=== PATIENT | female | born 1955 | race Caucasian/White ===

== ENCOUNTER → 2018-04-09 14:22 | Outpatient (CLI) | payer OTHER, SELFPAY ==
[2018-04-13 14:24] LABS: HPV Reflexed? NOT INDICATED
== END ==
PROVIDERS: Family Provider Preventive Medicine Occupational Medicine; PCP Preventive Medicine Occupational Medicine; Visit Provider Obstetrics & Gynecology
DX: Z12.4 Encounter for screening for malignant neoplasm of cervix (principal)
CPT/HCPCS: 88175; G0145

== ENCOUNTER → 2018-04-30 16:10 | Outpatient (CLI) | payer OTHER, SELFPAY ==
--- NOTE | 2018-04-30 16:15 | BI_ITS ---
MAMMOGRAPHY - BILATERAL SCREENING REASON FOR EXAM: Female, 62 years old. Routine annual screening examination. PERTINENT HISTORY: Non-contributory. TECHNIQUE: Digital bilateral breast lakshmi (3D mammographic acquisition) in the CC and MLO projections. 2-D mediolateral oblique (MLO) and craniocaudad (CC) views of both breasts were obtained. CAD: Full Field Digital Mammography with Computer Added Detection was performed. COMPARISON: Comparison is made with prior study dated March 20, 2017 and December 07, 2015. FINDINGS: Breast Composition: The breasts are extremely dense, which lowers the sensitivity of mammography. There are no dominant masses or suspicious calcifications. Stable scattered bilateral calcifications No other significant abnormalities are identified. There has been no significant change since the prior study. BI/SCREENING MAMM (CAD), BILAT IMPRESSION: Stable bilateral screening mammogram. Yearly follow-up mammogram recommended. (A) ASSESSMENT CATEGORY: BIRADS Category 2: Benign. A letter regarding these results will be sent to the patient by the facility within 30 days. Approximately 10% of breast cancers are not detected by mammography. A normal mammogram should not delay biopsy of a clinically suspicious abnormality. [id number] Electronically Signed: Perfecto Isbell MD at 11:21 EDT Tel [phone], Service support ,
== END ==
PROVIDERS: Family Provider Preventive Medicine Occupational Medicine; PCP Preventive Medicine Occupational Medicine; Visit Provider Obstetrics & Gynecology
DX: Z12.31 Encounter for screening mammogram for malignant neoplasm of breast (principal)
CPT/HCPCS: 77063; 77067

== ENCOUNTER 2018-07-03 12:16 | Emergency (ER) | payer OTHER, SELFPAY ==
[2018-07-03 12:19] VITALS: BP 149/100; PULSE 115; RESP 18; TEMP 37.3; O2SAT 99; BMI 18.9
--- NOTE | 2018-07-03 12:33 | CT_ITS ---
STUDY: CT ABDOMEN AND PELVIS WITHOUT CONTRAST REASON FOR EXAM: Female, 62 years old. Right flank and back pain RADIATION DOSAGE (If Supplied By Facility): CTDIvol = ( 4.74 ) mGy, DLP = ( 199.32 ) mGycm TECHNIQUE: Transaxial images were obtained from the dome of the diaphragm to the symphysis pubis without oral contrast, and without intravenous contrast. Sagittal and coronal images were reconstructed. Individualized dose optimization techniques were used for this CT. COMPARISON: None. FINDINGS: There are chronic interstitial fibrotic changes of the lung bases. The visualized portions of the heart are within normal limits. Normal liver. Normal gallbladder and extrahepatic biliary system. Normal spleen. Normal pancreas. Normal bilateral adrenal glands. Normal right kidney. Normal left kidney. Normal visualized stomach. Normal small intestine. Retained stool noted throughout the colon There is non-visualization of the appendix. Normal abdominal aorta. Normal inferior vena cava. Normal retroperitoneum. Normal urinary bladder. Uterus is still present, the endometrium cannot be accurately evaluated with CT. Normal abdominal wall. There are diffuse degenerative and postsurgical changes of the visualized lumbar spine. CT/Abdomen/Pelvis without Cont IMPRESSION: No suspicious solid organ abnormality, specifically, no obstructive uropathy. Retained stool noted throughout the colon Degenerative and postsurgical changes noted in the lumbar spine Electronically Signed: Travis Foster MD at 14:06 EST , Service support ,
[2018-07-03] MEDS: Morphine 4 MG/ML Syringe IV (13:25)
[2018-07-03] MEDS: Ondansetron 4 MG/2 ML Vial IV (13:25)
[2018-07-03] MEDS: 0.9% Normal Saline 1,000 ML 150 ML IV (13:25)
[2018-07-03 13:38] LABS: Absolute Lymphocyte Count 2.68 X10^3/ul (0.83-4.51); Absolute Neutrophil Count 4.6 X10^3/uL (2.0-7.7); Basophil# 0.04 X10^3/uL; Basophil% 0.5 % (0-1); Eosinophil# 0.19 X10^3/uL; Eosinophils% 2.3 % (0-5); Hematocrit 41.5 % (37-47); Hemoglobin 13.6 g/dl (12.0-15.0); Lymphocyte # 2.68 X10^3/ul (4.0); Lymphocyte % 31.8 % (19-41); Mean Corp Hgb Conc 32.8 g/gl (32-36); Mean Corpuscular Volume 97.6 fL (81-99); Mean Platelet Vol. 9.5 fl (6.2-12.0); Monocyte# 0.89 X10^3/uL; Monocyte% 10.5 % (0-10); Neutrophil # 4.63 X10^3/uL (2.7-7.7); Neutrophil % 54.8 % (47-70); Platelet Count 346 K/mm3 (150-450); RBC Distribution Width CV 12.9 % (11.6-14.6); RBC Distribution Width SD 45.8 fl (35.1-43.9); Red Blood Count 4.25 M/mm3 (4.2-5.4); White Blood Count 8.4 K/mm3 (4.4-11.0)
[2018-07-03 13:42] LABS: Anion Gap 7 (5-15); BUN 10 mg/dL (7-18); BUN/Creat Ratio 13.6 RATIO (10-20); Calcium,Total 9.1 mg/dL (8.5-10.1); Chloride 105 mmol/L (98-107); Creatinine, Serum 0.73 mg/dL (0.55-1.02); EST Glomerular Filtration Rate 85 mL/min (>60); Est Glom Filt Rate - Afr Amer 102 mL/min (>60); Estimated Creatinine Clearance 54.08 ml/min; Glucose 95 mg/dL (74-106); Potassium 3.4 mmol/L (3.5-5.1); Sodium Level 139 mmol/L (136-145)
[2018-07-03 13:43] LABS: POSITIVE COUNT NO; POSITIVE DIFFERENTIAL NO; POSITIVE MORPHOLOGY NO
[2018-07-03 14:23] LABS: Bacteria 0 SEEN /hpf (None Seen); Mucous, Urine 0 SEEN /hpf (<or=2+); White Blood Cells 0 SEEN /hpf (0-5)
[2018-07-03 14:34] LABS: Color, Urine Yellow (Yellow); Glucose, Dipstick Normal (Normal); Ketone-Dipstick 15 mg/dl (Negative); Leukocyte Esterase-Dipstick 25 /ul (Negative); Nitrite-Dipstick Negative (Negative); Occult Blood-Urine 50 /ul (Negative); Protein-Dipstick 30 mg/dl (Negative); Specific Gravity, Urine 1.015 (1.002-1.030); Urine Bilirubin Dipstick Negative (Negative); Urine Clarity Sl. Cloudy (Clear); Urine Urobilinogen 1 mg/dl (Normal)
[2018-07-03 14:49] LABS: Red Blood Cells-Urine 0-5 SEEN /hpf (0-5); Squamous Epithelial Cells - UA 0-5 SEEN /hpf (5-10)
--- NOTE | 2018-07-03 15:01 | ED.VISSUMM ---
- ER Visit Summary Date of Service: 07/03/18 Chief Complaint: Back pain [] History of Present Illness: The patient is a 62 F [presents to the emergency department complaint of back pain and started 5 days ago. Patient denies any trauma. Patient states that she has a history of chronic back pain issues and years ago had surgery on her low back to have a fusion 3 years ago. Patient denies any falls or trauma. She denies any urinary symptoms. She denies any fever. Patient denies weakness in the extremities. She denies any loss of bowel or bladder function. Patient's not had any nausea or vomiting. Patient rates the pain a 10 out of 10 currently. Physical Examination: [HEENT-PERRLA, EOMI. Cranial nerves II through XII grossly intact. TMs clear. Mucous membranes moist. No adenopathy. Cardiovascular-regular rate and rhythm without murmur or ectopy Lungs-clear to auscultation, chest wall stable without crepitus or subcu emphysema Abdomen-normoactive bowel sounds, soft, nontender, no rebound or rigidity, no peritoneal signs. Back exam-patient has no tenderness over the thoracic or lumbar spine. Patient does have some tenderness over the right lumbar paraspinal musculature into the right buttock that reproduces her pain. Patient has negative straight leg raises. Deep tendon reflexes are plus 2 out of 4 bilaterally at the patella and Achilles. Patient has normal L5 extension bilaterally. Extremities-intact ?4, normal range of motion, normal pulses, atraumatic] Test Results: [CBC with differential obtained was normal. Chemistries unremarkable. Urinalysis unremarkable. CT flank showed degenerative changes of the lumbar spine postsurgical changes otherwise nothing acute.] Emergency Department Course and Treatment: [Was medicated with Dilaudid and Zofran had good pain relief with that.] Treatment Plan: [She will be given a prescription for Flexeril and [place] and she is advised to follow-up with her orthopedic back specialist within next 3-5 days.] Disposition: [Discharged home in stable condition] Impression: [Back pain acute on chronic] This note was generated with [employer] dictation software. It may contain incorrect words, spelling, and punctuation that were not noted in review of the chart prior to signing ED Disposition - Plan for ED Patient: Chief Complaint: Back Referrals: Mac Trujillo DO [Primary Care Provider] -
[2018-07-03 15:04] VITALS: BP 121/75; PULSE 75; RESP 12; O2SAT 96
--- NOTE | 2018-07-03 15:04 | ED.DCSUM_ITS ---
- ER Visit Summary Date of Service: 07/03/18 Chief Complaint: Back pain [] History of Present Illness: The patient is a 62 F [presents to the emergency department complaint of back pain and started 5 days ago. Patient denies any trauma. Patient states that she has a history of chronic back pain issues and years ago had surgery on her low back to have a fusion 3 years ago. Patient denies any falls or trauma. She denies any urinary symptoms. She denies any fever. Patient denies weakness in the extremities. She denies any loss of bowel or bladder function. Patient's not had any nausea or vomiting. Patient rates the pain a 10 out of 10 currently. Physical Examination: [HEENT-PERRLA, EOMI. Cranial nerves II through XII grossly intact. TMs clear. Mucous membranes moist. No adenopathy. Cardiovascular-regular rate and rhythm without murmur or ectopy Lungs-clear to auscultation, chest wall stable without crepitus or subcu emphysema Abdomen-normoactive bowel sounds, soft, nontender, no rebound or rigidity, no peritoneal signs. Back exam-patient has no tenderness over the thoracic or lumbar spine. Patient does have some tenderness over the right lumbar paraspinal musculature into the right buttock that reproduces her pain. Patient has negative straight leg raises. Deep tendon reflexes are plus 2 out of 4 bilaterally at the patella and Achilles. Patient has normal L5 extension bilaterally. Extremities-intact ?4, normal range of motion, normal pulses, atraumatic] Test Results: [CBC with differential obtained was normal. Chemistries unremarkable. Urinalysis unremarkable. CT flank showed degenerative changes of the lumbar spine postsurgical changes otherwise nothing acute.] Emergency Department Course and Treatment: [Was medicated with Dilaudid and Zofran had good pain relief with that.] Treatment Plan: [She will be given a prescription for Flexeril and [place] and she is advised to follow-up with her orthopedic back specialist within next 3-5 days.] Disposition: [Discharged home in stable condition] Impression: [Back pain acute on chronic] This note was generated with [employer] dictation software. It may contain incorrect words, spelling, and punctuation that were not noted in review of the chart prior to signing ED Disposition - Plan for ED Patient: Chief Complaint: Back Referrals: Mac Trujillo DO [Primary Care Provider] -
--- NOTE | 2018-07-03 15:04 | ED.DEP ---
ED Disposition - Plan for ED Patient: Chief Complaint: Back Instructions: ED Neck Back Pain General, ED Spasm Back No Trauma Prescriptions: Hydrocodone Bitart/Apap 5-325 [[place] 5MG-325MG] 1 tab PO Q4H PRN PRN 2 Days #20 tab PRN Reason: Pain MethylPREDNISolone DosePak [Medrol DosePak] 4 mg PO UD #1 box Cyclobenzaprine [Flexeril] 10 mg PO TID PRN #20 tab PRN Reason: Muscle Spasm Referrals: Mac Trujillo DO [Primary Care Provider] - 3-5 Days Additional Instructions: See your back surgeon in 3-5 days
--- NOTE | 2018-07-03 15:07 | DCINST.ED_ITS ---
ED Disposition - Plan for ED Patient: Chief Complaint: Back Instructions: ED Neck Back Pain General, ED Spasm Back No Trauma Prescriptions: Hydrocodone Bitart/Apap 5-325 [[place] 5MG-325MG] 1 tab PO Q4H PRN PRN 2 Days #20 tab PRN Reason: Pain MethylPREDNISolone DosePak [Medrol DosePak] 4 mg PO UD #1 box Cyclobenzaprine [Flexeril] 10 mg PO TID PRN #20 tab PRN Reason: Muscle Spasm Referrals: Mac Trujillo DO [Primary Care Provider] - 3-5 Days Additional Instructions: See your back surgeon in 3-5 days
== END 2018-07-03 15:20 | disposition home or self-care (01) ==
PROVIDERS: Emergency Provider Emergency Medicine; Family Provider Preventive Medicine Occupational Medicine; PCP Preventive Medicine Occupational Medicine
DX: M54.9 Dorsalgia, unspecified (principal); G89.29 Other chronic pain; M51.36 Other intervertebral disc degeneration, lumbar region; Z72.0 Tobacco use
CPT/HCPCS: 74176; 80048; 81001; 85025; 96361; 96374; 96375; 99283; J7030; A4216; J2405

== ENCOUNTER → 2018-09-18 12:41 | Outpatient (CLI) | payer OTHER, SELFPAY ==
[2018-09-18 13:26] LABS: CREATININE FINGERSTICK 0.7 mg/dL (0.55-1.02); EGFR FINGERSTICK > 60.0000 mL/min (>60)
--- NOTE | 2018-09-18 13:45 | MRI_ITS ---
STUDY: MRI LUMBAR SPINE WITH AND WITHOUT CONTRAST REASON FOR EXAM: Female, 63 years old. Low back pain. Left leg numbness. TECHNIQUE: Standardized fat and water weighted pulse sequences were obtained in the sagittal and axial planes. 4 ml of Gadavist contrast material was administered for the contrast portion of the examination. COMPARISON: 04/29/2017. FINDINGS: T10-T11: (Sagittal only). Normal T10 inferior endplate. Slight anterior wedging of T11 superior endplates may be developmental or from remote injury. Pronounced disc space height narrowing. No ventral extradural defect. Normal central canal and bilateral intervertebral neural foramina. T11-T12: (Sagittal only). Normal T11 inferior endplate. Slight anterior wedging of T12 superior endplate may be developmental or from remote injury. Moderate disc space height narrowing. No ventral extradural defect. Normal central canal and bilateral intervertebral neural foramina. T12-L1: (Sagittal only). Normal T12 inferior endplate. Slight anterior wedging of L1 superior endplate with anterior marginal spur. Tiny posterior bulging disc. Normal central canal and bilateral intervertebral neural foramina. Normal lumbar lordosis. There is no substantial scoliosis. Normal conus medullaris that terminates at the T12-L1 disc level. L1-2: Normal T12 inferior endplate. Minimal anterior wedging of L2 superior endplate is presumably from remote injury. Moderate disc space height narrowing. Tiny posterior bulging disc. Normal central canal and bilateral lateral recesses. Normal facet joints. Normal bilateral intervertebral neural foramina. L2-3: Anterior wedging of the L2 inferior endplate is presumably from remote injury. Schmorl's node within the L3 superior endplate. Moderate disc space height narrowing. Pedicular screws and rods from previous posterior decompression fusion. Postsurgical absence of the spinous process and lamina. Normal central canal and bilateral lateral recesses. The facet joints are obscured by pedicular screws. Normal bilateral intervertebral neural foramina. L3-4: Normal endplates. Normal disc height and morphology. Mild central canal stenosis with an AP canal diameter to 11 mm. Normal bilateral lateral recesses. Mild asymmetric degenerative facet arthropathy. Normal bilateral intervertebral neural foramina. L4-5: Normal endplates. Normal disc height and morphology. Mild degenerative anterolisthesis of L4 on L5. Moderate central canal stenosis with an AP canal diameter is 7.4 mm. Normal bilateral lateral recesses. Left posterior ligamentum flavum hypertrophy. Mild asymmetric degenerative facet arthropathy. Normal bilateral intervertebral neural foramina. L5-S1: Normal endplates. Posterior disc space height narrowing. Left posterior paramedian disc protrusion. Normal central canal and bilateral lateral recesses. Mild asymmetric degenerative facet arthropathy. Moderate stenosis of the left intervertebral neural foramen. Normal right intervertebral neural foramen. Normal visualized sacral ala. Normal visualized paraspinous soft tissue structures. No abnormal enhancing lesions intradurally and extradurally. MRI/Spine Lumbar W/WO Contrast IMPRESSION: 1. Left L5-S1 posterior paramedian disc protrusion and moderate stenosis of the left intervertebral neural foramen. 2. Mild degenerative anterolisthesis of L4 on L5, moderate central canal stenosis and mild asymmetric L4-L5 degenerative facet arthropathy. 3. Mild central canal stenosis at L3-L4 disc level and mild asymmetric L3-L4 degenerative facet arthropathy. 4. Pedicular screws and rods at L2-L3 disc level from previous posterior decompression and fusion. 5. Minimal anterior wedging of the superior endplates of T11, T12, L1 and L2 vertebral bodies. They're presumably from remote injury. 6. No MRI evidence of lumbar extruded disc fragment. 7. No interval change when compared to 04/29/2017. Electronically Signed: Jesus Hilton MD at 10:48 EST , Service support ,
== END ==
PROVIDERS: Family Provider Preventive Medicine Occupational Medicine; PCP Preventive Medicine Occupational Medicine; Referring Provider Preventive Medicine Occupational Medicine; Visit Provider Preventive Medicine Occupational Medicine
DX: M54.16 Radiculopathy, lumbar region (principal); M51.36 Other intervertebral disc degeneration, lumbar region
CPT/HCPCS: 72158; A9585

== ENCOUNTER → 2019-09-02 07:28 | Outpatient (CLI) | payer OTHER, SELFPAY ==
[2019-09-02 08:25] LABS: Hematocrit 43.8 % (37-47); Hemoglobin 14.1 g/dL (12.0-15.0); Mean Corp Hgb Conc 32.2 g/dL (32-36); Mean Corpuscular Hgb 31.9 pg (27.0-32.0); Mean Corpuscular Volume 99.1 fL (81-99); Mean Platelet Vol. 9.4 fl (6.2-12.0); Platelet Count 338 K/mm3 (150-450); RBC Distribution Width CV 12.6 % (11.6-14.6); RBC Distribution Width SD 46.1 fl (35.1-43.9); Red Blood Count 4.42 M/mm3 (4.2-5.4); White Blood Count 6.7 K/mm3 (4.4-11.0)
[2019-09-02 08:45] LABS: ALB/GLOB Ratio 1.1 RATIO (0.9-2.4); AST(SGOT) 18 U/L (15-37); Alanine Aminotransfer ALT/SGPT 21 U/L (13-56); Albumin, Serum 3.9 g/dL (3.2-5.0); Alkaline Phosphatase 84 U/L (45-117); Anion Gap 4 (5-15); BUN 11 mg/dL (7-18); BUN/Creat Ratio 13.3 RATIO (10-20); Calcium,Total 9.4 mg/dL (8.5-10.1); Chloride 110 mmol/L (98-107); Cholesterol 207 mg/dL (200); Creatinine, Serum 0.83 mg/dL (0.55-1.02); EST Glomerular Filtration Rate 73 mL/min (>60); Est Glom Filt Rate - Afr Amer 89 mL/min (>60); Globulin 3.5 g/dL (2.2-4.2); Glucose 81 mg/dL (74-106); High Density Lipoprotein 61 mg/dL; Protein, Total 7.4 g/dL (6.4-8.2); Sodium Level 143 mmol/L (136-145); Thyroid Stim Hormone (TSH) 1.64 uIU/mL (0.358-3.74); Triglycerides 75 mg/dL; Very Low Density Lipoprotein 15 mg/dL (5-40)
== END ==
PROVIDERS: Family Provider Preventive Medicine Occupational Medicine; PCP Preventive Medicine Occupational Medicine; Referring Provider Preventive Medicine Occupational Medicine; Visit Provider Preventive Medicine Occupational Medicine
DX: R53.83 Other fatigue (principal); Z13.220 Encounter for screening for lipoid disorders
CPT/HCPCS: 36415; 80053; 80061; 84443; 85027

== ENCOUNTER → 2019-09-20 07:18 | Outpatient (CLI) | payer OTHER, SELFPAY ==
[2019-09-20 08:34] LABS: BUN 17 mg/dL (7-18); Creatinine, Serum 0.82 mg/dL (0.55-1.02); EST Glomerular Filtration Rate 74 mL/min (>60); Est Glom Filt Rate - Afr Amer 89 mL/min (>60)
== END ==
PROVIDERS: PCP Preventive Medicine Occupational Medicine; Referring Provider Orthopaedic Surgery Orthopaedic Surgery of the Spine; Visit Provider Orthopaedic Surgery Orthopaedic Surgery of the Spine
DX: M51.36 Other intervertebral disc degeneration, lumbar region (principal)
CPT/HCPCS: 36415; 82565; 84520

== ENCOUNTER → 2019-09-30 09:20 | Outpatient (CLI) | payer OTHER, SELFPAY ==
--- NOTE | 2019-09-30 09:27 | MRI_ITS ---
STUDY: MRI LUMBAR SPINE WITH AND WITHOUT CONTRAST REASON FOR EXAM: Female, 64 years old. back pain radiating into L leg x 1 year, h/o prior spinal fusion TECHNIQUE: Standardized fat and water weighted pulse sequences were obtained in the sagittal and axial planes. IV 9 cc Dotarem was administered for the contrast portion of the examination. COMPARISON: September 18, 2018 FINDINGS: T12-L1: Normal endplates. Narrowed disc height with desiccation of disc and minimal annular bulge.. Normal bilateral facet joints. Normal central canal and bilateral lateral recesses. Normal bilateral intervertebral neural foramina. Normal lumbar lordosis. There is moderate levo scoliosis. Normal conus medullaris that terminates at T12-L1 L1-2: Normal endplates. Narrowed disc height with desiccation of disc and minimal annular bulge with tiny right foraminal disc protrusion. Normal bilateral facet joints. Normal central canal and bilateral lateral recesses. Mild right neuroforaminal encroachment. L2-3: Mild endplate spurring.. Narrowed disc space with desiccation of the disc and minimal annular bulge.. Normal bilateral facet joints. Normal central canal and bilateral lateral recesses. Normal bilateral intervertebral neural foramina. L3-4: Normal endplates. Normal disc height, desiccation and small bilateral foraminal disc protrusions. Normal bilateral facet joints. Normal central canal and bilateral lateral recesses. Mild bilateral neural foraminal encroachment.. L4-5: Normal endplates. Normal disc height, hydration and mild annular bulge. Mild facet arthropathy and thickening of ligamenta flava. Normal central canal and bilateral lateral recesses. Moderate bilateral neuroforaminal stenosis L5-S1: Normal endplates. Normal disc height, desiccation and moderate annular bulge... Bilateral facet arthropathy and mild thickening of ligamenta flava.. Mild narrowing of the central canal and bilateral recesses. Moderate left neuroforaminal stenosis and mild encroachment on the right Normal visualized sacral ala. Normal visualized paraspinous soft tissue structures. No abnormal enhancement following contrast injections There is no significant interval change since previous study. MRI/Spine Lumbar W/WO Contrast IMPRESSION: No evidence for acute fracture or other significant bony pathology.. Scoliosis and degenerative changes. Postsurgical changes at L2-3. Mild multilevel spinal stenosis secondary to disc disease and bony hypertrophy most pronounced at L4-5 and L5-S1 greater on the left Electronically Signed: Keaton Carias MD at 19:11 EST , Service support ,
== END ==
PROVIDERS: PCP Preventive Medicine Occupational Medicine; Referring Provider Orthopaedic Surgery Orthopaedic Surgery of the Spine; Visit Provider Orthopaedic Surgery Orthopaedic Surgery of the Spine
DX: M51.26 Other intervertebral disc displacement, lumbar region (principal); M48.062 Spinal stenosis, lumbar region with neurogenic claudication; M51.36 Other intervertebral disc degeneration, lumbar region
CPT/HCPCS: 72158; A9575

== ENCOUNTER → 2020-06-03 10:32 | Outpatient (CLI) | payer MEDICARE, OTHER, SELFPAY ==
--- NOTE | 2020-06-03 10:30 | PET_ITS ---
EXAMINATION: FDG PET-CT INDICATIONS: A 64-year-old female with reported history of pulmonary nodularity. COMPARISON EXAMINATION: None available INDEX LESION SIZE SUV INTERPRETATION Right upper lung field-right upper lobe 12.4-mm (frame 179) 0.8 Quantitative criteria for viable neoplasm are not fulfilled, sequential radiologic investigation recommended TECHNIQUE: Following the intravenous administration of 12.4 mCi of F-18 deoxyglucose via the right forearm, multiplanar image acquisitions of the neck, chest, abdomen and pelvis to level of mid thigh, obtained at one hour post radiopharmaceutical administration contemporaneously interpreted with the current CT of the neck, chest, abdomen and pelvis, to level of mid thigh, dated 06/03/2020 via coregistration reveals: BLOOD GLUCOSE LEVEL:?? 97 mg/dl?HEIGHT:?61 inches?WEIGHT: 94 lbs. FINDINGS: 1. Subtle minimally increased FDG distribution is defined in the right upper medial lung-right upper lobe generating a calculated maximal standard uptake value of 0.8. The maximal axial diameter of the corresponding parenchymal density on review of CT of the chest dated 06/03/2020 is 12.4-mm. 2. Normal physiologic distribution of the radiopharmaceutical is apparent in the hepatic (2.1) and splenic parenchyma, both renal units, bladder and visualized intestinal tract. Diffuse radiopharmaceutical concentration is noted in all four quadrants of the abdomen and pelvis. Prominent radiopharmaceutical concentration is observed in the left ventricular myocardium commensurate with the [place]. The visualized portion of the cerebral cortex, as well as cerebellar hemispheres demonstrate symmetric and preserved glucose metabolism. Pertinent CT findings are as follows: CHEST: There is atherosclerotic calcification defined in the thoracic aorta without evidence of dilatation-aneurysm formation. Coronary arterial calcification is observed. Bilateral axillary soft tissue densities with fatty hilus are ametabolic. Scattered mediastinal soft tissue demonstrates no evidence of quantitatively significant increased FDG distribution. There are no additional parenchymal densities-nodules defined in the right and left hemithorax with discernible quantitatively significant increased FDG uptake. ABDOMEN AND PELVIS: There is atherosclerotic calcification defined in the abdominal aorta without evidence of dilatation-aneurysm formation. Pelvic arterial calcification is defined. Right and left inguinal soft tissue densities with fatty hilus are ametabolic. Postsurgical changes are manifest in the bilateral lower hemipelvis. SKELETAL: Degenerative changes are noted in the cervical, thoracic and lumbar spine. Orthopedic hardware placement consistent with spinal fusion operative intervention. Degenerative changes are noted in the cervical, thoracic and lumbar spine. PET/PET/CT Tumor Base -Thigh Init IMPRESSION: 1. NEGATIVE EXAMINATION. There is no definitive quantitative scintigraphic evidence of viable neoplasm. 2. Barely perceptible increased fluorine labeled glucose uptake visualized in the right upper lung-right upper lobe does not fulfill quantitative criteria for viable neoplasm. (Alvarez et al, Annals of Internal Medicine, 138:724, 2003). 3. Metabolic and/or anatomic stability may be ensured in the right upper lung abnormality with repeat FDG PET study and/or CT of the thorax in 3-6 months if clinically indicated. (Xiu, Journal of Nuclear Medicine 45:88, P2004 Valeri, Seminars in Thoracic and Cardiovascular Surgery 14:292, 2002). Electronic Signature Nader Ordaz D.O. Accurate Quantification of SUVs for this report are calculated using the exclusive [employer]. Electronically Signed: Nader Ordaz DO at 22:55 EDT Tel , Service support ,
== END ==
PROVIDERS: PCP Preventive Medicine Occupational Medicine; Referring Provider Student in an Organized Health Care Education/Training Program; Visit Provider Student in an Organized Health Care Education/Training Program
DX: R91.8 Other nonspecific abnormal finding of lung field (principal)
CPT/HCPCS: 78815; A9552

== ENCOUNTER → 2020-08-24 12:41 | Outpatient (CLI) | payer MEDICARE, OTHER, SELFPAY ==
--- NOTE | 2020-08-24 12:47 | BI_ITS ---
MAMMOGRAPHY - BILATERAL SCREENING REASON FOR EXAM: Female, 65 years old. Routine annual screening examination. PERTINENT HISTORY: Non-contributory. TECHNIQUE: Digital bilateral breast manisha (3D mammographic acquisition) in the CC and MLO projections. 2-D mediolateral oblique (MLO) and craniocaudad (CC) views of both breasts were obtained. CAD: Full Field Digital Mammography with Computer Added Detection was performed. COMPARISON: Comparison is made with prior examination is 04/30/2018 and 03/20/2017. FINDINGS: Breast Composition: The breasts are extremely dense, which lowers the sensitivity of mammography. There are no dominant masses or suspicious calcifications. Stable scattered bilateral calcifications. No other significant abnormalities are identified. There has been no significant change since the prior study. BI/SCREEN MAMM (CAD) W/MANISHA BILAT IMPRESSION: Stable bilateral screening mammogram. Yearly follow-up mammogram recommended. (A) ASSESSMENT CATEGORY: BIRADS Category 2: Benign. A letter regarding these results will be sent to the patient by the facility within 30 days. Approximately 10% of breast cancers are not detected by mammography. A normal mammogram should not delay biopsy of a clinically suspicious abnormality. [id number] Electronically Signed: Perfecto Isbell, at 13:51 EST , Service support ,
== END ==
PROVIDERS: PCP Preventive Medicine Occupational Medicine; Referring Provider Obstetrics & Gynecology; Visit Provider Obstetrics & Gynecology
DX: Z12.31 Encounter for screening mammogram for malignant neoplasm of breast (principal)
CPT/HCPCS: 77063; 77067

== ENCOUNTER → 2021-03-13 16:20 | Outpatient (CLI) | payer MEDICARE, OTHER, SELFPAY ==
--- NOTE | 2021-03-13 16:00 | PET_ITS ---
EXAMINATION: FDG PET-CT INDICATIONS: A 65-year-old female presenting for reevaluation of pulmonary nodularity. COMPARISON EXAMINATION: FDG PET-CT study dated 06/03/20, CT of the chest report dated 05/16/20 INDEX LESION SIZE SUV INTERPRETATION PERSISTENT: right upper lung-right upper lobe 17.8-mm (frame 170) comp. to 12.4-mm (06/03/20) 2.9 comp. to 0.8 (06/03/20) Fulfills quantitative criteria for viable neoplasm, histopathologic analysis recommended TECHNIQUE: Following the intravenous administration of 10.97 mCi of F-18 deoxyglucose via the left antecubital fossa, multiplanar image acquisitions of the neck, chest, abdomen and pelvis to level of mid thigh, obtained at one hour post radiopharmaceutical administration contemporaneously interpreted with the current CT of the neck, chest, abdomen and pelvis, to level of mid thigh, dated 03/13/21 via coregistration and FDG PET-CT study dated 06/03/[address] of the chest report dated 05/16/20 reveals: BLOOD GLUCOSE LEVEL:?? 95 mg/dl?HEIGHT:?60 inches?WEIGHT: 90 lbs. FINDINGS: 1. Redefined increased FDG concentration is observed in the right upper medial lung-right upper lobe generating a current calculated maximal standard uptake value of 2.9, compared to 0.8 defined on the examination dated 06/03/20. The maximal axial diameter of the persistently defined non-calcified density noted on CT of the chest dated 03/13/21 is 17.8-mm (transverse). 2. Normal physiologic distribution of the radiopharmaceutical is apparent in the hepatic (1.8/2.1) and splenic parenchyma, both renal units, bladder and visualized intestinal tract. The visualized portion of the cerebral cortical-subcortical structures demonstrate symmetric and preserved glucose metabolism. Diffuse radiopharmaceutical concentration is noted in all four quadrants of the abdomen and pelvis. Previously defined morphologic-anatomic changes noted on review of CT of the neck, chest, abdomen and pelvis on the FDG PET-CT report dated 06/03/20, are essentially unchanged on the current examination. PET/PET/CT Tumor Base -Thigh Init IMPRESSION: 1. The increase in FDG distribution redefined in the right upper medial lung-right upper lobe fulfills quantitative criteria for viable neoplasm on the current examination. Histopathologic analysis is recommended. (Alvarez et al, Annals of Internal Medicine, 138:724, 2003). 2. Overall, compared to the previous FDG PET-CT study dated 06/03/20, the persistently defined increase in FDG concentration observed in the right upper medial lung-right upper lobe fulfills quantitative criteria for viable neoplasm on the current examination. Accordingly, histologic investigation is recommended. (Antonio et al, Annals of Internal Medicine, 138:724, 2003). Electronic Signature Nader Ordaz D.O. Accurate Quantification of SUVs for this report are calculated using the exclusive [employer]. (U.S. Patent No. 10, [id number] 983). Standardization and correction of the FDG SUV metric via [employer] technology allow for vendor non-specific objective quantitative examination comparison and optimization of the sensitivity and specificity of the FDG PET-CT examination. Electronically Signed: Nader Ordaz DO at 22:01 EDT Tel , Service support ,
== END ==
PROVIDERS: PCP Preventive Medicine Occupational Medicine; Referring Provider Preventive Medicine Occupational Medicine; Visit Provider Preventive Medicine Occupational Medicine
DX: R91.8 Other nonspecific abnormal finding of lung field (principal)
CPT/HCPCS: 78815; A9552

== ENCOUNTER → 2022-01-16 | Outpatient (CLI) | payer MEDICARE, OTHER, SELFPAY ==
--- NOTE | 2022-01-16 07:45 | CT_ITS ---
STUDY: CT CHEST WITHOUT CONTRAST REASON FOR EXAM: Female, 66 years old. History of non-small cell lung cancer. Prior right upper lobe resection. RADIATION DOSAGE (If Supplied By Facility): CTDIvol = ( 6.04 ) mGy, DLP = ( 217.50 ) mGycm TECHNIQUE: Transaxial imaging was performed without the administration of intravenous contrast material. Multiplanar coronal and sagittal images were reformatted. Individualized dose optimization techniques were used for this CT. COMPARISON: No relevant priors. FINDINGS: CHEST The patient is status post resection of the right upper lobe. Linear postoperative scarring is seen along the anterior aspect of the right upper lobe. Emphysematous changes more prominent in the upper lobes. Mild linear scarring at the right lung base. Mild scarring and bronchiectasis along the medial aspect of the right middle lobe. There is no demonstrated pleural abnormality. There are calcifications of the coronary arteries. Normal mediastinum. Normal hilar regions. Normal unenhanced pulmonary arteries. Atherosclerotic plaque calcification of the aortic arch. There are multi-level degenerative changes of the thoracic spine. There is no demonstrated abnormality of the visualized upper abdomen. CT/Chest without Contrast IMPRESSION: Status post resection of the right upper lobe with postoperative scarring. No other abnormality is seen. Electronically Signed: Perfecto Isbell MD at 10:03 EDT ,
== END | disposition home or self-care (01) ==
LOC: CT 07:44
PROVIDERS: PCP Preventive Medicine Occupational Medicine; Visit Provider Internal Medicine Medical Oncology
DX: Z85.118 Personal history of other malignant neoplasm of bronchus and lung (principal); Z90.2 Acquired absence of lung [part of]
CPT/HCPCS: 71250

== ENCOUNTER → 2022-07-22 | Outpatient (CLI) | payer MEDICARE, OTHER, SELFPAY ==
--- NOTE | 2022-07-22 13:22 | CT_ITS ---
INDICATION: MONITOR LUNG CA History of non-small cell lung cancer. EXAMINATION: CT CHEST WITHOUT CONTRAST - CT Chest W/O Contrast Injection TECHNIQUE: Helically acquired images were obtained of the chest. A radiation dose optimization technique was used for this scan. IV Contrast dosage and agent: None. COMPARISON: January 16, 2022 CT scan chest,, PET scan June 03, 2020 FINDINGS: LUNGS, PLEURA AND LARGE AIRWAYS: There is minimal fibrotic change within the right upper lobe periphery. There is mild right lower lobe scarring with minimal thickening measuring up to 4 mm. This is stable since prior study January 16, 2022. There is a focal pleural-based density measuring 2.5 x 2.9 mm stable since prior study. The visualized emphysematous change in the lungs as described on prior study greater in the lung apices. There is a tiny nodular density within the super aspect of the right lower lobe that measures 2.6 mm. No pleural effusion or thickening. No pneumothorax. THYROID: No thyroid lesions. HEART AND PERICARDIUM: There is visualized fairly dense left anterior descending coronary artery calcification. No pericardial effusion. CORONARY ARTERIES: Coronary artery calcification is seen. VESSELS: Aorta is minimally calcified. The ascending thoracic aorta measures 3.4 x 3.3 cm. MEDIASTINUM AND SKIP there is postoperative change in the right side of the hilum anterior to the right side mainstem bronchus. No special mediastinal or hilar adenopathy. Esophagus is unremarkable. Minimal hiatal hernia. UPPER ABDOMEN: Limited visualization of the upper abdomen. There is a partially visualized thoracic spine fusion causing beam hardening artifact. Bones: There is degenerative change at the level of the L1-L2 level especially at the endplate. The bones are degenerative in mildly inhomogeneous. At the level of T4 there is an indeterminate focus of low attenuation measuring 9.3 mm. This is also seen on the prior study and also suggested on prior PET/CT June 03, 2020. CT/Chest without Contrast IMPRESSION: Stable chest. There is persistent scarring in the right lung base. There is a stable 2.6 mm right lower lobe nodule and a focus of pleural-based thickening. Continued follow-up is recommended in 6 months or as clinically appropriate. Status post right upper lobectomy. Coronary artery calcification with dense calcification of the left anterior descending coronary artery. Inhomogeneous appearance of the bony mineralization of the thoracic and lumbar spine. Stable 9.3 mm low attenuating lesion within the level of T4. This may represent a cyst or hemangioma. However given the patient''s clinical history recommend follow bone scan. There is a visualized degenerative appearance of the L1-L2 level above the lumbar spine fusion which is partially visualized on this study. Electronically Signed: Danielle Jean-Baptiste MD at 17:14 EST ,
== END | disposition home or self-care (01) ==
LOC: CT 13:20
PROVIDERS: PCP Preventive Medicine Occupational Medicine; Visit Provider Internal Medicine Medical Oncology
DX: C34.11 Malignant neoplasm of upper lobe, right bronchus or lung (principal)
CPT/HCPCS: 71250

== ENCOUNTER → 2022-08-02 | Outpatient (CLI) | payer MEDICARE, OTHER, SELFPAY | END | disposition home or self-care (01) | LOC: LABSPEC 09:50 | PROVIDERS: PCP Preventive Medicine Occupational Medicine; Visit Provider Obstetrics & Gynecology | DX: N39.0 Urinary tract infection, site not specified (principal) | CPT/HCPCS: 87086 ==

== ENCOUNTER → 2022-08-15 | Outpatient (CLI) | payer MEDICARE, OTHER, SELFPAY ==
--- NOTE | 2022-08-15 07:43 | BI_ITS ---
MAMMOGRAPHY - BILATERAL SCREENING REASON FOR EXAM: Female, 67 years old. Routine annual screening examination. PERTINENT HISTORY: Non-contributory. TECHNIQUE: Digital bilateral breast manisha (3D mammographic acquisition) in the CC and MLO projections. 2-D mediolateral oblique (MLO) and craniocaudad (CC) views of both breasts were obtained. CAD: Full Field Digital Mammography with Computer Added Detection was performed. COMPARISON: 08/24/2020, 04/30/2018. FINDINGS: Breast Composition: The breasts are extremely dense, which lowers the sensitivity of mammography. There are no dominant masses or suspicious calcifications. There are stable scattered benign-appearing bilateral breast calcifications. No other significant abnormalities are identified. There has been no significant change since the prior study. BI/SCRN MAMM (CAD)W/MANISHA BILAT IMPRESSION: Stable bilateral screening mammogram. Yearly follow-up mammogram recommended. (A) ASSESSMENT CATEGORY: BIRADS Category 2: Benign. A letter regarding these results will be sent to the patient by the facility within 30 days. Approximately 10% of breast cancers are not detected by mammography. A normal mammogram should not delay biopsy of a clinically suspicious abnormality. Electronically Signed: Carlton Schaeffer, at 15:58 EST ,
== END | disposition home or self-care (01) ==
LOC: OPBI 07:41
PROVIDERS: PCP Preventive Medicine Occupational Medicine; Visit Provider Obstetrics & Gynecology
DX: Z12.31 Encounter for screening mammogram for malignant neoplasm of breast (principal)
CPT/HCPCS: 77063; 77067

== ENCOUNTER → 2023-01-21 | Outpatient (CLI) | payer MEDICARE, OTHER, SELFPAY ==
--- NOTE | 2023-01-21 13:11 | CT_ITS ---
INDICATION: MONITOR LUNG CA/NODULE EXAMINATION: CT CHEST WITHOUT CONTRAST - CT Chest W/O Contrast Injection TECHNIQUE: Helically acquired images were obtained of the chest. A radiation dose optimization technique was used for this scan. IV Contrast dosage and agent: None. RADIATION DOSAGE (If Supplied By Facility): CTDIvol = ( 6.04 ) mGy, DLP = ( 197.86 ) mGycm COMPARISON: July 22, 2022 FINDINGS: LUNGS, PLEURA AND LARGE AIRWAYS: Hyperaeration of the lungs. Stable right lower lobe posterior pleural-based nodule, image 87 series 4. Stable scarring in the right base. Stable left upper lobe interstitial prominence. Stable 3 mm left lower lobe nodule, image 35 series 4. No pneumothorax. THYROID: No thyroid lesions. HEART AND PERICARDIUM: Heart size is normal. No pericardial effusion. CORONARY ARTERIES: Coronary artery calcification VESSELS: Thoracic aorta is not dilated. MEDIASTINUM AND SKIP: No mediastinal or hilar adenopathy. Esophagus is unremarkable. No hiatal hernia. UPPER ABDOMEN: No acute pathology. BONES: Lytic vertebral lesions similar to previous study. Degenerative vertebral changes. Compression with surgical fusion of the visualized upper lumbar segments. CT/Chest without Contrast IMPRESSION: Hyperaeration. Stable right pulmonary nodular densities and scarring is noted. Possible lytic vertebral lesions similar to the previous study. Electronically Signed: Ghulam Guillory DO at 21:42 EDT ,
== END | disposition home or self-care (01) ==
LOC: CT 13:07
PROVIDERS: PCP Preventive Medicine Occupational Medicine; Referring Provider Internal Medicine Medical Oncology; Visit Provider Internal Medicine Medical Oncology
DX: C34.90 Malignant neoplasm of unspecified part of unspecified bronchus or lung (principal)
CPT/HCPCS: 71250

== ENCOUNTER → 2023-08-19 | Outpatient (CLI) | payer MEDICARE, OTHER, SELFPAY ==
--- NOTE | 2023-08-19 14:34 | CT_ITS ---
EXAM: CT CHEST WITHOUT INTRAVENOUS CONTRAST CLINICAL INDICATION: MONITOR LUNG CA TECHNIQUE: Helically acquired images were obtained of the chest without intravenous contrast. This CT exam was performed using one or more of the following dose reduction techniques: automated exposure control, adjustment of the mA and/or kV according to patient size, and/or use of iterative reconstruction technique. RADIATION DOSE: CTDIvol = 6.04 mGy, DLP = 196.35 mGy-cm COMPARISON: CT chest with contrast 07/20/2023. FINDINGS: LUNGS AND PLEURAL SPACES: Minimal subsegmental atelectases in the right lung base. No suspicious pulmonary nodules. Pulmonary hyperinflation and flattening of the hemidiaphragms. No pleural effusion or thickening. No pneumothorax. HEART: Unremarkable. Heart size is normal. Normal cardiac size. Calcified plaques in the LAD branch. Normal pericardium. MEDIASTINUM: Unremarkable. No mediastinal or hilar adenopathy. Esophagus is unremarkable. No hiatal hernia. THYROID: Unremarkable. No thyroid lesions. BONES/JOINTS: Unremarkable. No suspicious lytic or blastic abnormality. VASCULATURE: Unremarkable. Thoracic aorta is non-dilated. CT/Chest without Contrast IMPRESSION: 1. No suspicious lung mass or residual lung mass. 2. Cystic emphysema predominant type of COPD. 3. Minimal subsegmental atelectasis right base is a new finding. Minimal subsegmental atelectasis left lung base is unchanged.. Electronically Signed: Jesus Hilton MD at 10:50 EST ,
--- OUTSIDE RECORDS SUMMARY | 2023-08-19 17:06 | XMS RPT_ITS | CCD ---
Author Name Unknown Address [address] [place] [address] Organization [facility] Care Team Providers Care Candy Cooker Helper Name Role Phone Keaton Chaney Referring Unavailable Jamey García Admitting Unavailable Jamey García Attending Unavailable Analy Infante MD Primary Care Unavailable Tanya Willard Admitting Unavailable Tanya Willard Attending Unavailable Analy Mondragon Primary Care Unavailable Jamey García Admitting Unavailable Jamey García Attending Unavailable Analy Mondragon Primary Care Unavailable Sudheer Tanya Admitting Unavailable Sudheer Tanya Attending Unavailable Analy Mondragon Primary Care Unavailable Jamey García Admitting Unavailable Jamey García Attending Unavailable Analy Mondragon Primary Care Unavailable ANALY MONDRAGON DO Primary Care Physician [phone] ANALY MONDRAGON DO Primary Care Physician [phone] Glendy ZULETA, Chana Neri Unavailable Unavailable Simon Torresing Nurse, Cody Unavailable ANALY Wynn MD Attending Unavailable ANALY MONDRAGON DO Primary Care Unavailable ANALY ANAYA MD Attending Unavailable ANALY MONDRAGON DO Primary Care Unavailable EZEKIEL BENITEZ MD Attending Unavailable ANALY MONDRAGON DO Primary Care Unavailable DR BROWN WETZEL MD Attending Unavailabl e ANALY MONDRAGON DO Primary Care Unavailable ANALY MONDRAGON DO Attending Unavailable ANALY MONDRAGON DO Primary Care Unavailable HELENA TEERSA MD Attending Unavailable HELENA TERESA MD Consulting Unavailable ANALY MONDRAGON DO Primary Care Unavailable ANALY MONDRAGON DO Primary Care Unavailable ANALY ANAYA MD Attending Unavailable EZEKIEL BENITEZ MD Admitting Unavailable EZEKIEL BENITEZ MD Attending Unavailable BELKIS FISHER MD, V Consulting Unavailable GIANCARLO DO, ANALY Primary Care Unavailable SARTHAK GONZÁLES, SIERRA Consulting Unavailable ELI GONZÁLES, EZEKIEL K Consulting Unavailable ELI GONZÁLES, EZEKIEL K Admitting Unavailable ELI GONZÁLES, EZEKIEL Fisher Attending Unavailable GIANCARLO DO, ANALY Consulting Unavailable GIANCARLO DO, ANALY Primary Care Unavailable ARTUR HERNANDEZ MD Consulting Unavailab Swapna GONZÁLES, EDWINA Consulting Unavailable GIANCARLO DO, ANALY Primary Care Unavailable GRANT CHATMAN, POPPY [place] Attending Dunia vailable ELI GONZÁLES, EZEKIEL Fisher Attending Unavailable GIANCARLO DO, ANALY Primary Care Unavailable GIANCARLO DO, ANALY Primary Care Unavailable ANALY ANAYA MD Attending Unavailable GIANCARLO DO, ANALY Primary Care Unavailable HÉCTOR GONZÁLES, ANALY Yusuf Attending Unavailable GIANCARLO DO, ANALY Primary Care Unavailable SARA MELISSA Attending Unavailable ELI GONZÁLES, EZEKIEL Fisher Attending Unavailable GIANCARLO DO, ANALY Primary Care Unavailable ELI GONZÁLES, EZEKIEL Fisher Attending Unavailable GIANCARLO DO, ANALY Primary Care Unavailable ELI GONZÁLES, EZEKIEL Fisher Attending Unavailable GIANCARLO DO, ANALY Primary Care Unavailable GIANCARLO DO, ANALY Primary Care Unavailable SARA MELISSA Attending Unavailable GIANCARLO DO, ANALY Attending Unavailable GIANCARLO DO, ANALY Primary Care Unavailable HÉCTOR GONZÁLES, ANALY Yusuf Attending Unavailable GIANCARLO DO, ANALY Primary Care Unavailable GIANCARLO DO, ANALY Primary Care Unavailable GRANT CHATMAN, POPPY De [place] Attending Dunia vailable GRANT AWAN-BOWLING BALL GRADER, POPPY De La [place] Attending Dunia vailable GIANCARLO DO, ANALY Primary Care Unavailable DONATO LOMAS MD Attending Unavailable GIANCARLO DO, ANALY Primary Care Unavailable HELENA TERESA MD Attending Unavailable GIANCARLO DO, ANALY Primary Care Unavailable BURNS DIRECTOR [employer]S-BOWLING BALL GRADER, POPPY De La [place] Attending Dunia vailable GIANCARLO DO, ANALY Primary Care Unavailable Allergies Allergy Classification Reported Allergen(s) Allergy Type Date of Onset Reaction(s) Facility (1 source) No Known Medication Allergies; Translations: [No Known Medication Allergies] Propensity to adverse reactions to drug (disorder) [facility] Repository (20 sources) Iodine; Translations: [iodine] Drug Allergy Rash [facility] Medications Current Medications Medication Drug Class(es) Dates Sig (Normalized) Sig (Original) acetaminophen 325 mg oral capsule (20 sources) Start: 07-21-2023 Tylenol 325 mg oral capsule Dose : 650 mg =, Oral, q4h, PRN Pain, scale 1-6, 0 Refill(s) Start Date: 07/21/23 Status: Ordered Completed/Discontinued Medications Medication Drug Class(es) Dates Sig (Normalized) Sig (Original) buprenorphine 0.15 mg buccal film (1 source) Partial Opioid Agonist Start: 01-15-2023 End: 02-14-2023 buprenorphine 150 mcg buccal film Dose : 150 mcg = 1 EA, Buccal, q12h, Patient not tolerating [place] and oxycodone, # 60 film, 0 Refill(s), Pharmacy: [id number], Lumbar postlaminectomy syndrome Lumbar radiculopathy, 152, cm, 01/15/23 9:17:00 EDT, Height, 39 Start Date: 01/15/23 Stop Date: 02/14/23 Status: Ordered 1 ml denosumab 60 mg/ml prefilled syringe (20 sources) RANK Ligand Inhibitor Start: 06-11-2023 Prolia 60 mg/mL subcutaneous solution Dose : 60 mg = 1 mL, Subcutaneous, q6mo, # 1 mL, 0 Refill(s), Osteoporosis Start Date: 06/11/23 Status: Ordered Problems Active Problems Problem Classification Problem Date Documented Date Episodic/Chronic Abdominal hernia (10 sources) Left inguinal hernia ; Translations: [Femoral hernia] Onset: 10-03-2022 08-29-2022 Episodic Acute cerebrovascular disease (2 sources) Cerebral hemorrhage; Translations: [Nontraumatic intracerebral hemorrhage, unspecified] Onset: 07-21-2023 Chronic Acute posthemorrhagic anemia (1 source) Acute posthemorrhagic anemia; Translations: [Acute posthemorrhagic anemia] Onset: 06-27-2021 Episodic Administrative/social admission (5 sources) Under care of statuary painter 05-27-2023 Episodic Allergic reactions (20 sources) 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 compound 05-12-2020 Episodic Anxiety disorders (5 sources) Panic attack 05-27-2023 Chronic Cancer of bronchus; lung (20 sources) Malignant neoplasm of lower respiratory tract; Translations: [Malignant neoplasm of unspecified part of unspecified bronchus or lung] Onset: 06-21-2021 Chronic Chronic obstructive pulmonary disease and bronchiectasis (5 sources) Chronic obstructive lung disease 05-27-2023 Chronic Headache; including migraine (1 source) Headache; Translations: [Headache, unspecified] Onset: 07-25-2023 Episodic Heart valve disorders (20 sources) Mitral valve prolapse 09-01-2019 Chronic Intracranial injury (2 sources) Intracranial hemorrhage following injury; Translations: [Traumatic hemorrhage of right cerebrum without loss of consciousness, initial encounter] Episodic Malaise and fatigue (20 sources) Fatigue 09-01-2019 Episodic Mood disorders (20 sources) Recurrent major depression; Translations: [Depressive disorder] Onset: 06-27-2021 01-17-2021 Chronic Nonspecific chest pain (20 sources) Chest pain; Translations: [Chest pain, unspecified] Onset: 07-21-2021 Episodic Past or Other Problems Problem Classification Problem Date Documented Da te Episodic/Chronic Unclassified (1 source) History of SARS-CoV-2; Translations: [Personal history of COVID-19] Onset: 06-27-2021 Results Test Name Value Interpretation Reference Range Facil ity Vital Signs Date Time Vital Sign Value Performing Clinician Faci lity 07-25-2023 23:31-0500 Diastolic Blood Pressure Non-Invasive 79 mm[Hg] DONATO LOMAS MD [facility] 07-25-2023 23:31-0500 Heart rate 64 /min DONATO LOMAS MD [facility] 07-25-2023 23:31-0500 Respiratory rate 16 /min DONATO LOMAS MD [facility] 07-25-2023 23:31-0500 Systolic Blood Pressure Non-Invasive 122 mm[Hg] DONATO LOMAS MD [facility] 07-25-2023 22:25-0500 Blood Pressure Cuff Size DONATO LOMAS MD [facility] 07-25-2023 22:25-0500 Blood Pressure Location DONATO LOMAS MD [facility] 07-25-2023 22:25-0500 Blood Pressure Method DONATO LOMAS MD [facility] 07-25-2023 22:25-0500 Body temperature 97.7 [degF] DONATO LOMAS MD [facility] 07-25-2023 22:25-0500 Diastolic Blood Pressure Non-Invasive 72 mm[Hg] DONATO LOMAS MD [facility] 07-25-2023 22:25-0500 Heart rate 88 /min DONATO LOMAS MD [facility] 07-25-2023 22:25-0500 Respiratory rate 18 /min DONATO LOMAS MD [facility] 07-25-2023 22:25-0500 Systolic Blood Pressure Non-Invasive 113 mm[Hg] DONATO LOMAS MD [facility] 07-21-2023 11:45-0500 Body temperature 97.88 [degF] EZEKIEL BNEITEZ MD [address] 07-21-2023 11:45-0500 Diastolic Blood Pressure Non-Invasive 64 mm[Hg] EZEKIEL BENITEZ MD [address] [place] [address] 07-21-2023 11:45-0500 Heart rate 83 /min EZEKIEL BENITEZ MD [address] [place] [address] 07-21-2023 11:45-0500 Mean blood pressure 80 mm[Hg] EZEKIEL BENITEZ MD [address] [place] [address] 07-21-2023 11:45-0500 Reason For Taking VItal Signs EZEKIEL BENITEZ MD [address] [place] [address] 07-21-2023 11:45-0500 Respiratory rate 14 /min EZEKIEL BENITEZ MD [address] [place] [address] 07-21-2023 11:45-0500 Systolic Blood Pressure Non-Invasive 117 mm[Hg] EZEKIEL BENITEZ MD [address] [place] [address] 07-21-2023 08:10-0500 Diastolic Blood Pressure Non-Invasive 73 mm[Hg] EZEKIEL BENITEZ MD [address] [place] [address] 07-21-2023 08:10-0500 Heart rate 70 /min EZEKIEL BENITEZ MD [address] [place] [address] 07-21-2023 08:10-0500 Mean blood pressure 85 mm[Hg] EZEKIEL BENITEZ MD [address] [place] [address] 07-21-2023 08:10-0500 Reason For Taking VItal Signs EZEKIEL BENITEZ MD [address] [place] [address] 07-21-2023 08:10-0500 Respiratory rate 15 /min EZEKIEL BENITEZ MD [address] [place] [address] 07-21-2023 08:10-0500 Systolic Blood Pressure Non-Invasive 122 mm[Hg] EZEKIEL BENITEZ MD [address] [place] [address] 07-21-2023 03:50-0500 Body temperature 97.88 [degF] EZEKIEL BENITEZ MD [address] [place] [address] 07-21-2023 03:50-0500 Diastolic Blood Pressure Non-Invasive 99 mm[Hg] EZEKIEL BENITEZ MD [address] [place] [address] 07-21-2023 03:50-0500 Heart rate 79 /min EZEKIEL BENITEZ MD [address] [place] [address] 07-21-2023 03:50-0500 Mean blood pressure 108 mm[Hg] EZEKIEL BENITEZ MD [address] [place] [address] 07-21-2023 03:50-0500 Reason For Taking VItal Signs EZEKIEL BENITEZ MD [address] [place] [address] 07-21-2023 03:50-0500 Respiratory rate 18 /min EZEKIEL BENITEZ MD [address] [place] [address] 07-21-2023 03:50-0500 Systolic Blood Pressure Non-Invasive 117 mm[Hg] EZEKIEL BENITEZ MD [address] [place] [address] 07-20-2023 20:27-0500 Body temperature 98.06 [degF] EZEKIEL BENITEZ MD [address] [place] [address] 07-19-2023 13:18-0500 Body height 152.4 cm EZEKIEL BENITEZ MD [address] [place] [address] 07-19-2023 13:18-0500 Body weight 40.3 kg EZEKIEL BENITEZ MD [address] [place] [address] 07-19-2023 13:18-0500 Body weight 17.35 kg/m2 EZEKIEL BENITEZ MD [address] [place] [address] 07-19-2023 13:15-0500 Heart rate 85 /min EZEKIEL BENITEZ MD [address] 07-19-2023 12:15-0500 Diastolic Blood Pressure Non-Invasive 84 mm[Hg] DR BROWN WETZEL MD [facility] 07-19-2023 12:15-0500 Heart rate 71 /min DR BROWN WETZEL MD [facility] 07-19-2023 12:15-0500 Respiratory rate 24 /min DR BROWN WETZEL MD [facility] 07-19-2023 12:15-0500 Systolic Blood Pressure Non-Invasive 144 mm[Hg] DR BROWN WETZEL MD [facility] 07-19-2023 09:55-0500 Diastolic Blood Pressure Non-Invasive 70 mm[Hg] DR BROWN WETZEL MD [facility] 07-19-2023 09:55-0500 Heart rate 88 /min DR BROWN WETZEL MD [facility] 07-19-2023 09:55-0500 Respiratory rate 22 /min DR BROWN WETZEL MD [facility] 07-19-2023 09:55-0500 Systolic Blood Pressure Non-Invasive 119 mm[Hg] DR BROWN WETZEL MD [facility] 07-01-2023 11:08-0500 Body temperature 96.8 [degF] ANALY MONDRAGON DO [facility] 07-01-2023 11:08-0500 Diastolic Blood Pressure Non-Invasive 79 mm[Hg] ANALY ABREUY [facility] 07-01-2023 11:08-0500 Heart rate 70 /min ANALY MONDRAGON DO [facility] 07-01-2023 11:08-0500 Respiratory rate 16 /min ANALY MONDRAGON DO [facility] 07-01-2023 11:08-0500 Systolic Blood Pressure Non-Invasive 124 mm[Hg] ANALY ABREUY [facility] 03-03-2023 09:47-0400 Diastolic Blood Pressure Non-Invasive 83 1 ANALY ANAYA MD [facility] 03-03-2023 09:47-0400 Heart rate 68 /min ANALY ANAYA MD [facility] 03-03-2023 09:47-0400 Respiratory rate 21 /min ANALY ANAYA MD [facility] 03-03-2023 09:47-0400 Systolic Blood Pressure Non-Invasive 145 1 ANALY ANAYA MD [facility] 03-03-2023 09:41-0400 Diastolic Blood Pressure Non-Invasive 80 1 ANALY ANAYA MD [facility] 03-03-2023 09:41-0400 Heart rate 67 /min ANALY ANAYA MD [facility] 03-03-2023 09:41-0400 Respiratory rate 15 /min ANALY ANAYA MD [facility] 03-03-2023 09:41-0400 Systolic Blood Pressure Non-Invasive 138 1 ANALY ANAYA MD [facility] 03-03-2023 09:33-0400 Diastolic Blood Pressure Non-Invasive 80 1 ANALY ANAYA MD [facility] 03-03-2023 09:33-0400 Heart rate 67 /min ANALY ANAYA MD [facility] 03-03-2023 09:33-0400 Respiratory rate 15 /min ANALY ANAYA MD [facility] 03-03-2023 09:33-0400 Systolic Blood Pressure Non-Invasive 159 1 ANALY ANAYA MD [facility] 03-03-2023 08:40-0400 Body temperature 96.8 [degF] ANALY ANAYA MD [facility] 03-03-2023 08:35-0400 Respiratory Rate - Anes 12 br/min ANALY ANAYA MD [facility] 03-03-2023 08:30-0400 Respiratory Rate - Anes 19 br/min ANALY ANAYA MD [facility] 03-03-2023 08:25-0400 Respiratory Rate - Anes 12 br/min ANALY ANAYA MD [facility] 03-03-2023 07:18-0400 Blood Pressure Cuff Size ANALY ANAYA MD [facility] 03-03-2023 07:18-0400 Blood Pressure Location ANALY ANAYA MD [facility] 03-03-2023 07:18-0400 Blood Pressure Method ANALY ANAYA MD [facility] 03-03-2023 07:18-0400 Body height 151 cm ANALY ANAYA MD [facility] 03-03-2023 07:18-0400 Body temperature 95.72 [degF] ANALY ANAYA MD [facility] 03-03-2023 07:18-0400 Body weight 37.2 kg ANALY ANAYA MD [facility] 03-03-2023 07:18-0400 Body weight 16.32 kg/m2 ANALY ANAYA MD [facility] 03-03-2023 07:18-0400 Heart rate 70 /min ANALY ANAYA MD [facility] 10-03-2022 13:00-0500 Diastolic Blood Pressure Non-Invasive 86 1 HELENA TERESA MD [facility] 10-03-2022 13:00-0500 Heart rate 71 /min HELENA TERESA MD [facility] 10-03-2022 13:00-0500 Respiratory rate 18 /min HELENA TERESA MD [facility] 10-03-2022 13:00-0500 Systolic Blood Pressure Non-Invasive 139 1 HELENA TERESA MD [facility] 10-03-2022 12:45-0500 Diastolic Blood Pressure Non-Invasive 82 1 HELENA TERESA MD [facility] 10-03-2022 12:45-0500 Heart rate 72 /min HELENA TERESA MD [facility] 10-03-2022 12:45-0500 Systolic Blood Pressure Non-Invasive 141 1 HELENA TERESA MD [facility] 10-03-2022 12:15-0500 Diastolic Blood Pressure Non-Invasive 71 1 HELENA TERESA MD [facility] 10-03-2022 12:15-0500 Heart rate 65 /min HELENA TERESA MD [facility] 10-03-2022 12:15-0500 Respiratory rate 20 /min HELENA TERESA MD [facility] 10-03-2022 12:15-0500 Systolic Blood Pressure Non-Invasive 125 1 HELENA TERESA MD [facility] 10-03-2022 11:15-0500 Body temperature 96.98 [degF] HELENA TERESA MD [facility] 10-03-2022 11:10-0500 Respiratory Rate - Anes 0 br/min HELENA TERESA MD [facility] 10-03-2022 11:05-0500 Respiratory Rate - Anes 13 br/min HELENA TERESA MD [facility] 10-03-2022 11:00-0500 Respiratory Rate - Anes 16 br/min HELENA TERESA MD [facility] 10-03-2022 09:09-0500 Body height 162.6 cm HELENA TERESA MD [facility] 10-03-2022 09:09-0500 Body weight 37.3 kg HELENA TERESA MD [facility] 10-03-2022 09:08-0500 Body height 162.6 cm HELENA TERESA MD [facility] 10-03-2022 09:08-0500 Body temperature 98.06 [degF] HELENA TERESA MD [facility] 10-03-2022 09:08-0500 Body weight 37.3 kg HELENA TERESA MD [facility] 10-03-2022 09:08-0500 Heart rate 75 /min HELENA TERESA MD [facility] 09-24-2022 09:19-0500 Blood Pressure Cuff Size HELENA TERESA MD [facility] 09-24-2022 09:19-0500 Blood Pressure Location HELENA TERESA MD [facility] 09-24-2022 09:19-0500 Blood Pressure Method HELENA TERESA MD [facility] 09-24-2022 09:19-0500 Body height 152.4 cm HELENA TERESA MD [facility] 09-24-2022 09:19-0500 Body weight 38.8 kg HELENA TERESA MD [facility] 09-24-2022 09:19-0500 Body weight 16.71 kg/m2 HELENA TERESA MD [facility] 09-24-2022 09:19-0500 Diastolic Blood Pressure Non-Invasive 70 1 HELENA TERESA MD [facility] 09-24-2022 09:19-0500 Heart rate 68 /min HELENA TERESA MD [facility] 09-24-2022 09:19-0500 Systolic Blood Pressure Non-Invasive 124 1 HELENA TERESA MD [facility] 04-13-2022 00:40-0400 Diastolic blood pressure 90 mm[Hg] ARTUR GARCIAS DO [facility] 04-13-2022 00:40-0400 Heart rate 76 /min ARTUR GARCIAS DO [facility] 04-13-2022 00:40-0400 Respiratory rate 16 /min ARTUR GARCIAS DO [facility] 04-13-2022 00:40-0400 Systolic blood pressure 138 mm[Hg] ARTUR GARCIAS DO [facility] 04-12-2022 22:00-0400 Diastolic blood pressure 74 mm[Hg] ARTUR GARCIAS DO [facility] 04-12-2022 22:00-0400 Heart rate 88 /min ARTUR GARCIAS DO [facility] 04-12-2022 22:00-0400 Systolic blood pressure 148 mm[Hg] ARTUR GARCIAS DO [facility] 04-12-2022 20:47-0400 Body temperature 97.88 [degF] ARTUR GARCIAS DO [facility] 04-12-2022 20:47-0400 Body weight 40 kg ARTUR GARCIAS DO [facility] 04-12-2022 20:47-0400 Diastolic blood pressure 91 mm[Hg] ARTUR GARCIAS DO [facility] 04-12-2022 20:47-0400 Heart rate 92 /min ARTUR GARCIAS DO [facility] 04-12-2022 20:47-0400 Respiratory rate 16 /min ARTUR GARCIAS DO [facility] 04-12-2022 20:47-0400 Systolic blood pressure 156 mm[Hg] ARTUR GARCIAS DO [facility] 04-08-2022 09:15-0400 Diastolic Blood Pressure NBP 84 1 TOM LANIER MD [facility] 04-08-2022 09:15-0400 Heart rate 68 /min TOM LANIER MD [facility] 04-08-2022 09:15-0400 Respiratory rate 17 /min TOM LANIER MD [facility] 04-08-2022 09:15-0400 Systolic Blood Pressure NBP 118 1 TOM LANIER MD [facility] 04-08-2022 08:53-0400 Diastolic Blood Pressure NBP 74 1 TOM LANIER MD [facility] 04-08-2022 08:53-0400 Heart rate 69 /min TOM LANIER MD [facility] 04-08-2022 08:53-0400 Respiratory rate 16 /min TOM LANIER MD [facility] 04-08-2022 08:53-0400 Systolic Blood Pressure NBP 107 1 TOM LANIER MD [facility] 04-08-2022 08:43-0400 Diastolic Blood Pressure NBP 64 1 TOM LANIER MD [facility] 04-08-2022 08:43-0400 Heart rate 96 /min TOM LANIER MD [facility] 04-08-2022 08:43-0400 Respiratory rate 17 /min TOM LANIER MD [facility] 04-08-2022 08:43-0400 Systolic Blood Pressure NBP 108 1 TOM LANIER MD [facility] 04-08-2022 08:15-0400 Body temperature 98.6 [degF] TOM LANIER MD [facility] 04-08-2022 07:19-0400 Body height 152 cm TOM LANIER MD [facility] 04-08-2022 07:19-0400 Body weight 41.5 kg TOM LANIER MD [facility] 04-08-2022 07:19-0400 Body weight 17.96 kg/m2 TOM LANIER MD [facility] 04-08-2022 06:52-0400 Body height 152 cm TOM LANIER MD [facility] 04-08-2022 06:52-0400 Body temperature 97.7 [degF] TOM LANIER MD [facility] 04-08-2022 06:52-0400 Body weight 41.5 kg TOM LANIER MD [facility] 01-01-2022 07:44-0400 diastolic 89 mm[Hg] TOM LANIER MD [facility] 01-01-2022 07:44-0400 Heart rate 76 /min TOM LANIER MD [facility] 01-01-2022 07:44-0400 Respiratory rate 16 /min TOM LANIER MD [facility] 01-01-2022 07:44-0400 systolic 143 mm[Hg] TOM LANIER MD [facility] 01-01-2022 07:30-0400 diastolic 100 mm[Hg] TOM LANIER MD [facility] 01-01-2022 07:30-0400 Heart rate 82 /min TOM LANIER MD [facility] 01-01-2022 07:30-0400 Respiratory rate 16 /min TOM LANIER MD [facility] 01-01-2022 07:30-0400 systolic 159 mm[Hg] TOM LANIER MD [facility] 01-01-2022 07:01-0400 Body height 152.4 cm TOM LANIER MD [facility] 01-01-2022 07:01-0400 Body temperature 96.98 [degF] TOM LANIER MD [facility] 01-01-2022 07:01-0400 Body weight 41.5 kg TOM LANIER MD [facility] 01-01-2022 07:01-0400 Body weight 17.87 kg/m2 TOM LANIER MD [facility] 01-01-2022 07:01-0400 diastolic 88 mm[Hg] TOM LANIER MD [facility] 01-01-2022 07:01-0400 Heart rate 70 /min TOM LANIER MD [facility] 01-01-2022 07:01-0400 Respiratory rate 16 /min TOM LANIER MD [facility] 01-01-2022 07:01-0400 systolic 161 mm[Hg] TOM LANIER MD [facility] 07-21-2021 21:07-0500 Diastolic blood pressure 75 mm[Hg] DR JOSSE HENDRICKS MD [facility] 07-21-2021 21:07-0500 Heart rate 85 /min DR JOSSE HENDRICKS MD [facility] 07-21-2021 21:07-0500 Respiratory rate 18 /min DR JOSSE HENDRICKS MD [facility] 07-21-2021 21:07-0500 Systolic blood pressure 145 mm[Hg] DR JOSSE HENDRICKS MD [facility] 07-21-2021 18:05-0500 Body temperature 98.24 [degF] DR JOSSE HENDRICKS MD [facility] 07-21-2021 18:05-0500 Body weight 40.[address] JOSSE HENDRICKS MD [facility] 07-21-2021 18:05-0500 Diastolic blood pressure 93 mm[Hg] DR JOSSE HENDRICKS MD [facility] 07-21-2021 18:05-0500 Heart rate 97 /min DR JOSSE HENDRICKS MD [facility] 07-21-2021 18:05-0500 Respiratory rate 16 /min DR JOSSE HENDRICKS MD [facility] 07-21-2021 18:05-0500 Systolic blood pressure 165 mm[Hg] DR JOSSE HENDRICKS MD [facility] 07-02-2021 09:31-0500 Heart rate 102 /min DR BHAKTI REYES MD [facility] 07-02-2021 08:13-0500 Heart rate 105 /min DR BHAKTI REYES MD [facility] 07-02-2021 08:13-0500 Reason For Taking VItal Signs DR BHAKTI REYES MD [facility] 07-02-2021 08:13-0500 Respiratory rate 20 /min DR BHAKTI REYES MD [facility] 07-02-2021 07:33-0500 Heart rate 95 /min DR BHAKTI REYES MD [facility] 07-02-2021 07:24-0500 Heart rate 92 /min DR BHAKTI REYES MD [facility] 07-02-2021 07:24-0500 Respiratory rate 16 /min DR BHAKTI REYES MD [facility] 07-02-2021 07:15-0500 Body temperature 98.42 [degF] DR BHAKTI REYES MD [facility] 07-02-2021 07:15-0500 Diastolic Blood Pressure NBP [address] BHAKTI REYES MD [facility] 07-02-2021 07:15-0500 Mean blood pressure 80 mm[Hg] DR BHAKTI REYES MD [facility] 07-02-2021 07:15-0500 Reason For Taking VItal Signs DR BHAKTI REYES MD [facility] 07-02-2021 07:15-0500 Respiratory rate 16 /min DR BHAKTI REYES MD [facility] 07-02-2021 07:15-0500 Systolic Blood Pressure NBP [address] BHAKTI REYES MD [facility] 07-02-2021 05:44-0500 Reason For Taking VItal Signs DR BHAKTI REYES MD [facility] 07-02-2021 03:43-0500 Body temperature 97.7 [degF] DR BHAKTI REYES MD [facility] 07-02-2021 03:43-0500 Diastolic Blood Pressure NBP [address] BHAKTI REYES MD [facility] 07-02-2021 03:43-0500 Mean blood pressure 91 mm[Hg] DR BHAKTI REYES MD [facility] 07-02-2021 03:43-0500 Systolic Blood Pressure NBP [address] BHAKTI REYES MD [facility] 07-01-2021 23:05-0500 Diastolic Blood Pressure NBP [address] BHAKTI REYES MD [facility] 07-01-2021 23:05-0500 Mean blood pressure 70 mm[Hg] DR BHAKTI REYES MD [facility] 07-01-2021 23:05-0500 Systolic Blood Pressure NBP [address] BHAKTI REYES MD [facility] 07-01-2021 23:00-0500 Body temperature 99.32 [degF] DR BHAKTI REYES MD [facility] 07-01-2021 20:13-0500 Heart rate 74 /min DR BHAKTI REYES MD [facility] 07-01-2021 06:56-0500 Heart rate 93 /min DR BHAKTI REYES MD [facility] 06-28-2021 05:00-0500 Diastolic blood pressure 53 mm[Hg] DR BHAKTI REYES MD [facility] 06-28-2021 05:00-0500 Mean blood pressure 66 mm[Hg] DR BHAKTI REYES MD [facility] 06-28-2021 05:00-0500 Systolic blood pressure 92 mm[Hg] DR BHAKTI REYES MD [facility] 06-28-2021 03:36-0500 Signs/Symptoms Transfusion Reaction DR BHAKTI REYES MD [facility] 06-28-2021 02:36-0500 Signs/Symptoms Transfusion Reaction No DR BHAKTI REYES MD [facility] 06-28-2021 02:36-0500 Diastolic blood pressure 62 mm[Hg] DR BHAKTI REYES MD [facility] 06-28-2021 02:36-0500 Systolic blood pressure 110 mm[Hg] DR BHAKTI REYES MD [facility] 06-28-2021 02:05-0500 Signs/Symptoms Transfusion Reaction DR BHAKTI REYES MD [facility] 06-27-2021 23:45-0500 Diastolic blood pressure 75 mm[Hg] DR BHAKTI REYES MD [facility] 06-27-2021 23:45-0500 Mean blood pressure 77 mm[Hg] DR BHAKTI REYES MD [facility] 06-27-2021 23:45-0500 Systolic blood pressure 78 mm[Hg] DR BHAKTI REYES MD [facility] 06-27-2021 23:30-0500 Diastolic blood pressure 83 mm[Hg] DR BHAKTI REYES MD [facility] 06-27-2021 23:30-0500 Mean blood pressure 84 mm[Hg] DR BHAKTI REYES MD [facility] 06-27-2021 23:30-0500 Systolic blood pressure 86 mm[Hg] DR BHAKTI REYES MD [facility] 06-27-2021 23:22-0500 Diastolic blood pressure 88 mm[Hg] DR BHAKTI REYES MD [facility] 06-27-2021 23:22-0500 Mean blood pressure 85 mm[Hg] DR BHAKTI REYES MD [facility] 06-27-2021 23:22-0500 Systolic blood pressure 93 mm[Hg] DR BHAKTI REYES MD [facility] 06-27-2021 22:40-0500 Diastolic blood pressure 57 mm[Hg] DR BHAKTI REYES MD [facility] 06-27-2021 22:40-0500 Systolic blood pressure 100 mm[Hg] DR BHAKTI REYES MD [facility] 06-27-2021 11:00-0500 Body temperature 96.1 [degF] DR BHAKTI REYES MD [facility] 06-27-2021 10:55-0500 Body temperature 95.95 [degF] DR BHAKTI REYES MD [facility] 06-27-2021 10:50-0500 Body temperature 95.86 [degF] DR BHAKTI REYES MD [facility] 06-27-2021 10:49-0500 SaO2% (BldA) [Mass fraction] 99.7 % DR BHAKTI REYES MD [facility] 06-27-2021 10:11-0500 SaO2% (BldA) [Mass fraction] 98.6 % DR BHAKTI REYES MD [facility] 06-27-2021 06:51-0500 SaO2% (BldA) [Mass fraction] 95.6 % DR BHAKTI REYES MD [facility] 06-27-2021 06:36-0500 Body height 152.[address] BHAKTI REYES MD [facility] 06-27-2021 06:36-0500 Body temperature 98.06 [degF] DR BHAKTI REYES MD [facility] 06-27-2021 06:36-0500 Body weight 42.[address] BHAKTI REYES MD [facility] 06-27-2021 06:36-0500 Body weight 18.17 kg/m2 DR BHAKTI REYES MD [facility] 06-27-2021 06:36-0500 diastolic 63 mm[Hg] DR BHAKTI REYES MD [facility] 06-27-2021 06:36-0500 systolic 117 mm[Hg] DR BHAKTI REYES MD [facility] 06-21-2021 10:25-0400 Body height [address] BHAKTI REYES MD [facility] 06-21-2021 10:25-0400 Body temperature 98.06 [degF] DR BHAKTI REYES MD [facility] 06-21-2021 10:25-0400 Body weight 42.[address] BHAKTI REYES MD [facility] 06-21-2021 10:25-0400 diastolic 77 mm[Hg] DR BHAKTI REYES MD [facility] 06-21-2021 10:25-0400 Heart rate 86 /min DR BHAKTI REYES MD [facility] 06-21-2021 10:25-0400 systolic 121 mm[Hg] DR BHAKTI REYES MD [facility] Encounters Encounter Date Encounter Type Care Provider Facility Start: 08-05-2023 End: 08-06-2023 ambulatory EZEKIEL BENITEZ MD Facility:A Start: 08-05-2023 End: 08-05-2023 Patient encounter procedure EZEKIEL BENITEZ MD [facility] Start: 07-26-2023 End: 07-26-2023 Emergency department patient visit DONATO LOMAS MD Facility:B Start: 07-25-2023 End: 07-25-2023 Emergency department patient visit DONATO LOMAS MD [facility] Start: 07-23-2023 ambulatory EZEKIEL BENITEZ MD Facilit y:A Start: 07-19-2023 End: 07-21-2023 Evaluation and management of inpatient EZEKIEL BENITEZ MD Facility:A Start: 07-19-2023 End: 07-21-2023 Evaluation and management of inpatient EZEKIEL BENITEZ MD [facility] Start: 07-19-2023 End: 07-19-2023 Emergency department patient visit DR BROWN WETZEL MD Facility:B Start: 07-19-2023 End: 07-19-2023 Emergency department patient visit DR BROWN WETZEL MD [facility] Start: 07-01-2023 End: 07-01-2023 ambulatory ANALY MONDRAGON DO Facility:B Start: 07-01-2023 End: 07-01-2023 SAME DAY STAY ANALY GIANCARLO DO [facility] Start: 06-19-2023 End: 06-20-2023 ambulatory ANALY MONDRAGON DO Facility:A Start: 06-05-2023 End: 06-06-2023 ambulatory EZEKIEL BENITEZ MD Facility:A Start: 05-27-2023 End: 05-28-2023 Encounter for other preprocedural examination SARA MELISSA Facility:A Start: 05-27-2023 End: 05-28-2023 ambulatory EZEKIEL BENITEZ MD Facility:A Start: 04-28-2023 End: 04-29-2023 ambulatory ANALY ANAYA MD Facility:B Start: 04-28-2023 End: 04-28-2023 Patient encounter procedure ANALY ANAYA MD [facility] Start: 04-23-2023 End: 04-24-2023 ambulatory EZEKIEL BENITEZ MD Facility:A Start: 04-23-2023 End: 04-23-2023 Patient encounter procedure EZEKIEL BENITEZ MD [facility] Start: 03-31-2023 End: 04-01-2023 ambulatory ANALY MONDRAGON DO Facility:B Start: 03-31-2023 End: 03-31-2023 Patient encounter procedure ANALY ANAYA MD [facility] Start: 03-10-2023 End: 03-11-2023 ambulatory ANALY MONDRAGON DO Facility:B Start: 03-03-2023 End: 03-03-2023 ambulatory ANALY MONDRAGON DO Facility:B Start: 03-03-2023 End: 03-03-2023 SAME DAY STAY ANALY ANAYA MD [facility] Start: 02-12-2023 End: 02-13-2023 ambulatory ANALY MONDRAGON DO Facility:B Start: 01-15-2023 End: 01-16-2023 ambulatory ANALY MONDRAGON DO Facility:B Start: 01-15-2023 End: 01-15-2023 Patient encounter procedure POPPY BURNS DIRECTOR [employer] [facility] Start: 12-16-2022 End: 12-17-2022 ambulatory ANALY ANAYA MD Facility:B Start: 12-16-2022 End: 12-16-2022 Patient encounter procedure ANALY ANAYA MD [facility] Start: 11-21-2022 ambulatory EZEKIEL BENITEZ MD Facilit y:A Start: 11-18-2022 End: 11-19-2022 ambulatory ANALY ANAYA MD Facility:B Start: 11-18-2022 End: 11-18-2022 Patient encounter procedure ANALY ANAYA MD [facility] Start: 10-16-2022 End: 10-17-2022 ambulatory POPPY BURNS DIRECTOR [employer] Facility:B Start: 10-03-2022 End: 10-03-2022 ambulatory HELENA TERESA MD Facility:B Start: 10-03-2022 End: 10-03-2022 SAME DAY STAY HELENA TERESA MD [facility] Start: 09-24-2022 End: 09-25-2022 ambulatory HELENA TERESA MD Facility:B Start: 09-24-2022 End: 09-24-2022 Admission to establishment HELENA TERESA MD [facility] Start: 08-28-2022 End: 08-29-2022 ambulatory POPPY BURNS DIRECTOR [employer] Facility:B Start: 08-27-2022 End: 08-28-2022 ambulatory ANALY MONDRAGON DO Facility:B Start: 08-27-2022 End: 08-27-2022 Patient encounter procedure ANALY MONDRAGON DO [facility] Start: 07-31-2022 End: 07-31-2022 Patient encounter procedure POPPY BURNS DIRECTOR [employer] [facility] Start: 05-21-2022 End: 05-21-[address] EZEKIEL BENITEZ MD [facility] Start: 05-07-2022 End: 05-07-2022 Patient encounter procedure TOM LANIER MD [facility] Start: 04-16-2022 End: 04-16-2022 Patient encounter procedure TOM LANIER MD [facility] Start: 04-12-2022 End: 04-13-2022 Emergency department patient visit ARTUR GARCIAS DO [facility] Start: 04-08-2022 End: 04-08-2022 SAME DAY STAY TOM LANIER MD [facility] Start: 03-19-2022 End: 03-19-2022 Patient encounter procedure TOM LANIER MD [facility] Start: 03-05-2022 End: 03-05-2022 Patient encounter procedure TOM LANIER MD [facility] Start: 01-29-2022 End: 01-29-2022 Patient encounter procedure TOM LANIER MD [facility] Start: 01-01-2022 End: 01-01-2022 Minor Procedure TOM LANIER MD [facility] Start: 12-25-2021 End: 12-25-2021 Patient encounter procedure TOM LANIER MD [facility] Start: 12-10-2021 End: 12-10-2021 Patient encounter procedure JOY ESTRADA DIRECTOR [employer] [facility] Start: 07-21-2021 End: 07-21-2021 Emergency department patient visit DR JOSSE HENDRICKS MD [facility] Start: 07-09-2021 End: 07-09-2021 Patient encounter procedure JOY ESTRADA DIRECTOR [employer] [facility] Start: 2021 End: 2021 Patient encounter procedure JOY ESTRADA DIRECTOR [employer] [facility] Start: 07-03-2021 End: 07-03-2021 Patient encounter procedure JOY ESTRADA DIRECTOR [employer] [facility] Start: 06-27-2021 End: 07-02-2021 Evaluation and management of inpatient DR BHAKTI REYES MD [facility] Start: 06-22-2021 End: 06-22-[address] BHAKTI REYES MD [facility] Start: 06-21-2021 End: 06-21-[address] BHAKTI REYES MD [facility] Start: 06-21-2021 End: 06-21-[address] BHAKTI REYES MD [facility] Start: 06-13-2021 End: 06-13-2021 Patient encounter procedure EVIN MURPHY MD [facility] Start: 11-30-2018 Patient encounter procedure Jamey García Facility:[facility] Start: 11-19-2018 End: 11-20-2018 Patient encounter procedure Tanya Willard Facility:[facility] Start: 10-30-2018 End: 10-30-2018 Patient encounter procedure Jamey García Facility:[facility] Start: 10-30-2018 Patient encounter procedure Facility:[id number] Start: 10-15-2018 End: 10-16-2018 Patient encounter procedure Keaton Chaney Facility:[facility] Procedures Date Procedure Procedure Detail Performing Clinician Start: 06-05-2023 Neurostimulator, dev ice (physical object) ANALY MONDRAGON DO Immunizations Immunization Date Immunization Notes Care Provider Arthur yuan 07-02-2021 influenza, injectabl e, quadrivalent, preservative free; Translations: [Fluarix PF Quadrivalent ] DR BHAKTI REYES MD [facility] 07-28-2017 tetanus toxoid, redu alyssa diphtheria toxoid, and acellular pertussis vaccine, adsorbed DR BHAKTI REYES MD [facility] Payers Date Payer Category Payer Medicare [id number] 2022 Unknown [id number] 2018 Private Health Insurance 1955 Unknown [id number] 2.16. [id number] 1953 Unknown [id number] 2.16.84 0.1.328632.3.579.2.71 1953 Unknown [id number] 2.16.84 0.1.865102.3.579.2.71 1953 Unknown [id number] 2.16.84 0.1.217496.3.579.2.71 1953 Unknown [id number] 2.16.84 0.1.130927.3.579.2. 1953 Unknown [id number] 2.16.84 0.1.735587.3.579.2.71 1953 Unknown [id number] 2.16.8 40.1.834967.3.579.2.62 1953 Unknown [id number] 2.16.8 40.1.717864.3.579.2. 1953 Unknown [id number] 2.16.8 40.1.491948.3.579.2.627 1953 Unknown [id number] 2.16.8 40.1.295636.3.579.2. 1953 Unknown [id number] 2.16.8 40.1.766354.3.579.2.627 1953 Unknown [id number] 2.16.8 40.1.560846.3.579.2.62 1953 Unknown [id number] 2.16.8 40.1.922980.3.579.2.62 1953 Unknown [id number] 2.16.8 40.1.556720.3.579.2.62 1953 Unknown [id number] 2.16.8 40.1.843970.3.579.2.62 1953 Unknown [id number] 2.16.8 40.1.883048.3.579.2.62 1953 Unknown [id number] 2.16.8 40.1.041540.3.579.2.627 1953 Unknown [id number] 2.16.8 40.1.916427.3.579.2.627 1953 Unknown [id number] 2.16.8 40.1.734835.3.579.2.627 1953 Unknown [id number] 2.16.8 40.1.760840.3.579.2.627 1953 Unknown [id number] 2.16.8 40.1.037850.3.579.2. 1953 Unknown [id number] 2.16.8 40.1.846748.3.579.2.627 1953 Unknown [id number] 2.16.8 40.1.340348.3.579.2. 1953 Unknown [id number] 2.16.8 40.1.570986.3.579.2. 1953 Unknown [id number] 2.16.8 40.1.451732.3.579.2.7 1953 Unknown [id number] 2.16.8 40.1.294265.3.579.2.627 1953 Unknown [id number] 2.16.8 40.1.905001.3.579.2.62 1953 Unknown [id number] 2.16.8 40.1.806611.3.579.2.62 1953 Unknown [id number] 2.16.8 40.1.655845.3.579.2. 1953 Unknown [id number] 2.16.8 40.1.272822.3.579.2.7 1953 Unknown [id number] 2.16.8 40.1.420668.3.579.2.627 Private Health Insurance [id number] Social History Date Type Detail Facility Start: 09-01-2019 Never smoked t obacco (finding) [facility] Sex Assigned At Female [facility] Start: 06-21-2021 End: 05-21-2022 Ex-smoker (finding) [facility] Medical Equipment Procedure Code Equipment Code Equipment Origin al Text Equipment Identifier Dates Spinal Cord Stim ulator Percutaneous Unknown 06/05/23 Unknown Unknown FDA Start: 06-05-2023 Spinal Cord Stim ulator Percutaneous Unknown 06/05/23 Unknown Unknown FDA Start: 06-05-2023 Spinal Cord Stim ulator Percutaneous Unknown 06/05/23 Unknown Unknown FDA Start: 06-05-2023 Spinal Cord Stim ulator Percutaneous Unknown 06/05/23 Unknown Unknown FDA Start: 06-05-2023 Spinal Cord Stim ulator Percutaneous Unknown 06/05/23 Unknown Unknown FDA Start: 06-05-2023 Spinal Cord Stim ulator Percutaneous Unknown 06/05/23 Unknown Unknown FDA Start: 06-05-2023 Spinal Cord Stim ulator Percutaneous Unknown 06/05/23 Unknown Unknown FDA Start: 06-05-2023 Spinal Cord Stim ulator Percutaneous Unknown 06/05/23 Unknown Unknown FDA Start: 06-05-2023 Spinal Cord Stim ulator Percutaneous Unknown 06/05/23 Unknown Unknown FDA Start: 06-05-2023 Spinal Cord Stim ulator Percutaneous Unknown 06/05/23 Unknown Unknown FDA Start: 06-05-2023 Spinal Cord Stim ulator Percutaneous Unknown 06/05/23 Unknown Unknown FDA Start: 06-05-2023 Spinal Cord Stim ulator Percutaneous Unknown 06/05/23 Unknown Unknown FDA Start: 06-05-2023 Spinal Cord Stim ulator Percutaneous Unknown 06/05/23 Unknown Unknown FDA Start: 06-05-2023 Spinal Cord Stim ulator Percutaneous Unknown 06/05/23 Unknown Unknown FDA Start: 06-05-2023 Spinal Cord Stim ulator Percutaneous Unknown 06/05/23 Unknown Unknown FDA Start: 06-05-2023 Spinal Cord Stim ulator Percutaneous Unknown 06/05/23 Unknown Unknown FDA Start: 06-05-2023 Spinal Cord Stim ulator Percutaneous Unknown 06/05/23 Unknown Unknown FDA Start: 06-05-2023 Spinal Cord Stim ulator Percutaneous Unknown 06/05/23 Unknown Unknown FDA Start: 06-05-2023 Spinal Cord Stim ulator Percutaneous Unknown 06/05/23 Unknown Unknown FDA Start: 06-05-2023 Spinal Cord Stim ulator Percutaneous Unknown 06/05/23 Unknown Unknown FDA Start: 06-05-2023 Functional Status Date Assessment Result Facility 07-25-2023 Functional Status Independent [place] 07-25-2023 Functional Status Standard Safet y ID band on, Allergy Band on, Call device within reach, Bed in low position, personal items within reach, Visitor at bedside, Safety level maintained [facility] 07-21-2023 Functional Status Room check performed [facility] 07-21-2023 Functional Status Pt. lives w/ s on who works days. Pt. reports that she has another son and many friends who can stay with her if needed upon discharge. [facility] 07-21-2023 Functional Status [facility] 07-21-2023 Functional Status [facility] 07-21-2023 Functional Status [facility] 07-20-2023 Functional Status [facility] 07-20-2023 Functional Status Lunch Percent 75 [facility] 07-20-2023 Functional Status Skin Care Prev entative Intervention(s) heel(s)s elevated, turn and position system [facility] 07-20-2023 Functional Status 7am-3pm [facility] 07-20-2023 Functional Status Transparent silicone dr mccloud [facility] 07-19-2023 Functional Status [facility] 07-19-2023 Functional Status [facility] 07-19-2023 Functional Status Repositions self [facility] 03-03-2023 Functional Status Awake [place] 03-03-2023 Functional Status ice on [place] 03-03-2023 Functional Status Maintained [place] 10-03-2022 Functional Status bilateral knee high [facility] 10-03-2022 Functional Status ice on [place] 10-03-2022 Functional Status Maintained Edna Ander [facility] 09-24-2022 Functional Status Sensory Deficits None A [facility] 04-13-2022 Functional Status Ambulating in clarke, Ambulating in room, Awake, Bathroom privileges [facility] 04-08-2022 Functional Status Ambulating in clarke, Ambulating in room, Awake [facility] 04-08-2022 Functional Status Steady without support [facility] 01-01-2022 Functional Status Edna Ander [facility] Mental Status Date Assessment Result Facility 07-25-2023 Mental Status Orientation Oriented x 4 [facility] 07-25-2023 Mental Status [facility] 07-21-2023 Mental Status Orientation Oriented x 4 [facility] 07-21-2023 Mental Status [facility] 07-21-2023 [facility] 07-20-2023 Mental Status [facility] 07-20-2023 Mental Status [facility] 07-19-2023 Mental Status Orientation Oriented x 4 [facility] 03-03-2023 Mental Status Oriented x 4 [facility] 03-03-2023 Mental Status [facility] 10-03-2022 Mental Status Oriented x 4 [facility] 10-03-2022 Mental Status [facility] 04-13-2022 Mental Status Orientation Oriented x 4 [facility] 04-08-2022 Mental Status Oriented x 4 [facility] 01-01-2022 Mental Status [facility] Clinical Notes 07-02-2021 to 08-05-2023 Note Date & Type Note Facility 08-05-2023 Note ORIGINAL HISTORY: Lung cancer, hemorrhage COMPARISON: 11 days previously TECHNIQUE: Routine non-contrast head CT with sagittal and coronal reconstructions This exam was performed according to our departmental dose optimization program, and includes the following measures where applicable: automated exposure control, adjustment of the mAs and/or kVp according to patient size and/or exam, and an iterative reconstruction algorithm. FINDINGS: There is a 2 cm peripheral area of mild hyperdensity in the anterior right frontal lobe. There is mild surrounding decreased attenuation. There is overlying subdural fluid, approximately 4 mm in thickness, minimally hyperdense to CSF. Mild mass effect, with slight midline shift at the level of the genu, about 6 mm. Horne-white matter differentiation outside the right frontal lobe is maintained. The calvaria and the bones of the base of the skull are intact. IMPRESSION: Interval evolution and decrease in right frontal hemorrhage. Interpreted by: Sid Soares MD Preliminary Report By: Sid Soares MD Electronically signed By Sid Soares MD Dictated Date: 08/05/2023 10:22:13 AM Prelim Date: 08/05/2023 10:24:45 AM Sign Date: 08/05/2023 10:24:45 AM Ordering Provider: [facility] 07-26-2023 Hospital Discharge instructions Patient Education 07/25/2023 23:16:10 Blurred Vision Blurred Vision Blurred vision is when your vision is no longer sharp and you can t see small details. Any changes in your vision, whether sudden or over time, should be checked out by an collection specialist. Vision changes can be caused by many things. These include eye diseases, side effects of some medicines, or a condition such as diabetes. Never ignore vision changes. People often think that vision changes occur because they need more powerful vision correction. Many people then delay seeing their healthcare provider about their vision changes. But it s risky to delay care. If left untreated, some eye problems can lead to lasting (permanent) vision loss that can t be corrected with glasses. This can significantly reduce quality of life. Home care Make changes in your home to reduce the risk of falling: Keep walkways clear of objects you may trip over. Use nonslip pads under rugs. Brighter lighting in your home may help you see better. Don t walk in poorly lit areas. Be careful when stepping up and down from curbs and walking on uneven sidewalks. Follow-up care Follow up with an collection specialist or as advised. There are two types of eye doctors you can consult: Health Advisor. This is a licensed doctor of optometry. Optometrists are not medical doctors. They specialize in eye exams and may diagnose some eye problems. They also prescribe glasses and contact lenses. Change Management Coordinator. This is a medical doctor who specializes in eye care. Ophthalmologists diagnose and treat all eye diseases, prescribe medicines, and perform eye surgery. They may also prescribe glasses and contact lenses. An computer project manager can provide a basic screening eye exam for much less cost than an clinical nurse specialist. The computer project manager can tell you if your condition needs the services of an clinical nurse specialist. When to seek medical advice Call your healthcare provider right away if any of these occur: Sudden change in your vision Eye pain, redness, or discharge from your eyelid Blurriness doesn t get better, or it gets worse Dark spots in your field of vision Halos around lights Dots or strings (called floaters) moving across your field of vision Sudden flash of light inside your eye Vision dims Part or full vision loss [id number] [employer]. [address] [place] [address]. All rights reserved. This information is not intended as a substitute for professional medical care. Always follow your healthcare professional's instructions. 07/25/2023 23:16:01 Headache, Unspecified Headache, Unspecified A number of things can cause headaches. The cause of your headache isn t clear. But it doesn t seem to be a sign of any serious illness. Headache affects almost everyone at some time. It is the most common reason people miss days from work or school. You could have a tension headache or a migraine headache. Stress can cause a tension headache. This can happen if you tense the muscles of your shoulders, neck, and scalp without knowing it. If this stress lasts long enough, you may develop a tension headache. It is not clear why migraines occur, but certain things called triggers can raise the risk of having a migraine attack. Migraine triggers may include emotional stress or depression, or by hormone changes during the menstrual cycle. Other triggers include control pills and other medicines, alcohol or caffeine, foods with tyramine (such as aged cheese, wine), eyestrain, weather changes, missed meals, and lack of sleep or oversleeping. Other causes of headache include: Viral illness with high fever Head injury with concussion Sinus, ear, or throat infection Dental pain and jaw joint (TMJ) pain More serious but less common causes of headache include stroke, brain hemorrhage, brain tumor, meningitis, and encephalitis. Home care Follow these tips when taking care of yourself at home: Don t drive yourself home if you were given pain medicine for your headache. Instead, have someone else drive you home. Try to sleep when you get home. You should feel much better when you wake up. Apply heat to the back of your neck to ease a neck muscle spasm. Take care of a migraine headache by putting an ice pack on your forehead or at the base of your skull. If you have nausea or vomiting, eat a light diet until your headache eases. If you have a migraine headache, use sunglasses when in the daylight or around bright indoor lighting until your symptoms get better. Bright glaring light can make this type of headache worse. Follow-up care Follow up with your healthcare provider, or as advised. Talk with your provider if you have frequent headaches. He or she can help figure out a treatment plan. By knowing the earliest signs of headache, and starting treatment right away, you may be able to stop the pain yourself. When to seek medical advice Call your healthcare provider right away if any of these occur: Your head pain suddenly gets worse after sexual intercourse or strenuous activity Your head pain doesn t get better within 24 hours You aren t able to keep liquids down (repeated vomiting) Fever of 100.4 F (38 C) or higher, or as directed by your healthcare provider Stiff neck Extreme drowsiness, confusion, or fainting Dizziness or dizziness with spinning sensation (vertigo) Weakness in an arm or leg or one side of your face You have trouble talking or seeing [id number] [employer]. [address] [place] [address]. All rights reserved. This information is not intended as a substitute for professional medical care. Always follow your healthcare professional's instructions. Follow Up Care 07/25/2023 22:17:40 With:Your eye doctor Address:Unknown When:3-5 days Comments:Schedule appointment for close follow-up if symptoms persist. With:EZEKIEL BENITEZ Address: [address] [place] [phone] Business (1) When:08/04/2023 Comments:Follow-up as scheduled.Use Tylenol for headache as needed.Use Percocet as prescribed for headaches unrelieved with Tylenol.Resume all other routine home medications.Return to the ED if symptoms worsen. [facility] Discharge Instructions Thank you for allowing [facility] to assist you with your healthcare needs. The following is important discharge information regarding your hospital visit. 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 Post Acute Orders No qualifying data available. You Need to Schedule the Following Appointments Follow Up with EZEKIEL BENITEZ When 08/04/2023 12:00 AM EST Why: Follow-up as scheduled. Use Tylenol for headache as needed. Use Percocet as prescribed for headaches unrelieved with Tylenol. Resume all other routine home medications. Return to the ED if symptoms worsen. Where: [address] [place] [address]- [phone] Business (1) Follow Up with Your eye doctor When Within 3-5 days Why: Schedule appointment for close follow-up if symptoms persist. Allergies iodine (Rash) Medications Please ask your primary doctor or pharmacist before taking any other medication not listed, including over the counter drugs, herbal medications, vitamins and or supplements as they may interact with your home medications. 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 Duration: 3 Days Printed Prescription Unchanged acetaminophen (Tylenol 325 mg oral capsule) 650 Milligram by mouth Every 4 hours as needed for Pain, scale 1-6 Unchanged albuterol (albuterol MDI (90 mcg/ inh) CFC free inhalation aerosol) 2 puff(s) by inhalation Every 6 hours as needed for as needed for wheezing Emphysema/COPD Unchanged calcium gluconate (calcium gluconate 500 mg oral tablet) 2 tab(s) by mouth Once a day (in the morning) Unchanged cyanocobalamin (Vitamin B12 50 mcg oral tablet) 1 tab(s) by mouth Two (2) times a day Unchanged denosumab (Prolia 60 mg/ mL subcutaneous solution) 1 Milliliter Subcutaneous Every 6 months Osteoporosis Unchanged dexAMETHasone (dexAMETHasone 2 mg oral tablet) See instructions Intraparenchymal hemorrhage of brain Take 2 tablets (4mg) QID x2 days, then take 2 tablets (4mg) TID x2 days, then take 1 tablet (2mg) TID x2 days, then take 1 tablet (2mg) BID x2 days, then take 0.5 tablet (1mg) BID x2 days, then take 0.5 tablet (1mg) qDay x2 days, then stop. Unchanged escitalopram (escitalopram 20 mg oral tablet) 1 tab(s) by mouth Once a day Unchanged gabapentin (gabapentin 600 mg oral tablet) 1 tab(s) by mouth Four (4) times a day Lumbar radiculopathy Duration: 30 Days Unchanged levETIRAcetam (Keppra 500 mg oral tablet) 1 tab(s) by mouth Two (2) times a day Unchanged pantoprazole (pantoprazole 40 mg oral enteric coated tablet) 1 tab(s) by mouth Once a day Unchanged polyethylene glycol 3350 (Miralax Powder Packet) 17 gram(s) by mouth Two (2) times a day as needed for Constipation Please take this list to your next doctor s visit. Bring all medications you take, including over the counter medications, herbals and other supplements with you to your doctor s visit. Patients and families are reminded to discard old lists and to update any records with all medication providers or retail pharmacies. Medication Leaflets acetaminophen and oxycodone (a SEET a MIN oh fen and OX i KOE done) Endocet 10/325, Endocet 2.5/325, Endocet 5/325, Endocet 7.5/325, Nalocet, Percocet, Prolate What is the most important information I should know about acetaminophen and oxycodone? MISUSE OF OPIOID MEDICINE CAN CAUSE ADDICTION, OVERDOSE, OR . Keep the medication in a place where others cannot get to it. Taking opioid medicine during may cause life-threatening withdrawal symptoms in the . Fatal side effects can occur if you use opioid medicine with alcohol, or with other drugs that cause drowsiness or slow your breathing. Stop taking this medicine and call your doctor right away if you have skin redness or a rash that spreads and causes blistering and peeling. What is acetaminophen and oxycodone? Acetaminophen and oxycodone is a combination medicine used to relieve moderate to severe pain. Acetaminophen and oxycodone contains an opioide medicine and may be habit-forming. Acetaminophen and oxycodone may also be used for purposes not listed in this medication guide. What should I discuss with my healthcare provider before taking acetaminophen and oxycodone? You should not use this medicine if you are allergic to acetaminophen or oxycodone, or if you have: severe asthma or breathing problems; or a blockage in your stomach or intestines. Tell your doctor if you have ever had: breathing problems, sleep apnea; liver disease; a drug or alcohol addiction; kidney disease; a head injury or seizures; urination problems; or problems with your thyroid, pancreas, or gallbladder. If you use opioid medicine while you are , your baby could become dependent on the drug. This can cause life-threatening withdrawal symptoms in the baby after it is born. Babies born dependent on opioids may need medical treatment for several weeks. Ask a doctor before using opioid medicine if you are . Tell your doctor if you notice severe drowsiness or slow breathing in the nursing baby. How should I take acetaminophen and oxycodone? Follow all directions on your prescription label. Never take this medicine in larger amounts, or for longer than prescribed. An overdose can damage your liver or cause . Tell your doctor if you feel an increased urge to use more of this medicine. Never share opioid medicine with another person, especially someone with a history of drug abuse or addiction. MISUSE CAN CAUSE ADDICTION, OVERDOSE, OR . Keep the medicine in a place where others cannot get to it. Selling or giving away opioid medicine is against the law. Measure liquid medicine carefully. Use the dosing syringe provided, or use a medicine dose-measuring device (not a kitchen spoon). If you need surgery or medical tests, tell the doctor ahead of time that you are using this medicine. You should not stop using this medicine suddenly. Follow your doctor's instructions about tapering your dose. Store at room temperature away from moisture and heat. Keep track of your medicine. You should be aware if anyone is using it improperly or without a prescription. Do not keep leftover opioid medication. Just one dose can cause in someone using this medicine accidentally or improperly. Ask your pharmacist where to locate a drug take-back disposal program. If there is no take-back program, flush the unused medicine down the toilet. What happens if I miss a dose? Since this medicine is used for pain, you are not likely to miss a dose. Skip any missed dose if it is almost time for your next dose. Do not use two doses at one time. What happens if I overdose? Seek emergency medical attention or call the Poison Help line at . An overdose of this medicine can be fatal, especially in a child or other person using the medicine without a prescription. Overdose symptoms may include nausea, vomiting, sweating, severe drowsiness, pinpoint pupils, slow breathing, or no breathing. Your doctor may recommend you get naloxone (a medicine to reverse an opioid overdose) and keep it with you at all times. A person caring for you can give the naloxone if you stop breathing or don't wake up. Your caregiver must still get emergency medical help and may need to perform CPR (cardiopulmonary resuscitation) on you while waiting for help to arrive. Anyone can buy naloxone from a pharmacy or local health department. Make sure any person caring for you knows where you keep naloxone and how to use it. What should I avoid while taking acetaminophen and oxycodone? Avoid driving or operating machinery until you know how this medicine will affect you. Dizziness or drowsiness can cause falls, accidents, or severe injuries. Do not drink alcohol. Dangerous side effects or could occur. Ask a doctor or pharmacist before using any other medicine that may contain acetaminophen (sometimes abbreviated as APAP). Taking certain medications together can lead to a fatal overdose. What are the possible side effects of acetaminophen and oxycodone? Get emergency medical help if you have signs of an allergic reaction: hives; difficulty breathing; swelling of your face, lips, tongue, or throat. Opioid medicine can slow or stop your breathing, and may occur. A person caring for you should give naloxone and/or seek emergency medical attention if you have slow breathing with long pauses, blue colored lips, or if you are hard to wake up. In rare cases, acetaminophen may cause a severe skin reaction that can be fatal. This could occur even if you have taken acetaminophen in the past and had no reaction. Stop taking this medicine and call your doctor right away if you have skin redness or a rash that spreads and causes blistering and peeling. Call your doctor at once if you have: noisy breathing, sighing, shallow breathing, breathing that stops; a light-headed feeling, like you might pass out; weakness, tiredness, fever, unusual bruising or bleeding; confusion, unusual thoughts or behavior; problems with urination; liver problems--nausea, upper stomach pain, tiredness, loss of appetite, dark urine, sue-colored stools, jaundice (yellowing of the skin or eyes); low cortisol levels-- nausea, vomiting, loss of appetite, dizziness, worsening tiredness or weakness; or high levels of serotonin in the body--agitation, hallucinations, fever, sweating, shivering, fast heart rate, muscle stiffness, twitching, loss of coordination, nausea, vomiting, diarrhea. Serious breathing problems may be more likely in older adults and in those who are debilitated or have wasting syndrome or chronic breathing disorders. Common side effects include: dizziness, drowsiness, feeling tired; feelings of extreme happiness or sadness; nausea, vomiting, stomach pain; constipation; or headache. This is not a complete list of side effects and others may occur. Call your doctor for medical advice about side effects. You may report side effects to FDA at 9-938-CDM-5915. What other drugs will affect acetaminophen and oxycodone? You may have breathing problems or withdrawal symptoms if you start or stop taking certain other medicines. Tell your doctor if you also use an antibiotic, antifungal medication, heart or blood pressure medication, seizure medication, or medicine to treat HIV or hepatitis C. Opioid medication can interact with many other drugs and cause dangerous side effects or . Be sure your doctor knows if you also use: cold or allergy medicines, bronchodilator asthma/COPD medication, or a diuretic ('water pill'); medicines for motion sickness, irritable bowel syndrome, or overactive bladder; other opioids--opioid pain medicine or prescription cough medicine; a sedative like Valium--diazepam, alprazolam, lorazepam, Xanax, Klonopin, Versed, and others; drugs that make you sleepy or slow your breathing--a sleeping pill, muscle relaxer, medicine to treat mood disorders or mental illness; drugs that affect serotonin levels in your body--a stimulant, or medicine for depression, Parkinson's disease, migraine headaches, serious infections, or nausea and vomiting. This list is not complete. Other drugs may affect acetaminophen and oxycodone, including prescription and [id number] medicines, vitamins, and herbal products. Not all possible interactions are listed here. Where can I get more information? Your doctor or pharmacist can provide more information about acetaminophen and oxycodone. Remember, keep this and all other medicines out of the reach of children, never share your medicines with others, and use this medication only for the indication prescribed. Every effort has been made to ensure that the information provided by [employer]. ('[employer]') is accurate, up-to-date, and complete, but no guarantee is made to that effect. Drug information contained herein may be time sensitive. [employer] information has been compiled for use by healthcare practitioners and consumers in the [place] and therefore [employer] does not warrant that uses outside of the [place] are appropriate, unless specifically indicated otherwise. [employer] drug information does not endorse drugs, diagnose patients or recommend therapy. [employer] drug information is an informational resource designed to assist licensed healthcare practitioners in caring for their patients and/or to serve consumers viewing this service as a supplement to, and not a substitute for, the expertise, skill, knowledge and judgment of healthcare practitioners. The absence of a warning for a given drug or drug combination in no way should be construed to indicate that the drug or drug combination is safe, effective or appropriate for any given patient. [employer] does not assume any responsibility for any aspect of healthcare administered with the aid of information [employer] provides. The information contained herein is not intended to cover all possible uses, directions, precautions, warnings, drug interactions, allergic reactions, or adverse effects. If you have questions about the drugs you are taking, check with your doctor, nurse or pharmacist. Copyright 2204-5106 [employer]. Version: 22.. Revision Date: 03/20/2023. Education Materials Blurred Vision Blurred vision is when your vision is no longer sharp and you can t see small details. Any changes in your vision, whether sudden or over time, should be checked out by an collection specialist. Vision changes can be caused by many things. These include eye diseases, side effects of some medicines, or a condition such as diabetes. Never ignore vision changes. People often think that vision changes occur because they need more powerful vision correction. Many people then delay seeing their healthcare provider about their vision changes. But it s risky to delay care. If left untreated, some eye problems can lead to lasting (permanent) vision loss that can t be corrected with glasses. This can significantly reduce quality of life. Home care Make changes in your home to reduce the risk of falling: Keep walkways clear of objects you may trip over. Use nonslip pads under rugs. Brighter lighting in your home may help you see better. Don t walk in poorly lit areas. Be careful when stepping up and down from curbs and walking on uneven sidewalks. Follow-up care Follow up with an collection specialist or as advised. There are two types of eye doctors you can consult: Health Advisor. This is a licensed doctor of optometry. Optometrists are not medical doctors. They specialize in eye exams and may diagnose some eye problems. They also prescribe glasses and contact lenses. Change Management Coordinator. This is a medical doctor who specializes in eye care. Ophthalmologists diagnose and treat all eye diseases, prescribe medicines, and perform eye surgery. They may also prescribe glasses and contact lenses. An computer project manager can provide a basic screening eye exam for much less cost than an clinical nurse specialist. The computer project manager can tell you if your condition needs the services of an clinical nurse specialist. When to seek medical advice Call your healthcare provider right away if any of these occur: Sudden change in your vision Eye pain, redness, or discharge from your eyelid Blurriness doesn t get better, or it gets worse Dark spots in your field of vision Halos around lights Dots or strings (called floaters) moving across your field of vision Sudden flash of light inside your eye Vision dims Part or full vision loss [id number] [employer]. [address] [place], [place] [id number]. All rights reserved. This information is not intended as a substitute for professional medical care. Always follow your healthcare professional's instructions. Headache, Unspecified A number of things can cause headaches. The cause of your headache isn t clear. But it doesn t seem to be a sign of any serious illness. Headache affects almost everyone at some time. It is the most common reason people miss days from work or school. You could have a tension headache or a migraine headache. Stress can cause a tension headache. This can happen if you tense the muscles of your shoulders, neck, and scalp without knowing it. If this stress lasts long enough, you may develop a tension headache. It is not clear why migraines occur, but certain things called triggers can raise the risk of having a migraine attack. Migraine triggers may include emotional stress or depression, or by hormone changes during the menstrual cycle. Other triggers include control pills and other medicines, alcohol or caffeine, foods with tyramine (such as aged cheese, wine), eyestrain, weather changes, missed meals, and lack of sleep or oversleeping. Other causes of headache include: Viral illness with high fever Head injury with concussion Sinus, ear, or throat infection Dental pain and jaw joint (TMJ) pain More serious but less common causes of headache include stroke, brain hemorrhage, brain tumor, meningitis, and encephalitis. Home care Follow these tips when taking care of yourself at home: Don t drive yourself home if you were given pain medicine for your headache. Instead, have someone else drive you home. Try to sleep when you get home. You should feel much better when you wake up. Apply heat to the back of your neck to ease a neck muscle spasm. Take care of a migraine headache by putting an ice pack on your forehead or at the base of your skull. If you have nausea or vomiting, eat a light diet until your headache eases. If you have a migraine headache, use sunglasses when in the daylight or around bright indoor lighting until your symptoms get better. Bright glaring light can make this type of headache worse. Follow-up care Follow up with your healthcare provider, or as advised. Talk with your provider if you have frequent headaches. He or she can help figure out a treatment plan. By knowing the earliest signs of headache, and starting treatment right away, you may be able to stop the pain yourself. When to seek medical advice Call your healthcare provider right away if any of these occur: Your head pain suddenly gets worse after sexual intercourse or strenuous activity Your head pain doesn t get better within 24 hours You aren t able to keep liquids down (repeated vomiting) Fever of 100.4 F (38 C) or higher, or as directed by your healthcare provider Stiff neck Extreme drowsiness, confusion, or fainting Dizziness or dizziness with spinning sensation (vertigo) Weakness in an arm or leg or one side of your face You have trouble talking or seeing [id number] [employer]. [address] [place] [address], [place] [address]. All rights reserved. This information is not intended as a substitute for professional medical care. Always follow your healthcare professional's instructions. Additional Information VACCINATE! IT SAVES LIVES! Members of the community who have not yet received the COVID-19 vaccine and would like to receive it can visit one of [facility] vaccine clinics. There are many vaccine clinic locations within the [facility]. For locations and available times, please visit [email or web address].[place].go [email or web address] It is important to note that some COVID mobile vaccine clinics are held outdoors and may be canceled in rainy or stormy conditions. To learn more about pediatric vaccinations (ages 5-11), we invite you to visit the [employer] webpage. https://[email or web address].org/pag [email or web address]-Qgqyd-Arkbqtkbikc-Frequent si-Bpuxl-Lajxlriqc.html To learn more about the COVID-19 vaccine, we invite you to visit the CDC website for a list of frequently asked questions. https://www.cdc.gov/coronavirus/20 19-ncov/vaccines/faq.html [facility] Patient Portal Access Instructions: Stay connected with your healthcare team and access your personal medical information anytime with the [facility] Patient Portal. If you would like a full copy of your medical records please contact the [facility] Medical Records Department Friday through Friday between 8a.m. and 4:30p.m. Please follow the directions below to access the portal: 1.Access the email account you provided upon registration to the [facility].2.Look for an invitation email from [facility].3.Open the email and access the invitation link: Accept Invitation to [facility]4.Fill in the required aldridge to create your account. Sign into [email or web address] with your username and password that you created in the above steps to stay up to date. You can then view a summary of results, a summary of your visits, and the ability to download your summaries to your computer or send the information securely to a physician. Remember that your healthcare information is confidential, so carefully consider who you will allow to register on the [facility] Patient Portal for access to your information. You can also access the [employer] Patient Portal on the [employer]. Simply click on Health Records under Health Data and then click on the [employer] logo. HOW TO SAFELY DISPOSE OF PRESCRIPTION MEDICATIONS Please use one of the following methods to safely dispose of your unused medications. 1.Use a drug disposal kit: the drug disposal pouch allows you to safely discard your old and unused drugs. Ask your nurse to give you one when you are discharged.2.Visit a local take-back location: Many local pharmacies and police departments have programs that collect old and unwanted prescription drugs. Call your local pharmacy or go to http://[email or web address].ncyclo/[email or web address] to find one close to you.3.Make use of household items: Use cat litter or old coffee grounds to dispose medications if other options are not available. Mix your drugs with these household products, seal them in an airtight container and throw it into the garbage. Call [facility]: [phone] to be sure your drugs can be disposed of in this way. Some medicines may require a different approach.4.Never flush your medications down the toilet. IF YOU HAVE BEEN PRESCRIBED AN OPIOIDS FOR PAIN If you have been prescribed an opioid (such as hydrocodone, oxycodone or morphine), it is critical to understand the possible side effects and risks of opioid pain medications. Even when taken as directed, opioids can have several side effects including: Tolerance, meaning you might need to take more of a medication for the same pain relief. Nausea, vomiting and/or constipation. Sleepiness, dizziness, dry mouth, confusion, depression or itching. Physical dependence, meaning you have withdrawal symptoms when a medication is stopped ? this can develop within a few days. KNOW YOUR RESPONSIBILITIES It is important to know exactly how much and how often to take the opioid pain medications you are prescribed. Never take opioids in higher amounts or more often than prescribed. Do not combine opioids with alcohol or other drugs that cause drowsiness, such as benzodiazepines, also known as benzos, including diazepam and alprazolam, muscle relaxants or sleep aids. Never sell or share prescription opioids. This is illegal. Store opioids in a secure place and out of reach of others (including children, family, friends and visitors). The last page(s) of this document has been signed and retained as a CHART COPY Signatures Patient Education Materials Blurred Vision Headache, Unspecified Medication Leaflets acetaminophen and oxycodone My discharge plan and instructions have been reviewed and explained to me and I,ROBEL DUMAS understand my current condition and have read and understand these discharge instructions. I have received a written copy of the plan/instructions. If I have questions, I am aware that I should contact my doctor. 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 Automated exposure control, iterative reconstruction, and/or weight based adjustment of the mA/kV was utilized to reduce the radiation dose to as low as reasonably achievable. COMPARISON: CT head July 19, 2023 HISTORY: ORDERING SYSTEM PROVIDED HISTORY: Reason for Exam: Hx of lung CA Continued headache, vision change left eye; h/o recent intracranial hemorrhage FINDINGS: BRAIN/VENTRICLES: Expected evolution to right frontal lobe centered intraparenchymal hematoma with surrounding vasogenic edema. Decreased conspicuity of right frontal and inter hemispheric extra-axial blood products and subarachnoid blood products. Decreased conspicuity to right sylvian fissure and convexity subarachnoid blood products. Similar appearing leftward midline shift. Similar appearing intracranial mass-effect, with partial effacement of the right lateral ventricle and regional sulcal effacement. Unchanged caliber to the left lateral ventricle. No new intracranial hemorrhage definitively identified. ORBITS: The visualized portion of the orbits demonstrate no acute abnormality. SINUSES: The visualized paranasal sinuses and mastoid air cells demonstrate no acute abnormality. SOFT TISSUES/SKULL: No acute abnormality of the visualized skull or soft tissues. IMPRESSION: Compared to July 19, 2023, expected evolution to right frontal lobe centered intraparenchymal hematoma with similar appearing intracranial mass-effect. Decreased conspicuity to extra-axial blood products. No new blood products definitively identified. Interpreted by: Se Enrique Preliminary Report By: Se Enrique Electronically signed By Se Enrique Dictated Date: 07/25/2023 11:05:15 PM Prelim Date: 07/25/2023 11:09:51 PM Sign Date: 07/25/2023 11:09:51 PM Ordering Provider: DONATO LOMAS [facility] 07-21-2023 Note Discharge Instructions Thank you for allowing [facility] to assist you with your healthcare needs. The following is important discharge information regarding your hospital visit. Your Care Team ANALY MONDRAGON DO Your Diagnosis Intraparenchymal hemorrhage of brain Lumbar radiculopathy What to do next Instructions From Your Doctor CT scan scheduled at [facility] on 08/05/2023 at 9:30AM (ground floor, radiology department). After your scan, you will go directly to the neurosurgery office for your follow-up visit and review of head imaging. If you have any questions or concerns prior to scheduled follow-up, please call [facility] office. In addition, you will need to have a repeat brain MRI in 4 weeks for reevaluation. This is to be scheduled at [facility], and they will reach out to you to schedule this test at some point over the next several days. Once your test is scheduled, please reach out to Dr. Benitez's office at [phone] to schedule your follow-up visit with Dr. Benitez. Please reach out to our office with any questions or concerns; or if you do not hear from [facility] scheduling. Scheduled Follow-Up Appointments Appointment Type When With Where Contact InformationCT Head or Brain w/o Contrast 08/05/2023 09:45 AM EST Radiology [phone] NS OV 08/05/2023 10:30 AM EST LORETO LUI MD Neurosurgery [address] [id number] PC OV 08/06/2023 10:30 AM EST ANALY MONDRAGON DO [facility] Follow Up Appointments Follow Up with LORETO LUI MD, Neurosurgery When 08/05/2023 10:30 AM EST Where: [address] [facility] [address] [facility] [place] [address]- [phone] The Following Activity and Diet Have Been Ordered for You No qualifying data available. No qualifying data available. The Following Equipment Has Been Ordered for You No qualifying data available. The Following Treatments Have Been Ordered for You Discharge Labs No qualifying data available. Discharge Radiology No qualifying data available. Other Therapies No qualifying data available. Post Acute Orders No qualifying data available. Someone Will Contact You Regarding These Home Health Referrals No home referrals have been ordered for you. No one will call you. Allergies iodine (Rash) Medications Please ask your primary doctor or pharmacist before taking any other medication not listed, including over the counter drugs, herbal medications, vitamins and or supplements as they may interact with your home medications. What How Much When Why Instructions Last Dose New acetaminophen-oxyCODONE (acetaminophen-oxyCODONE 325 mg-5 mg oral tablet) 1 tab(s) by mouth Every 6 hours as needed for Pain, scale 7-10 Intraparenchymal hemorrhage of brain Duration: 3 Days Pickup at [facility] New dexAMETHasone (dexAMETHasone 2 mg oral tablet) See instructions Intraparenchymal hemorrhage of brain Take 2 tablets (4mg) QID x2 days, then take 2 tablets (4mg) TID x2 days, then take 1 tablet (2mg) TID x2 days, then take 1 tablet (2mg) BID x2 days, then take 0.5 tablet (1mg) BID x2 days, then take 0.5 tablet (1mg) qDay x2 days, then stop. Pickup at [facility] New levETIRAcetam (Keppra 500 mg oral tablet) 1 tab(s) by mouth Two (2) times a day Pickup at [facility] New pantoprazole (pantoprazole 40 mg oral enteric coated tablet) 1 tab(s) by mouth Once a day Pickup at [facility] New polyethylene glycol 3350 (Miralax Powder Packet) 17 gram(s) by mouth Two (2) times a day as needed for Constipation Changed acetaminophen (Tylenol 325 mg oral capsule) 650 Milligram by mouth Every 4 hours as needed for Pain, scale 1-6 Unchanged albuterol (albuterol MDI (90 mcg/ inh) CFC free inhalation aerosol) 2 puff(s) by inhalation Every 6 hours as needed for as needed for wheezing Emphysema/COPD Unchanged calcium gluconate (calcium gluconate 500 mg oral tablet) 2 tab(s) by mouth Once a day (in the morning) Unchanged cyanocobalamin (Vitamin B12 50 mcg oral tablet) 1 tab(s) by mouth Two (2) times a day Unchanged denosumab (Prolia 60 mg/ mL subcutaneous solution) 1 Milliliter Subcutaneous Every 6 months Osteoporosis Unchanged escitalopram (escitalopram 20 mg oral tablet) 1 tab(s) by mouth Once a day Unchanged gabapentin (gabapentin 600 mg oral tablet) 1 tab(s) by mouth Four (4) times a day Lumbar radiculopathy Duration: 30 Days Pharmacy Information [facility]: [address] [place], [place] [phone] What How Much When Comments Stop Taking multivitamin (Multivitamin) 2 tab(s) by mouth Once a day (in the morning) Please take this list to your next doctor s visit. Bring all medications you take, including over the counter medications, herbals and other supplements with you to your doctor s visit. Patients and families are reminded to discard old lists and to update any records with all medication providers or retail pharmacies. Education Materials Intracerebral Hemorrhage An intracerebral hemorrhage occurs when a blood vessel in the brain leaks or bursts. As a result, that area of the brain becomes damaged from a lack of blood and oxygen and from a pooling of leaked blood that presses on brain tissue. This is also called a bleeding (hemorrhagic) stroke. A stroke is a medical emergency. It must be treated right away. Early and prompt treatment will increase the chances of better recovery. Delay may lead to permanent damage and loss of brain function. What are the causes? This condition is often caused by very high blood pressure. It may also be caused by: Head injury (trauma). A bulging of a weak section in a blood vessel (aneurysm). Thin and hardened blood vessels. This occurs when plaque builds on the dean of an artery. An abnormal formation of a blood vessel (arteriovenous malformation). This condition results in an abnormal tangle of thin-walled blood vessels. A tumor in the brain. Protein buildup on the artery dean of the brain (amyloid angiopathy). Sometimes the cause of this condition is not known. What increases the risk? You are more likely to develop this condition if: You have high blood pressure (hypertension). You are an older adult. You abuse alcohol or drugs. You take blood-thinning medicines (anticoagulants). What are the signs or symptoms? Symptoms of this condition include: Sudden onset of these problems: ? Weakness or numbness of the face, arm, or leg, especially on one side of the body. ? Nausea and vomiting. ? Trouble speaking (aphasia) or understanding speech. ? Trouble seeing in one or both eyes. ? Difficulty walking or difficulty moving arms or legs. ? Loss of balance or coordination. ? Confusion. ? Dizziness. Seizures. Hypertension. How is this diagnosed? This condition may be diagnosed based on your medical history and physical exam. You may also have other tests, including: CT scan or MRI to view the brain. Computed tomography angiography (CTA) or a magnetic resonance angiogram (MRA) to view vessels in the brain. How is this treated? The goals of treating this condition are to stop the bleeding, control pressure in the brain, and relieve symptoms. Treatment may include: Medicines to treat symptoms, such as hypertension, pain, and nausea and vomiting. Other medicines, blood products, or vitamin K to control the bleeding. A tube (shunt) in the brain to relieve pressure. Assisted breathing (ventilation). Surgery to stop bleeding, remove a blood clot or tumor, and reduce pressure. Surgeries may include: ? Craniotomy, to remove a part of the skull in order to reduce pressure in the brain. ? Stereotactic aspiration, to remove blood from the brain using a needle or syringe. Follow these instructions at home: Medicines Take rchu-qnw-gqgronc and prescription medicines only as told by your health care provider. Do not take medicines such as aspirin and ibuprofen unless your health care provider tells you to take them. These medicines can thin your blood and increase the risk of bleeding. Eating and drinking Eat healthy foods as directed by your health care provider. You may be asked to: ? Eat a diet that is low in salt (sodium), saturated fat, trans fat, and cholesterol to manage your blood pressure. Seek the help of specialists if your ability to swallow safely has been affected. A dietitian, speech and language specialists, and an occupational therapist can teach you how to get the nutrition you need. Limit alcohol intake to no more than 1 drink a day for non women and 2 drinks a day for men. One drink equals 12 oz of beer, 5 oz of wine, or 1 oz of hard liquor. Lifestyle Do not use any products that contain nicotine or tobacco, such as cigarettes and e-cigarettes. If you need help quitting, ask your health care provider. Follow your health care provider's instructions about preventing falls. Your health care provider may: ? Arrange for specialists to evaluate your home. ? Recommend that you install grab bars in the bedroom and bathroom. ? Arrange for special equipment to be used at home, such as a raised toilet and a seat for the shower. Use a walker or a cane at all times if directed by your health care provider. Do physical activities as told by your health care provider. Ask your health care provider what activities are safe for you. General instructions Manage any other health conditions you may have, including high blood pressure, diabetes, and excess body weight. Keep all follow-up visits as told by your health care provider. This is important. Visits include referrals for physical and occupational therapy, rehabilitation, and lab tests. Get help right away if: You have any symptoms of a stroke. BE FAST is an easy way to remember the main warning signs of a stroke: ? B - Balance. Signs are dizziness, sudden trouble walking, or loss of balance. ? E - Eyes. Signs are trouble seeing or a sudden change in vision. ? F - Face. Signs are sudden weakness or numbness of the face, or the face or eyelid drooping on one side. ? A - Arms. Signs are weakness or numbness in an arm. This happens suddenly and usually on one side of the body. ? S - Speech. Signs are sudden trouble speaking, slurred speech, or trouble understanding what people say. ? T - Time. Time to call emergency services. Write down what time symptoms started. You have other signs of a stroke, such as: ? A sudden, severe headache with no known cause. ? Nausea or vomiting. ? Seizure. ? You have a partial or total loss of consciousness. ? Confusion. These symptoms may represent a serious problem that is an emergency. Do not wait to see if the symptoms will go away. Get medical help right away. Call your local emergency services (911 in the [place] Do not drive yourself to the hospital. Summary An intracerebral hemorrhage occurs when a blood vessel in the brain leaks or bursts. This condition is often caused by very high blood pressure. Early and prompt treatment will increase the chances of better recovery. Delay may lead to permanent damage and loss of brain function. The goals of treatment are to stop the bleeding, control pressure in the brain, and relieve symptoms. This information is not intended to replace advice given to you by your health care provider. Make sure you discuss any questions you have with your health care provider. Document Released: 03/01/2015 Document Revised: 01/07/2020 Document Reviewed: 07/08/2018 [employer] Patient Education 2020 [employer] Additional Information VACCINATE! IT SAVES LIVES! Members of the community who have not yet received the COVID-19 vaccine and would like to receive it can visit one of [facility] vaccine clinics. There are many vaccine clinic locations within the [facility]. For locations and available times, please visit https://gettheshot.coronavirus.[place]i [place].gov/. It is important to note that some COVID mobile vaccine clinics are held outdoors and may be canceled in rainy or stormy conditions. To learn more about pediatric vaccinations (ages 5-11), we invite you to visit the [facility] webpage. https://www.[facility].org/pag es/0630-Kiicn-Fqirpifpjsh-Frequent bh-Ciicu-Lyshigxqx.html To learn more about the COVID-19 vaccine, we invite you to visit the CDC website for a list of frequently asked questions.https://www.cdc.gov/radha navirus/2019-ncov/vaccines/faq.htm rosalind [employer] Patient Portal Access Instructions: Stay connected with your healthcare team and access your personal medical information anytime with the [employer] Patient Portal. Please follow the directions below to create your [employer] account: 1.Access the email account you provided upon registration to the hospital/physician office.2.Look for an invitation email from [facility].3.Open the email and access the invitation link: Accept Invitation to [employer].4.Fill in the required aldridge to create your account. To access your account, visit [email or web address]. Click the blue button labeled Access Patient Portal and then log in with the username and password that you created in the steps above. You will be able to view your test results, lab results, a summary of your visits, upcoming appointments and more. There is also a convenient messaging option where you can send secure messages to your provider. In addition, you will have the ability to download any documents or summaries to your computer and/or send the information securely to a physician. Remember that your healthcare information is confidential, so carefully consider who you will allow to register on the [facility] [employer] Patient Portal for access to your information. You can also access the [facility] Patient Portal on the [facility]. Simply click on Patient Portal and then log into your account. If you would like to receive a full copy of your medical records, please contact the [facility] Medical Records Department by calling [phone], Friday through Friday between 8 a.m. and 4:30 p.m. HOW TO SAFELY DISPOSE OF PRESCRIPTION MEDICATIONS Please use one of the following methods to safely dispose of your unused medications. 1.Use a drug disposal kit: the drug disposal pouch allows you to safely discard your old and unused drugs. Ask your nurse to give you one when you are discharged.2.Visit a local take-back location: Many local pharmacies and police departments have programs that collect old and unwanted prescription drugs. Call your local pharmacy or go to http://iOnRoad.ncyclo/2M5Ff9g to find one close to you.3.Make use of household items: Use cat litter or old coffee grounds to dispose medications if other options are not available. Mix your drugs with these household products, seal them in an airtight container and throw it into the garbage. Call [facility]: [phone] to be sure your drugs can be disposed of in this way. Some medicines may require a different approach.4.Never flush your medications down the toilet. IF YOU HAVE BEEN PRESCRIBED AN OPIOID FOR PAIN If you have been prescribed an opioid (such as hydrocodone, oxycodone or morphine), it is critical to understand the possible side effects and risks of opioid pain medications. Even when taken as directed, opioids can have several side effects including: Tolerance, meaning you might need to take more of a medication for the same pain relief. Nausea, vomiting and/or constipation. Sleepiness, dizziness, dry mouth, confusion, depression or itching. Physical dependence, meaning you have withdrawal symptoms when a medication is stopped, can develop within a few days. KNOW YOUR RESPONSIBILITIES It is important to know exactly how much and how often to take the opioid pain medications you are prescribed. Never take opioids in higher amounts or more often than prescribed. Do not combine opioids with alcohol or other drugs that cause drowsiness, such as benzodiazepines, also known as benzos, including diazepam and alprazolam, muscle relaxants or sleep aids. Never sell or share prescription opioids. This is illegal. Store opioids in a secure place and out of reach of others (including children, family, friends and visitors). The last page of this document has been signed and retained as a CHART COPY. Signatures Patient Education Materials Intracerebral Hemorrhage Medication Leaflets My discharge plan and instructions have been reviewed and explained to me and IPITER VERNA D understand my current condition and have read and understand these discharge instructions. I have received a written copy of the plan/instructions. If I have questions, I am aware that I should contact my doctor. Patient/Training Analyst Signature: Date/Time: Relationship to Patient: ___ Witness Name/Signature: Date/Time: [facility] 07-21-2023 Hospital Discharge instructions Patient Education 07/21/2023 12:42:29 Intracerebral Hemorrhage Intracerebral Hemorrhage An intracerebral hemorrhage occurs when a blood vessel in the brain leaks or bursts. As a result, that area of the brain becomes damaged from a lack of blood and oxygen and from a pooling of leaked blood that presses on brain tissue. This is also called a bleeding (hemorrhagic) stroke. A stroke is a medical emergency. It must be treated right away. Early and prompt treatment will increase the chances of better recovery. Delay may lead to permanent damage and loss of brain function. What are the causes? This condition is often caused by very high blood pressure. It may also be caused by: Head injury (trauma). A bulging of a weak section in a blood vessel (aneurysm). Thin and hardened blood vessels. This occurs when plaque builds on the dean of an artery. An abnormal formation of a blood vessel (arteriovenous malformation). This condition results in an abnormal tangle of thin-walled blood vessels. A tumor in the brain. Protein buildup on the artery dean of the brain (amyloid angiopathy). Sometimes the cause of this condition is not known. What increases the risk? You are more likely to develop this condition if: You have high blood pressure (hypertension). You are an older adult. You abuse alcohol or drugs. You take blood-thinning medicines (anticoagulants). What are the signs or symptoms? Symptoms of this condition include: Sudden onset of these problems: ?Weakness or numbness of the face, arm, or leg, especially on one side of the body. ?Nausea and vomiting. ?Trouble speaking (aphasia) or understanding speech. ?Trouble seeing in one or both eyes. ?Difficulty walking or difficulty moving arms or legs. ?Loss of balance or coordination. ?Confusion. ?Dizziness. Seizures. Hypertension. How is this diagnosed? This condition may be diagnosed based on your medical history and physical exam. You may also have other tests, including: CT scan or MRI to view the brain. Computed tomography angiography (CTA) or a magnetic resonance angiogram (MRA) to view vessels in the brain. How is this treated? The goals of treating this condition are to stop the bleeding, control pressure in the brain, and relieve symptoms. Treatment may include: Medicines to treat symptoms, such as hypertension, pain, and nausea and vomiting. Other medicines, blood products, or vitamin K to control the bleeding. A tube (shunt) in the brain to relieve pressure. Assisted breathing (ventilation). Surgery to stop bleeding, remove a blood clot or tumor, and reduce pressure. Surgeries may include: ?Craniotomy, to remove a part of the skull in order to reduce pressure in the brain. ?Stereotactic aspiration, to remove blood from the brain using a needle or syringe. Follow these instructions at home: Medicines Take fcyj-wkc-nxktavi and prescription medicines only as told by your health care provider. Do not take medicines such as aspirin and ibuprofen unless your health care provider tells you to take them. These medicines can thin your blood and increase the risk of bleeding. Eating and drinking Eat healthy foods as directed by your health care provider. You may be asked to: ?Eat a diet that is low in salt (sodium), saturated fat, trans fat, and cholesterol to manage your blood pressure. Seek the help of specialists if your ability to swallow safely has been affected. A dietitian, speech and language specialists, and an occupational therapist can teach you how to get the nutrition you need. Limit alcohol intake to no more than 1 drink a day for non women and 2 drinks a day for men. One drink equals 12 oz of beer, 5 oz of wine, or 1 oz of hard liquor. Lifestyle Do not use any products that contain nicotine or tobacco, such as cigarettes and e-cigarettes. If you need help quitting, ask your health care provider. Follow your health care provider's instructions about preventing falls. Your health care provider may: ?Arrange for specialists to evaluate your home. ?Recommend that you install grab bars in the bedroom and bathroom. ?Arrange for special equipment to be used at home, such as a raised toilet and a seat for the shower. Use a walker or a cane at all times if directed by your health care provider. Do physical activities as told by your health care provider. Ask your health care provider what activities are safe for you. General instructions Manage any other health conditions you may have, including high blood pressure, diabetes, and excess body weight. Keep all follow-up visits as told by your health care provider. This is important. Visits include referrals for physical and occupational therapy, rehabilitation, and lab tests. Get help right away if: You have any symptoms of a stroke. BE FAST is an easy way to remember the main warning signs of a stroke: ?B - Balance. Signs are dizziness, sudden trouble walking, or loss of balance. ?E - Eyes. Signs are trouble seeing or a sudden change in vision. ?F - Face. Signs are sudden weakness or numbness of the face, or the face or eyelid drooping on one side. ?A - Arms. Signs are weakness or numbness in an arm. This happens suddenly and usually on one side of the body. ?S - Speech. Signs are sudden trouble speaking, slurred speech, or trouble understanding what people say. ?T - Time. Time to call emergency services. Write down what time symptoms started. You have other signs of a stroke, such as: ? A sudden, severe headache with no known cause. ? Nausea or vomiting. ? Seizure. ?You have a partial or total loss of consciousness. ?Confusion. These symptoms may represent a serious problem that is an emergency. Do not wait to see if the symptoms will go away. Get medical help right away. Call your local emergency services (911 in the [place] Do not drive yourself to the hospital. Summary An intracerebral hemorrhage occurs when a blood vessel in the brain leaks or bursts. This condition is often caused by very high blood pressure. Early and prompt treatment will increase the chances of better recovery. Delay may lead to permanent damage and loss of brain function. The goals of treatment are to stop the bleeding, control pressure in the brain, and relieve symptoms. This information is not intended to replace advice given to you by your health care provider. Make sure you discuss any questions you have with your health care provider. Document Released: 03/01/2015 Document Revised: 01/07/2020 Document Reviewed: 07/08/2018 [employer] Patient Education 2020 [employer]. Follow Up Care 07/19/2023 12:04:06 With:LORETO LUI MD, Neurosurgery Address: [address] [place] [address] [address] [facility] [place] [address]- [phone] When:08/05/2023 10:30:00 [facility] 07-21-2023 Note Discharge Instructions Thank you for allowing [facility] to assist you with your healthcare needs. The following is important discharge information regarding your hospital visit. Your Care Team ANALY MONDRAGON DO Your Diagnosis Intraparenchymal hemorrhage of brain Lumbar radiculopathy What to do next Instructions From Your Doctor CT scan scheduled at [facility] on 08/05/2023 at 9:30AM (ground floor, radiology department). After your scan, you will go directly to the neurosurgery office for your follow-up visit and review of head imaging. If you have any questions or concerns prior to scheduled follow-up, please call [facility] office. In addition, you will need to have a repeat brain MRI in 4 weeks for reevaluation. This is to be scheduled at [facility], and they will reach out to you to schedule this test at some point over the next several days. Once your test is scheduled, please reach out to Dr. Benitez's office at [phone] to schedule your follow-up visit with Dr. Benitez. Please reach out to our office with any questions or concerns; or if you do not hear from [facility] scheduling. Scheduled Follow-Up Appointments Appointment Type When With Where Contact InformationCT Head or Brain w/o Contrast 08/05/2023 09:45 AM EST Radiology [phone] NS OV 08/05/2023 10:30 AM EST LORETO LUI MD Neurosurgery [address] [phone] PC OV 08/06/2023 10:30 AM EST [facility] Follow Up with LORETO LUI MD, Neurosurgery When 08/05/2023 10:30 AM EST Where: [address] [facility] [address] [place] [place] [address]- [phone] The Following Activity and Diet Have Been Ordered for You No qualifying data available. No qualifying data available. The Following Equipment Has Been Ordered for You No qualifying data available. The Following Treatments Have Been Ordered for You Discharge Labs No qualifying data available. Discharge Radiology No qualifying data available. Other Therapies No qualifying data available. Post Acute Orders No qualifying data available. Someone Will Contact You Regarding These Home Health Referrals No home referrals have been ordered for you. No one will call you. Allergies iodine (Rash) Medications Please ask your primary doctor or pharmacist before taking any other medication not listed, including over the counter drugs, herbal medications, vitamins and or supplements as they may interact with your home medications. What How Much When Why Instructions Last Dose New acetaminophen-oxyCODONE (acetaminophen-oxyCODONE 325 mg-5 mg oral tablet) 1 tab(s) by mouth Every 6 hours as needed for Pain, scale 7-10 Intraparenchymal hemorrhage of brain Duration: 3 Days Pickup at [facility] New dexAMETHasone (dexAMETHasone 2 mg oral tablet) See instructions Intraparenchymal hemorrhage of brain Take 2 tablets (4mg) QID x2 days, then take 2 tablets (4mg) TID x2 days, then take 1 tablet (2mg) TID x2 days, then take 1 tablet (2mg) BID x2 days, then take 0.5 tablet (1mg) BID x2 days, then take 0.5 tablet (1mg) qDay x2 days, then stop. Pickup at [facility] [address] New levETIRAcetam (Keppra 500 mg oral tablet) 1 tab(s) by mouth Two (2) times a day Pickup at [facility] [address] New pantoprazole (pantoprazole 40 mg oral enteric coated tablet) 1 tab(s) by mouth Once a day Pickup at [facility] [address] New polyethylene glycol 3350 (Miralax Powder Packet) 17 gram(s) by mouth Two (2) times a day as needed for Constipation Changed acetaminophen (Tylenol 325 mg oral capsule) 650 Milligram by mouth Every 4 hours as needed for Pain, scale 1-6 Unchanged albuterol (albuterol MDI (90 mcg/ inh) CFC free inhalation aerosol) 2 puff(s) by inhalation Every 6 hours as needed for as needed for wheezing Emphysema/COPD Unchanged calcium gluconate (calcium gluconate 500 mg oral tablet) 2 tab(s) by mouth Once a day (in the morning) Unchanged cyanocobalamin (Vitamin B12 50 mcg oral tablet) 1 tab(s) by mouth Two (2) times a day Unchanged denosumab (Prolia 60 mg/ mL subcutaneous solution) 1 Milliliter Subcutaneous Every 6 months Osteoporosis Unchanged escitalopram (escitalopram 20 mg oral tablet) 1 tab(s) by mouth Once a day Unchanged gabapentin (gabapentin 600 mg oral tablet) 1 tab(s) by mouth Four (4) times a day Lumbar radiculopathy Duration: 30 Days Pharmacy Information [facility]: [address] [place], [place] [phone] What How Much When Comments Stop Taking multivitamin (Multivitamin) 2 tab(s) by mouth Once a day (in the morning) Please take this list to your next doctor s visit. Bring all medications you take, including over the counter medications, herbals and other supplements with you to your doctor s visit. Patients and families are reminded to discard old lists and to update any records with all medication providers or retail pharmacies. Education Materials Intracerebral Hemorrhage An intracerebral hemorrhage occurs when a blood vessel in the brain leaks or bursts. As a result, that area of the brain becomes damaged from a lack of blood and oxygen and from a pooling of leaked blood that presses on brain tissue. This is also called a bleeding (hemorrhagic) stroke. A stroke is a medical emergency. It must be treated right away. Early and prompt treatment will increase the chances of better recovery. Delay may lead to permanent damage and loss of brain function. What are the causes? This condition is often caused by very high blood pressure. It may also be caused by: Head injury (trauma). A bulging of a weak section in a blood vessel (aneurysm). Thin and hardened blood vessels. This occurs when plaque builds on the dean of an artery. An abnormal formation of a blood vessel (arteriovenous malformation). This condition results in an abnormal tangle of thin-walled blood vessels. A tumor in the brain. Protein buildup on the artery dean of the brain (amyloid angiopathy). Sometimes the cause of this condition is not known. What increases the risk? You are more likely to develop this condition if: You have high blood pressure (hypertension). You are an older adult. You abuse alcohol or drugs. You take blood-thinning medicines (anticoagulants). What are the signs or symptoms? Symptoms of this condition include: Sudden onset of these problems: ? Weakness or numbness of the face, arm, or leg, especially on one side of the body. ? Nausea and vomiting. ? Trouble speaking (aphasia) or understanding speech. ? Trouble seeing in one or both eyes. ? Difficulty walking or difficulty moving arms or legs. ? Loss of balance or coordination. ? Confusion. ? Dizziness. Seizures. Hypertension. How is this diagnosed? This condition may be diagnosed based on your medical history and physical exam. You may also have other tests, including: CT scan or MRI to view the brain. Computed tomography angiography (CTA) or a magnetic resonance angiogram (MRA) to view vessels in the brain. How is this treated? The goals of treating this condition are to stop the bleeding, control pressure in the brain, and relieve symptoms. Treatment may include: Medicines to treat symptoms, such as hypertension, pain, and nausea and vomiting. Other medicines, blood products, or vitamin K to control the bleeding. A tube (shunt) in the brain to relieve pressure. Assisted breathing (ventilation). Surgery to stop bleeding, remove a blood clot or tumor, and reduce pressure. Surgeries may include: ? Craniotomy, to remove a part of the skull in order to reduce pressure in the brain. ? Stereotactic aspiration, to remove blood from the brain using a needle or syringe. Follow these instructions at home: Medicines Take iplk-aef-krbhoux and prescription medicines only as told by your health care provider. Do not take medicines such as aspirin and ibuprofen unless your health care provider tells you to take them. These medicines can thin your blood and increase the risk of bleeding. Eating and drinking Eat healthy foods as directed by your health care provider. You may be asked to: ? Eat a diet that is low in salt (sodium), saturated fat, trans fat, and cholesterol to manage your blood pressure. Seek the help of specialists if your ability to swallow safely has been affected. A dietitian, speech and language specialists, and an occupational therapist can teach you how to get the nutrition you need. Limit alcohol intake to no more than 1 drink a day for non women and 2 drinks a day for men. One drink equals 12 oz of beer, 5 oz of wine, or 1 oz of hard liquor. Lifestyle Do not use any products that contain nicotine or tobacco, such as cigarettes and e-cigarettes. If you need help quitting, ask your health care provider. Follow your health care provider's instructions about preventing falls. Your health care provider may: ? Arrange for specialists to evaluate your home. ? Recommend that you install grab bars in the bedroom and bathroom. ? Arrange for special equipment to be used at home, such as a raised toilet and a seat for the shower. Use a walker or a cane at all times if directed by your health care provider. Do physical activities as told by your health care provider. Ask your health care provider what activities are safe for you. General instructions Manage any other health conditions you may have, including high blood pressure, diabetes, and excess body weight. Keep all follow-up visits as told by your health care provider. This is important. Visits include referrals for physical and occupational therapy, rehabilitation, and lab tests. Get help right away if: You have any symptoms of a stroke. BE FAST is an easy way to remember the main warning signs of a stroke: ? B - Balance. Signs are dizziness, sudden trouble walking, or loss of balance. ? E - Eyes. Signs are trouble seeing or a sudden change in vision. ? F - Face. Signs are sudden weakness or numbness of the face, or the face or eyelid drooping on one side. ? A - Arms. Signs are weakness or numbness in an arm. This happens suddenly and usually on one side of the body. ? S - Speech. Signs are sudden trouble speaking, slurred speech, or trouble understanding what people say. ? T - Time. Time to call emergency services. Write down what time symptoms started. You have other signs of a stroke, such as: ? A sudden, severe headache with no known cause. ? Nausea or vomiting. ? Seizure. ? You have a partial or total loss of consciousness. ? Confusion. These symptoms may represent a serious problem that is an emergency. Do not wait to see if the symptoms will go away. Get medical help right away. Call your local emergency services (911 in the [place] Do not drive yourself to the hospital. Summary An intracerebral hemorrhage occurs when a blood vessel in the brain leaks or bursts. This condition is often caused by very high blood pressure. Early and prompt treatment will increase the chances of better recovery. Delay may lead to permanent damage and loss of brain function. The goals of treatment are to stop the bleeding, control pressure in the brain, and relieve symptoms. This information is not intended to replace advice given to you by your health care provider. Make sure you discuss any questions you have with your health care provider. Document Released: 03/01/2015 Document Revised: 01/07/2020 Document Reviewed: 07/08/2018 [employer] Patient Education 2020 [employer] Additional Information VACCINATE! IT SAVES LIVES! Members of the community who have not yet received the COVID-19 vaccine and would like to receive it can visit one of [facility] vaccine clinics. There are many vaccine clinic locations within the [facility]. For locations and available times, please visit https://gettheshot.coronavirus.[place].gov/. It is important to note that some COVID mobile vaccine clinics are held outdoors and may be canceled in rainy or stormy conditions. To learn more about pediatric vaccinations (ages 5-11), we invite you to visit the [facility] webpage. https://www.akLinQpays.org/pag es/7983-Iizyh-Yiiwwrdduyl-Frequent yz-Oysqf-Kwnadcevq.html To learn more about the COVID-19 vaccine, we invite you to visit the CDC website for a list of frequently asked questions.https://www.cdc.gov/radha navirus/2019-ncov/vaccines/faq.htm l [employer] Patient Portal Access Instructions: Stay connected with your healthcare team and access your personal medical information anytime with the [facility] Patient Portal. Please follow the directions below to create your [facility] account: 1.Access the email account you provided upon registration to the hospital/physician office.2.Look for an invitation email from [facility].3.Open the email and access the invitation link: Accept Invitation to [facility].4.Fill in the required aldridge to create your account. To access your account, visit [email or web address]. Click the blue button labeled Access Patient Portal and then log in with the username and password that you created in the steps above. You will be able to view your test results, lab results, a summary of your visits, upcoming appointments and more. There is also a convenient messaging option where you can send secure messages to your provider. In addition, you will have the ability to download any documents or summaries to your computer and/or send the information securely to a physician. Remember that your healthcare information is confidential, so carefully consider who you will allow to register on the [facility] Patient Portal for access to your information. You can also access the [facility] Patient Portal on the [facility] jesus manuel. Simply click on Patient Portal and then log into your account. If you would like to receive a full copy of your medical records, please contact the [facility] Medical Records Department by calling [phone], Friday through Friday between 8 a.m. and 4:30 p.m. HOW TO SAFELY DISPOSE OF PRESCRIPTION MEDICATIONS Please use one of the following methods to safely dispose of your unused medications. 1.Use a drug disposal kit: the drug disposal pouch allows you to safely discard your old and unused drugs. Ask your nurse to give you one when you are discharged.2.Visit a local take-back location: Many local pharmacies and police departments have programs that collect old and unwanted prescription drugs. Call your local pharmacy or go to http://iOnRoad.ncyclo/8D2Vc0z to find one close to you.3.Make use of household items: Use cat litter or old coffee grounds to dispose medications if other options are not available. Mix your drugs with these household products, seal them in an airtight container and throw it into the garbage. Call [facility]: [phone] to be sure your drugs can be disposed of in this way. Some medicines may require a different approach.4.Never flush your medications down the toilet. IF YOU HAVE BEEN PRESCRIBED AN OPIOID FOR PAIN If you have been prescribed an opioid (such as hydrocodone, oxycodone or morphine), it is critical to understand the possible side effects and risks of opioid pain medications. Even when taken as directed, opioids can have several side effects including: Tolerance, meaning you might need to take more of a medication for the same pain relief. Nausea, vomiting and/or constipation. Sleepiness, dizziness, dry mouth, confusion, depression or itching. Physical dependence, meaning you have withdrawal symptoms when a medication is stopped, can develop within a few days. KNOW YOUR RESPONSIBILITIES It is important to know exactly how much and how often to take the opioid pain medications you are prescribed. Never take opioids in higher amounts or more often than prescribed. Do not combine opioids with alcohol or other drugs that cause drowsiness, such as benzodiazepines, also known as benzos, including diazepam and alprazolam, muscle relaxants or sleep aids. Never sell or share prescription opioids. This is illegal. Store opioids in a secure place and out of reach of others (including children, family, friends and visitors). The last page of this document has been signed and retained as a CHART COPY. Signatures Patient Education Materials Intracerebral Hemorrhage Medication Leaflets My discharge plan and instructions have been reviewed and explained to me and IPITER VERNA D understand my current condition and have read and understand these discharge instructions. I have received a written copy of the plan/instructions. If I have questions, I am aware that I should contact my doctor. 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 Benitez Neurosurgical CC: Acute right frontal IPH with surrounding vasogenic edema This is a 68-year-old female with a PMH significant for lung adenocarcinoma s/p RVAT, RUL lobectomy 06/2021, COPD, former tobacco abuse, and chronic pain who presented to [facility] ED on 07/19/2023 with complaints of headache and fatigue. Patient provides that initially, she did not feel well on Thanksgiving. She was fatigued, and had to lay down though at that time she did not complain of headaches, nausea or vomiting. Her headache started about 5 days prior to evaluation (07/14). Notes that she was nauseous and would vomit in the evenings. Denies any falls or head trauma. Denies any associated vision changes, weakness, dizziness/lightheadedness, acute paresthesias. Denies any loss of appetite or unintentional weight loss. While in [place] ED, a noncontrasted head CT was obtained which demonstrated a large right frontal intraparenchymal hemorrhage, 4.1 cm in size with adjacent associated vasogenic edema and mild local mass effect present. Additionally, right frontal and right parafalcine subdural hematoma. Small amount of adjacent subarachnoid hemorrhage as well. Due to above findings, patient was discussed with on-call neurosurgeon who recommended transfer/admission to [facility] SICU for further observation and management. Patient was started on dexamethasone, as well as Keppra for seizure prophylaxis. This morning, patient is seen resting in bed. Does note that her headache is worse today in comparison to yesterday. When asked if she has taken any pain medications for assistance with her headache, she states only what they have been giving me . She denies any associated nausea/vomiting, acute vision changes, acute paresthesias, weakness. Notes that she has been up and ambulating throughout the room and does feel steady on her feet. Denies any dizziness/lightheadedness when she is up. Notes that she has been eating well and voiding without difficulty. Objective Vitals and Measurements T: 36.6 C (Oral) TMIN: 36.4 C (Oral) TMAX: 36.7 C (Oral) HR: 70(Monitored) RR: 15 BP: 122/73 SpO2: 94% Intake and Output 7AM Yesterday to 7AM Today Intake and Output (Last 24 hours) Intake Oral Intake 240.00 Output Stool Count 0.00 Urine Count 2.00 Total Summary Total Intake 240.00 Total Output 0.00 Fluid Balance 240.00 Physical Exam General Appearance: 68-year-old female. Awake, alert. Resting in bed, appears comfortable and in no acute distress. Appears thin. Skin: Skin is pink, warm, and dry. No rashes or lesions. Neurological: Patient is awake, alert and oriented x4 appropriately. Her speech is clear and fluent; converses well. Facial features are symmetrical, tongue protrudes midline. Follows simple commands accurately and without delay. Strong motor strength throughout her upper and lower extremities. Does not appear to have any lateralizing deficits. No pronator drift. Finger-nose testing intact without dysmetria. Right/left discretion intact. Sensation is intact to light touch throughout her face, upper extremities, and lower extremities. HEENT: Head is normocephalic and atraumatic. PERRLA, EOMI. Cardiovascular: Regular heart rate and rhythm. S1, S2 present. NSR. No peripheral edema noted. Radial and pedal pulses are 2+ and symmetric bilaterally. Respiratory: Respirations even and unlabored. Lungs are clear throughout. No signs of respiratory distress. Currently on room air. Gastrointestinal: Abdomen is soft and symmetric. No abdominal tenderness or distention with palpation. Bowel sounds normoactive in all four quadrants. Genitourinary: Voiding without difficulty. Musculoskeletal: CASTELLANO spontaneously. No obvious joint edema or erythema noted. Weight Dosing Weight: 40.3 kg (07/19/23) Medications Medications (14) Active Scheduled: (4) dexamethasone 4 mg/1 mL solution 4 mg 1 mL, IV Push, q6hr levETIRAcetam 500 mg tablet 500 mg 1 tab(s), Oral, BID pantoprazole 40 mg VIAL 40 mg, IV Push, qDayAC polyethylene glycol 3350 - UD packet 17 gram(s) 15 mL, Oral, BID Continuous: (2) insulin regular 100 unit(s) + NS Premix Diluent 100 mL 100 mL, Intravenous nicardipine 25 mg [5 mg/hr] + Sodium Chloride 0.9% 240 mL 240 mL, Intravenous, 50 mL/hr PRN: (8) acetaminophen 325 mg Tablet 650 mg 2 tab(s), Oral, q4h acetaminophen-OXYcodone 325 mg-5 mg Tablet 1 tab(s), Oral, q4h albuterol 0.5% Megha UD (2.5 mg/0.5 mL) 2.5 mg 0.5 mL, Inhalation, q4hRT dextrose 50% Solution Disp syringe 50 mL 25 g 50 mL, IV Push, AsDirected dextrose 50% Solution Disp syringe 50 mL 12.5 gram(s) 25 mL, IV Push, AsDirected hydralazine 20 mg/mL (1mL) vial 10 mg 0.5 mL, IV Push, q2h insulin regular human recombinant 100 units/mL (3 mL) Soln sliding scale insulin, Subcutaneous, q4h ondansetron 2 mg/ 1 mL 2 mL INJ 4 mg 2 mL, IV Push, q4h Lab Results 07/21 02:15 WBC: 8.8 Hgb: 13.3 Hct: 38.6 Platelet: 398 Neutrophil %: 86.4 H Glucose Level: 147 H Sodium Level: 141 Potassium Level: 4.4 BUN: 14.0 Creatinine Lvl (s): 0.50 07/20 06:40 WBC: 6.5 Hgb: 13.9 Hct: 41.8 Platelet: 356 Neutrophil %: 79.4 H Glucose Level: 131 H Sodium Level: 139 Potassium Level: 5.2 H BUN: 17.0 Creatinine Lvl (s): 0.48 L Imaging Results and Diagnostics CT Thorax w/ Contrast Result Date: July 20, 2023 Verified By: KENDRA TRUJILLO MD CLINICAL STATEMENT: IMPRESSION: No definite evidence for metastatic disease on this exam. CT Abd/Pelvis w/ IV Contrast Only Result Date: July 20, 2023 Verified By: ARTUR GILLIS MD CLINICAL STATEMENT: IMPRESSION: There is no evidence of acute abnormality or change from 04/12/2022. MRI Brain w/ + w/o Contrast Result Date: July 20, 2023 Verified By: KENDRA TRUJILLO MD CLINICAL STATEMENT: IMPRESSION: Large intraparenchymal hemorrhage the right frontal lobe with associatedvasogenic edema and local mass effect. Approximately 0.9 cm of left to rightmidline shift. No significant lesional enhancement is identified to suggestthat this is a hemorrhagic mass. There are also no enhancing lesionselsewhere to suggest metastatic disease. Small subdural hematoma. Subarachnoid blood seen at the time of previous CTis still present but is more difficult to identify on this exam. I have personally reviewed the images of this examination and agree with theresident's finding and interpretation. Assessment/Plan Acute right frontal IPH with surrounding vasogenic edema This is a 68-year-old female with PMH significant for lung adenocarcinoma s/p RVAT, RUL lobectomy 06/2021 who presented to [place] ED with a 5-day history of constant, diffuse achy headache. Noncontrasted head CT was obtained which demonstrated a large right frontal intraparenchymal hemorrhage, 4.1 cm in size with adjacent associated vasogenic edema and mild local mass effect present. Additionally, right frontal and right parafalcine subdural hematoma. Small amount of adjacent subarachnoid hemorrhage as well. Patient transferred to [facility] SICU for further evaluation and management. Initial noncontrasted head CT 07/19 demonstrated a large right frontal intraparenchymal hemorrhage, 4.1 cm in size with adjacent associated vasogenic edema and mild local mass effect present. Additionally, right frontal and right parafalcine subdural hematoma. Small amount of adjacent subarachnoid hemorrhage as well. MRI brain with and without contrast completed 07/20 has been reviewed by Dr. Benitez. Contrasted brain MRI completed yesterday demonstrates large intraparenchymal hemorrhage in the right frontal lobe with associated vasogenic edema and local mass effect. Approximately 0.9 cm of rightward midline shift. No significant lesional enhancement; no enhancing lesions elsewhere to suggest metastatic disease. Small unchanged SDH, SAH. Did discuss with the patient that although the contrasted brain MRI did not show underlying lesion, this will need to be repeated in 4 weeks and reviewed once the hemorrhage has dissipated. Continue frequent neuro exams. Contact neurosurgery with any changes or patient concerns. Patient does provide that her headaches are worse today, however she has not taken any pain medications since yesterday morning. She denies any associated nausea/vomiting, acute vision changes. Continue dexamethasone for treatment of vasogenic edema. We will slowly wean dexamethasone over 2 weeks. GI prophylaxis while on steroids. Continue Keppra 500mg BID for seizure prophylaxis. No documented/witnessed seizure activity per bedside nurse. Maintain SBP less than 140 mmHg. Blood pressure has remained stable without any need for antihypertensives. PT/OT consultation, pending evaluation. Okay for transfer out of ICU. H/o lung adenocarcinoma s/p RVAT, RUL lobectomy 06/2021 Patient provides that she does follow with her oncologist at [facility] on an outpatient basis. Notes that she has surveillance CT scans of her thorax every [address] thorax demonstrates no definite evidence of metastatic disease. CT abdomen pelvis demonstrates no evidence of acute abnormality. Patient is requesting a copy of her imaging studies completed here [place] given that she would like her oncologist at [facility] to be able to review them as she does have an outpatient follow-up visit and with the next couple weeks. Please see Dr. Benitez's addendum for further details regarding neurosurgical assessment/plan of care. Digitally Signed by ARIELA GONZALEZ on 07/21/2023 09:18 AM [facility] 07-21-2023 Neurological surgery Progress note Date of Service 07/21/2023 This is a split/shared visit with Dr. Benitez Neurosurgical CC: Acute right frontal IPH with surrounding vasogenic edema This is a 68-year-old female with a PMH significant for lung adenocarcinoma s/p RVAT, RUL lobectomy 06/2021, COPD, former tobacco abuse, and chronic pain who presented to [facility] ED on 07/19/2023 with complaints of headache and fatigue. Patient provides that initially, she did not feel well on Thanksgiving. She was fatigued, and had to lay down though at that time she did not complain of headaches, nausea or vomiting. Her headache started about 5 days prior to evaluation (07/14). Notes that she was nauseous and would vomit in the evenings. Denies any falls or head trauma. Denies any associated vision changes, weakness, dizziness/lightheadedness, acute paresthesias. Denies any loss of appetite or unintentional weight loss. While in [place] ED, a noncontrasted head CT was obtained which demonstrated a large right frontal intraparenchymal hemorrhage, 4.1 cm in size with adjacent associated vasogenic edema and mild local mass effect present. Additionally, right frontal and right parafalcine subdural hematoma. Small amount of adjacent subarachnoid hemorrhage as well. Due to above findings, patient was discussed with on-call neurosurgeon who recommended transfer/admission to [facility] SICU for further observation and management. Patient was started on dexamethasone, as well as Keppra for seizure prophylaxis. This morning, patient is seen resting in bed. Does note that her headache is worse today in comparison to yesterday. When asked if she has taken any pain medications for assistance with her headache, she states only what they have been giving me . She denies any associated nausea/vomiting, acute vision changes, acute paresthesias, weakness. Notes that she has been up and ambulating throughout the room and does feel steady on her feet. Denies any dizziness/lightheadedness when she is up. Notes that she has been eating well and voiding without difficulty. Objective Vitals and Measurements T: 36.6 C (Oral) TMIN: 36.4 C (Oral) TMAX: 36.7 C (Oral) HR: 70(Monitored) RR: 15 BP: 122/73 SpO2: 94% Intake and Output 7AM Yesterday to 7AM Today Intake and Output (Last 24 hours) Intake Oral Intake 240.00 Output Stool Count 0.00 Urine Count 2.00 Total Summary Total Intake 240.00 Total Output 0.00 Fluid Balance 240.00 Physical Exam General Appearance: 68-year-old female. Awake, alert. Resting in bed, appears comfortable and in no acute distress. Appears thin. Skin: Skin is pink, warm, and dry. No rashes or lesions. Neurological: Patient is awake, alert and oriented x4 appropriately. Her speech is clear and fluent; converses well. Facial features are symmetrical, tongue protrudes midline. Follows simple commands accurately and without delay. Strong motor strength throughout her upper and lower extremities. Does not appear to have any lateralizing deficits. No pronator drift. Finger-nose testing intact without dysmetria. Right/left discretion intact. Sensation is intact to light touch throughout her face, upper extremities, and lower extremities. HEENT: Head is normocephalic and atraumatic. PERRLA, EOMI. Cardiovascular: Regular heart rate and rhythm. S1, S2 present. NSR. No peripheral edema noted. Radial and pedal pulses are 2+ and symmetric bilaterally. Respiratory: Respirations even and unlabored. Lungs are clear throughout. No signs of respiratory distress. Currently on room air. Gastrointestinal: Abdomen is soft and symmetric. No abdominal tenderness or distention with palpation. Bowel sounds normoactive in all four quadrants. Genitourinary: Voiding without difficulty. Musculoskeletal: CASTELLANO spontaneously. No obvious joint edema or erythema noted. Weight Dosing Weight: 40.3 kg (07/19/23) Medications Medications (14) Active Scheduled: (4) dexamethasone 4 mg/1 mL solution 4 mg 1 mL, IV Push, q6hr levETIRAcetam 500 mg tablet 500 mg 1 tab(s), Oral, BID pantoprazole 40 mg VIAL 40 mg, IV Push, qDayAC polyethylene glycol 3350 - UD packet 17 gram(s) 15 mL, Oral, BID Continuous: (2) insulin regular 100 unit(s) + NS Premix Diluent 100 mL 100 mL, Intravenous nicardipine 25 mg [5 mg/hr] + Sodium Chloride 0.9% 240 mL 240 mL, Intravenous, 50 mL/hr PRN: (8) acetaminophen 325 mg Tablet 650 mg 2 tab(s), Oral, q4h acetaminophen-OXYcodone 325 mg-5 mg Tablet 1 tab(s), Oral, q4h albuterol 0.5% Megha UD (2.5 mg/0.5 mL) 2.5 mg 0.5 mL, Inhalation, q4hRT dextrose 50% Solution Disp syringe 50 mL 25 g 50 mL, IV Push, AsDirected dextrose 50% Solution Disp syringe 50 mL 12.5 gram(s) 25 mL, IV Push, AsDirected hydralazine 20 mg/mL (1mL) vial 10 mg 0.5 mL, IV Push, q2h insulin regular human recombinant 100 units/mL (3 mL) Soln sliding scale insulin, Subcutaneous, q4h ondansetron 2 mg/ 1 mL 2 mL INJ 4 mg 2 mL, IV Push, q4h Lab Results 07/21 02:15 WBC: 8.8 Hgb: 13.3 Hct: 38.6 Platelet: 398 Neutrophil %: 86.4 H Glucose Level: 147 H Sodium Level: 141 Potassium Level: 4.4 BUN: 14.0 Creatinine Lvl (s): 0.50 07/20 06:40 WBC: 6.5 Hgb: 13.9 Hct: 41.8 Platelet: 356 Neutrophil %: 79.4 H Glucose Level: 131 H Sodium Level: 139 Potassium Level: 5.2 H BUN: 17.0 Creatinine Lvl (s): 0.48 L Imaging Results and Diagnostics CT Thorax w/ Contrast Result Date: July 20, 2023 Verified By: KENDRA TRUJILLO MD CLINICAL STATEMENT: IMPRESSION: No definite evidence for metastatic disease on this exam. CT Abd/Pelvis w/ IV Contrast Only Result Date: July 20, 2023 Verified By: ARTUR GILLIS MD CLINICAL STATEMENT: IMPRESSION: There is no evidence of acute abnormality or change from 04/12/2022. MRI Brain w/ + w/o Contrast Result Date: July 20, 2023 Verified By: KENDRA TRUJILLO MD CLINICAL STATEMENT: IMPRESSION: Large intraparenchymal hemorrhage the right frontal lobe with associatedvasogenic edema and local mass effect. Approximately 0.9 cm of left to rightmidline shift. No significant lesional enhancement is identified to suggestthat this is a hemorrhagic mass. There are also no enhancing lesionselsewhere to suggest metastatic disease. Small subdural hematoma. Subarachnoid blood seen at the time of previous CTis still present but is more difficult to identify on this exam. I have personally reviewed the images of this examination and agree with theresident's finding and interpretation. Assessment/Plan Acute right frontal IPH with surrounding vasogenic edema This is a 68-year-old female with PMH significant for lung adenocarcinoma s/p RVAT, RUL lobectomy 06/2021 who presented to [place] ED with a 5-day history of constant, diffuse achy headache. Noncontrasted head CT was obtained which demonstrated a large right frontal intraparenchymal hemorrhage, 4.1 cm in size with adjacent associated vasogenic edema and mild local mass effect present. Additionally, right frontal and right parafalcine subdural hematoma. Small amount of adjacent subarachnoid hemorrhage as well. Patient transferred to [facility] SICU for further evaluation and management. Initial noncontrasted head CT 07/19 demonstrated a large right frontal intraparenchymal hemorrhage, 4.1 cm in size with adjacent associated vasogenic edema and mild local mass effect present. Additionally, right frontal and right parafalcine subdural hematoma. Small amount of adjacent subarachnoid hemorrhage as well. MRI brain with and without contrast completed 07/20 has been reviewed by Dr. Benitez. Contrasted brain MRI completed yesterday demonstrates large intraparenchymal hemorrhage in the right frontal lobe with associated vasogenic edema and local mass effect. Approximately 0.9 cm of rightward midline shift. No significant lesional enhancement; no enhancing lesions elsewhere to suggest metastatic disease. Small unchanged SDH, SAH. Did discuss with the patient that although the contrasted brain MRI did not show underlying lesion, this will need to be repeated in 4 weeks and reviewed once the hemorrhage has dissipated. Continue frequent neuro exams. Contact neurosurgery with any changes or patient concerns. Patient does provide that her headaches are worse today, however she has not taken any pain medications since yesterday morning. She denies any associated nausea/vomiting, acute vision changes. Continue dexamethasone for treatment of vasogenic edema. We will slowly wean dexamethasone over 2 weeks. GI prophylaxis while on steroids. Continue Keppra 500mg BID for seizure prophylaxis. No documented/witnessed seizure activity per bedside nurse. Maintain SBP less than 140 mmHg. Blood pressure has remained stable without any need for antihypertensives. PT/OT consultation, pending evaluation. Okay for transfer out of ICU. H/o lung adenocarcinoma s/p RVAT, RUL lobectomy 06/2021 Patient provides that she does follow with her oncologist at [facility] on an outpatient basis. Notes that she has surveillance CT scans of her thorax every [address] thorax demonstrates no definite evidence of metastatic disease. CT abdomen pelvis demonstrates no evidence of acute abnormality. Patient is requesting a copy of her imaging studies completed here [place] given that she would like her oncologist at [facility] to be able to review them as she does have an outpatient follow-up visit and with the next couple weeks. Please see Dr. Benitez's addendum for further details regarding neurosurgical assessment/plan of care. Digitally Signed by ARIELA GONZALEZ on 07/21/2023 09:18 AM [facility] 07-21-2023 History and physical note Date of Service 07/20/2023 This is a split/shared history and physical with Dr. Benitez Chief Complaint Headaches, fatigue History of Present Illness This is a 68-year-old female with a PMH significant for lung adenocarcinoma s/p RVAT, RUL lobectomy 06/2021, COPD, former tobacco abuse, and chronic pain who presented to [facility] ED on 07/19/2023 with complaints of headache and fatigue. Patient provides that initially, she did not feel well on Thanksgiving. She was fatigued, and had to lay down though at that time she did not complain of headaches, nausea or vomiting. Her headache started about 5 days prior to evaluation (07/14). She does provide that this headache is constant in the frontal region bilaterally, but worse on the right. Denies any falls or head trauma. Since her headache started, in the evenings she feels very nauseous and vomits once and subsequently feels better. She notes that this is happened every evening since she began to have headaches. Denies any associated vision changes, weakness, dizziness/lightheadedness, acute paresthesias. Denies any loss of appetite or unintentional weight loss. While in [place] ED, a noncontrasted head CT was obtained which demonstrated a large right frontal intraparenchymal hemorrhage, 4.1 cm in size with adjacent associated vasogenic edema and mild local mass effect present. Additionally, right frontal and right parafalcine subdural hematoma. Small amount of adjacent subarachnoid hemorrhage as well. Due to above findings, patient was discussed with on-call neurosurgeon who recommended transfer/admission to [facility] SICU for further observation and management. Patient was started on dexamethasone, as well as Keppra for seizure prophylaxis. This morning, patient is seen resting in bed looking at her cell phone. Continues to complain of headache, however slightly improved since admission to SICU. Denies any current nausea/vomiting, acute vision changes, dizziness/lightheadedness, lateralizing weakness or acute paresthesias. She is alert and oriented x4 for me this morning. Moving all extremities spontaneously, does not appear to have any lateralizing deficits. Review of Systems Constitutional: +Fatigue. Denies weight loss, fever, chills, and night sweats. Skin: Denies lesions, rashes, and pruritus. Neurological: Denies paresthesias, weakness, and paralysis. HEENT: See HPI. Cardiovascular: Denies chest pain, pressure, and palpitations. Denies history of irregular heart rhythm. Respiratory: Denies shortness of breath, difficulty breathing, cough and hemoptysis. Gastrointestinal: See HPI. Genitourinary: Denies dysuria, incontinence, and hematuria. Musculoskeletal: +Chronic back pain s/p SCS placement. denies acute cervical, thoracic, or lumbar pain. Denies specific complaints of joint pain, erythema, and edema. Physical Exam Vitals and Measurements T: 36.5 C (Oral) TMIN: 36.4 C (Oral) TMAX: 36.7 C (Oral) HR: 67(Monitored) RR: 18 BP: 101/61 SpO2: 97% HT: 152.4 cm WT: 40.3 kg BMI: 17.35 Weight Dosing Weight: 40.3 kg (07/19/23) General Appearance: 68-year-old female. Awake, alert. Resting in bed, appears comfortable and in no acute distress. Appears thin. Skin: Skin is pink, warm, and dry. No rashes or lesions. Neurological: Patient is awake, alert and oriented x4 appropriately. She is a good historian regarding her history. Her speech is clear and fluent. She converses well. Facial features are symmetrical, tongue protrudes midline. Follows simple commands accurately and without delay. CASTELLANO spontaneously. She has strong motor strength throughout her biceps, triceps, deltoids, hand grasp bilaterally. No pronator drift. Finger-nose testing intact without dysmetria. Right/left discretion intact. She is able to lift BLE off of the bed at the hip and bend at the knee without difficulty. She has slightly weaker dorsiflexion in her left ankle, but provides that this is chronic from previous back surgeries. Sensation is intact to light touch throughout her face, upper extremities, and lower extremities. HEENT: Head is normocephalic and atraumatic. PERRLA, EOMI. Cardiovascular: Regular heart rate and rhythm. S1, S2 present. NSR. No peripheral edema noted. Radial and pedal pulses are 2+ and symmetric bilaterally. Respiratory: Respirations even and unlabored. Lungs are clear throughout. No signs of respiratory distress. Currently on room air. Gastrointestinal: Abdomen is soft and symmetric. No abdominal tenderness or distention with palpation. Bowel sounds normoactive in all four quadrants. Genitourinary: Voiding without difficulty. Musculoskeletal: CASTELLANO spontaneously. No obvious joint edema or erythema noted. Lab Results 07/20 06:40 WBC: 6.5 Hgb: 13.9 Hct: 41.8 Platelet: 356 Neutrophil %: 79.4 H Glucose Level: 131 H Sodium Level: 139 Potassium Level: 5.2 H BUN: 17.0 Creatinine Lvl (s): 0.48 L Imaging Results and Diagnostics (07/19/2023 11:[address] Head or Brain w/o Contrast) ORIGINAL EXAMINATION: CT OF THE HEAD WITHOUT CONTRAST 07/19/2023 11:06 am TECHNIQUE: CT of the head was performed without the administration of intravenous contrast. Automated exposure control, iterative reconstruction, and/or weight based adjustment of the mA/kV was utilized to reduce the radiation dose to as low as reasonably achievable. COMPARISON: None. HISTORY: ORDERING SYSTEM PROVIDED HISTORY: Reason for Exam: pain/headache FINDINGS: No calvarial abnormality is identified. There is a large right frontal parenchymal hematoma present. This is on the order of 4.1 cm in size. Adjacent low density is present compatible with vasogenic edema and there is local mass effect present. Additionally, there is some adjacent subdural blood, and at the right parafalcine area this measures up to 5 mm in thickness. At the frontal area this is perhaps 6-7 mm in thickness. A small amount of adjacent subarachnoid blood is also identified. There is mild adjacent sulcal effacement identified. Minimal effacement of the right frontal horn is visible. No additional contributory abnormality is evident. IMPRESSION: Prominent right frontal parenchymal hemorrhage with smaller associated subdural and subarachnoid hemorrhages as well. Mild local mass effect is evident as discussed above. The etiology of the hemorrhage is uncertain on the basis of this exam. Assessment/Plan Acute right frontal IPH with surrounding vasogenic edema This is a 68-year-old female with PMH significant for lung adenocarcinoma s/p RVAT, RUL lobectomy 06/2021 who presented to [place] ED with a 5-day history of constant, diffuse achy headache. Noncontrasted head CT was obtained which demonstrated a large right frontal intraparenchymal hemorrhage, 4.1 cm in size with adjacent associated vasogenic edema and mild local mass effect present. Additionally, right frontal and right parafalcine subdural hematoma. Small amount of adjacent subarachnoid hemorrhage as well. Patient transferred to [facility] SICU for further evaluation and management. Noncontrasted head CT 07/19 demonstrated a large right frontal intraparenchymal hemorrhage, 4.1 cm in size with adjacent associated vasogenic edema and mild local mass effect present. Additionally, right frontal and right parafalcine subdural hematoma. Small amount of adjacent subarachnoid hemorrhage as well. Above imaging reviewed by Dr. Benitez. CT scan findings raises concern for underlying lesion given history of lung adenocarcinoma. MRI brain with and without contrast ordered for further evaluation. Did speak with MRI department this morning. This is planned for 9 AM. Continue frequent neuro exams. Contact neurosurgery with any changes or patient concerns. Continue dexamethasone for treatment of vasogenic edema. Patient's headaches are slightly improving since initiation. GI prophylaxis while on steroids. Continue Keppra 500mg BID for seizure prophylaxis. No documented/witnessed seizure activity per bedside nurse. Maintain SBP less than 140 mmHg. BP has been stable so far since admission. PT/OT consultation, pending evaluation. H/o lung adenocarcinoma s/p RVAT, RUL lobectomy 06/2021 Patient provides that she does follow with her oncologist at [facility] on an outpatient basis. Notes that she has surveillance CT scans of her thorax every 6 months and that she has one scheduled within the next couple of days. Will order CT chest, abd/pelvis for further evaluation. Consultation to social worker delinquency prevention team for critical care management. Appreciate their help. Above plan has been reviewed with the patient at the bedside. All questions were answered. Please see Dr. Benitez's addendum for further details regarding neurosurgical assessment/plan of care. 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 Historical Adenocarcinoma of right lung S/P RVAT right upper lobectomy 06/27/2021 Left inguinal hernia Mass of subcutaneous tissue of back Sebaceous cyst Procedure/Surgical History Neurostimulator, device: 06/05/23 Hernia repair: 10/03/22 Lobectomy of upper lobe of right lun06/27/21 CT guided biopsy of right lun05/23/21 Nerve block with injection of lumbar spine using fluoroscopic guidance: 02/05/21 Fluoroscopy guided injection of bilateral facet joints of lumbar spine: 11/21/20 Epidural injection of lumbar spine using fluoroscopic guidance: 08/22/20 Lumbar epidural injection: 05/30/20 Spinal fusion: 2016 Colonoscopy: 2013 Extraction of wisdom tooth History of elbow surgery Medications Home Medications (8) Active albuterol MDI (90 mcg/inh) CFC free inhalation aerosol 2 puff(s), PRN, Inhalation, q6h calcium gluconate 500 mg oral tablet 1,000 mg = 2 tab(s), Oral, qAM escitalopram 20 mg oral tablet 20 mg = 1 tab(s), Oral, qDay gabapentin 600 mg oral tablet 600 mg = 1 tab(s), Oral, QID Multivitamin 2 tab(s), Oral, qAM Prolia 60 mg/mL subcutaneous solution 60 mg = 1 mL, Subcutaneous, q6mo Tylenol 325 mg oral capsule 650 mg, PRN, Oral, q4h Vitamin B12 50 mcg oral tablet 50 mcg = 1 tab(s), Oral, BID Allergies iodine (Rash) Social History Alcohol - No Risk, 05/27/2023 Use: Current. Type: Liquor. Frequency: 1-2 times per month., 06/21/2021 Employment/School Status: Retired., 09/01/2019 Exercise Days per week: 3-4 times/week., 09/01/2019 Home/Environment Domestic Concerns: None. Living situation: Home/Independent. Safe place to go: Yes. Lives In: Mobile home, 1st floor bedroom, 1st floor bathroom. Current Home Treatments None. Professional Skilled Services or Special Community Resources None. Financial concerns: No. Marital Status: Unmarried., 05/27/2023 Nutrition/Health Type of diet: Regular. Appetite Fair. Eating Difficulties None. Caffeine intake amount: coffee and tea (10 cups coffee and 3 cups tea) hermila., 10/03/2022 Sexual Self described orientation: Straight or heterosexual., 06/27/2021 Substance Abuse - Denies Substance Abuse, 05/27/2023 Use: Never., 09/01/2019 Tobacco - No Risk, 05/27/2023 Nicotine Use: Former smoker, quit more than 30 days ago. Type: Cigarettes. Started at age: 12 Years. Stopped at age: 55 Years., 06/21/2021 Family History Glaucoma: Mother. Hypertension: Mother. Leukemia: Sister. MRSA (Methicillin resistant Staphylococcus aureus) infection: Son. Malignant tumor of lung: Father. Brother: History is negative Son: History is negative Immunizations tetanus/diphth/pertuss (Tdap) adult/adol: 0.5 unknown unit (07/28/17) Code Status Code Status - Ordered -- 07/19/23 17:43:00 EST, Full Code, Patient, Constant Order Digitally Signed by CARLOS ARIELAANDREA CHATMAN on 07/20/2023 08:30 AM Digitally Signed by ARIELA GONZALEZ APRN-RENETTA on 07/20/2023 10:34 AM [facility] 07-20-2023 Note ORIGINAL EXAMINATION: CT OF THE ABDOMEN AND PELVIS WITH [id number]/3/2023 3:54 pm TECHNIQUE: CT of the abdomen and pelvis was performed with the administration of intravenous contrast. Multiplanar reformatted images are provided for review. Automated exposure control, iterative reconstruction, and/or weight based adjustment of the mA/kV was utilized to reduce the radiation dose to as low as reasonably achievable. COMPARISON: 04/12/2022. HISTORY: ORDERING SYSTEM PROVIDED HISTORY: Reason for Exam: concern for metastatic disease, h/o lung CA, surveillance, PT STATES NO CURRRENT COMPLAINTS concern for metastatic disease FINDINGS: There is no evidence of new pulmonary nodule or pleural effusion at the level of the lung bases. Band like and nodular scarring at the posterolateral right lung base on axial slices 2 and 3 is not significantly changed. Bandlike scarring in the anterior right middle lobe base is also stable. There is metallic streak artifact from the postsurgical changes in the L2 and L3 pedicle screw fixation and power pack in the left posterior subcutaneous fat which degrades imaging of the posterior abdomen. The liver, spleen, pancreas, gallbladder, adrenals, kidneys and abdominal aorta are are unchanged in appearance free urinary bladder is dilated. Uterus is grossly unremarkable. Surgical clips in the adnexa may represent sterilization procedure changes. No definite adnexal lesions are seen. Lack of oral contrast limits evaluation of the large and small bowel. Stomach is mildly distended. There is no gross evidence of large or small bowel obstruction. There is lack of intra-abdominal and intrapelvic fat but there is no gross evidence of new abdominal or pelvic lymph node enlargement. There is no evidence of anterior abdominal wall hernia. There is no evidence of free intraperitoneal fluid or air. Bone windows reveal a stable sclerotic focus in the medial left iliac wing. No new osteolytic or osteoblastic lesion is seen. There is no evidence of acute fracture. Levoconvex scoliosis of the lumbar spine is again identified with moderate degenerative change at L1-2 intervertebral disc space with vacuum disc phenomenon. Degenerative changes are also present at T12-L1 and L5-S1. IMPRESSION: There is no evidence of acute abnormality or change from 04/12/2022. Interpreted by: Artur Gillis Preliminary Report By: Artur Gillis Electronically signed By Artur Gillis Dictated Date: 07/21/2023 8:31:28 AM Prelim Date: 07/21/2023 8:38:37 AM Sign Date: 07/21/2023 8:38:37 AM Ordering Provider: [facility] 07-20-2023 Note ORIGINAL EXAMINATION: CT OF THE CHEST WITH CONTRAST 07/20/2023 3:48 pm TECHNIQUE: CT of the chest was performed with the administration of intravenous contrast. Multiplanar reformatted images are provided for review. Automated exposure control, iterative reconstruction, and/or weight based adjustment of the mA/kV was utilized to reduce the radiation dose to as low as reasonably achievable. COMPARISON: July 21, 2021, chest x-ray May 27, 2023 HISTORY: ORDERING SYSTEM PROVIDED HISTORY: Reason for Exam: h/o lung CA, surveillance, PT STATES NO CURRRENT COMPLAINTS h/o lung CA, surveillance FINDINGS: Recist 1.1: POTENTIAL TARGET TUMOR LESIONS (maximum 5 lesions, maximum 2 per organ, longest dimension in axial plane reported, >10 mm, reproducible lesions): None POTENTIAL TARGET LYMPH NODES (>15 mm short axis, maximum 2): None NONTARGET LESIONS (Definite tumor lesions, lymph nodes 10-14 mm short axis, immeasurable lesions such as lymphangitic involvement, ascites, pleural effusions, etc.): None Degenerative changes are noted in the spine. Spine stimulator noted. Postoperative changes are partially visible inferiorly with some metallic artifact from fixation hardware. Emphysema is present and there are scattered areas of pulmonary and pleural scarring noted. No focal infiltrates are visible and there is no pleural fluid seen. No mediastinal adenopathy is evident. No additional contributory abnormality seen. IMPRESSION: No definite evidence for metastatic disease on this exam. Interpreted by: Kendra Trujillo MD Preliminary Report By: Kendra Trujillo MD Electronically signed By Kendra Trujillo MD Dictated Date: 07/20/2023 3:49:55 PM Prelim Date: 07/20/2023 3:53:14 PM Sign Date: 07/20/2023 3:53:14 PM Ordering Provider: ARIELA CARLOS [facility] Acute right frontal IPH with surrounding vasogenic edema This is a 68-year-old female with PMH significant for lung adenocarcinoma s/p RVAT, RUL lobectomy 06/2021 who presented to [place] ED with a 5-day history of constant, diffuse achy headache. Noncontrasted head CT was obtained which demonstrated a large right frontal intraparenchymal hemorrhage, 4.1 cm in size with adjacent associated vasogenic edema and mild local mass effect present. Additionally, right frontal and right parafalcine subdural hematoma. Small amount of adjacent subarachnoid hemorrhage as well. Patient transferred to [facility] SICU for further evaluation and management. Noncontrasted head CT 07/19 demonstrated a large right frontal intraparenchymal hemorrhage, 4.1 cm in size with adjacent associated vasogenic edema and mild local mass effect present. Additionally, right frontal and right parafalcine subdural hematoma. Small amount of adjacent subarachnoid hemorrhage as well. Above imaging reviewed by Dr. Benitez. CT scan findings raises concern for underlying lesion given history of lung adenocarcinoma. MRI brain with and without contrast ordered for further evaluation. Did speak with MRI department this morning. This is planned for 9 AM. Continue frequent neuro exams. Contact neurosurgery with any changes or patient concerns. Continue dexamethasone for treatment of vasogenic edema. Patient's headaches are slightly improving since initiation. GI prophylaxis while on steroids. Continue Keppra 500mg BID for seizure prophylaxis. No documented/witnessed seizure activity per bedside nurse. Maintain SBP less than 140 mmHg. BP has been stable so far since admission. PT/OT consultation, pending evaluation. H/o lung adenocarcinoma s/p RVAT, RUL lobectomy 06/2021 Patient provides that she does follow with her oncologist at [facility] on an outpatient basis. Notes that she has surveillance CT scans of her thorax every 6 months and that she has one scheduled within the next couple of days. Will order CT chest, abd/pelvis for further evaluation. Consultation to social worker delinquency prevention team for critical care management. Appreciate their help. Above plan has been reviewed with the patient at the bedside. All questions were answered. Please see Dr. Benitez's addendum for further details regarding neurosurgical assessment/plan of care. Addendum by EZEKIEL BENITEZ MD on July 21, 2023 07:49:31 EST This is a split shared note between myself and the nurse practitioner. This is a late entry note, the patient was seen in July, this is a woman who presents with a headache that is persistent. CT scan shows the presence of right frontal hemorrhage with surrounding edema. On examination patient is awake she is alert she is oriented x3 she is moving all extremities well she has no sensory deficits. Not nausea or vomiting. Patient has had some weight loss, has a history of breast cancer. Plan at this point time is obtain an MRI of the brain with and without contrast, and obtain a body CT. If the MRI is negative, unable to detect any other underlying lesion, repeat MRI will be performed in 1 months time, as the hemorrhage could be masking an underlying lesion. Patient will be continued on steroids and Keppra. Future Appointments Appointment Date:08/05/2023 09:45:00 AM Scheduled Provider: Location:XRAY Appointment Type:CT Head or Brain w/o Contrast Appointment Date:08/05/2023 10:30:00 AM Scheduled Provider:LORETO LUI MD Location:NEUROS Appointment Type:NS OV Appointment Date:08/06/2023 10:30:00 AM Scheduled Provider:ANALY MONDRAGON DO Location:[facility] Appointment Type:PC OV Future Scheduled Tests Radiology* CT Head or Brain w/o Contrast 08/05/23 * MRI Brain w/ + w/o Contrast 07/21/23 [facility] 12-03-2023 Critical care medicine Consult note Date of Service 07/20/2023 Reason for Consultation Critical care management Referring Physician Dr. Benitez History of Present Illness 68-year-old female past medical history of COPD, sleep apnea, chronic back pain, recent neuromuscular stimulator implanted, lung adenocarcinoma status post R VATS and right upper lobectomy in 07/07/2021 with no evidence of recurrence on follow-up CT scans. Patient presented to ER complaint of headache found to have right frontal hemorrhage with small subdural hemorrhage and subarachnoid hemorrhage with mass effect. Currently lying in bed comfortably not in any respiratory distress. States headache has been stable. Denies any nausea, vomiting, blurry vision, chest pain, shortness of breath Review of Systems Negative except HPI Physical Exam Vitals and Measurements T: 36.5 C (Oral) TMIN: 36.4 C (Oral) TMAX: 36.7 C (Oral) HR: 66(Monitored) RR: 20 BP: 111/71 SpO2: 97% HT: 152.4 cm WT: 40.3 kg BMI: 17.35 Weight Dosing Weight: 40.3 kg (07/19/23) General: AAOx3, no distress Oral cavity: Moist Oral Mucosa Neck: No mass CVS: RRR, No murmur, Normal S1S2, no LL edema Respiratory: Equal bilateral breath sounds, no wheezing, no crackles, no accessory muscle use Abdomen: Non-tender, no guarding, no rigidity Ext: Warm to touch Neuro: No focal deficits Lab Results 07/20 06:40 WBC: 6.5 Hgb: 13.9 Hct: 41.8 Platelet: 356 Neutrophil %: 79.4 H Glucose Level: 131 H Sodium Level: 139 Potassium Level: 5.2 H BUN: 17.0 Creatinine Lvl (s): 0.48 L Assessment/Plan Assessment Acute right frontal intraparenchymal hemorrhage with associated vasogenic edema and small SAH and SDH Prior history of lung cancer status post lobectomy and 07/07/2021 History of COPD not in exacerbation Plan Neurosurgery is ordered brain MRI to assess for underlying brain mass given her prior history of lung cancer Patient does not have any neurological deficits at this time SBP less than 140. Patient has been maintaining on her own Continue dexamethasone, Keppra SCD for DVT prophylaxis, pantoprazole for GI prophylaxis History of well-controlled COPD. Uses as needed albuterol at home Most recent CT chest in January 2023 did not show any evidence to suggest recurrence of malignancy. 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 Historical Adenocarcinoma of right lung S/P RVAT right upper lobectomy 06/27/2021 Left inguinal hernia Mass of subcutaneous tissue of back Sebaceous cyst Procedure/Surgical History Neurostimulator, device: 06/05/23 Hernia repair: 10/03/22 Lobectomy of upper lobe of right lun06/27/21 CT guided biopsy of right lun05/23/21 Nerve block with injection of lumbar spine using fluoroscopic guidance: 02/05/21 Fluoroscopy guided injection of bilateral facet joints of lumbar spine: 11/21/20 Epidural injection of lumbar spine using fluoroscopic guidance: 08/22/20 Lumbar epidural injection: 05/30/20 Spinal fusion: 2015 Colonoscopy: 2012 Extraction of wisdom tooth History of elbow surgery Medications Inpatient albuterol Inhalation Soln 2.5 mg/0.5 mL, 2.5 mg= 0.5 mL, Inhalation, q4hRT, PRN Apresoline, 10 mg= 0.5 mL, IV Push, q2h, PRN Decadron, 4 mg= 1 mL, IV Push, q6hr Dextrose, 25 gram(s)= 50 mL, IV Push, AsDirected, PRN Dextrose 50% IV Push, 12.5 gram(s)= 25 mL, IV Push, AsDirected, PRN HumuLIN R, sliding scale insulin, Subcutaneous, q4h, PRN Insulin Regular for IV 100 unit(s) + NS Premix Diluent 100 mL Keppra, 500 mg= 1 tab(s), Oral, BID niCARdipine for IV 25 mg [5 mg/hr] + sodium chloride 0.9% IV solution (T) 240 mL Percocet 325/5, 1 tab(s), Oral, q4h, PRN Protonix IV Push, 40 mg, IV Push, qDayAC Tylenol, 650 mg= 2 tab(s), Oral, q4h, PRN Zofran, 4 mg= 2 mL, IV Push, q4h, PRN Home albuterol MDI (90 mcg/inh) CFC free inhalation aerosol, 2 puff(s), Inhalation, q6h, PRN, 3 refills calcium gluconate 500 mg oral tablet, 1000 mg= 2 tab(s), Oral, qAM escitalopram 20 mg oral tablet, 20 mg= 1 tab(s), Oral, qDay, 3 refills gabapentin 600 mg oral tablet, 600 mg= 1 tab(s), Oral, QID, 2 refills Multivitamin, 2 tab(s), Oral, qAM Prolia 60 mg/mL subcutaneous solution, 60 mg= 1 mL, Subcutaneous, q6mo Tylenol 325 mg oral capsule, 650 mg, Oral, q4h, PRN Vitamin B12 50 mcg oral tablet, 50 mcg= 1 tab(s), Oral, BID Allergies iodine (Rash) Social History Alcohol - No Risk, 05/27/2023 Use: Current. Type: Liquor. Frequency: 1-2 times per month., 06/21/2021 Employment/School Status: Retired., 09/01/2019 Exercise Days per week: 3-4 times/week., 09/01/2019 Home/Environment Domestic Concerns: None. Living situation: Home/Independent. Safe place to go: Yes. Lives In: Mobile home, 1st floor bedroom, 1st floor bathroom. Current Home Treatments None. Professional Skilled Services or Special Community Resources None. Financial concerns: No. Marital Status: Unmarried., 05/27/2023 Nutrition/Health Type of diet: Regular. Appetite Fair. Eating Difficulties None. Caffeine intake amount: coffee and tea (10 cups coffee and 3 cups tea) dialy., 10/03/2022 Sexual Self described orientation: Straight or heterosexual., 06/27/2021 Substance Abuse - Denies Substance Abuse, 05/27/2023 Use: Never., 09/01/2019 Tobacco - No Risk, 05/27/2023 Nicotine Use: Former smoker, quit more than 30 days ago. Type: Cigarettes. Started at age: 12 Years. Stopped at age: 55 Years., 06/21/2021 Family History Glaucoma: Mother. Hypertension: Mother. Leukemia: Sister. MRSA (Methicillin resistant Staphylococcus aureus) infection: Son. Malignant tumor of lung: Father. Brother: History is negative Son: History is negative Immunizations tetanus/diphth/pertuss (Tdap) adult/adol: 0.5 unknown unit (07/28/17) Digitally Signed by SIERRA DE LEÓN MD on 07/20/2023 01:15 PM [id number] Note ORIGINAL EXAMINATION: MRI OF THE BRAIN WITHOUT AND WITH CONTRAST 07/20/2023 12:09 pm TECHNIQUE: Multiplanar multisequence MRI of the head/brain was performed without and with the administration of intravenous contrast. COMPARISON: CT head 07/19/2023. HISTORY: ORDERING SYSTEM PROVIDED HISTORY: Reason for Exam: head bleed History of lung cancer, concern for metastatic disease. FINDINGS: INTRACRANIAL STRUCTURES/VENTRICLES: Small subdural hematoma measures up to 0.4 cm over the right frontal lobe. There is intraparenchymal hemorrhage within the right frontal lobe measuring approximately 4.3 x 3.7 cm (AP, TR dimensions). There is associated surrounding vasogenic edema and approximately 0.9 cm of left to right midline shift. There is also some sulcal effacement at the high right vertex. The anterior horn the right lateral ventricle is effaced. Following administration of IV contrast no abnormal enhancement is identified. No enhancing lesions are identified elsewhere. There is a small amount of subdural blood extending from the right parafalcine region to the right frontal area and to a portion of the right convexity. This is on the order of up to 5-6 mm in thickness. Previously seen subarachnoid blood on CT is still present, best seen on FLAIR images at the sylvian fissure. No new area of hemorrhage is identified. Scattered white matter FLAIR hyperintensities are nonspecific but statistically most consistent with mild chronic microvascular angiopathy. ORBITS: The visualized portion of the orbits demonstrate no acute abnormality. SINUSES: The visualized paranasal sinuses and mastoid air cells demonstrate no acute abnormality. BONES/SOFT TISSUES: The bone marrow signal intensity appears normal. The soft tissues demonstrate no acute abnormality. IMPRESSION: Large intraparenchymal hemorrhage the right frontal lobe with associated vasogenic edema and local mass effect. Approximately 0.9 cm of left to right midline shift. No significant lesional enhancement is identified to suggest that this is a hemorrhagic mass. There are also no enhancing lesions elsewhere to suggest metastatic disease. Small subdural hematoma. Subarachnoid blood seen at the time of previous CT is still present but is more difficult to identify on this exam. I have personally reviewed the images of this examination and agree with the resident's finding and interpretation. Interpreted by: Kendra Trujillo MD Preliminary Report By: Antonio Garcia Electronically signed By Kendra Trujillo MD Dictated Date: 07/20/2023 1:21:08 PM Prelim Date: 07/20/2023 1:33:08 PM Sign Date: 07/20/2023 1:49:30 PM Ordering Provider: [facility]12-03-2023 History and physical note Date of Service 07/20/2023 This is a split/shared history and physical with Dr. Benitez Chief Complaint Headaches, fatigue History of Present Illness This is a 68-year-old female with a PMH significant for lung adenocarcinoma s/p RVAT, RUL [id number]/2021, COPD, former tobacco abuse, and chronic pain who presented to [facility] ED on 07/19/2023 with complaints of headache and fatigue. Patient provides that initially, she did not feel wellon Thanksgiving. She was fatigued, and had to lay down though at that time she did not complain of headaches, nausea or vomiting. Her headache started about 5 days prior to evaluation (07/14). She does provide that this headache is constant in the frontal region bilaterally, but worse on the right.Denies any falls or head trauma. Since her headache started, in the evenings she feels very nauseous and vomits once and subsequently feels better. She notes that this is happened every evening sinceshe began to have headaches. Denies any associated vision changes, weakness, dizziness/lightheadedness, acute paresthesias. Denies any loss of appetite or unintentional weight loss. While in [place] ED, a noncontrasted head CT was obtained which demonstrated a large right frontalintraparenchymal hemorrhage, 4.1 cm in size with adjacent associated vasogenic edema and mild localmass effect present. Additionally, right frontal and right parafalcine subdural hematoma. Small amount of adjacent subarachnoid hemorrhage as well. Due to above findings, patient was discussed with on-call neurosurgeon who recommended transfer/admission to [facility] SICU for further observation and management. Patient was started on dexamethasone, as well as Keppra for seizure prophylaxis. This morning, patient is seen resting in bed looking at her cell phone. Continues to complain of headache, however slightly improved since admission to SICU. Denies any current nausea/vomiting, acutevision changes, dizziness/lightheadedness, lateralizing weakness or acute paresthesias. She is alert and oriented x4 for me this morning. Moving all extremities spontaneously, does not appear to have any lateralizing deficits. Review of Systems Constitutional: +Fatigue. Denies weight loss, fever, chills, and night sweats. Skin: Denies lesions, rashes, and pruritus. Neurological: Denies paresthesias, weakness, and paralysis. HEENT: See HPI. Cardiovascular: Denies chest pain, pressure, and palpitations. Denies history of irregular heart rhythm. Respiratory: Denies shortness of breath, difficulty breathing, cough and hemoptysis. Gastrointestinal: See HPI. Genitourinary: Denies dysuria, incontinence, and hematuria. Musculoskeletal: +Chronic back pain s/p SCS placement. denies acute cervical, thoracic, or lumbar pain. Denies specific complaints of joint pain, erythema, and edema. Physical Exam Vitals and Measurements T: 36.5 C (Oral) TMIN: 36.4 C (Oral) TMAX: 36.7 C (Oral) HR: 67(Monitored) RR: 18 BP: 101/61 SpO2: 97% HT: 152.4 cm WT: 40.3 kg BMI: 17.35 Weight Dosing Weight: 40.3 kg (07/19/23) General Appearance: 68-year-old female. Awake, alert. Resting in bed, appears comfortableand in no acute distress. Appears thin. Skin: Skin is pink, warm, and dry. No rashes or lesions. Neurological: Patient is awake, alert and oriented x4 appropriately. She is a good historian regarding her history. Her speech is clear and fluent. She converses well. Facial features are symmetrical, tongue protrudes midline. Follows simple commands accurately and without delay. CASTELLANO spontaneously.She has strong motor strength throughout her biceps, triceps, deltoids, hand grasp bilaterally. No pronator drift. Finger-nose testing intact without dysmetria. Right/left discretion intact. She is able to lift BLE off of the bed at the hip and bend at the knee without difficulty. She has slightly weaker dorsiflexion in her left ankle, but provides that this is chronic from previous back surgeries. Sensation is intact to light touch throughout her face, upper extremities, and lower extremities. HEENT: Head is normocephalic and atraumatic. PERRLA, EOMI. Cardiovascular: Regular heart rate and rhythm. S1, S2 present. NSR. No peripheral edema noted. Radial and pedal pulses are 2+ and symmetric bilaterally. Respiratory: Respirations even and unlabored. Lungs are clear throughout. No signs of respiratory distress. Currently on room air. Gastrointestinal: Abdomen is soft and symmetric. No abdominal tenderness or distention with palpation. Bowel sounds normoactive in all four quadrants. Genitourinary: Voiding without difficulty. Musculoskeletal: CASTELLANO spontaneously. No obvious joint edema or erythema noted. Lab Results 07/20 06:40 WBC: 6.5 Hgb: 13.9 Hct: 41.8 Platelet: 356 Neutrophil %: 79.4 H Glucose Level: 131 H Sodium Level: 139 Potassium Level: 5.2 H BUN: 17.0 Creatinine Lvl (s): 0.48 L Imaging Results and Diagnostics (07/19/2023 11:[address] Head or Brain w/o Contrast) ORIGINAL EXAMINATION: CT OF THE HEAD WITHOUT CONTRAST 07/19/2023 11:06 am TECHNIQUE: CT of the head was performed without the administration of intravenous contrast. Automated exposure control, iterative reconstruction, and/or weight based adjustment of the mA/kV was utilized to reduce the radiation dose to as low as reasonably achievable. COMPARISON: None. HISTORY: ORDERING SYSTEM PROVIDED HISTORY: Reason for Exam: pain/headache FINDINGS: No calvarial abnormality is identified. There is a large right frontal parenchymal hematoma present. This is on the order of 4.1 cm in size. Adjacent low density is present compatible with vasogenic edema and there is local mass effect present. Additionally, there is some adjacent subdural blood, and at the right parafalcine area this measures up to 5 mm in thickness. At the frontal area this is perhaps 6-7 mm in thickness. A small amount of adjacent subarachnoid blood is also identified. There is mild adjacent sulcal effacement identified. Minimal effacement of the right frontal horn is visible. No additional contributory abnormality is evident. IMPRESSION: Prominent right frontal parenchymal hemorrhage with smaller associated subdural and subarachnoid hemorrhages as well. Mild local mass effect is evident as discussed above. The etiology of the hemorrhage is uncertain on the basis of this exam. Assessment/Plan Acute right frontal IPH with surrounding vasogenic edema This is a 68-year-old female with PMH significant for lung adenocarcinoma s/p RVAT, RUL lobectomy 06/2021 who presented to [place] ED with a 5-day history of constant, diffuse achy headache. Noncontrasted head CT was obtained which demonstrated a large right frontal intraparenchymal hemorrhage, 4.1 cm in size with adjacent associated vasogenic edema and mild local mass effect present. Additionally, right frontal and right parafalcine subdural hematoma. Small amount of adjacent subarachnoid hemorrhage as well. Patient transferred to [facility] SICU for further evaluation and management. Noncontrasted head CT 07/19 demonstrated a large right frontal intraparenchymal hemorrhage, 4.1 cm in size with adjacent associated vasogenic edema and mild local mass effect present. Additionally, right frontal and right parafalcine subdural hematoma. Small amount of adjacent subarachnoid hemorrhage as well. Above imaging reviewed by Dr. Benitez. CT scan findings raises concern for underlying lesion given history of lung adenocarcinoma. MRI brain with and without contrast ordered for further evaluation. [place] with MRI department this morning. This is planned for 9 AM. Continue frequent neuro exams. Contact neurosurgery with any changes or patient concerns. Continue dexamethasone for treatment of vasogenic edema. Patient's headaches are slightly improvingsince initiation. GI prophylaxis while on steroids. Continue Keppra 500mg BID for seizure prophylaxis. No documented/witnessed seizure activity per bedside nurse. Maintain SBP less than 140 mmHg. BP has been stable so far since admission. PT/OT consultation, pending evaluation. H/o lung adenocarcinoma s/p RVAT, RUL lobectomy 06/2021 Patient provides that she does follow with her oncologist at [facility] on an outpatient basis. Notes that she has surveillance CT scans of her thorax every 6 months and that she has one scheduled within the next couple of days. Will order CT chest, abd/pelvis for further evaluation. Consultation to social worker delinquency prevention team for critical care management. Appreciate their help. Above plan has been reviewed with the patient at the bedside. All questions were answered. Please see Dr. Benitez's addendum for further details regarding neurosurgical assessment/plan of care. 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 Historical Adenocarcinoma of right lung S/P RVAT right upper lobectomy 06/27/2021 Left inguinal hernia Mass of subcutaneous tissue of back Sebaceous cyst Procedure/Surgical History Neurostimulator, device: 06/05/23 Hernia repair: 10/03/22 Lobectomy of upper lobe of right lun06/27/21 CT guided biopsy of right lun05/23/21 Nerve block with injection of lumbar spine using fluoroscopic guidance: 02/05/21 Fluoroscopy guided injection of bilateral facet joints of lumbar spine: 11/21/20 Epidural injection of lumbar spine using fluoroscopic guidance: 08/22/20 Lumbar epidural injection: 05/30/20 Spinal fusion: 2015 Colonoscopy: 2012 Extraction of wisdom tooth History of elbow surgery Medications Home Medications (8) Active albuterol MDI (90 mcg/inh) CFC free inhalation aerosol 2 puff(s), PRN, Inhalation, q6h calcium gluconate 500 mg oral tablet 1,000 mg = 2 tab(s), Oral, qAM escitalopram 20 mg oral tablet 20 mg = 1 tab(s), Oral, qDay gabapentin 600 mg oral tablet 600 mg = 1 tab(s), Oral, QID Multivitamin 2 tab(s), Oral, qAM Prolia 60 mg/mL subcutaneous solution 60 mg = 1 mL, Subcutaneous, q6mo Tylenol 325 mg oral capsule 650 mg, PRN, Oral, q4h Vitamin B12 50 mcg oral tablet 50 mcg = 1 tab(s), Oral, BID Allergies iodine (Rash) Social History Alcohol - No Risk, 05/27/2023 Use: Current. Type: Liquor. Frequency: 1-2 times per month., 06/21/2021 Employment/School Status: Retired., 09/01/2019 Exercise Days per week: 3-4 times/week., 09/01/2019 Home/Environment Domestic Concerns: None. Living situation: Home/Independent. Safe place to go: Yes. Lives In: Mobile home, 1st floor bedroom, 1st floor bathroom. Current Home Treatments None. Professional Skilled Services or Special Community Resources None. Financial concerns: No. Marital Status: Unmarried., 05/27/2023 Nutrition/Health Type of diet: Regular. Appetite Fair. Eating Difficulties None. Caffeine intake amount: coffee and tea (10 cups coffee and 3 cups tea) dialy., 10/03/2022 Sexual Self described orientation: Straight or heterosexual., 06/27/2021 Substance Abuse - Denies Substance Abuse, 05/27/2023 Use: Never., 09/01/2019 Tobacco - No Risk, 05/27/2023 Nicotine Use: Former smoker, quit more than 30 days ago. Type: Cigarettes. Started at age: 12 Years. Stopped at age: 55 Years., 06/21/2021 Family History Glaucoma: Mother. Hypertension: Mother. Leukemia: Sister. MRSA (Methicillin resistant Staphylococcus aureus) infection: Son. Malignant tumor of lung: Father. Brother: History is negative Son: History is negative Immunizations tetanus/diphth/pertuss (Tdap) adult/adol: 0.5 unknown unit (07/28/17) Code Status Code Status - Ordered -- 07/19/23 17:43:00 EST, Full Code, Patient, Constant Order Digitally Signed by ARIELA GONZALEZ on 07/20/2023 08:30 AM Digitally Signed by ARIELA GONZALEZ on 07/20/2023 10:34 AM [id number] NoteSinus rhythm Borderline short MT interval Borderline T abnormalities, anterior leads Electronic Signature: BROWN WETZEL MD 07/19/2023 12:24:18[facility] 12-02-2023 Note ADDENDUM ADDENDUM: Findings were discussed with BROWN WETZEL at 11:24 am on 07/19/2023. Interpreted by: Kendra Trujillo MD Preliminary Report By: Kendra Trujillo MD Electronically signed By Kendra Trujillo MD Dictated Date: 07/19/2023 11:20:26 AM Prelim Date: 07/19/2023 11:24:31 AM Sign Date: 07/19/2023 11:24:31 AM Ordering Provider: BROWN WETZEL ORIGINAL EXAMINATION: CT OF THE HEAD WITHOUT CONTRAST 07/19/2023 11:06 am TECHNIQUE: CT of the head was performed without the administration of intravenous contrast. Automated exposure control, iterative reconstruction, and/or weight based adjustment of the mA/kV was utilized to reduce the radiation dose to as low as reasonably achievable. COMPARISON: None. HISTORY: ORDERING SYSTEM PROVIDED HISTORY: Reason for Exam: pain/headache FINDINGS: No calvarial abnormality is identified. There is a large right frontal parenchymal hematoma present. This is on the order of 4.1 cm in size. Adjacent low density is present compatible with vasogenic edema and there is local mass effect present. Additionally, there is some adjacent subdural blood, and at the right parafalcine area this measures up to 5 mm in thickness. At the frontal area this is perhaps 6-7 mm in thickness. A small amount of adjacent subarachnoid blood is also identified. There is mild adjacent sulcal effacement identified. Minimal effacement of the right frontal horn is visible. No additional contributory abnormality is evident. IMPRESSION: Prominent right frontal parenchymal hemorrhage with smaller associated subdural and subarachnoid hemorrhages as well. Mild local mass effect is evident as discussed above. The etiology of the hemorrhage is uncertain on the basis of this exam. IMPORTANT: PHYSICIAN, ATTEND TO THIS REPORT MICHAEL!!! Interpreted by: Kendra Trujillo MD Preliminary Report By: Kendra Trujillo MD Electronically signed By Kendra Trujillo MD Dictated Date: 07/19/2023 11:07:20 AM Prelim Date: 07/19/2023 11:09:53 AM Sign Date: 07/19/2023 11:09:53 AM Ordering Provider: [facility]10-11-2023 Note. MICRO - Microbiology PROCEDURE: Urine Culture [*1] SOURCE: Urine, Clean Catch BODY SITE: COLLECTED DATE/TIME: 05/27/2023 09:09 EDT RECEIVED DATE/TIME: 05/27/2023 09:29 EDT START DATE/TIME: 05/27/2023 09:29 EDT FREE TEXT SOURCE: FINAL REPORTS Final Report [] Verified Date/Time/Personnel: 05/28/2023 14:03 EDT 10,000 - 50,000 cfu/ml Multiple bacterial morphotypes present. Probable Contamination. Suggest recollection if clinically indicated. Performing Locations *1: This test was performed at: [facility], [address] [place] [address], [id number] , [facility] ([place])03-03-2023 Note ORIGINAL Images acquired, not reported on this accession number. [facility]07-17-2023 Note ORIGINAL Images acquired, not reported on this accession number.[facility]07-17-2023 Hospital Discharge instructions Patient Education 03/03/2023 09:05:42 Spinal Cord Stimulator Implantation, Care After Spinal Cord Stimulator Implant, Care After This sheet gives you information about how to care for yourself after your procedure. Your health care provider may also give you more specific instructions. If you have problems or questions, contact your health care provider. What can I expect after the procedure? After the procedure, it is common to have: Mild pain, bruising, and swelling. Headaches. Soreness in the back. Follow these instructions at home: Incision care Follow instructions from your health care provider about how to take care of your incisions. Make sure you: ?Wash your hands with soap and water before you change your bandages (dressings). If soap and waterare not available, use hand cook seafood. ?Change your dressings as told by your health care provider. ?Leave stitches (sutures), skin glue, or adhesive strips in place. These skin closures may need to stay in place for 2 weeks or longer. If adhesive strip edges start to loosen and curl up, you may trim the loose edges. Do not remove adhesive strips completely unless your health care provider tells you to do that. Check your incision areas every day for signs of infection. Check for: ?Redness, more swelling, or more pain. ?More fluid or blood. ?Warmth. ?Pus or a bad smell. Activity Ask your health care provider what activities are safe for you during recovery. Do not do any of the following until your health care provider approves: ?Drive. ?Activity that requires a lot of energy, including exercise and sports. ?Lift anything that is heavier than 5 lb (2.3 kg), or the limit that you are told. ?Engage in sexual activity. ?Lift your arms above your head. ?Sleep on your stomach, if your device was placed in your abdomen. ?Bend, twist, stretch, or reach for things. Bathing Do not take baths, swim, or use a hot tub until your health care provider approves. Ask your healthcare provider if you may take showers. You may only be allowed to take sponge baths. Safety Devices that sends out wireless signals may affect your stimulator. If directed by your health careprovider, avoid the following: ?MRI and ultrasound tests. ?Metal detectors. ?Anti-theft devices. ?Generators or power lines. Always carry your device ID card with you. Tell all health care providers who care for you that you have a spinal cord stimulator. This is important information that could affect the medical treatment that you receive. General instructions Work with your health care provider to adjust your settings as needed for pain control. Adjusting settings may take some time. Most stimulators can be controlled with a remote. Take [id number] and prescription medicines only as told by your health care provider. Do not use any products that contain nicotine or tobacco, such as cigarettes and e-cigarettes. If you need help quitting, ask your health care provider. Drink enough fluid to keep your urine pale yellow. Keep all follow-up visits as told by your health care provider. This is important. Contact a health care provider if you have: A fever. Severe pain, and medicines do not help. More fluid or blood coming from your incisions. Headaches that do not go away. Get help right away if: You have redness, more swelling, or more pain around your incisions. Your incision area feels warm to the touch. You have pus or a bad smell coming from your incision area. You have chest pain or problems breathing. You have sudden and severe back pain. You have weakness or sudden muscle tightening (spasms) in your legs. You are not able to control when you urinate or have a bowel movement (incontinence). Summary After implantation of a spinal cord stimulator, mild pain, muscle soreness, headaches, and bruisingare common. Follow instructions from your health care provider about incision care, bathing, medicines, and activity. Work with your health care provider to adjust your settings as needed for pain control. Adjusting settings may take some time. Most stimulators can be controlled with a remote. This information is not intended to replace advice given to you by your health care provider. Make sure you discuss any questions you have with your health care provider. Document Released: 09/17/2018 Document Revised: 11/25/2019 Document Reviewed: 09/17/2018 [employer] Patient Education 2020 [employer] 03/03/2023 09:05:39 Spinal Cord Stimulation Trial Information Spinal Cord Stimulation Trial Information A spinal cord stimulation trial is a test to see whether a spinal cord stimulator reduces your pain. A spinal cord stimulator is a small device that is inserted (implanted) in your back. The stimulator has small wires (leads) that connect it to your spinal cord. The stimulator sends electrical pulses through the leads to the spinal cord. This can relieve pain. Settings for the stimulator can be adjusted with a remote device to find the best pain control. Your health care provider may suggest a spinal cord stimulation trial if other treatments for long-lasting (chronic) pain have not worked for you. Spinal cord stimulation may be used to manage pain that is caused by: Coronary artery disease or peripheral vascular disease. Failed back surgery. Phantom limb sensation. Peripheral neuropathy. Complex regional pain syndrome. Other syndromes that involve chronic pain. For the trial, the stimulator is attached to your back instead of inserted under the skin. A trial period is usually 3 5 days, but this can vary among health care providers. After your trial period, you and your health care provider will discuss whether a permanent spinal cord stimulator is an option for you. The permanent stimulator may be an option depending on: Whether the stimulator reduces your pain during the trial. Whether the stimulator fits into your lifestyle. Whether the cost of the stimulator is covered by your insurance. What are the risks? Generally, a spinal cord stimulation trial is safe. However, problems can occur, including: Bleeding or pain at the insertion site of the leads. Infection at the insertion site or around the leads. Allergic reactions to medicines, devices, or dyes. Damage to the skin, nerves, back muscles, or spinal cord where the leads are placed. Inability to move the legs (paralysis). Numbness in the legs. Inability to control when you urinate or have a bowel movement (incontinence). Spinal fluid leakage. How is a spinal cord stimulator placed for a trial? For a trial period, the stimulator is placed on your skin, not under it. Only the leads that connect the stimulator to the spinal cord are implanted under your skin. The exact location of the stimulator depends on where you have pain. There are two types of surgery for implanting the leads: Noninvasive surgery. In this type of surgery, a small incision is made and needles are used to place the leads under your skin. Open surgery. In this type of surgery, a larger incision is made, and the leads are implanted directly into your back. How should I care for myself during the trial period? Activity Return to your normal activities as told by your health care provider. Ask your health care provider what activities are safe for you. Do not lift anything that is heavier than 10 lb (4.5 kg), or the limit that you are told. General instructions Follow your health care provider's specific instructions about how to take care of your spinal cordstimulator and your incision. Make sure you write down the following information so that you can share this information with yourhealth care provider: ?Your responses to the stimulator. Describe these as told by your health care provider. ?Your pain level throughout the day. ?The amount and kind of pain medicine that you take. Take midi-ppi-coddrav and prescription medicines only as told by your health care provider. Do not take baths, swim, or use a hot tub until your health care provider approves. Tell all health care providers who provide care for you that you have a spinal cord stimulator. This is important information that could affect the medical treatment that you receive. Keep all follow-up visits as told by your health care provider. This is important. When should I seek medical care? During the trial, seek medical care if: You have redness, swelling, or pain around your incision. You have fluid or blood coming from your incision. Your incision feels warm to the touch. You have pus or a bad smell coming from your incision. The bandage (dressing) that covers your incision comes off. Get help right away if: Your pain gets worse. The stimulator leads come out. You develop numbness or weakness in your legs, or you have difficulty walking. You have problems urinating or having a bowel movement. You have a fever. You have symptoms that last for more than 2 3 days. Your symptoms suddenly get worse. Summary A spinal cord stimulator is a small device that sends electrical pulses to your spinal cord. This can relieve pain caused by many different health conditions. Before a permanent stimulator is placed, you will have a trial using a temporary stimulator that isnot implanted under your skin. This helps determine if a stimulator will reduce your pain. For the trial, only the leads that connect the stimulator to the spinal cord are implanted under your skin. During the trial period, make sure you write down information about your pain and your responses tothe stimulator so that you can share this information with your health care provider. Keep all follow-up visits as told by your health care provider. This is important. Contact your health care provider if you have symptoms that indicate a problem. This information is not intended to replace advice given to you by your health care provider. Make sure you discuss any questions you have with your health care provider. Document Released: 11/19/2011 Document Revised: 09/08/2019 Document Reviewed: 09/08/2019 [employer] Patient Education 2020 [employer]. 03/03/2023 09:05:22 How to Use Cold Therapy, [id number] How to Use Cold Therapy Cold therapy, or cryotherapy, is a treatment that uses cold temperatures to treat an injury or medical condition. It includes using cold packs or ice packs to reduce pain and swelling. Only use cold therapy if your doctor says it is okay. What are the risks? Generally, cold therapy is a safe treatment. However, it is not safe for: People who are not able to say they are in pain. These include small children and people who have memory problems. People who have certain conditions, such as: ?A problem in the vessels that slows blood flow to the fingers and toes (Raynaud's syndrome). ?Feeling very cold easily (cold hypersensitivity). ?Lack of feeling in the area being iced. Cold therapy may not be safe for people who have other conditions. Do not use it without talking toyour doctor if you have: A heart condition. High blood pressure. Open or healing wounds. An infection. Pain and swelling in your joints (rheumatoid arthritis). Poor blood flow in the body. Diabetes. Certain skin conditions. How can I make a cold pack? When using a cold pack at home to reduce pain and swelling, you can use: A silica gel cold pack that has been left in the freezer. You can buy this online or in stores. A sealable plastic bag that has been filled with crushed ice. A washcloth or paper towels soaked in cold (or ice) water. A plastic bag of frozen vegetables. Throw them away when you are finished using them as a cold pack. Supplies needed: A cold pack. A towel. This can be dry or damp, based on what you like. How to use cold therapy 1.Have your cold pack ready. 2.Place a towel between the cold pack and your skin. You may also wrap the cold pack in a towel. 3.Put the cold pack on the affected area. Keep it on for no more than 20 minutes at a time. 4.Check your skin after 5 minutes to make sure that there is no damage to the area. Check for: White spots on your skin. Your skin may look blotchy or mottled. Skin that looks blue or pale. Skin that feels waxy or hard. 5.Repeat these steps as many times each day as told by your doctor. Always use a towel to avoid direct contact with your skin. Contact a doctor if: You start to have white spots on your skin. This may give your skin a blotchy or mottled look. Your skin turns blue or pale. Your skin becomes waxy or hard. Your swelling gets worse. Summary Cold therapy, or cryotherapy, is used to treat an injury or other conditions. It includes using cold packs or ice packs to reduce pain and swelling. Cold therapy is not safe for people who are not able to say they are in pain. When using cold packs or ice packs, always place a towel between the cold source and your skin. Check your skin after 5 minutes of icing it. This is to make sure that there is no skin damage. Contact your doctor if you notice changes in your skin or your swelling gets worse. This information is not intended to replace advice given to you by your health care provider. Make sure you discuss any questions you have with your health care provider. Document Released: 01/20/2009 Document Revised: 05/03/2019 Document Reviewed: 05/03/2019 [employer] Patient Education 2020 [employer]. 03/03/2023 09:05:12 Monitored Anesthesia Care, Care After Monitored Anesthesia Care, Care After These instructions provide you with information about caring for yourself after your procedure. Your health care provider may also give you more specific instructions. Your treatment has been plannedaccording to current medical practices, but problems sometimes occur. Call your health care provider if you have any problems or questions after your procedure. What can I expect after the procedure? After your procedure, you may: Feel sleepy for several hours. Feel clumsy and have poor balance for several hours. Feel forgetful about what happened after the procedure. Have poor judgment for several hours. Feel nauseous or vomit. Have a sore throat if you had a breathing tube during the procedure. Follow these instructions at home: For at least 24 hours after the procedure: Have a responsible adult stay with you. It is important to have someone help care for you until youare awake and alert. Rest as needed. Do not: ?Participate in activities in which you could fall or become injured. ?Drive. ?Use heavy machinery. ?Drink alcohol. ?Take sleeping pills or medicines that cause drowsiness. ?Make important decisions or sign legal documents. ?Take care of children on your own. Eating and drinking Follow the diet that is recommended by your health care provider. If you vomit, drink water, juice, or soup when you can drink without vomiting. Make sure you have little or no nausea before eating solid foods. General instructions Take tldv-pwj-jypwklm and prescription medicines only as told by your health care provider. If you have sleep apnea, surgery and certain medicines can increase your risk for breathing problems. Follow instructions from your health care provider about wearing your sleep device: ?Anytime you are sleeping, including during daytime naps. ?While taking prescription pain medicines, sleeping medicines, or medicines that make you drowsy. If you smoke, do not smoke without supervision. Keep all follow-up visits as told by your health care provider. This is important. Contact a health care provider if: You keep feeling nauseous or you keep vomiting. You feel light-headed. You develop a rash. You have a fever. Get help right away if: You have trouble breathing. Summary For several hours after your procedure, you may feel sleepy and have poor judgment. Have a responsible adult stay with you for at least 24 hours or until you are awake and alert. This information is not intended to replace advice given to you by your health care provider. Make sure you discuss any questions you have with your health care provider. Document Released: 11/24/2016 Document Revised: 11/02/2018 Document Reviewed: 11/24/2016 [employer] Patient Education 2020 [employer]. Follow Up Care 02/24/2023 07:56:54 With:ANALY ANAYA MD Address: [address] [facility] [address] [facility] [place] [phone] When: Unknown Comments:CALL AND FOLLOW UP WITH DR ANAYA HE INSTRUCTED. CALL HIM WITH ANY QUESTIONS OR CONCERNS. GO TOT EMERGENCY ROOM WITH ANY URGENT CONCERNS. [facility] 07-17-2023 Summary of episode note Discharge Instructions Thank you for allowing [facility] to assist you with your healthcare needs. The following is importantdischarge information regarding your hospital visit. Your Care Team ANALY MONDRAGON DO, DR. Your Diagnosis Lumbar postlaminectomy syndrome What to do next Scheduled Follow-Up Appointments Appointment Type When With Where Contact Information OV 03/10/2023 02:15 PM EDT ANALY ANAYA D [facility] OV 08/06/2023 10:30 AM EST ANALY MONDRAGON DO [facility] Follow Up Appointments Follow Up with ANALY ANAYA MD When Why: CALL AND FOLLOW UP WITH DR ANAYA HE INSTRUCTED. CALL HIM WITH ANY QUESTIONS OR CONCERNS. GO TO THE EMERGENCY ROOM WITH ANY URGENT CONCERNS. Where: [address] [place] [address] [address] [facility] [place] [address] [phone] Allergies iodine (Rash) Medications Please ask your primary doctor or pharmacist before taking any other medication not listed, including over the counter drugs, herbal medications, vitamins and or supplements as they may interact withyour home medications. What How Much When Why Instructions Last Dose Unchanged acetaminophen (Tylenol 325 mg oral capsule) 650 Milligram by mouth Every 4 hours as needed for Pain, scale 1-3 Unchanged acetaminophen-hydrocodone (acetaminophen-hydrocodone 325 mg-10 mg oral tablet) 1 tab(s) by mouth Four (4) times a day as needed for as needed for pain Lumbar postlaminectomy syndrome Lumbar radiculopathy Duration: 30 Days Unchanged albuterol (albuterol MDI (90 mcg/ inh) CFC free inhalation aerosol) 2 puff(s) by inhalation Every 6 hours as needed for as needed for wheezing Emphysema/COPD Unchanged calcium gluconate (calcium gluconate 500 mg oral tablet) 2 tab(s) by mouth Once a day (in the morning) Unchanged cyanocobalamin (Vitamin B12 50 mcg oral tablet) 1 tab(s) by mouth Two (2) times a day Unchanged denosumab (Prolia 60 mg/ mL subcutaneous solution) 1 Milliliter Subcutaneous Every 6 months Osteoporosis Unchanged escitalopram (escitalopram 20 mg oral tablet) 1 tab(s) by mouth Once a day Unchanged gabapentin (gabapentin 600 mg oral tablet) 1 tab(s) by mouth Four (4) times a day Lumbar radiculopathy Duration: 30 Days Unchanged lidocaine topical (Lidoderm 5% topical patch) 1 patch(es) Transdermal Every day Right-sided chest wall pain Unchanged multivitamin (Multivitamin) 2 tab(s) by mouth Once a day (in the morning) Please take this list to your next doctor s visit. Bring all medications you take, including over the counter medications, herbals and other supplements with you to your doctor s visit. Patients and families are reminded to discard old lists and to update any records with all medication providers or retail pharmacies. Education Materials Spinal Cord Stimulator Implant, Care After This sheet gives you information about how to care for yourself after your procedure. Your health care provider may also give you more specific instructions. If you have problems or questions, contact your health care provider. What can I expect after the procedure? After the procedure, it is common to have: Mild pain, bruising, and swelling. Headaches. Soreness in the back. Follow these instructions at home: Incision care Follow instructions from your health care provider about how to take care of your incisions. Make sure you: ? Wash your hands with soap and water before you change your bandages (dressings). If soap and water are not available, use hand cook seafood. ? Change your dressings as told by your health care provider. ? Leave stitches (sutures), skin glue, or adhesive strips in place. These skin closures may need to stay in place for 2 weeks or longer. If adhesive strip edges start to loosen and curl up, you may trim the loose edges. Do not remove adhesive strips completely unless your health care provider tells you to do that. Check your incision areas every day for signs of infection. Check for: ? Redness, more swelling, or more pain. ? More fluid or blood. ? Warmth. ? Pus or a bad smell. Activity Ask your health care provider what activities are safe for you during recovery. Do not do any of the following until your health care provider approves: ? Drive. ? Activity that requires a lot of energy, including exercise and sports. ? Lift anything that is heavier than 5 lb (2.3 kg), or the limit that you are told. ? Engage in sexual activity. ? Lift your arms above your head. ? Sleep on your stomach, if your device was placed in your abdomen. ? Bend, twist, stretch, or reach for things. Bathing Do not take baths, swim, or use a hot tub until your health care provider approves. Ask your healthcare provider if you may take showers. You may only be allowed to take sponge baths. Safety Devices that sends out wireless signals may affect your stimulator. If directed by your health careprovider, avoid the following: ? MRI and ultrasound tests. ? Metal detectors. ? Anti-theft devices. ? Generators or power lines. Always carry your device ID card with you. Tell all health care providers who care for you that you have a spinal cord stimulator. This is important information that could affect the medical treatment that you receive. General instructions Work with your health care provider to adjust your settings as needed for pain control. Adjusting settings may take some time. Most stimulators can be controlled with a remote. Take eqdo-eai-acgalzi and prescription medicines only as told by your health care provider. Do not use any products that contain nicotine or tobacco, such as cigarettes and e-cigarettes. If you need help quitting, ask your health care provider. Drink enough fluid to keep your urine pale yellow. Keep all follow-up visits as told by your health care provider. This is important. Contact a health care provider if you have: A fever. Severe pain, and medicines do not help. More fluid or blood coming from your incisions. Headaches that do not go away. Get help right away if: You have redness, more swelling, or more pain around your incisions. Your incision area feels warm to the touch. You have pus or a bad smell coming from your incision area. You have chest pain or problems breathing. You have sudden and severe back pain. You have weakness or sudden muscle tightening (spasms) in your legs. You are not able to control when you urinate or have a bowel movement (incontinence). Summary After implantation of a spinal cord stimulator, mild pain, muscle soreness, headaches, and bruisingare common. Follow instructions from your health care provider about incision care, bathing, medicines, and activity. Work with your health care provider to adjust your settings as needed for pain control. Adjusting settings may take some time. Most stimulators can be controlled with a remote. This information is not intended to replace advice given to you by your health care provider. Make sure you discuss any questions you have with your health care provider. Document Released: 09/17/2018 Document Revised: 11/25/2019 Document Reviewed: 09/17/2018 [employer] Patient Education 2020 [employer] Spinal Cord Stimulation Trial Information A spinal cord stimulation trial is a test to see whether a spinal cord stimulator reduces your pain. A spinal cord stimulator is a small device that is inserted (implanted) in your back. The stimulator has small wires (leads) that connect it to your spinal cord. The stimulator sends electrical pulses through the leads to the spinal cord. This can relieve pain. Settings for the stimulator can be adjusted with a remote device to find the best pain control. Your health care provider may suggest a spinal cord stimulation trial if other treatments for long-lasting (chronic) pain have not worked for you. Spinal cord stimulation may be used to manage pain that is caused by: Coronary artery disease or peripheral vascular disease. Failed back surgery. Phantom limb sensation. Peripheral neuropathy. Complex regional pain syndrome. Other syndromes that involve chronic pain. For the trial, the stimulator is attached to your back instead of inserted under the skin. A trial period is usually 3 5 days, but this can vary among health care providers. After your trial period, you and your health care provider will discuss whether a permanent spinal cord stimulator is an option for you. The permanent stimulator may be an option depending on: Whether the stimulator reduces your pain during the trial. Whether the stimulator fits into your lifestyle. Whether the cost of the stimulator is covered by your insurance. What are the risks? Generally, a spinal cord stimulation trial is safe. However, problems can occur, including: Bleeding or pain at the insertion site of the leads. Infection at the insertion site or around the leads. Allergic reactions to medicines, devices, or dyes. Damage to the skin, nerves, back muscles, or spinal cord where the leads are placed. Inability to move the legs (paralysis). Numbness in the legs. Inability to control when you urinate or have a bowel movement (incontinence). Spinal fluid leakage. How is a spinal cord stimulator placed for a trial? For a trial period, the stimulator is placed on your skin, not under it. Only the leads that connect the stimulator to the spinal cord are implanted under your skin. The exact location of the stimulator depends on where you have pain. There are two types of surgery for implanting the leads: Noninvasive surgery. In this type of surgery, a small incision is made and needles are used to place the leads under your skin. Open surgery. In this type of surgery, a larger incision is made, and the leads are implanted directly into your back. How should I care for myself during the trial period? Activity Return to your normal activities as told by your health care provider. Ask your health care provider what activities are safe for you. Do not lift anything that is heavier than 10 lb (4.5 kg), or the limit that you are told. General instructions Follow your health care provider's specific instructions about how to take care of your spinal cordstimulator and your incision. Make sure you write down the following information so that you can share this information with yourhealth care provider: ? Your responses to the stimulator. Describe these as told by your health care provider. ? Your pain level throughout the day. ? The amount and kind of pain medicine that you take. Take sbwd-dpq-ncrhwvn and prescription medicines only as told by your health care provider. Do not take baths, swim, or use a hot tub until your health care provider approves. Tell all health care providers who provide care for you that you have a spinal cord stimulator. This is important information that could affect the medical treatment that you receive. Keep all follow-up visits as told by your health care provider. This is important. When should I seek medical care? During the trial, seek medical care if: You have redness, swelling, or pain around your incision. You have fluid or blood coming from your incision. Your incision feels warm to the touch. You have pus or a bad smell coming from your incision. The bandage (dressing) that covers your incision comes off. Get help right away if: Your pain gets worse. The stimulator leads come out. You develop numbness or weakness in your legs, or you have difficulty walking. You have problems urinating or having a bowel movement. You have a fever. You have symptoms that last for more than 2 3 days. Your symptoms suddenly get worse. Summary A spinal cord stimulator is a small device that sends electrical pulses to your spinal cord. This can relieve pain caused by many different health conditions. Before a permanent stimulator is placed, you will have a trial using a temporary stimulator that isnot implanted under your skin. This helps determine if a stimulator will reduce your pain. For the trial, only the leads that connect the stimulator to the spinal cord are implanted under your skin. During the trial period, make sure you write down information about your pain and your responses tothe stimulator so that you can share this information with your health care provider. Keep all follow-up visits as told by your health care provider. This is important. Contact your health care provider if you have symptoms that indicate a problem. This information is not intended to replace advice given to you by your health care provider. Make sure you discuss any questions you have with your health care provider. Document Released: 11/19/2011 Document Revised: 09/08/2019 Document Reviewed: 09/08/2019 [employer] Patient Education 2020 [employer] How to Use Cold Therapy Cold therapy, or cryotherapy, is a treatment that uses cold temperatures to treat an injury or medical condition. It includes using cold packs or ice packs to reduce pain and swelling. Only use cold therapy if your doctor says it is okay. What are the risks? Generally, cold therapy is a safe treatment. However, it is not safe for: People who are not able to say they are in pain. These include small children and people who have memory problems. People who have certain conditions, such as: ? A problem in the vessels that slows blood flow to the fingers and toes (Raynaud's syndrome). ? Feeling very cold easily (cold hypersensitivity). ? Lack of feeling in the area being iced. Cold therapy may not be safe for people who have other conditions. Do not use it without talking toyour doctor if you have: A heart condition. High blood pressure. Open or healing wounds. An infection. Pain and swelling in your joints (rheumatoid arthritis). Poor blood flow in the body. Diabetes. Certain skin conditions. How can I make a cold pack? When using a cold pack at home to reduce pain and swelling, you can use: A silica gel cold pack that has been left in the freezer. You can buy this online or in stores. A sealable plastic bag that has been filled with crushed ice. A washcloth or paper towels soaked in cold (or ice) water. A plastic bag of frozen vegetables. Throw them away when you are finished using them as a cold pack. Supplies needed: A cold pack. A towel. This can be dry or damp, based on what you like. How to use cold therapy 1. Have your cold pack ready. 2. Place a towel between the cold pack and your skin. You may also wrap the cold pack in a towel. 3. Put the cold pack on the affected area. Keep it on for no more than 20 minutes at a time. 4. Check your skin after 5 minutes to make sure that there is no damage to the area. Check for: White spots on your skin. Your skin may look blotchy or mottled. Skin that looks blue or pale. Skin that feels waxy or hard. 5. Repeat these steps as many times each day as told by your doctor. Always use a towel to avoid direct contact with your skin. Contact a doctor if: You start to have white spots on your skin. This may give your skin a blotchy or mottled look. Your skin turns blue or pale. Your skin becomes waxy or hard. Your swelling gets worse. Summary Cold therapy, or cryotherapy, is used to treat an injury or other conditions. It includes using cold packs or ice packs to reduce pain and swelling. Cold therapy is not safe for people who are not able to say they are in pain. When using cold packs or ice packs, always place a towel between the cold source and your skin. Check your skin after 5 minutes of icing it. This is to make sure that there is no skin damage. Contact your doctor if you notice changes in your skin or your swelling gets worse. This information is not intended to replace advice given to you by your health care provider. Make sure you discuss any questions you have with your health care provider. Document Released: 01/20/2009 Document Revised: 05/03/2019 Document Reviewed: 05/03/2019 [employer] Patient Education 2020 [employer] Monitored Anesthesia Care, Care After These instructions provide you with information about caring for yourself after your procedure. Your health care provider may also give you more specific instructions. Your treatment has been plannedaccording to current medical practices, but problems sometimes occur. Call your health care provider if you have any problems or questions after your procedure. What can I expect after the procedure? After your procedure, you may: Feel sleepy for several hours. Feel clumsy and have poor balance for several hours. Feel forgetful about what happened after the procedure. Have poor judgment for several hours. Feel nauseous or vomit. Have a sore throat if you had a breathing tube during the procedure. Follow these instructions at home: For at least 24 hours after the procedure: Have a responsible adult stay with you. It is important to have someone help care for you until youare awake and alert. Rest as needed. Do not: ? Participate in activities in which you could fall or become injured. ? Drive. ? Use heavy machinery. ? Drink alcohol. ? Take sleeping pills or medicines that cause drowsiness. ? Make important decisions or sign legal documents. ? Take care of children on your own. Eating and drinking Follow the diet that is recommended by your health care provider. If you vomit, drink water, juice, or soup when you can drink without vomiting. Make sure you have little or no nausea before eating solid foods. General instructions Take ytgl-zfi-shdtssj and prescription medicines only as told by your health care provider. If you have sleep apnea, surgery and certain medicines can increase your risk for breathing problems. Follow instructions from your health care provider about wearing your sleep device: ? Anytime you are sleeping, including during daytime naps. ? While taking prescription pain medicines, sleeping medicines, or medicines that make you drowsy. If you smoke, do not smoke without supervision. Keep all follow-up visits as told by your health care provider. This is important. Contact a health care provider if: You keep feeling nauseous or you keep vomiting. You feel light-headed. You develop a rash. You have a fever. Get help right away if: You have trouble breathing. Summary For several hours after your procedure, you may feel sleepy and have poor judgment. Have a responsible adult stay with you for at least 24 hours or until you are awake and alert. This information is not intended to replace advice given to you by your health care provider. Make sure you discuss any questions you have with your health care provider. Document Released: 11/24/2016 Document Revised: 11/02/2018 Document Reviewed: 11/24/2016 [employer] Patient Education 2020 [employer] Additional Information VACCINATE! IT SAVES LIVES! Members of the community who have not yet received the COVID-19 vaccine and would like to receive it can visit one of [facility] vaccine clinics. There are many vaccine clinic locations within the [facility]. For locations and available times, please visit https://[email or web address].[place].gov/. It is important to note that some COVID mobile vaccine clinics are held outdoors and may be canceled in rainy or stormy conditions. To learn more about pediatric vaccinations (ages 5-11), we invite you to visit the [facility] webpage. [email or web address]/pages/[email or web address] [email or web address] learn more about the COVID-19 vaccine, we invite you to visit the CDC website for a list of frequently asked questions.https://www.cdc.gov/coronavirus/2019-ncov/vaccines/faq.html [employer] Patient Portal Access Instructions: Stay connected with your healthcare team and access your personal medical information anytime with the [employer] Patient Portal. Please follow the directions below to create your [employer] account: 1.Access the email account you provided upon registration to the hospital/physician office.2.Look for an invitation email from [facility].3.Open the email and access the invitation link: AcceptInvitation to [employer].4.Fill in the required aldridge to create your account. To access your account, visit [email or web address]. Click the blue button labeled Access Patient Portal and then log in with the username and password that you created in the steps above. You will be able to view your test results, lab results, a summary of your visits, upcoming appointments and more. There is also a convenient messaging option where you can send secure messages to your p Welzoovider. In addition, you will have the ability to download any documents or summaries to your computer and/or send the information securely to a physician. Remember that your healthcare information is confidential, so carefully consider who you will allowto register on the [facility] Patient Portal for access to your information. You can also access the [employer] Patient Portal on the [employer] jesus manuel. Simply click on Patient Portal and then log into your account. If you would like to receive a full copy of your medical records, please contact the [facility] Medical Records Department by calling [phone], Friday through Friday between 8 a.m. and 4:30 p.m. HOW TO SAFELY DISPOSE OF PRESCRIPTION MEDICATIONS Please use one of the following methods to safely dispose of your unused medications. 1.Use a drug disposal kit: the drug disposal pouch allows you to safely discard your old and unuseddrugs. Ask your nurse to give you one when you are discharged.2.Visit a local take-back location: Many local pharmacies and police departments have programs that collect old and unwanted prescriptiondrugs. Call your local pharmacy or go to http://iOnRoad.ncyclo/8D4Zo9c to find one close to you.3.Make use of household items: Use cat litter or old coffee grounds to dispose medications if other options arenot available. Mix your drugs with these household products, seal them in an airtight container andthrow it into the garbage. Call [facility]: [phone] to be sure your drugs can be disposed of in this way. Some medicines may require a different approach.4.Never flush your medications down the toilet. IF YOU HAVE BEEN PRESCRIBED AN OPIOID FOR PAIN If you have been prescribed an opioid (such as hydrocodone, oxycodone or morphine), it is critical to understand the possible side effects and risks of opioid pain medications. Even when taken as directed, opioids can have several side effects including: Tolerance, meaning you might need to take more of a medication for the same pain relief. Nausea, vomiting and/or constipation. Sleepiness, dizziness, dry mouth, confusion, depression or itching. Physical dependence, meaning you have withdrawal symptoms when a medication is stopped, can develop within a few days. KNOW YOUR RESPONSIBILITIES It is important to know exactly how much and how often to take the opioid pain medications you are prescribed. Never take opioids in higher amounts or more often than prescribed. Do not combine opioids with alcohol or other drugs that cause drowsiness, such as benzodiazepines, also known as benzos, including diazepam and alprazolam, muscle relaxants or sleep aids. Never sell or share prescription opioids. This is illegal. Store opioids in a secure place and out of reach of others (including children, family, friends and visitors). The last page of this document has been signed and retained as a CHART COPY. Signatures Patient Education Materials Spinal Cord Stimulator Implantation, Care After Spinal Cord Stimulation Trial Information How to Use Cold Therapy, [id number] Monitored Anesthesia Care, Care After Medication Leaflets My discharge plan and instructions have been reviewed and explained to me and I,ROBEL DUMAS understand my current condition and have read and understand these discharge instructions. I have received a written copy of the plan/instructions. If I have questions, I am aware that I should contact my doctor. Patient/Training Analyst Signature: Date/Time: Relationship to Patient: Witness Name/Signature: Date/Time: [facility]07-17-2023 Anesthesiology Consult note Patient: ROBEL DUMAS Age: 67 years Sex: Female : 1955 Associated Diagnoses: None Author: RASHAD ESTES APRN-NURSE NAVIGATOR Assessment Postanesthesia assessment Vitals: Vital signs from flowsheet : Vital Signs 03/03/2023 8:25 EDT Heart Rate Monitored 70 bpm bpm Respiratory Rate - Anes 12 br/min br/min Systolic Blood Pressure Non-Invasive 140 mmHg mmHg Diastolic Blood Pressure Non-Invasive 80 mmHg mmHg 03/03/2023 8:20 EDT Heart Rate Monitored 72 bpm bpm Respiratory Rate - Anes 4 br/min br/min 03/03/2023 8:15 EDT Heart Rate Monitored 67 bpm bpm Respiratory Rate - Anes 12 br/min br/min Systolic Blood Pressure Non-Invasive 123 mmHg mmHg Diastolic Blood Pressure Non-Invasive 84 mmHg mmHg 03/03/2023 8:10 EDT Heart Rate Monitored 68 bpm bpm Respiratory Rate - Anes 0 br/min br/min Systolic Blood Pressure Non-Invasive 136 mmHg mmHg Diastolic Blood Pressure Non-Invasive 75 mmHg mmHg 03/03/2023 8:05 EDT Heart Rate Monitored 67 bpm bpm Respiratory Rate - Anes 12 br/min br/min Systolic Blood Pressure Non-Invasive 144 mmHg mmHg Diastolic Blood Pressure Non-Invasive 81 mmHg mmHg 03/03/2023 8:01 EDT Systolic Blood Pressure Non-Invasive 176 mmHg mmHg Diastolic Blood Pressure Non-Invasive 87 mmHg mmHg 03/03/2023 7:18 EDT Temperature Temporal Artery 35.4 DegC Apical Heart Rate 70 bpm Respiratory Rate 21 br/min HI Systolic Blood Pressure Non-Invasive 163 mmHg HI Diastolic Blood Pressure Non-Invasive 89 mmHg Blood Pressure Method Automatic Blood Pressure Location Right arm Blood Pressure Cuff Size Large , Measurements from flowsheet . Mental status: alert & oriented x 4. Respiratory function: respirations are non-labored. Respiratory support: none. CV function: Normal rate. Cardiovascular support: none. Pain. Nausea status: see nursing documentation of medications. Postoperative hydration status: within normal limits. Digitally Signed by RASHAD ESTES on 03/03/2023 08:38 AM [facility]07-17-2023 Anesthesiology Consult note Patient: ROBEL DUMAS Age: 67 years Sex: Female : 1955 Associated Diagnoses: None Author: RASHAD ESTES Preoperative Information Time of last food or liquid consumption: 03/03/2023 00:00:00 Anesthesia history Patient's history: negative. Family's history: negative. Health Status Allergies: Allergic Reactions (Selected) Severity Not Documented Iodine- Rash., Allergies (1) ActiveReaction iodineRash Current medications: (Selected) Inpatient Medications Ordered Lactated Ringers Infusion 1,000 mL: 20 mL/hr, Intravenous Prescriptions Prescribed Lidoderm 5% topical patch: 1 patch(es), Transdermal, Daily, 30 patch(es), 2 Refill(s) Prolia 60 mg/mL subcutaneous solution: 60 mg, 1 mL, Subcutaneous, q6mo, 1 mL, 0 Refill(s) acetaminophen-hydrocodone 325 mg-10 mg oral tablet: 1 tab(s), Oral, QID, for 30 day(s), PRN: as needed for pain, 120 tab(s), 0 Refill(s) albuterol MDI (90 mcg/inh) CFC free inhalation aerosol: 2 puff(s), Inhalation, q6h, PRN: as needed for wheezing, 1 EA, 3 Refill(s) escitalopram 20 mg oral tablet: 20 mg, 1 tab(s), Oral, qDay, 90 tab(s), 3 Refill(s) gabapentin 600 mg oral tablet: 600 mg, 1 tab(s), Oral, QID, for 30 day(s), 120 tab(s), 2 Refill(s) Documented Medications Documented Multivitamin: 2 tab(s), Oral, qAM, 0 Refill(s) Tylenol 325 mg oral capsule: 650 mg, Oral, q4h, PRN: Pain, scale 1-3, 0 Refill(s) Vitamin B12 50 mcg oral tablet: 50 mcg, 1 tab(s), Oral, BID, 0 Refill(s) calcium gluconate 500 mg oral tablet: 1,000 mg, 2 tab(s), Oral, qAM, 0 Refill(s), Medications (1) Active Scheduled: (0) Continuous: (1) Lactated Ringers 1,000 mL 1,000 mL, Intravenous, 20 mL/hr PRN: (0) Problem list: Medical 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 / SNOMED CT 1860743036 / Confirmed Right-sided chest wall pain / SNOMED CT 393417390 / Confirmed DDD (degenerative disc disease), lumbar / SNOMED CT 76646960 / Confirmed Fatigue / SNOMED CT 399166106 / Confirmed History of sleep apnea / SNOMED CT 900355149 / Confirmed Intercostal neuralgia / SNOMED CT 563596433 / Confirmed Left inguinal hernia / SNOMED CT 705702962 / Confirmed Lumbar postlaminectomy syndrome / SNOMED CT 428711335 / Confirmed Lumbar radiculopathy / SNOMED CT 136990721 / Confirmed Adenocarcinoma of right lung S/P RVAT right upper lobectomy 06/27/2021 / SNOMED CT 556809081 / Confirmed Mitral valve prolapse / SNOMED CT 2309506248 / Confirmed Osteoporosis / SNOMED CT 098093905 / Confirmed Neoplasm related pain / SNOMED CT 9841215643 / Confirmed Screening for lipid disorders / SNOMED CT 650087009 / Confirmed Major depression, recurrent / SNOMED CT 120953989 / Confirmed Postop check / SNOMED CT 597788339 / Confirmed, Active Problems (30) Adenocarcinoma of right lung S/P RVAT right upper lobectomy 06/27/2021 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 Anxiety Back pain, chronic Body mass index (BMI) less than 19 in adult Claustrophobia DDD (degenerative disc disease), lumbar Depression Emphysema/COPD Fatigue Glasses History of COVID-19 History of sleep apnea Intercostal neuralgia Left inguinal hernia Lumbar postlaminectomy syndrome Lumbar radiculopathy Lumbosacral spondylosis without myelopathy Major depression, recurrent Mitral valve prolapse Neoplasm related pain PEGGY (obstructive sleep apnea) Osteoporosis Postop check Presence of dental prosthetic device Prolapsed lumbar disc Right-sided chest wall pain Screening for lipid disorders Stenosis of lateral recess of lumbar spine Vitamin B12 deficiency Histories Past Medical History: Resolved Mass of subcutaneous tissue of back (6233270658): Resolved. Sebaceous cyst (8922348096): Resolved. Family History: Hypertension Mother Glaucoma Mother Malignant tumor of lung Father Leukemia Sister Procedure history: Left femoral hernia ([id number]) on 10/03/2022 at 67 Years. PM Intercostal Nerve Block - Multi SN on 01/01/2022 at 66 Years. Comments: 01/01/2022 7:59 Varun Pimentel RN auto-populated from documented surgical case Lung- right ([id number]) on 06/28/2021 at 65 Years. Comments: 12/25/2021 8:24 SONG Figueroa E / of lung removed CT guided biopsy of right lung ([id number]) on 05/23/2021 at 65 Years. Nerve block with injection of lumbar spine using fluoroscopic guidance ([id number]) on 02/05/2021 at65 Years. Fluoroscopy guided injection of bilateral facet joints of lumbar spine ([id number]) on 11/21/2020 at 65 Years. Comments: 11/21/2020 9:00 Elizabeth Marin RN L4-L5, L5-S1 Epidural injection of lumbar spine using fluoroscopic guidance ([id number]) on 08/22/2020 at 65 Years. Lumbar epidural injection ([id number]) on 05/30/2020 at 64 Years. Spinal fusion ([id number]) in 2016 at 61 Years. Comments: 09/01/2019 9:36 Jo Ann Mendez LPN 2015 Colonoscopy ([id number]) in 2012 at 58 Years. Comments: 09/01/2019 9:35 EST - Garcias, Jo Ann PHARMACY SERVICES REPRESENTATIVE 2013, WNL D&C - Dilatation and curettage ([id number]). History of elbow surgery ([id number]). Comments: 08/21/2020 13:44 ANDRES - Elizabeth Brice RN RIGHT LIGAMENT REPAIR Extraction of wisdom tooth ([id number]). Social History Social & Psychosocial Habits Alcohol 06/21/2021 Use: Current Type: Liquor Frequency: 1-2 times per month Employment/School 09/01/2019 Status: Retired Substance Abuse 09/01/2019 Use: Never Tobacco 06/21/2021 Tobacco Use: Former smoker, quit more Type: Cigarettes Started at age: 12 Years Stopped at age: 55 Years Comment: 1/2 pack x 40yrs quit in 2010 - 06/14/2021 15:00 - Ani Ching RN 05/21/2022 Tobacco Use: Former smoker, quit more Exercise 09/01/2019 Times per week: 3-4 times/week Home/Environment 05/07/2022 Domestic Concerns None Living situation: Home/Independent Lives In 1st floor bathroom, 1st floor bedroom, Mobile home Current Home Treatments None Special Services and Community Resources None Financial concerns: No Marital Status of Patient if Patient Independent Adult: Comment: - 05/07/2022 08:48 - Nguyen Jones RN Nutrition/Health 10/03/2022 Type of diet: Regular Appetite Fair Eating Difficulties None Caffeine intake amount: coffee and tea (10 cups coffee and 3 cups tea) dialy Sexual 06/27/2021 Self described orientation: Straight or heterosexual . Physical Examination Vital Signs 03/03/2023 7:18 EDT Temperature Temporal Artery 35.4 DegC Apical Heart Rate 70 bpm Respiratory Rate 21 br/min HI Systolic Blood Pressure Non-Invasive 163 mmHg HI Diastolic Blood Pressure Non-Invasive 89 mmHg Blood Pressure Method Automatic Blood Pressure Location Right arm Blood Pressure Cuff Size Large Vital Signs(last 24 hrs) Last Charted Resp Rate H 21br/min (MAR 03 07:18) SBPH 163mmHg (MAR 03 07:18) DBP89 mmHg (MAR 03 07:18) BMI16.32 (MAR 03 07:18) Measurements from flowsheet : Measurements 03/03/2023 7:18 EDT Height 151 cm Admission Weight 37.2 kg Weight Method Stated [place] Body Weight 44.23 kg BSA Admission 1.27 Body Mass Index 16.32 kg/m2 Pain assessment: Pain Assessment 03/03/2023 7:18 EDT Primary Pain Intensity 0 Pain Scale Type 0-10 Pain scale . General: Alert and oriented. Airway: Normal temporomandibular joint mobility, Normal mouth, Normal neck range of motion. Mallampati classification: III (soft palate, base of uvula visible). Dentition Evaluation: Dentures, partial plate. Respiratory: Respirations are non-labored. Cardiovascular: Normal rate. Neurologic: Alert, Oriented. Review / Management Results review: No qualifying data available , Lab results 03/03/2023 8:04 EDT SN - GCD - ASA Class 3 SN - GCD - Post-operative Diagnosis Lumbar postlaminectomy syndrome, lumbar radiculopathy, back pain chronic, and intercostal neuralgia. SN - GCD - Case Level Level 4 03/03/2023 8:01 EDT SN - DRS - Site and Details PROCEDURE SITE 03/03/2023 8:01 EDT SN - Cul - Culture Type No Specimen per Surgeon 03/03/2023 7:58 EDT SN - CAt - Case Attendee SN - CAt - Case Attendee SN - CAt - Case Attendee SN - CAt - Case Attendee SN - CAt - Case Attendee SN - CAt - Case Attendee SN - CAt - Case Attendee SN - CAt - Case Attendee SN - CAt - Case Attendee SN - CAt - Case Attendee SN - CAt - Role Performed Primary Surgeon SN - CAt - Role Performed Junior Systems Analyst 1 SN - CAt - Role Performed Scrub 1 SN - CAt - Role Performed NURSE NAVIGATOR SN - CAt - Role Performed Popcorn Candy Maker 03/03/2023 7:29 EDT SN - Preop - CTm Pt Ready for OR/Proced 03/03/2023 7:29 03/03/2023 7:29 EDT SN - Preop - CTm Pt in SDS Room 03/03/2023 7:09 03/03/2023 7:29 EDT Lactated Ringers Injection Begin Bag 1,000 mL mL 03/03/2023 7:28 EDT Forearm Right 03/03/2023 20 gauge Peripheral IV Activity: Insert new site Peripheral IV Dressing Condition: Clean, Dry, Intact Peripheral IV Dressing Activity: Applied, Transparent dressing Peripheral IV Line Status/Patency: Flushes easily, Continuous infusion Peripheral IV Site Condition: No complications Peripheral IV Equipment: Extension set, PRN Adaptor 03/03/2023 7:22 EDT IV Present Present Allergies Yes Inside Barrel Lathe Operator On Yes Consent Form Signed Yes Patient Dressed In Hospital gown Pre-op Preparation Glasses removed History & Physical Update On Chart Yes History & Physical On Chart Yes Belongings At Bedside Cell phone, Dentures, partial plate, Glasses, Pants, Purse, Shirt, Shoes, Undergarments NPO Status Maintained Allergy Band on and Verified Yes Patient ID Band on and Verified Yes Implants Verified Yes Pacemaker/AICD Verified Yes Site Verified by Patient/Family Yes Anesthesia Consent Signed Yes Blood Consent Signed Yes Last Fluid Intake 03/02/2023 21:00 Last Food Intake 03/02/2023 21:00 Last Void 03/03/2023 7:24 03/03/2023 7:18 EDT Designated Person #1 We May Share [facility] [place] [phone] Designated Person #1 Relationship Son Designated Person #2 We May Share [facility] cristóbal [phone] Designated Person #2 Relationship Son Additional Designated Person Share [facility] [phone] Height 151 cm Admission Weight 37.2 kg Weight Method Stated [place] Body Weight 44.23 kg BSA Admission 1.27 Body Mass Index 16.32 kg/m2 Temperature Temporal Artery 35.4 DegC Apical Heart Rate 70 bpm Respiratory Rate 21 br/min HI Systolic Blood Pressure Non-Invasive 163 mmHg HI Diastolic Blood Pressure Non-Invasive 89 mmHg Blood Pressure Method Automatic Blood Pressure Location Right arm Blood Pressure Cuff Size Large Primary Pain Intensity 0 Pain Scale Type 0-10 Pain scale Respirations Unlabored All Lobes Breath Sounds Clear Oxygen Therapy Room air Oxygen Saturation 97 % Abdomen Description Non-distended Abdomen Palpation Non-Tender Urinary Elimination Voiding, no difficulties Status No, per patient Skin Temperature Warm Skin Description [place], Normal for ethnicity Skin Integrity Not intact Arm Right Skin Abnormality Type: Tear Incision, Wound Dressing/Activity: Open to air Neurological Symptoms Patient denies Extremity Movement Equal Characteristics of Speech Clear Level of Consciousness Alert Strength All Extremities Strong Tone All Extremities Normal Sensation All Extremities Intact Affect/Behavior Appropriate Orientation Oriented x 4 Sensory Deficits None Infectious Disease Symptoms Patient states no symptoms Infectious Disease Recent Exposure No Alcohol and Drug Use No Employee of Institutional Living No Health Care Employee No History of Exposure to TB No History of Positive Chest X-Ray for TB No History of Positive TB Skin Test No Homeless No Known Immunosuppression No Recent Immigrant No Resident of Institutional Living No Bloody Sputum No Fatigue No Fever No Loss of Appetite No Night Sweats No Persistent Cough > 3 Weeks No Weight Loss No Barriers to Learning None evident Teaching Method Explanation, Printed materials Preferred Written Language North [place] Preferred Spoken Language [place] Information Given by Patient Patient's Current Physicians Patient's Current Physicians Discharge To, Anticipated Home independently Activity Status ADL Awake Standard Safety ID band on, Allergy Band on, Call device within reach, Bed in low position, Wheels locked, Upper/Half-Length side-rails up, Safety level maintained, Non-Slip footwear Prev Test Positive/Diagnosis w/COVID-19 No Current Quarantine/Isolated any Illness No Any Contact with Sick Animals/Birds No Traveled Anywhere in Last 30 Days No No Personal Devices, Patient Valuables Dentures, partial plate, Glasses Admission Note-Nursing Procedure/Therapy Intake . Assessment and Plan [place] Society of Anesthesiologists (ASA) physical status classification: Class III. Anesthetic Preoperative Plan Anesthetic technique: MAC. Informed consent: signed by patient. Digitally Signed by RASHAD ESTES on 03/03/2023 08:05 AM [facility]02-16-2023 Hospital Discharge instructions Patient Education 10/03/2022 11:47:23 How to Use an Incentive Spirometer How To Use an Incentive Spirometer An incentive spirometer is a tool that measures how well you are filling your lungs with each breath. Learning to take long, deep breaths using this tool can help you keep your lungs clear and active. This may help to reverse or lessen your chance of developing breathing (pulmonary) problems, especially infection. You may be asked to use a spirometer: After a surgery. If you have a lung problem or a history of smoking. After a long period of time when you have been unable to move or be active. If the spirometer includes an indicator to show the highest number that you have reached, your health care provider or respiratory therapist will help you set a goal. Keep a list (log) of your progress as told by your health care provider. What are the risks? Breathing too quickly may cause dizziness or cause you to pass out. Take your time so you do not get dizzy or light-headed. If you are in pain, you may need to take pain medicine before doing incentive spirometry. It is harder to take a deep breath if you are having pain. How to use your incentive spirometer 1.Sit up on the edge of your bed or on a chair. 2.Hold the incentive spirometer so that it is in an upright position. 3.Before you use the spirometer, breathe out normally. 4.Place the mouthpiece in your mouth. Make sure your lips are closed tightly around it. 5.Breathe in slowly and as deeply as you can through your mouth, causing the piston or the ball to rise toward the top of the chamber. 6.Hold your breath for 3 5 seconds, or for as long as possible. If the spirometer includes a coach cleaner indicator, use this to guide you in breathing. Slow down your breathing if the indicator goes above the marked areas. 7.Remove the mouthpiece from your mouth and breathe out normally. The piston or ball will return tothe bottom of the chamber. 8.Rest for a few seconds, then repeat the steps 10 or more times. Take your time and take a few normal breaths between deep breaths so that you do not get dizzy or light-headed. Do this every 1 2 hours when you are awake. 9.If the spirometer includes a goal marker to show the highest number you have reached (best effort), use this as a goal to work toward during each repetition. 10.After each set of 10 deep breaths, cough a few times. This will help to make sure that your lungs are clear. If you have an incision on your chest or abdomen from surgery, place a pillow or a rolled-up towel firmly against the incision when you cough. This can help to reduce pain from coughing. General tips When you become able to get out of bed, walk around often and continue to cough to help clear your lungs. Keep using the incentive spirometer until your health care provider says it is okay to stop using it. If you have been in the hospital, you may be told to keep using the spirometer at home. Contact a health care provider if: You are having difficulty using the spirometer. You have trouble using the spirometer as often as instructed. Your pain medicine is not giving enough relief for you to use the spirometer as told. You have a fever. You develop shortness of breath. Get help right away if: You develop a cough with bloody mucus from the lungs (bloody sputum). You have fluid or blood coming from an incision site after you cough. Summary An incentive spirometer is a tool that can help you learn to take long, deep breaths to keep your lungs clear and active. You may be asked to use a spirometer after a surgery, if you have a lung problem or a history of smoking, or if you have been inactive for a long period of time. Use your incentive spirometer as instructed every 1 2 hours while you are awake. If you have an incision on your chest or abdomen, place a pillow or a rolled-up towel firmly against your incision when you cough. This will help to reduce pain. This information is not intended to replace advice given to you by your health care provider. Make sure you discuss any questions you have with your health care provider. Document Released: 12/15/2007 Document Revised: 08/27/2018 Document Reviewed: 06/17/2018 [employer] Patient Education 2020 [employer]. 10/03/2022 11:47:11 How to Use Compression Stockings How to Use Compression Stockings Compression stockings are elastic socks that squeeze the legs. They help increase blood flow (circulation) to the legs, decrease swelling in the legs, and reduce the chance of developing blood clots in the lower legs. Compression stockings are often used by people who: Are recovering from surgery. Have poor circulation in their legs. Tend to get blood clots in their legs. Have bulging (varicose) veins. Sit or stay in bed for long periods of time. Follow instructions from your health care provider about how and when to wear your compression stockings. How to wear compression stockings Before you put on your compression stockings: Make sure that they are the correct size and degree of compression. If you do not know your size orrequired grade of compression, ask your health care provider and follow the corporate law specialist's instructions that come with the stockings. Make sure that they are clean, dry, and in good condition. Check them for rips and tears. Do not put them on if they are ripped or torn. Put your stockings on first thing in the morning, before you get out of bed. Keep them on for as long as your health care provider advises. When you are wearing your stockings: Keep them as smooth as possible. Do not allow them to bunch up. It is especially important to prevent the stockings from bunching up around your toes or behind your knees. Do not roll the stockings downward and leave them rolled down. This can decrease blood flow to yourleg. Change them right away if they become wet or dirty. When you take off your stockings, inspect your legs and feet. Check for: Open sores. Red spots. Swelling. General tips Do not stop wearing compression stockings without talking to your health care provider first. Wash your stockings every day with mild detergent in cold or warm water. Do not use bleach. Air-dryyour stockings or dry them in a clothes dryer on low heat. It may be helpful to have two pairs so that you have a pair to wear while the other is being washed. Replace your stockings every 3 6 months. If skin moisturizing is part of your treatment plan, apply lotion or cream at night so that your skin will be dry when you put on the stockings in the morning. It is harder to put the stockings on when you have lotion on your legs or feet. Wear nonskid shoes or slip-resistant socks when walking while wearing compression stockings. Contact a health care provider and remove your stockings if you have: A feeling of pins and needles in your feet or legs. Open sores, red spots, or other skin changes on your feet or legs. Swelling or pain that gets worse. Get help right away if you have: Numbness or tingling in your lower legs that does not get better right after you take the stockingsoff. Toes or feet that are unusually cold or turn a bluish color. A warm or red area on your leg. New swelling or soreness in your leg. Shortness of breath. Chest pain. A fast or irregular heartbeat. Light-headedness. Dizziness. Summary Compression stockings are elastic socks that squeeze the legs. They help increase blood flow (circulation) to the legs, decrease swelling in the legs, and reduce the chance of developing blood clots in the lower legs. Follow instructions from your health care provider about how and when to wear your compression stockings. Do not stop wearing your compression stockings without talking to your health care provider first. This information is not intended to replace advice given to you by your health care provider. Make sure you discuss any questions you have with your health care provider. Document Released: 06/01/2010 Document Revised: 08/06/2018 Document Reviewed: 08/06/2018 [employer] Patient Education 2020 [employer]. 10/03/2022 11:41:18 Nausea and Vomiting, Adult, Fksq-ne-Twtb Nausea and Vomiting, Adult Nausea is feeling sick to your stomach or feeling that you are about to throw up (vomit). Vomiting is when food in your stomach is thrown up and out of the mouth. Throwing up can make you feel weak. It can also make you lose too much water in your body (get dehydrated). If you lose too much water in your body, you may: Feel tired. Feel thirsty. Have a dry mouth. Have cracked lips. Go pee (urinate) less often. Older adults and people with other diseases or a weak body defense system (immune system) are at higher risk for losing too much water in the body. If you feel sick to your stomach and you throw up, it is important to follow instructions from your doctor about how to take care of yourself. Follow these instructions at home: Watch your symptoms for any changes. Tell your doctor about them. Follow these instructions to carefor yourself at home. Eating and drinking Take an ORS (oral rehydration solution). This is a drink that is sold at pharmacies and stores. Drink clear fluids in small amounts as you are able, such as: ?Water. ?Ice chips. ?Fruit juice that has water added (diluted fruit juice). ?Low-calorie sports drinks. Eat bland, znyw-ya-urfrbm foods in small amounts as you are able, such as: ?Bananas. ?Applesauce. ?Rice. ?Low-fat (lean) meats. ?[place]. ?Crackers. Avoid drinking fluids that have a lot of sugar or caffeine in them. This includes energy drinks, sports drinks, and soda. Avoid alcohol. Avoid spicy or fatty foods. General instructions Take pjag-adq-bhbogpq and prescription medicines only as told by your doctor. Drink enough fluid to keep your pee (urine) pale yellow. Wash your hands often with soap and water. If you cannot use soap and water, use hand cook seafood. Make sure that all people in your home wash their hands well and often. Rest at home while you get better. Watch your condition for any changes. Take slow and deep breaths when you feel sick to your stomach. Keep all follow-up visits as told by your doctor. This is important. Contact a doctor if: Your symptoms get worse. You have new symptoms. You have a fever. You cannot drink fluids without throwing up. You feel sick to your stomach for more than 2 days. You feel light-headed or dizzy. You have a headache. You have muscle cramps. You have a rash. You have pain while peeing. Get help right away if: You have pain in your chest, neck, arm, or jaw. You feel very weak or you pass out (faint). You throw up again and again. You have throw up that is bright red or looks like black coffee grounds. You have bloody or black poop (stools) or poop that looks like tar. You have a very bad headache, a stiff neck, or both. You have very bad pain, cramping, or bloating in your belly (abdomen). You have trouble breathing. You are breathing very quickly. Your heart is beating very quickly. Your skin feels cold and clammy. You feel confused. You have signs of losing too much water in your body, such as: ?Dark pee, very little pee, or no pee. ?Cracked lips. ?Dry mouth. ?Sunken eyes. ?Sleepiness. ?Weakness. These symptoms may be an emergency. Do not wait to see if the symptoms will go away. Get medical help right away. Call your local emergency services (911 in the [place] Do not drive yourself to the hospital. Summary Nausea is feeling sick to your stomach or feeling that you are about to throw up (vomit). Vomiting is when food in your stomach is thrown up and out of the mouth. Follow instructions from your doctor about eating and drinking to keep from losing too much water in your body. Take uvlz-lzw-xcerxmu and prescription medicines only as told by your doctor. Contact your doctor if your symptoms get worse or you have new symptoms. Keep all follow-up visits as told by your doctor. This is important. This information is not intended to replace advice given to you by your health care provider. Make sure you discuss any questions you have with your health care provider. Document Released: 01/20/2009 Document Revised: 11/26/2019 Document Reviewed: 01/12/2019 [employer] Patient Education 2020 [employer]. 10/03/2022 11:41:16 General Anesthesia, Adult, Care After General Anesthesia, Adult, Care After This sheet gives you information about how to care for yourself after your procedure. Your health care provider may also give you more specific instructions. If you have problems or questions, contact your health care provider. What can I expect after the procedure? After the procedure, the following side effects are common: Pain or discomfort at the IV site. Nausea. Vomiting. Sore throat. Trouble concentrating. Feeling cold or chills. Weak or tired. Sleepiness and fatigue. Soreness and body aches. These side effects can affect parts of the body that were not involved in surgery. Follow these instructions at home: For at least 24 hours after the procedure: Have a responsible adult stay with you. It is important to have someone help care for you until youare awake and alert. Rest as needed. Do not: ?Participate in activities in which you could fall or become injured. ?Drive. ?Use heavy machinery. ?Drink alcohol. ?Take sleeping pills or medicines that cause drowsiness. ?Make important decisions or sign legal documents. ?Take care of children on your own. Eating and drinking Follow any instructions from your health care provider about eating or drinking restrictions. When you feel hungry, start by eating small amounts of foods that are soft and easy to digest (bland), such as toast. Gradually return to your regular diet. Drink enough fluid to keep your urine pale yellow. If you vomit, rehydrate by drinking water, juice, or clear broth. General instructions If you have sleep apnea, surgery and certain medicines can increase your risk for breathing problems. Follow instructions from your health care provider about wearing your sleep device: ?Anytime you are sleeping, including during daytime naps. ?While taking prescription pain medicines, sleeping medicines, or medicines that make you drowsy. Return to your normal activities as told by your health care provider. Ask your health care provider what activities are safe for you. Take dofx-sbi-pzojdza and prescription medicines only as told by your health care provider. If you smoke, do not smoke without supervision. Keep all follow-up visits as told by your health care provider. This is important. Contact a health care provider if: You have nausea or vomiting that does not get better with medicine. You cannot eat or drink without vomiting. You have pain that does not get better with medicine. You are unable to pass urine. You develop a skin rash. You have a fever. You have redness around your IV site that gets worse. Get help right away if: You have difficulty breathing. You have chest pain. You have blood in your urine or stool, or you vomit blood. Summary After the procedure, it is common to have a sore throat or nausea. It is also common to feel tired. Have a responsible adult stay with you for the first 24 hours after general anesthesia. It is important to have someone help care for you until you are awake and alert. When you feel hungry, start by eating small amounts of foods that are soft and easy to digest (bland), such as toast. Gradually return to your regular diet. Drink enough fluid to keep your urine pale yellow. Return to your normal activities as told by your health care provider. Ask your health care provider what activities are safe for you. This information is not intended to replace advice given to you by your health care provider. Make sure you discuss any questions you have with your health care provider. Document Released: 11/10/2001 Document Revised: 08/07/2018 Document Reviewed: 03/20/2018 [employer] Patient Education 2020 [employer]. 10/03/2022 11:40:27 Laparoscopic Inguinal Hernia Repair, Adult Laparoscopic Inguinal Hernia Repair, Adult Laparoscopic inguinal hernia repair is a surgical procedure to repair a small weak spot in the groin muscles that allows fat or intestine from inside the abdomen to bulge out (inguinal hernia). This procedure may be planned, or it may be an emergency procedure. During the procedure, tissue that has bulged out is moved back into place, and the opening in the groin muscles is repaired. This is done through three small incisions in the abdomen. A thin tube with a light and camera on the end (laparoscope) will be used to help perform the procedure. Tell a health care provider about: Any allergies you have. All medicines you are taking, including vitamins, herbs, eye drops, creams, and raxf-akb-ephyrxv medicines. Any problems you or family members have had with anesthetic medicines. Any blood disorders you have. Any surgeries you have had. Any medical conditions you have. Whether you are or may be . What are the risks? Generally, this is a safe procedure. However, problems may occur, including: Infection. Bleeding. Allergic reactions to medicines. Damage to other structures or organs. Long-term pain and swelling of the scrotum, in men. Testicle damage in men. Inability to completely empty the bladder (urinary retention). Blood clots. A collection of fluid that builds up under the skin (seroma). The hernia coming back (recurrence). What happens before the procedure? Medicines Ask your health care provider about: ?Changing or stopping your regular medicines. This is especially important if you are taking diabetes medicines or blood thinners. ?Taking lzjs-grq-jvgqclk medicines, vitamins, herbs, and supplements. ?Taking medicines such as aspirin and ibuprofen. These medicines can thin your blood. Do not take these medicines unless your health care provider tells you to take them. You may be given antibiotic medicine to help prevent an infection. Staying hydrated Follow instructions from your health care provider about hydration, which may include: Up to 2 hours before the procedure you may continue to drink clear liquids, such as water, clear fruit juice, black coffee, and plain tea. Eating and drinking restrictions Follow instructions from your health care provider about eating and drinking, which may include: 8 hours before the procedure stop eating heavy meals or foods such as meat, fried foods, or fatty foods. 6 hours before the procedure stop eating light meals or foods, such as toast or cereal. 6 hours before the procedure stop drinking milk or drinks that contain milk. 2 hours before the procedure stop drinking clear liquids. General instructions Do not use any products that contain nicotine or tobacco, such as cigarettes and e-cigarettes. If you need help quitting, ask your health care provider. You may be asked to shower with a germ-killing soap. Plan to have someone take you home from the hospital or clinic. Plan to have a responsible adult care for you for at least 24 hours after you leave the hospital orclinic. This is important. What happens during the procedure? To lower your risk of infection: ?Your health care team will wash or sanitize their hands. ?Hair may be removed from the surgical area. ?Your skin will be washed with soap. An IV will be inserted into one of your veins. You will be given one or more of the following: ?A medicine to help you relax (sedative). ?A medicine to make you fall asleep (general anesthetic). Three small incisions will be made in your abdomen. Your abdomen will be inflated with carbon dioxide gas to make the surgical area easier to see. A laparoscope and surgical instruments will be inserted through the incisions. The laparoscope willsend images of the inside of your abdomen to a monitor in the room. Tissue that is bulging through the hernia may be removed or moved back into its normal place. The hernia opening will be closed with a sheet of surgical mesh. The surgical instruments and laparoscope will be removed. Your incisions will be closed with stitches (sutures) and adhesive strips. A bandage (dressing) will be placed over your incisions. The procedure may vary among health care providers and hospitals. What happens after the procedure? Your blood pressure, heart rate, breathing rate, and blood oxygen level will be monitored until themedicines you were given have worn off. You will be given pain medicine as needed. You may continue to receive medicines and fluids through an IV. The IV will be removed after you can drink fluids well. You will be encouraged to get up and move around, and to take deep breaths frequently. Do not drive for 24 hours if you were given a sedative during your procedure. Summary Laparoscopic inguinal hernia repair is a surgical procedure to repair a small weak spot in the groin muscles that allows fat or intestine from inside the abdomen to bulge out (inguinal hernia). This procedure is done through three small incisions in the abdomen. A thin tube with a light and camera on the end (laparoscope) will be used to help perform the procedure. After the procedure, you will be encouraged to get up and move around, and to take deep breaths frequently. This information is not intended to replace advice given to you by your health care provider. Make sure you discuss any questions you have with your health care provider. Document Released: 11/13/2017 Document Revised: 01/12/2020 Document Reviewed: 11/13/2017 [employer] Patient Education 2020 [employer] Follow Up Care 09/17/2022 12:21:01 With:HELENA TERESA MD, Surgery Address: [address] [facility] [place] [address]- [phone] When:Within 2 Week(s) Comments:CALL OFFCIE TO SCHEDULE FOLLOW UP APPOINTMENT FOR 2 WEEKS FROM NOW. CALL OFFICE FOR ANY QUESTIONS OR CONCERNS. IF HAVINGAN EMERGENCY, GO TO NEAREST EMERGENCY ROOM. [facility] 02-16-2023 Summary of episode note Discharge Instructions Thank you for allowing [facility] to assist you with your healthcare needs. The following is importantdischarge information regarding your hospital visit. Your Care Team ANALY MONDRAGON DO, DR Your Diagnosis Acute post-operative pain Femoral hernia of left side What to do next Scheduled Follow-Up Appointments Appointment Type When With Where Contact Information OV 10/16/2022 11:45 AM EST SABRINA BURNS APRN-[employer] [facility] OV 02/05/2023 10:00 AM EDT ANALY MONDRAGON DO [facility] Follow Up Appointments Follow Up with HELENA TERESA MD, Surgery When In 2 weeks Why: CALL OFFCIE TO SCHEDULE FOLLOW UP APPOINTMENT FOR 2 WEEKS FROM NOW. CALL OFFICE FOR ANY QUESTIONS OR CONCERNS. IF HAVINGAN EMERGENCY, GO TO NEAREST EMERGENCY ROOM. Where: [address] [facility] [place] [address] [phone] The Following Activity and Diet Have Been Ordered for You Discharge Activity - Ordered -- Sexual [place] Restricted No bending, twisting, crawling or squatt, No shower or tub bath for 2 days; no driving for 5 days, no lifting >15 lbs, 10/03/22 11:08:00 EST Discharge Diet - Ordered -- Follow the post-operative/post-procedure diet instructions provided by your physician's office.,10/03/22 11:08:00 EST The Following Equipment Has Been Ordered for You Discharge Home Equipment Discharge Wound Care - Ordered -- Dressing Type: Dry sterile drsg, Remove dressing in two (2) days. Leave steristrips on until they fall off, 10/03/22 11:08:00 EST Allergies iodine (Rash) Medications Please ask your primary doctor or pharmacist before taking any other medication not listed, including over the counter drugs, herbal medications, vitamins and or supplements as they may interact withyour home medications. 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 Changed acetaminophen-hydrocodone ([place] 325- 5 mg oral tablet) 1 tab(s) by mouth Every 4 hours as needed for Pain, scale 1-6 Acute post-operative pain Duration: 5 Days Pickup at [id number] Unchanged acetaminophen (Tylenol 325 mg oral capsule) 650 Milligram by mouth Every 4 hours as needed for Pain, scale 1-3 Unchanged calcium gluconate (calcium gluconate 500 mg oral tablet) 2 tab(s) by mouth Once a day (in the morning) Unchanged cyanocobalamin (Vitamin B12 50 mcg oral tablet) 1 tab(s) by mouth Two (2) times a day Unchanged denosumab (Prolia 60 mg/ mL subcutaneous solution) 1 Milliliter Subcutaneous Every 6 months Osteoporosis Unchanged escitalopram (escitalopram 20 mg oral tablet) 1 tab(s) by mouth Once a day Unchanged gabapentin (gabapentin 600 mg oral tablet) 1 tab(s) by mouth Four (4) times a day Lumbar radiculopathy Duration: 30 Days Unchanged lidocaine topical (Lidoderm 5% topical patch) 1 patch(es) Transdermal Every day Right-sided chest wall pain Unchanged multivitamin (Multivitamin) 2 tab(s) by mouth Once a day (in the morning) Pharmacy Information [id number]: [id number] [place], [place] [phone] Please take this list to your next doctor s visit. Bring all medications you take, including over the counter medications, herbals and other supplements with you to your doctor s visit. Patients and families are reminded to discard old lists and to update any records with all medication providers or retail pharmacies. Medication Leaflets acetaminophen and hydrocodone (a SEET a MIN oh fen and bonny droe KOE done) Hycet, Lorcet, [place], Verdrocet, Vicodin, Xodol, Zamicet What is the most important information I should know about acetaminophen and hydrocodone? MISUSE OF OPIOID MEDICINE CAN CAUSE ADDICTION, OVERDOSE, OR . Keep the medication in a place where others cannot get to it. Taking opioid medicine during may cause life-threatening withdrawal symptoms in the . Fatal side effects can occur if you use opioid medicine with alcohol, or with other drugs that cause drowsiness or slow your breathing. Stop taking this medicine and call your doctor right away if you have skin redness or a rash that spreads and causes blistering and peeling. What is acetaminophen and hydrocodone? Acetaminophen and hydrocodone is a combination medicine used to relieve moderate to severe pain. Acetaminophen and hydrocodone contains an opioid medicine, and may be habit-forming. Acetaminophen and hydrocodone may also be used for purposes not listed in this medication guide. What should I discuss with my healthcare provider before taking acetaminophen and hydrocodone? You should not use this medicine if you are allergic to acetaminophen or hydrocodone, or if you have: severe asthma or breathing problems; or a blockage in your stomach or intestines. Tell your doctor if you have ever had: breathing problems, sleep apnea (breathing stops during sleep); liver disease; a drug or alcohol addiction; kidney disease; a head injury or seizures; urination problems; or problems with your thyroid, pancreas, or gallbladder. If you use opioid medicine while you are , your baby could become dependent on the drug. This can cause life-threatening withdrawal symptoms in the baby after it is born. Babies born dependent on opioids may need medical treatment for several weeks. Ask a doctor before using opioid medicine if you are . Tell your doctor if you notice severe drowsiness or slow breathing in the nursing baby. How should I take acetaminophen and hydrocodone? Follow all directions on your prescription label. Never take this medicine in larger amounts, or for longer than prescribed. An overdose can damage your liver or cause . Tell your doctor if you feel an increased urge to use more of this medicine. Never share this medicine with another person, especially someone with a history of drug abuse or addiction. MISUSE CAN CAUSE ADDICTION, OVERDOSE, OR . Keep the medicine in a place where others cannot get to it. Selling or giving away this medicine is against the law. Measure liquid medicine carefully. Use the dosing syringe provided, or use a medicine dose-measuring device (not a kitchen spoon). If you need surgery or medical tests, tell the doctor ahead of time that you are using this medicine. You should not stop using this medicine suddenly. Follow your doctor's instructions about tapering your dose. Store at room temperature away from moisture and heat. Keep track of your medicine. You should be aware if anyone is using it improperly or without a prescription. Do not keep leftover opioid medication. Just one dose can cause in someone using this medicine accidentally or improperly. Ask your pharmacist where to locate a drug take-back disposal program.If there is no take-back program, flush the unused medicine down the toilet. What happens if I miss a dose? Since this medicine is used for pain, you are not likely to miss a dose. Skip any missed dose if itis almost time for your next dose. Do not use two doses at one time. What happens if I overdose? Seek emergency medical attention or call the Poison Help line at . An overdose of this medicine can be fatal, especially in a child or other person using the medicine without a prescription. Overdose symptoms may include nausea, vomiting, sweating, severe drowsiness, pinpoint pupils, slow breathing, or no breathing. Your doctor may recommend you get naloxone (a medicine to reverse an opioid overdose) and keep it with you at all times. A person caring for you can give the naloxone if you stop breathing or don't wake up. Your caregiver must still get emergency medical help and may need to perform CPR (cardiopulmonary resuscitation) on you while waiting for help to arrive. Anyone can buy naloxone from a pharmacy or local health department. Make sure any person caring foryou knows where you keep naloxone and how to use it. What should I avoid while taking acetaminophen and hydrocodone? Avoid driving or operating machinery until you know how this medicine will affect you. Dizziness ordrowsiness can cause falls, accidents, or severe injuries. Do not drink alcohol. Dangerous side effects or could occur. Ask a doctor or pharmacist before using any other medicine that may contain acetaminophen (sometimes abbreviated as APAP). Taking certain medications together can lead to a fatal overdose. What are the possible side effects of acetaminophen and hydrocodone? Get emergency medical help if you have signs of an allergic reaction: hives; difficulty breathing; swelling of your face, lips, tongue, or throat. Opioid medicine can slow or stop your breathing, and may occur. A person caring for you should give naloxone and/or seek emergency medical attention if you have slow breathing with long pauses,blue colored lips, or if you are hard to wake up. In rare cases, acetaminophen may cause a severe skin reaction that can be fatal. This could occur even if you have taken acetaminophen in the past and had no reaction. Stop taking this medicine and call your doctor right away if you have skin redness or a rash that spreads and causes blistering andpeeling. Call your doctor at once if you have: noisy breathing, sighing, shallow breathing, breathing that stops; a light-headed feeling, like you might pass out; liver problems--nausea, upper stomach pain, tiredness, loss of appetite, dark urine, sue-colored stools, jaundice (yellowing of the skin or eyes); low cortisol levels-- nausea, vomiting, loss of appetite, dizziness, worsening tiredness or weakness; o high levels of serotonin in the body--agitation, hallucinations, fever, sweating, shivering, fast heart rate, muscle stiffness, twitching, loss of coordination, nausea, vomiting, diarrhea. Serious breathing problems may be more likely in older adults and in those who are debilitated or have wasting syndrome or chronic breathing disorders. Common side effects include: dizziness, drowsiness, feeling tired; nausea, vomiting, stomach pain; constipation; or headache. This is not a complete list of side effects and others may occur. Call your doctor for medical advice about side effects. You may report side effects to FDA at 9-054-GVG-2413. What other drugs will affect acetaminophen and hydrocodone? You may have breathing problems or withdrawal symptoms if you start or stop taking certain other medicines. Tell your doctor if you also use an antibiotic, antifungal medication, heart or blood pressure medication, seizure medication, or medicine to treat HIV or hepatitis C. Opioid medication can interact with many other drugs and cause dangerous side effects or . Be sure your doctor knows if you also use: cold or allergy medicines, bronchodilator asthma/COPD medication, or a diuretic ('water pill'); medicines for motion sickness, irritable bowel syndrome, or overactive bladder; other opioids--opioid pain medicine or prescription cough medicine; a sedative like Valium--diazepam, alprazolam, lorazepam, Xanax, Klonopin, Versed, and others; drugs that make you sleepy or slow your breathing--a sleeping pill, muscle relaxer, medicine to treat mood disorders or mental illness; drugs that affect serotonin levels in your body--a stimulant, or medicine for depression, Parkinson's disease, migraine headaches, serious infections, or nausea and vomiting. This list is not complete. Other drugs may affect acetaminophen and hydrocodone, including prescription and dlmj-iyr-gdlmooh medicines, vitamins, and herbal products. Not all possible interactions are listed here. Where can I get more information? Your doctor or pharmacist can provide more information about acetaminophen and hydrocodone. Remember, keep this and all other medicines out of the reach of children, never share your medicines with others, and use this medication only for the indication prescribed. Every effort has been made to ensure that the information provided by [employer]. ('[employer]') is accurate, up-to-date, and complete, but no guarantee is made to that effect. Drug information contained herein may be time sensitive. [employer] information has been compiled for use by healthcare practitioners and consumers in the [place] and therefore [employer] does not warrant that uses outside of the [place] are appropriate, unless specifically indicated otherwise. [employer] drug information does not endorse drugs, diagnose patients or recommend therapy. [employer] drug information isan informational resource designed to assist licensed healthcare practitioners in caring for their p atients and/or to serve consumers viewing this service as a supplement to, and not a substitute for, the expertise, skill, knowledge and judgment of healthcare practitioners. The absence of a warningfor a given drug or drug combination in no way should be construed to indicate that the drug or drug combination is safe, effective or appropriate for any given patient. [employer] does not assume any responsibility for any aspect of healthcare administered with the aid of information [employer] provides. The information contained herein is not intended to cover all possible uses, directions, precautions, warnings, drug interactions, allergic reactions, or adverse effects. If you have questions about the drugs you are taking, check with your doctor, nurse or pharmacist. Copyright 2888-2797 [employer]. Version: 16.03. Revision Date: 09/19/2020. Education Materials How To Use an Incentive Spirometer An incentive spirometer is a tool that measures how well you are filling your lungs with each breath. Learning to take long, deep breaths using this tool can help you keep your lungs clear and active. This may help to reverse or lessen your chance of developing breathing (pulmonary) problems, especially infection. You may be asked to use a spirometer: After a surgery. If you have a lung problem or a history of smoking. After a long period of time when you have been unable to move or be active. If the spirometer includes an indicator to show the highest number that you have reached, your health care provider or respiratory therapist will help you set a goal. Keep a list (log) of your progress as told by your health care provider. What are the risks? Breathing too quickly may cause dizziness or cause you to pass out. Take your time so you do not get dizzy or light-headed. If you are in pain, you may need to take pain medicine before doing incentive spirometry. It is harder to take a deep breath if you are having pain. How to use your incentive spirometer 1. Sit up on the edge of your bed or on a chair. 2. Hold the incentive spirometer so that it is in an upright position. 3. Before you use the spirometer, breathe out normally. 4. Place the mouthpiece in your mouth. Make sure your lips are closed tightly around it. 5. Breathe in slowly and as deeply as you can through your mouth, causing the piston or the ball to rise toward the top of the chamber. 6. Hold your breath for 3 5 seconds, or for as long as possible. If the spirometer includes a coach cleaner indicator, use this to guide you in breathing. Slow down your breathing if the indicator goes above the marked areas. 7. Remove the mouthpiece from your mouth and breathe out normally. The piston or ball will return to the bottom of the chamber. 8. Rest for a few seconds, then repeat the steps 10 or more times. Take your time and take a few normal breaths between deep breaths so that you do not get dizzy or light-headed. Do this every 1 2 hours when you are awake. 9. If the spirometer includes a goal marker to show the highest number you have reached (best effort),use this as a goal to work toward during each repetition. 10. After each set of 10 deep breaths, cough a few times. This will help to make sure that your lungs are clear. If you have an incision on your chest or abdomen from surgery, place a pillow or a rolled-up towel firmly against the incision when you cough. This can help to reduce pain from coughing. General tips When you become able to get out of bed, walk around often and continue to cough to help clear your lungs. Keep using the incentive spirometer until your health care provider says it is okay to stop using it. If you have been in the hospital, you may be told to keep using the spirometer at home. Contact a health care provider if: You are having difficulty using the spirometer. You have trouble using the spirometer as often as instructed. Your pain medicine is not giving enough relief for you to use the spirometer as told. You have a fever. You develop shortness of breath. Get help right away if: You develop a cough with bloody mucus from the lungs (bloody sputum). You have fluid or blood coming from an incision site after you cough. Summary An incentive spirometer is a tool that can help you learn to take long, deep breaths to keep your lungs clear and active. You may be asked to use a spirometer after a surgery, if you have a lung problem or a history of smoking, or if you have been inactive for a long period of time. Use your incentive spirometer as instructed every 1 2 hours while you are awake. If you have an incision on your chest or abdomen, place a pillow or a rolled-up towel firmly against your incision when you cough. This will help to reduce pain. This information is not intended to replace advice given to you by your health care provider. Make sure you discuss any questions you have with your health care provider. Document Released: 12/15/2007 Document Revised: 08/27/2018 Document Reviewed: 06/17/2018 [employer] Patient Education 2020 [employer] How to Use Compression Stockings Compression stockings are elastic socks that squeeze the legs. They help increase blood flow (circulation) to the legs, decrease swelling in the legs, and reduce the chance of developing blood clots in the lower legs. Compression stockings are often used by people who: Are recovering from surgery. Have poor circulation in their legs. Tend to get blood clots in their legs. Have bulging (varicose) veins. Sit or stay in bed for long periods of time. Follow instructions from your health care provider about how and when to wear your compression stockings. How to wear compression stockings Before you put on your compression stockings: Make sure that they are the correct size and degree of compression. If you do not know your size orrequired grade of compression, ask your health care provider and follow the corporate law specialist's instructions that come with the stockings. Make sure that they are clean, dry, and in good condition. Check them for rips and tears. Do not put them on if they are ripped or torn. Put your stockings on first thing in the morning, before you get out of bed. Keep them on for as long as your health care provider advises. When you are wearing your stockings: Keep them as smooth as possible. Do not allow them to bunch up. It is especially important to prevent the stockings from bunching up around your toes or behind your knees. Do not roll the stockings downward and leave them rolled down. This can decrease blood flow to yourleg. Change them right away if they become wet or dirty. When you take off your stockings, inspect your legs and feet. Check for: Open sores. Red spots. Swelling. General tips Do not stop wearing compression stockings without talking to your health care provider first. Wash your stockings every day with mild detergent in cold or warm water. Do not use bleach. Air-dryyour stockings or dry them in a clothes dryer on low heat. It may be helpful to have two pairs so that you have a pair to wear while the other is being washed. Replace your stockings every 3 6 months. If skin moisturizing is part of your treatment plan, apply lotion or cream at night so that your skin will be dry when you put on the stockings in the morning. It is harder to put the stockings on when you have lotion on your legs or feet. Wear nonskid shoes or slip-resistant socks when walking while wearing compression stockings. Contact a health care provider and remove your stockings if you have: A feeling of pins and needles in your feet or legs. Open sores, red spots, or other skin changes on your feet or legs. Swelling or pain that gets worse. Get help right away if you have: Numbness or tingling in your lower legs that does not get better right after you take the stockingsoff. Toes or feet that are unusually cold or turn a bluish color. A warm or red area on your leg. New swelling or soreness in your leg. Shortness of breath. Chest pain. A fast or irregular heartbeat. Light-headedness. Dizziness. Summary Compression stockings are elastic socks that squeeze the legs. They help increase blood flow (circulation) to the legs, decrease swelling in the legs, and reduce the chance of developing blood clots in the lower legs. Follow instructions from your health care provider about how and when to wear your compression stockings. Do not stop wearing your compression stockings without talking to your health care provider first. This information is not intended to replace advice given to you by your health care provider. Make sure you discuss any questions you have with your health care provider. Document Released: 06/01/2010 Document Revised: 08/06/2018 Document Reviewed: 08/06/2018 [employer] Patient Education 2020 [employer]. Nausea and Vomiting, Adult Nausea is feeling sick to your stomach or feeling that you are about to throw up (vomit). Vomiting is when food in your stomach is thrown up and out of the mouth. Throwing up can make you feel weak. It can also make you lose too much water in your body (get dehydrated). If you lose too much water in your body, you may: Feel tired. Feel thirsty. Have a dry mouth. Have cracked lips. Go pee (urinate) less often. Older adults and people with other diseases or a weak body defense system (immune system) are at higher risk for losing too much water in the body. If you feel sick to your stomach and you throw up, it is important to follow instructions from your doctor about how to take care of yourself. Follow these instructions at home: Watch your symptoms for any changes. Tell your doctor about them. Follow these instructions to carefor yourself at home. Eating and drinking Take an ORS (oral rehydration solution). This is a drink that is sold at pharmacies and stores. Drink clear fluids in small amounts as you are able, such as: ? Water. ? Ice chips. ? Fruit juice that has water added (diluted fruit juice). ? Low-calorie sports drinks. Eat bland, rggn-tb-kshyox foods in small amounts as you are able, such as: ? Bananas. ? Applesauce. ? Rice. ? Low-fat (lean) meats. ? [place]. ? Crackers. Avoid drinking fluids that have a lot of sugar or caffeine in them. This includes energy drinks, sports drinks, and soda. Avoid alcohol. Avoid spicy or fatty foods. General instructions Take ptpx-dbt-hjulhxb and prescription medicines only as told by your doctor. Drink enough fluid to keep your pee (urine) pale yellow. Wash your hands often with soap and water. If you cannot use soap and water, use hand cook seafood. Make sure that all people in your home wash their hands well and often. Rest at home while you get better. Watch your condition for any changes. Take slow and deep breaths when you feel sick to your stomach. Keep all follow-up visits as told by your doctor. This is important. Contact a doctor if: Your symptoms get worse. You have new symptoms. You have a fever. You cannot drink fluids without throwing up. You feel sick to your stomach for more than 2 days. You feel light-headed or dizzy. You have a headache. You have muscle cramps. You have a rash. You have pain while peeing. Get help right away if: You have pain in your chest, neck, arm, or jaw. You feel very weak or you pass out (faint). You throw up again and again. You have throw up that is bright red or looks like black coffee grounds. You have bloody or black poop (stools) or poop that looks like tar. You have a very bad headache, a stiff neck, or both. You have very bad pain, cramping, or bloating in your belly (abdomen). You have trouble breathing. You are breathing very quickly. Your heart is beating very quickly. Your skin feels cold and clammy. You feel confused. You have signs of losing too much water in your body, such as: ? Dark pee, very little pee, or no pee. ? Cracked lips. ? Dry mouth. ? Sunken eyes. ? Sleepiness. ? Weakness. These symptoms may be an emergency. Do not wait to see if the symptoms will go away. Get medical help right away. Call your local emergency services (911 in the [place] Do not drive yourself to the hospital. Summary Nausea is feeling sick to your stomach or feeling that you are about to throw up (vomit). Vomiting is when food in your stomach is thrown up and out of the mouth. Follow instructions from your doctor about eating and drinking to keep from losing too much water in your body. Take liuw-exs-wfqtnwt and prescription medicines only as told by your doctor. Contact your doctor if your symptoms get worse or you have new symptoms. Keep all follow-up visits as told by your doctor. This is important. This information is not intended to replace advice given to you by your health care provider. Make sure you discuss any questions you have with your health care provider. Document Released: 01/20/2009 Document Revised: 11/26/2019 Document Reviewed: 01/12/2019 [employer] Patient Education 2020 [employer]. General Anesthesia, Adult, Care After This sheet gives you information about how to care for yourself after your procedure. Your health care provider may also give you more specific instructions. If you have problems or questions, contact your health care provider. What can I expect after the procedure? After the procedure, the following side effects are common: Pain or discomfort at the IV site. Nausea. Vomiting. Sore throat. Trouble concentrating. Feeling cold or chills. Weak or tired. Sleepiness and fatigue. Soreness and body aches. These side effects can affect parts of the body that were not involved in surgery. Follow these instructions at home: For at least 24 hours after the procedure: Have a responsible adult stay with you. It is important to have someone help care for you until youare awake and alert. Rest as needed. Do not: ? Participate in activities in which you could fall or become injured. ? Drive. ? Use heavy machinery. ? Drink alcohol. ? Take sleeping pills or medicines that cause drowsiness. ? Make important decisions or sign legal documents. ? Take care of children on your own. Eating and drinking Follow any instructions from your health care provider about eating or drinking restrictions. When you feel hungry, start by eating small amounts of foods that are soft and easy to digest (bland), such as toast. Gradually return to your regular diet. Drink enough fluid to keep your urine pale yellow. If you vomit, rehydrate by drinking water, juice, or clear broth. General instructions If you have sleep apnea, surgery and certain medicines can increase your risk for breathing problems. Follow instructions from your health care provider about wearing your sleep device: ? Anytime you are sleeping, including during daytime naps. ? While taking prescription pain medicines, sleeping medicines, or medicines that make you drowsy. Return to your normal activities as told by your health care provider. Ask your health care provider what activities are safe for you. Take apke-pfu-brgyhpc and prescription medicines only as told by your health care provider. If you smoke, do not smoke without supervision. Keep all follow-up visits as told by your health care provider. This is important. Contact a health care provider if: You have nausea or vomiting that does not get better with medicine. You cannot eat or drink without vomiting. You have pain that does not get better with medicine. You are unable to pass urine. You develop a skin rash. You have a fever. You have redness around your IV site that gets worse. Get help right away if: You have difficulty breathing. You have chest pain. You have blood in your urine or stool, or you vomit blood. Summary After the procedure, it is common to have a sore throat or nausea. It is also common to feel tired. Have a responsible adult stay with you for the first 24 hours after general anesthesia. It is important to have someone help care for you until you are awake and alert. When you feel hungry, start by eating small amounts of foods that are soft and easy to digest (bland), such as toast. Gradually return to your regular diet. Drink enough fluid to keep your urine pale yellow. Return to your normal activities as told by your health care provider. Ask your health care provider what activities are safe for you. This information is not intended to replace advice given to you by your health care provider. Make sure you discuss any questions you have with your health care provider. Document Released: 11/10/2001 Document Revised: 08/07/2018 Document Reviewed: 03/20/2018 [employer] Patient Education 2020 [employer] Laparoscopic Inguinal Hernia Repair, Adult Laparoscopic inguinal hernia repair is a surgical procedure to repair a small weak spot in the groin muscles that allows fat or intestine from inside the abdomen to bulge out (inguinal hernia). This procedure may be planned, or it may be an emergency procedure. During the procedure, tissue that has bulged out is moved back into place, and the opening in the groin muscles is repaired. This is done through three small incisions in the abdomen. A thin tube with a light and camera on the end (laparoscope) will be used to help perform the procedure. Tell a health care provider about: Any allergies you have. All medicines you are taking, including vitamins, herbs, eye drops, creams, and ztcf-fyp-hhkshre medicines. Any problems you or family members have had with anesthetic medicines. Any blood disorders you have. Any surgeries you have had. Any medical conditions you have. Whether you are or may be . What are the risks? Generally, this is a safe procedure. However, problems may occur, including: Infection. Bleeding. Allergic reactions to medicines. Damage to other structures or organs. Long-term pain and swelling of the scrotum, in men. Testicle damage in men. Inability to completely empty the bladder (urinary retention). Blood clots. A collection of fluid that builds up under the skin (seroma). The hernia coming back (recurrence). What happens before the procedure? Medicines Ask your health care provider about: ? Changing or stopping your regular medicines. This is especially important if you are taking diabetes medicines or blood thinners. ? Taking bhtj-jty-nlxehhs medicines, vitamins, herbs, and supplements. ? Taking medicines such as aspirin and ibuprofen. These medicines can thin your blood. Do not take these medicines unless your health care provider tells you to take them. You may be given antibiotic medicine to help prevent an infection. Staying hydrated Follow instructions from your health care provider about hydration, which may include: Up to 2 hours before the procedure you may continue to drink clear liquids, such as water, clear fruit juice, black coffee, and plain tea. Eating and drinking restrictions Follow instructions from your health care provider about eating and drinking, which may include: 8 hours before the procedure stop eating heavy meals or foods such as meat, fried foods, or fatty foods. 6 hours before the procedure stop eating light meals or foods, such as toast or cereal. 6 hours before the procedure stop drinking milk or drinks that contain milk. 2 hours before the procedure stop drinking clear liquids. General instructions Do not use any products that contain nicotine or tobacco, such as cigarettes and e-cigarettes. If you need help quitting, ask your health care provider. You may be asked to shower with a germ-killing soap. Plan to have someone take you home from the hospital or clinic. Plan to have a responsible adult care for you for at least 24 hours after you leave the hospital orclinic. This is important. What happens during the procedure? To lower your risk of infection: ? Your health care team will wash or sanitize their hands. ? Hair may be removed from the surgical area. ? Your skin will be washed with soap. An IV will be inserted into one of your veins. You will be given one or more of the following: ? A medicine to help you relax (sedative). ? A medicine to make you fall asleep (general anesthetic). Three small incisions will be made in your abdomen. Your abdomen will be inflated with carbon dioxide gas to make the surgical area easier to see. A laparoscope and surgical instruments will be inserted through the incisions. The laparoscope willsend images of the inside of your abdomen to a monitor in the room. Tissue that is bulging through the hernia may be removed or moved back into its normal place. The hernia opening will be closed with a sheet of surgical mesh. The surgical instruments and laparoscope will be removed. Your incisions will be closed with stitches (sutures) and adhesive strips. A bandage (dressing) will be placed over your incisions. The procedure may vary among health care providers and hospitals. What happens after the procedure? Your blood pressure, heart rate, breathing rate, and blood oxygen level will be monitored until themedicines you were given have worn off. You will be given pain medicine as needed. You may continue to receive medicines and fluids through an IV. The IV will be removed after you can drink fluids well. You will be encouraged to get up and move around, and to take deep breaths frequently. Do not drive for 24 hours if you were given a sedative during your procedure. Summary Laparoscopic inguinal hernia repair is a surgical procedure to repair a small weak spot in the groin muscles that allows fat or intestine from inside the abdomen to bulge out (inguinal hernia). This procedure is done through three small incisions in the abdomen. A thin tube with a light and camera on the end (laparoscope) will be used to help perform the procedure. After the procedure, you will be encouraged to get up and move around, and to take deep breaths frequently. This information is not intended to replace advice given to you by your health care provider. Make sure you discuss any questions you have with your health care provider. Document Released: 11/13/2017 Document Revised: 01/12/2020 Document Reviewed: 11/13/2017 [employer] Patient Education 2020 [employer] Additional Information VACCINATE! IT SAVES LIVES! Members of the community who have not yet received the COVID-19 vaccine and would like to receive it can visit one of [facility] vaccine clinics. There are many vaccine clinic locations within the [facility]. For locations and available times, please visit https://[email or web address].[place].gov/. It is important to note that some COVID mobile vaccine clinics are held outdoors and may be canceled in rainy or stormy conditions. To learn more about pediatric vaccinations (ages 5-11), we invite you to visit the [facility] webpage. [email or web address] learn more about the COVID-19 vaccine, we invite you to visit the CDC website for a list of frequently asked questions. https://www.cdc.gov/coronavirus/2019-ncov/vaccines/faq.html [employer] Patient Portal Access Instructions: Stay connected with your healthcare team and access your personal medical information anytime with the [facility] Patient Portal.If you would like a full copy of your medical records, please contact the [facility] Medical Records Department, Friday through Friday between 8a.m. and 4:30p.m. Please follow the directions below to access the portal: 1.Access the email account you provided upon registration to the hospital.2.Look for an invitation email from [facility].3.Open the email and access the invitation link: Accept Invitation to [facility]4.Fill in the required aldridge to create your account. Sign into [email or web address] with your username and password that you created in the above steps to stay up to date. You can then view a summary of results, a summary of your visits, and the ability to download your summaries to your computer or send the information securely to a physician. Remember that your healthcare information is confidential, so carefully consider who you will allow to register on the [facility] Patient Portal for access to your information. You can also access the [employer] Patient Portal on the [employer] jesus manuel. Simply click on Health Records under [employer] and then click on the [employer] logo. HOW TO SAFELY DISPOSE OF PRESCRIPTION MEDICATIONS Please use one of the following methods to safely dispose of your unused medications. 1.Use a drug disposal kit: the drug disposal pouch allows you to safely discard your old and unuseddrugs. Ask your nurse to give you one when you are discharged.2.Visit a local take-back location: Many local pharmacies and police departments have programs that collect old and unwanted prescriptiondrugs. Call your local pharmacy or go to http://iOnRoad.ncyclo/0K1Fa8u to find one close to you.3.Make use of household items: Use cat litter or old coffee grounds to dispose medications if other options arenot available. Mix your drugs with these household products, seal them in an airtight container andthrow it into the garbage. Call [facility]: [phone] to be sure your drugs can be disposed of in this way. Some medicines may require a different approach.4.Never flush your medications down the toilet. IF YOU HAVE BEEN PRESCRIBED AN OPIOID FOR PAIN If you have been prescribed an opioid (such as hydrocodone, oxycodone or morphine), it is critical to understand the possible side effects and risks of opioid pain medications. Even when taken as directed, opioids can have several side effects including: Tolerance, meaning you might need to take more of a medication for the same pain relief. Nausea, vomiting and/or constipation. Sleepiness, dizziness, dry mouth, confusion, depression or itching. Physical dependence, meaning you have withdrawal symptoms when a medication is stopped, can develop within a few days. KNOW YOUR RESPONSIBILITIES It is important to know exactly how much and how often to take the opioid pain medications you are prescribed. Never take opioids in higher amounts or more often than prescribed. Do not combine opioids with alcohol or other drugs that cause drowsiness, such as benzodiazepines, also known as benzos, including diazepam and alprazolam, muscle relaxants or sleep aids. Never sell or share prescription opioids. This is illegal. Store opioids in a secure place and out of reach of others (including children, family, friends and visitors). The last page of this document has been signed and retained as a CHART COPY. [facility]02-16-2023 Anesthesiology Consult note Patient: ROBEL DUMAS Age: 67 years Sex: Female : 1955 Associated Diagnoses: None Author: PAULA VALENTINE APRN-NURSE NAVIGATOR Preoperative Information Time of last food or liquid consumption: 10/03/2022 00:00:00 Anesthesia history Patient's history: negative. Family's history: negative. Review of Systems Respiratory: Sleep apnea, sx lung CA with lobectomy, copd, emphysema. Cardiovascular: mvp. Gastrointestinal: Negative. Genitourinary: Negative. Endocrine: Negative. Musculoskeletal: Back pain, OP. Integumentary: Negative. Neurologic: anxiety. Health Status Allergies: Allergic Reactions (Selected) Severity Not Documented Iodine- Rash., Allergies (1) ActiveReaction iodineRash Current medications: (Selected) Inpatient Medications Ordered Caldolor: 800 mg, 8 mL, 500 mL/hr, IV Piggyback, q6h, PRN: Pain, scale 4-6 LR 1000 mL: 20 mL/hr, Intravenous Prescriptions Prescribed Lidoderm 5% topical patch: 1 patch(es), Transdermal, Daily, 30 patch(es), 2 Refill(s) Prolia 60 mg/mL subcutaneous solution: 60 mg, 1 mL, Subcutaneous, q6mo, 1 mL, 0 Refill(s) acetaminophen-hydrocodone 325 mg-5 mg oral tablet: 1 tab(s), Oral, TID, for 30 day(s), PRN: for pain, 90 tab(s), 0 Refill(s) escitalopram 20 mg oral tablet: 20 mg, 1 tab(s), Oral, qDay, 90 tab(s), 3 Refill(s) gabapentin 600 mg oral tablet: 600 mg, 1 tab(s), Oral, QID, for 30 day(s), 120 tab(s), 2 Refill(s) Documented Medications Documented Multivitamin: 2 tab(s), Oral, qAM, 0 Refill(s) Tylenol 325 mg oral capsule: 650 mg, Oral, q4h, PRN: Pain, scale 1-3, 0 Refill(s) Vitamin B12 50 mcg oral tablet: 50 mcg, 1 tab(s), Oral, BID, 0 Refill(s) calcium gluconate 500 mg oral tablet: 1,000 mg, 2 tab(s), Oral, qAM, 0 Refill(s), Medications (2) Active Scheduled: (0) Continuous: (1) Lactated Ringers Infusion 1000 mL 1,000 mL, Intravenous, 20 mL/hr PRN: (1) ibuprofen 800 mg 8 mL, IV Piggyback, q6h Problem list: Medical 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 / SNOMED CT 6318863978 / Confirmed Right-sided chest wall pain / SNOMED CT 629544219 / Confirmed DDD (degenerative disc disease), lumbar / SNOMED CT 94219864 / Confirmed Fatigue / SNOMED CT 902050695 / Confirmed History of sleep apnea / SNOMED CT 466843529 / Confirmed Intercostal neuralgia / SNOMED CT 515327231 / Confirmed Left inguinal hernia / SNOMED CT 558077880 / Confirmed Lumbar postlaminectomy syndrome / SNOMED CT 609388029 / Confirmed Lumbar radiculopathy / SNOMED CT 910068103 / Confirmed Adenocarcinoma of right lung S/P RVAT right upper lobectomy 06/27/2021 / SNOMED CT 586261488 / Confirmed Mitral valve prolapse / SNOMED CT 7334384164 / Confirmed Osteoporosis / SNOMED CT 412084844 / Confirmed Neoplasm related pain / SNOMED CT 7295874253 / Confirmed Screening for lipid disorders / SNOMED CT 305244454 / Confirmed Major depression, recurrent / SNOMED CT 415596539 / Confirmed, Active Problems (29) Adenocarcinoma of right lung S/P RVAT right upper lobectomy 06/27/2021 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 Anxiety Back pain, chronic Body mass index (BMI) less than 19 in adult Claustrophobia DDD (degenerative disc disease), lumbar Depression Emphysema/COPD Fatigue Glasses History of COVID-19 History of sleep apnea Intercostal neuralgia Left inguinal hernia Lumbar postlaminectomy syndrome Lumbar radiculopathy Lumbosacral spondylosis without myelopathy Major depression, recurrent Mitral valve prolapse Neoplasm related pain PEGGY (obstructive sleep apnea) Osteoporosis Presence of dental prosthetic device Prolapsed lumbar disc Right-sided chest wall pain Screening for lipid disorders Stenosis of lateral recess of lumbar spine Vitamin B12 deficiency Histories Past Medical History: Resolved Mass of subcutaneous tissue of back (6889020345): Resolved. Sebaceous cyst (4977354665): Resolved. Family History: Hypertension Mother Glaucoma Mother Malignant tumor of lung Father Leukemia Sister Procedure history: PM Intercostal Nerve Block - Multi SN on 01/01/2022 at 66 Years. Comments: 01/01/2022 7:59 Varun Pimentel RN auto-populated from documented surgical case Lung- right ([id number]) on 06/28/2021 at 65 Years. Comments: 12/25/2021 8:24 SONG Figueroa E / of lung removed CT guided biopsy of right lung ([id number]) on 05/23/2021 at 65 Years. Nerve block with injection of lumbar spine using fluoroscopic guidance ([id number]) on 02/05/2021 at65 Years. Fluoroscopy guided injection of bilateral facet joints of lumbar spine ([id number]) on 11/21/2020 at 65 Years. Comments: 11/21/2020 9:00 Elizabeth Marin RN L4-L5, L5-S1 Epidural injection of lumbar spine using fluoroscopic guidance ([id number]) on 08/22/2020 at 65 Years. Lumbar epidural injection ([id number]) on 05/30/2020 at 64 Years. Spinal fusion ([id number]) in 2016 at 61 Years. Comments: 09/01/2019 9:36 Jo Ann Mendez LPN 2016 Colonoscopy ([id number]) in 2013 at 58 Years. Comments: 09/01/2019 9:35 Jo Ann Mendez LPN 2013, WNL D&C - Dilatation and curettage ([id number]). History of elbow surgery ([id number]). Comments: 08/21/2020 13:44 Elizabeth Duran RN RIGHT LIGAMENT REPAIR Extraction of wisdom tooth ([id number]). Social History Social & Psychosocial Habits Alcohol 06/21/2021 Use: Current Type: Liquor Frequency: 1-2 times per month Employment/School 09/01/2019 Status: Retired Substance Abuse 09/01/2019 Use: Never Tobacco 06/21/2021 Tobacco Use: Former smoker, quit more Type: Cigarettes Started at age: 12 Years Stopped at age: 55 Years Comment: 1/2 pack x 40yrs quit in 2010 - 06/14/2021 15:00 Ani Askew RN 05/21/2022 Tobacco Use: Former smoker, quit more Exercise 09/01/2019 Times per week: 3-4 times/week Home/Environment 05/07/2022 Domestic Concerns None Living situation: Home/Independent Lives In 1st floor bathroom, 1st floor bedroom, Mobile home Current Home Treatments None Special Services and Community Resources None Financial concerns: No Marital Status of Patient if Patient Independent Adult: Comment: - 05/07/2022 08:48 - Nguyen Jones RN Nutrition/Health 10/03/2022 Type of diet: Regular Appetite Fair Eating Difficulties None Caffeine intake amount: coffee and tea (10 cups coffee and 3 cups tea) dialy Sexual 06/27/2021 Self described orientation: Straight or heterosexual . Physical Examination Vital Signs 10/03/2022 10:00 EST Heart Rate Monitored 81 bpm bpm Respiratory Rate - Anes 0 br/min br/min Systolic Blood Pressure Non-Invasive 123 mmHg mmHg Diastolic Blood Pressure Non-Invasive 80 mmHg mmHg 10/03/2022 9:55 EST Respiratory Rate - Anes 0 br/min br/min Systolic Blood Pressure Non-Invasive 148 mmHg mmHg Diastolic Blood Pressure Non-Invasive 90 mmHg mmHg 10/03/2022 9:08 EST Temperature Temporal Artery 36.7 DegC Apical Heart Rate 75 bpm Respiratory Rate 20 br/min Vital Signs(last 24 hrs) Last Charted Heart Rate Piszkhuov88 bpm (OCT 03 10:00) Resp Rate 20 br/min (OCT 03 09:08) NWM683 mmHg (OCT 03 10:00) DBP80 mmHg (OCT 03 10:00) Measurements from flowsheet : Measurements 10/03/2022 9:09 EST Height 162.6 cm Admission Weight 37.3 kg Weight Method Stated [place] Body Weight 54.74 kg 10/03/2022 9:08 EST Height 162.6 cm Admission Weight 37.3 kg [place] Body Weight 54.74 kg Admission Body Mass Index 14.11 m2 Pain assessment: Pain Assessment 10/03/2022 9:21 EST Primary Pain Intensity Not Done: Other (Not Done) 10/03/2022 9:08 EST Primary Pain Intensity 0 Pain Scale Type 0-10 Pain scale . General: Alert and oriented. Airway: Normal temporomandibular joint mobility. Mallampati classification: III (soft palate, base of uvula visible). Head: Normocephalic. Dentition Evaluation: Own teeth, poor dentition bottom, rotted. Neck: Non-tender. Respiratory: Lungs are clear to auscultation. Cardiovascular: Normal rate. Heart Sounds: Normal. Gastrointestinal: Soft. Musculoskeletal Normal range of motion. Integumentary: Intact. Neurologic: Alert, Oriented. Review / Management Results review: No qualifying data available , Lab results 10/03/2022 10:10 EST SN - GCD - Post-operative Diagnosis LEFT FEMORAL HERNIA SN - GCD - Case Level Level 6 10/03/2022 10:10 EST SN - Cul - Culture Type No Specimen per Surgeon 10/03/2022 10:08 EST SN - CTm - Surgery Start 10/03/2022 10:06 10/03/2022 10:00 EST Heart Rate Monitored 81 bpm bpm Respiratory Rate - Anes 0 br/min br/min Systolic Blood Pressure Non-Invasive 123 mmHg mmHg Diastolic Blood Pressure Non-Invasive 80 mmHg mmHg Oxygen Saturation 100 % % 10/03/2022 9:55 EST Respiratory Rate - Anes 0 br/min br/min Systolic Blood Pressure Non-Invasive 148 mmHg mmHg Diastolic Blood Pressure Non-Invasive 90 mmHg mmHg Oxygen Saturation 94.3 % % 10/03/2022 9:36 EST SN - CAt - Case Attendee SN - CAt - Case Attendee SN - CAt - Case Attendee SN - CAt - Case Attendee SN - CAt - Case Attendee SN - CAt - Case Attendee SN - CAt - Case Attendee SN - CAt - Case Attendee SN - CAt - Case Attendee SN - CAt - Case Attendee SN - CAt - Role Performed Primary Surgeon SN - CAt - Role Performed NURSE NAVIGATOR SN - CAt - Role Performed Junior Systems Analyst 1 SN - CAt - Role Performed Buttonhole Maker Hand 1 SN - CAt - Role Performed Scrub 1 10/03/2022 9:26 EST SN - Preop - CTm Pt Ready for OR/Proced 10/03/2022 9:26 10/03/2022 9:26 EST ibuprofen 800 mg mg Dextrose 5% in Water 250 mL mL Lactated Ringers Injection Begin Bag 1,000 mL mL 10/03/2022 9:21 EST Primary Pain Intensity Not Done: Other (Not Done) gabapentin Not Done: Other (Not Done) ketorolac Not Done: Other (Not Done) Lactated Ringers Injection Begin Bag 1,000 mL mL 10/03/2022 9:09 EST Designated Person #1 We May Share PHI [place] Palafox [phone] Designated Person #1 Relationship Son Designated Person #2 We May Share PHI cristóbal [phone] Designated Person #2 Relationship Son Additional Designated Person Share PHI [phone] Privacy Restrictions Requested None Height 162.6 cm Admission Weight 37.3 kg Weight Method Stated [place] Body Weight 54.74 kg Status No, per patient Sensory Deficits None Sleep Apnea Age Yes Sleep Apnea Gender No Diagnosed With Sleep Apnea Yes Advanced Directives No - refuses information Infectious Disease Symptoms Patient states no symptoms Infectious Disease Recent Exposure No Alcohol and Drug Use No Employee of Institutional Living No Health Care Employee No History of Exposure to TB No History of Positive Chest X-Ray for TB No History of Positive TB Skin Test No Homeless No Known Immunosuppression No Recent Immigrant No Resident of Institutional Living No Bloody Sputum No Fatigue No Fever No Loss of Appetite No Night Sweats No Persistent Cough > 3 Weeks No Weight Loss No Safety Brochure Information Reviewed Unable to complete [facility] [place] Video Viewed No Barriers to Learning None evident Teaching Method Explanation Teaching Evaluation No further teaching needed Preferred Written Language North Korean Preferred Spoken Language [place] Information Given by Unable to obtain Patient's Current Physicians Patient's Current Physicians Discharge To, Anticipated Home with family care Prev Test Positive/Diagnosis w/COVID-19 Yes Current Quarantine/Isolated any Illness No Any Contact with Sick Animals/Birds No Traveled Anywhere in Last 30 Days No Lost Weight Unintentionally Recently No Eat Poorly Due to Decreased Appetite No Total MST Score 0 No Personal Devices, Patient Valuables Glasses Anesthesia/Transfusions Prior anesthesia Admission Note-Nursing Same Day Patient History 10/03/2022 9:08 EST Height 162.6 cm Admission Weight 37.3 kg [place] Body Weight 54.74 kg Admission Body Mass Index 14.11 m2 Temperature Temporal Artery 36.7 DegC Apical Heart Rate 75 bpm Respiratory Rate 20 br/min Primary Pain Intensity 0 Pain Scale Type 0-10 Pain scale Heart Sounds ICU S1S2 Heart Rhythm Regular Oxygen Therapy Room air Abdomen Description Non-distended, Soft Swallowing Disorder None Bowel Sounds All Quadrants Present Urinary Elimination Voiding, no difficulties Skin Temperature Warm Skin Description [place], Normal for ethnicity, Dry Skin Moisture General Dry IV Present Present Hand Left 10/03/2022 20 gauge Peripheral IV Activity: Insert new site Peripheral IV Site Condition: No complications Peripheral IV Number of Attempts: 2 Extremity Movement Equal Characteristics of Speech Clear Level of Consciousness Alert Strength All Extremities Strong Affect/Behavior Anxious Orientation Oriented x 4 Allergies Yes Consent Form Signed Yes Patient Dressed In Hospital gown Pre-op Preparation Glasses removed History & Physical Update On Chart Yes History & Physical On Chart Yes Obstructive Sleep Apnea Assess Completed Yes Orientation Assessment Oriented x 4 Activity Status ADL Ambulating in clarke, Ambulating in room, Awake Assistive Device None SCD On/Re-applied bilateral knee high Antiembolism Stocking On/Re-applied bilateral knee high NPO Status Maintained Standard Safety ID band on, Allergy Band on, Call device within reach, Bed in low position, Wheels locked, Safety level maintained Allergy Band on and Verified Yes Patient ID Band on and Verified Yes Implants Verified Yes Pacemaker/AICD Verified Yes Last Fluid Intake 10/02/2022 21:00 Last Food Intake 10/02/2022 15:00 Last Void 10/03/2022 9:15 10/03/2022 8:58 EST SN - Preop - CTm Pt in SDS Room 10/03/2022 8:58 . Assessment and Plan [place] Society of Anesthesiologists (ASA) physical status classification: Class III. Anesthetic Preoperative Plan Premedication: intravenous. Anesthetic technique: General. Induction: intravenously. Maintenance airway: Oral endotracheal tube. Postoperative pain management: Per surgeon. Risks discussed: nausea, vomiting, sore throat. Informed consent: signed by patient. Digitally Signed by PAULA VALENTINE on 10/03/2022 10:15 AM [facility]08-27[facility] Hospital Discharge instructions Patient Education 04/13/2022 00:33:00 After Back Surgery: Tips for Daily Living After Back Surgery: Tips for Daily Living These tips can help make some tasks easier and will help protect your back. Getting dressed Putting on and taking off socks, slacks, and underwear may be easier to do lying on your back. A tool called a dressing handle rounder operator can be of help. To make dressing and undressing easier, wear loose clothes and slip-on shoes with closed backs. You may want to have someone help you dress and undress. Getting ready to lie down Before you lie down, make sure that you have the things you need within reach. Gather items such asmedicines, eyeglasses, reading material, and other things you may want. Be sure to place them so you won t have to twist your back to reach them. If you aren t able to gather the items yourself, ask a family member or friend to help. Washing at the sink While standing at the sink, bend your knees and hips. Keep your back in a neutral position. Showering Use a hand-held shower to wash your hair. Or bend at the knees and hips under the showerhead to avoid arching your back. To avoid bending, use a long-handled scrub brush. Use liquid soap so you don tneed to tack picker a dropped bar of soap. Eating Slide your chair as far under the table as possible. Don t lean forward or put your elbows on the table. Using the toilet Try using a toilet seat riser or portable commode. To get there, and elsewhere, use a walker to reduce the risk of falling. You can buy these at a [employer]e or medical supply store. [phone] [employer]. [address] [place] [address]. All rights reserved. This information is not intended as a substitute for professional medical care. Always follow yourhealthcare professional's instructions. Follow Up Care 04/12/2022 20:31:12 With:TOM LANIER MD Address: [address] [place] [address] [place] [address]- [phone] When:2-4 days [facility] 08-27-2022 Note Discharge Instructions Thank you for allowing [facility] to assist you with your healthcare needs. The following is importantdischarge information regarding your hospital visit. Diagnosis from Today's Visit Back pain What to Do Next Instructions from Your Care Team No qualifying data available. Post Acute Orders No qualifying data available. You Need to Schedule the Following Appointments Follow Up with TOM LANIER MD When Within 2-4 days Where: [address] [place] [address] [place] [address]- [phone] Allergies iodine (Rash) Medications Please ask your primary doctor or pharmacist before taking any other medication not listed, including over the counter drugs, herbal medications, vitamins and or supplements as they may interact withyour home medications. What How Much When Why Instructions Last Dose Unchanged acetaminophen (Tylenol 325 mg oral capsule) 650 Milligram by mouth Every 4 hours as needed for Pain, scale 1-3 Unchanged acetaminophen-hydrocodone (acetaminophen-hydrocodone 325 mg-5 mg oral tablet) 1 tab(s) by mouth Every 6 hours as needed for for pain Unchanged albuterol (albuterol MDI (90 mcg/ inh) CFC free inhalation aerosol) 2 puff(s) by inhalation Every 4 hours as needed for as needed for wheezing Emphysema/COPD Unchanged calcium gluconate (calcium gluconate 500 mg oral tablet) 2 tab(s) by mouth Once a day (in the morning) Unchanged cyanocobalamin (Vitamin B12 50 mcg oral tablet) 1 tab(s) by mouth Two (2) times a day Unchanged denosumab (Prolia 60 mg/ mL subcutaneous solution) 1 Milliliter Subcutaneous Every 6 months Osteoporosis Unchanged escitalopram (escitalopram 20 mg oral tablet) 1 tab(s) by mouth Once a day Unchanged gabapentin (gabapentin 600 mg oral tablet) 1 tab(s) by mouth Four (4) times a day Lumbar radiculopathy Duration: 30 Days Unchanged lidocaine topical (Lidoderm 5% topical patch) 1 patch(es) Transdermal Every day Right-sided chest wall pain Unchanged multivitamin (Multivitamin) 2 tab(s) by mouth Once a day (in the morning) Please take this list to your next doctor s visit. Bring all medications you take, including over the counter medications, herbals and other supplements with you to your doctor s visit. Patients and families are reminded to discard old lists and to update any records with all medication providers or retail pharmacies. Education Materials After Back Surgery: Tips for Daily Living These tips can help make some tasks easier and will help protect your back. Getting dressed Putting on and taking off socks, slacks, and underwear may be easier to do lying on your back. A tool called a dressing handle rounder operator can be of help. To make dressing and undressing easier, wear loose clothes and slip-on shoes with closed backs. You may want to have someone help you dress and undress. Getting ready to lie down Before you lie down, make sure that you have the things you need within reach. Gather items such asmedicines, eyeglasses, reading material, and other things you may want. Be sure to place them so you won t have to twist your back to reach them. If you aren t able to gather the items yourself, ask a family member or friend to help. Washing at the sink While standing at the sink, bend your knees and hips. Keep your back in a neutral position. Showering Use a hand-held shower to wash your hair. Or bend at the knees and hips under the showerhead to avoid arching your back. To avoid bending, use a long-handled scrub brush. Use liquid soap so you don tneed to tack picker a dropped bar of soap. Eating Slide your chair as far under the table as possible. Don t lean forward or put your elbows on the table. Using the toilet Try using a toilet seat riser or portable commode. To get there, and elsewhere, use a walker to reduce the risk of falling. You can buy these at a [employer] or medical supply store. [phone] [employer]. [address] [place] [address], [place] [address]. All rights reserved. This information is not intended as a substitute for professional medical care. Always follow yourhealthcare professional's instructions. Additional Information VACCINATE! IT SAVES LIVES! Members of the community who have not yet received the COVID-19 vaccine and would like to receive it can visit one of [facility] vaccine clinics. There are many vaccine clinic locations within the [facility]. For locations and available times, please visit [email or web address]. It is important to note that some COVID mobile vaccine clinics are held outdoors and may be canceled in rainy orstormy conditions. To learn more about pediatric vaccinations (ages 5-11), we invite you to visit the [facility] webpage. [email or web address] learn more about the COVID-19 vaccine, we invite you to visit the [facility] website for a list of frequently asked questions. [email or web address] [facility] Patient [facility] Access Instructions: Stay connected with your healthcare team and access your personal medical information anytime with the [facility] Patient Portal. If you would like a full copy of your medical records please contact the [facility] Medical Records Department Friday through Friday between 8a.m. and 4:30p.m. Please follow the directions below to access the portal: 1.Access the email account you provided upon registration to the hospital.2.Look for an invitation email from [facility].3.Open the email and access the invitation link: Accept Invitation to [facility]4.Fill in the required aldridge to create your account. Sign into [email or web address] with your username and password that you created in the above steps to stay up to date. You can then view a summary of results, a summary of your visits, and the ability to download your summaries to your computer or send the information securely to a physician. Remember that your healthcare information is confidential, so carefully consider who you will allow to register on the [facility] [employer] Patient Portal for access to your information. You can also access the [facility] Patient Portal on the [employer]. Simply click on Health Records under [employer] and then click on the [facility] logo. HOW TO SAFELY DISPOSE OF PRESCRIPTION MEDICATIONS Please use one of the following methods to safely dispose of your unused medications. 1.Use a drug disposal kit: the drug disposal pouch allows you to safely discard your old and unuseddrugs. Ask your nurse to give you one when you are discharged.2.Visit a local take-back location: Many local pharmacies and police departments have programs that collect old and unwanted prescriptiondrugs. Call your local pharmacy or go to http://iOnRoad.ncyclo/9A6Oe4z to find one close to you.3.Make use of household items: Use cat litter or old coffee grounds to dispose medications if other options arenot available. Mix your drugs with these household products, seal them in an airtight container andthrow it into the garbage. Call [facility]: [phone] to be sure your drugs can be disposed of in this way. Some medicines may require a different approach.4.Never flush your medications down the toilet. IF YOU HAVE BEEN PRESCRIBED AN OPIOIDS FOR PAIN If you have been prescribed an opioid (such as hydrocodone, oxycodone or morphine), it is critical to understand the possible side effects and risks of opioid pain medications. Even when taken as directed, opioids can have several side effects including: Tolerance, meaning you might need to take more of a medication for the same pain relief. Nausea, vomiting and/or constipation. Sleepiness, dizziness, dry mouth, confusion, depression or itching. Physical dependence, meaning you have withdrawal symptoms when a medication is stopped ? this can develop within a few days. KNOW YOUR RESPONSIBILITIES It is important to know exactly how much and how often to take the opioid pain medications you are prescribed. Never take opioids in higher amounts or more often than prescribed. Do not combine opioids with alcohol or other drugs that cause drowsiness, such as benzodiazepines, also known as benzos,including diazepam and alprazolam, muscle relaxants or sleep aids. Never sell or share prescriptionopioids. This is illegal. Store opioids in a secure place and out of reach of others (including children, family, friends and visitors). The last page(s) of this document has been signed and retained as a CHART COPY Signatures Patient Education Materials After Back Surgery: Tips for Daily Living Medication Leaflets My discharge plan and instructions have been reviewed and explained to me and IPITER VERNA D understand my current condition and have read and understand these discharge instructions. I have received a written copy of the plan/instructions. If I have questions, I am aware that I should contact my doctor. Patient/Training Analyst Signature: Date/Time: Relationship to Patient: Witness Name/Signature: Date/Time: [facility]08-26-2022 Note ORIGINAL EXAMINATION: CT OF THE ABDOMEN AND PELVIS WITH CONTRAST 04/12/2022 11:05 pm TECHNIQUE: CT of the abdomen and pelvis was performed with the administration of intravenous contrast. Multiplanar reformatted images are provided for review. Automated exposure control, iterative reconstruction, and/or weight based adjustment of the mA/kV was utilized to reduce the radiation dose to as low as reasonably achievable. COMPARISON: CT thorax 05/16/2020 HISTORY: ORDERING SYSTEM PROVIDED HISTORY: Reason for Exam: Back pain, recent stimulator placement, pain at the area FINDINGS: The lung bases demonstrate right lower lobe atelectasis and scarring. The lungs are emphysematous. The liver, spleen, adrenal glands, pancreas and bilateral kidneys are within normal limits. The bladder is moderately distended. The uterus is atrophic. Tubal ligation clips are noted. No significant free fluid in the pelvis. The small and large bowel are normal in caliber. Mild diverticulosis without definitive evidence of diverticulitis. Unremarkable appendix. No pathologically enlarged lymph nodes although lack of mesenteric fat limits evaluation. The aorta is atherosclerotic but nonaneurysmal. Mild levocurvature of the thoracolumbar spine. Posterior lumbar spinal fusion changes are noted at L2-L3. Right lower posterior abdominal wall back stimulator is noted. The leads travels cephalad in the spinal canal. Moderate streak artifact in this region from the back stimulator and lumbar spinal surgery degrades evaluation, however no definitive fluid collection identified. There is mild soft tissue thickening along the left lower thoracic and upper lumbar spine paraspinal region. IMPRESSION: No acute process in the abdomen or pelvis. Streak artifact from the back stimulator and lumbar spinal surgery limits evaluation of this region. Within these limitations, no fluid collection identified. Mild nonspecific soft tissue thickening in the region of the left lower thoracic and upper lumbar paraspinal region. Correlation with physical exam is recommended. I have personally reviewed the images of this examination, and agree with the resident's findings and interpretation. Interpreted by: Amos Baker MD Preliminary Report By: Rafiq Xiong Electronically signed By Amos Baker MD Dictated Date: 04/12/2022 11:08:03 PM Prelim Date: 04/12/2022 11:17:55 PM Sign Date: 04/12/2022 11:53:37 PM Ordering Provider: ARTUR GARCIAS [facility]08-26-2022 Note ORIGINAL EXAMINATION: CT OF THE ABDOMEN AND PELVIS WITH CONTRAST 04/12/2022 11:05 pm TECHNIQUE: CT of the abdomen and pelvis was performed with the administration of intravenous contrast. Multiplanar reformatted images are provided for review. Automated exposure control, iterative reconstruction, and/or weight based adjustment of the mA/kV was utilized to reduce the radiation dose to as low as reasonably achievable. COMPARISON: CT thorax 05/16/2020 HISTORY: ORDERING SYSTEM PROVIDED HISTORY: Reason for Exam: Back pain, recent stimulator placement, pain at the area FINDINGS: The lung bases demonstrate right lower lobe atelectasis and scarring. The lungs are emphysematous. The liver, spleen, adrenal glands, pancreas and bilateral kidneys are within normal limits. The bladder is moderately distended. The uterus is atrophic. Tubal ligation clips are noted. No significant free fluid in the pelvis. The small and large bowel are normal in caliber. Mild diverticulosis without definitive evidence of diverticulitis. Unremarkable appendix. No pathologically enlarged lymph nodes although lack of mesenteric fat limits evaluation. The aorta is atherosclerotic but nonaneurysmal. Mild levocurvature of the thoracolumbar spine. Posterior lumbar spinal fusion changes are noted at L2-L3. Right lower posterior abdominal wall back stimulator is noted. The leads travels cephalad in the spinal canal. Moderate streak artifact in this region from the back stimulator and lumbar spinal surgery degrades evaluation, however no definitive fluid collection identified. There is mild soft tissue thickening along the left lower thoracic and upper lumbar spine paraspinal region. IMPRESSION: No acute process in the abdomen or pelvis. Streak artifact from the back stimulator and lumbar spinal surgery limits evaluation of this region. Within these limitations, no fluid collection identified. Mild nonspecific soft tissue thickening in the region of the left lower thoracic and upper lumbar paraspinal region. Correlation with physical exam is recommended. I have personally reviewed the images of this examination, and agree with the resident's findings and interpretation. Interpreted by: Amos Baker MD Preliminary Report By: Rafiq Xiong Electronically signed By Amos Baker MD Dictated Date: 04/12/2022 11:08:03 PM Prelim Date: 04/12/2022 11:17:55 PM Sign Date: 04/12/2022 11:53:37 PM Ordering Provider: [facility]08-22-2022 Hospital Discharge instructions Patient Education 04/08/2022 08:41:17 How to Use Cold Therapy, Gtyf-vm-Yuik How to Use Cold Therapy Cold therapy, or cryotherapy, is a treatment that uses cold temperatures to treat an injury or medical condition. It includes using cold packs or ice packs to reduce pain and swelling. Only use cold therapy if your doctor says it is okay. What are the risks? Generally, cold therapy is a safe treatment. However, it is not safe for: People who are not able to say they are in pain. These include small children and people who have memory problems. People who have certain conditions, such as: ?A problem in the vessels that slows blood flow to the fingers and toes (Raynaud's syndrome). ?Feeling very cold easily (cold hypersensitivity). ?Lack of feeling in the area being iced. Cold therapy may not be safe for people who have other conditions. Do not use it without talking toyour doctor if you have: A heart condition. High blood pressure. Open or healing wounds. An infection. Pain and swelling in your joints (rheumatoid arthritis). Poor blood flow in the body. Diabetes. Certain skin conditions. How can I make a cold pack? When using a cold pack at home to reduce pain and swelling, you can use: A silica gel cold pack that has been left in the freezer. You can buy this online or in stores. A sealable plastic bag that has been filled with crushed ice. A washcloth or paper towels soaked in cold (or ice) water. A plastic bag of frozen vegetables. Throw them away when you are finished using them as a cold pack. Supplies needed: A cold pack. A towel. This can be dry or damp, based on what you like. How to use cold therapy 1.Have your cold pack ready. 2.Place a towel between the cold pack and your skin. You may also wrap the cold pack in a towel. 3.Put the cold pack on the affected area. Keep it on for no more than 20 minutes at a time. 4.Check your skin after 5 minutes to make sure that there is no damage to the area. Check for: White spots on your skin. Your skin may look blotchy or mottled. Skin that looks blue or pale. Skin that feels waxy or hard. 5.Repeat these steps as many times each day as told by your doctor. Always use a towel to avoid direct contact with your skin. Contact a doctor if: You start to have white spots on your skin. This may give your skin a blotchy or mottled look. Your skin turns blue or pale. Your skin becomes waxy or hard. Your swelling gets worse. Summary Cold therapy, or cryotherapy, is used to treat an injury or other conditions. It includes using cold packs or ice packs to reduce pain and swelling. Cold therapy is not safe for people who are not able to say they are in pain. When using cold packs or ice packs, always place a towel between the cold source and your skin. Check your skin after 5 minutes of icing it. This is to make sure that there is no skin damage. Contact your doctor if you notice changes in your skin or your swelling gets worse. This information is not intended to replace advice given to you by your health care provider. Make sure you discuss any questions you have with your health care provider. Document Released: 01/20/2009 Document Revised: 05/03/2019 Document Reviewed: 05/03/2019 [employer] Patient Education 2020 [employer]. 04/08/2022 08:41:03 Spinal Cord Stimulation Trial Information Spinal Cord Stimulation Trial Information A spinal cord stimulation trial is a test to see whether a spinal cord stimulator reduces your pain. A spinal cord stimulator is a small device that is inserted (implanted) in your back. The stimulator has small wires (leads) that connect it to your spinal cord. The stimulator sends electrical pulses through the leads to the spinal cord. This can relieve pain. Settings for the stimulator can be adjusted with a remote device to find the best pain control. Your health care provider may suggest a spinal cord stimulation trial if other treatments for long-lasting (chronic) pain have not worked for you. Spinal cord stimulation may be used to manage pain that is caused by: Coronary artery disease or peripheral vascular disease. Failed back surgery. Phantom limb sensation. Peripheral neuropathy. Complex regional pain syndrome. Other syndromes that involve chronic pain. For the trial, the stimulator is attached to your back instead of inserted under the skin. A trial period is usually 3 5 days, but this can vary among health care providers. After your trial period, you and your health care provider will discuss whether a permanent spinal cord stimulator is an option for you. The permanent stimulator may be an option depending on: Whether the stimulator reduces your pain during the trial. Whether the stimulator fits into your lifestyle. Whether the cost of the stimulator is covered by your insurance. What are the risks? Generally, a spinal cord stimulation trial is safe. However, problems can occur, including: Bleeding or pain at the insertion site of the leads. Infection at the insertion site or around the leads. Allergic reactions to medicines, devices, or dyes. Damage to the skin, nerves, back muscles, or spinal cord where the leads are placed. Inability to move the legs (paralysis). Numbness in the legs. Inability to control when you urinate or have a bowel movement (incontinence). Spinal fluid leakage. How is a spinal cord stimulator placed for a trial? For a trial period, the stimulator is placed on your skin, not under it. Only the leads that connect the stimulator to the spinal cord are implanted under your skin. The exact location of the stimulator depends on where you have pain. There are two types of surgery for implanting the leads: Noninvasive surgery. In this type of surgery, a small incision is made and needles are used to place the leads under your skin. Open surgery. In this type of surgery, a larger incision is made, and the leads are implanted directly into your back. How should I care for myself during the trial period? Activity Return to your normal activities as told by your health care provider. Ask your health care provider what activities are safe for you. Do not lift anything that is heavier than 10 lb (4.5 kg), or the limit that you are told. General instructions Follow your health care provider's specific instructions about how to take care of your spinal cordstimulator and your incision. Make sure you write down the following information so that you can share this information with yourhealth care provider: ?Your responses to the stimulator. Describe these as told by your health care provider. ?Your pain level throughout the day. ?The amount and kind of pain medicine that you take. Take czzl-qwq-icxnbqt and prescription medicines only as told by your health care provider. Do not take baths, swim, or use a hot tub until your health care provider approves. Tell all health care providers who provide care for you that you have a spinal cord stimulator. This is important information that could affect the medical treatment that you receive. Keep all follow-up visits as told by your health care provider. This is important. When should I seek medical care? During the trial, seek medical care if: You have redness, swelling, or pain around your incision. You have fluid or blood coming from your incision. Your incision feels warm to the touch. You have pus or a bad smell coming from your incision. The bandage (dressing) that covers your incision comes off. Get help right away if: Your pain gets worse. The stimulator leads come out. You develop numbness or weakness in your legs, or you have difficulty walking. You have problems urinating or having a bowel movement. You have a fever. You have symptoms that last for more than 2 3 days. Your symptoms suddenly get worse. Summary A spinal cord stimulator is a small device that sends electrical pulses to your spinal cord. This can relieve pain caused by many different health conditions. Before a permanent stimulator is placed, you will have a trial using a temporary stimulator that isnot implanted under your skin. This helps determine if a stimulator will reduce your pain. For the trial, only the leads that connect the stimulator to the spinal cord are implanted under your skin. During the trial period, make sure you write down information about your pain and your responses tothe stimulator so that you can share this information with your health care provider. Keep all follow-up visits as told by your health care provider. This is important. Contact your health care provider if you have symptoms that indicate a problem. This information is not intended to replace advice given to you by your health care provider. Make sure you discuss any questions you have with your health care provider. Document Released: 11/19/2011 Document Revised: 09/08/2019 Document Reviewed: 09/08/2019 [employer] Patient Education 2020 [employer]. 04/08/2022 08:40:25 Monitored Anesthesia Care, Care After Monitored Anesthesia Care, Care After These instructions provide you with information about caring for yourself after your procedure. Your health care provider may also give you more specific instructions. Your treatment has been plannedaccording to current medical practices, but problems sometimes occur. Call your health care provider if you have any problems or questions after your procedure. What can I expect after the procedure? After your procedure, you may: Feel sleepy for several hours. Feel clumsy and have poor balance for several hours. Feel forgetful about what happened after the procedure. Have poor judgment for several hours. Feel nauseous or vomit. Have a sore throat if you had a breathing tube during the procedure. Follow these instructions at home: For at least 24 hours after the procedure: Have a responsible adult stay with you. It is important to have someone help care for you until youare awake and alert. Rest as needed. Do not: ?Participate in activities in which you could fall or become injured. ?Drive. ?Use heavy machinery. ?Drink alcohol. ?Take sleeping pills or medicines that cause drowsiness. ?Make important decisions or sign legal documents. ?Take care of children on your own. Eating and drinking Follow the diet that is recommended by your health care provider. If you vomit, drink water, juice, or soup when you can drink without vomiting. Make sure you have little or no nausea before eating solid foods. General instructions Take pvys-vqp-csvfgrl and prescription medicines only as told by your health care provider. If you have sleep apnea, surgery and certain medicines can increase your risk for breathing problems. Follow instructions from your health care provider about wearing your sleep device: ?Anytime you are sleeping, including during daytime naps. ?While taking prescription pain medicines, sleeping medicines, or medicines that make you drowsy. If you smoke, do not smoke without supervision. Keep all follow-up visits as told by your health care provider. This is important. Contact a health care provider if: You keep feeling nauseous or you keep vomiting. You feel light-headed. You develop a rash. You have a fever. Get help right away if: You have trouble breathing. Summary For several hours after your procedure, you may feel sleepy and have poor judgment. Have a responsible adult stay with you for at least 24 hours or until you are awake and alert. This information is not intended to replace advice given to you by your health care provider. Make sure you discuss any questions you have with your health care provider. Document Released: 11/24/2016 Document Revised: 11/02/2018 Document Reviewed: 11/24/2016 [employer] Patient Education 2020 [employer] Follow Up Care 04/05/2022 12:52:32 With:TOM ALNIER MD Address: [address] [place] [address] [place] [address]- [phone] When: Unknown Comments:CALL DR LANIER WITH ANY QUESTIONS. GO TO THE EMERGENCY ROOM WITH ANY URGENT CONCERNS. [facility] 08-22-2022 Summary of episode note Discharge Instructions Thank you for allowing [facility] to assist you with your healthcare needs. The following is importantdischarge information regarding your hospital visit. Your Care Team ANALY MONDRAGON DO DR. TOM LANIER Your Diagnosis DUEL LEAD SPINAL CORD STIMULATIOR TRIAL WITH FLOUROSCOPY(X-RAY) What to do next Scheduled Follow-Up Appointments Appointment Type When With Where Contact InformationPC OV 08/07/2022 10:30 AM ANALY GARCIA DO [facility] Follow Up Appointments Follow Up with TOM LANIER MD When Why: CALL DR LANIER WITH ANY QUESTIONS. GO TO THE EMERGENCY ROOM WITH ANY URGENT CONCERNS. Where: [address] [place] [address] [place] [address] [phone] Allergies iodine (Rash) Medications Please ask your primary doctor or pharmacist before taking any other medication not listed, including over the counter drugs, herbal medications, vitamins and or supplements as they may interact withyour home medications. What How Much When Why Instructions Last Dose Unchanged acetaminophen (Tylenol 325 mg oral capsule) 650 Milligram by mouth Every 4 hours as needed for Pain, scale 1-3 Unchanged acetaminophen-hydrocodone (acetaminophen-hydrocodone 325 mg-5 mg oral tablet) 1 tab(s) by mouth Every 6 hours as needed for for pain Unchanged albuterol (albuterol MDI (90 mcg/ inh) CFC free inhalation aerosol) 2 puff(s) by inhalation Every 4 hours as needed for as needed for wheezing Emphysema/COPD Unchanged calcium gluconate (calcium gluconate 500 mg oral tablet) 2 tab(s) by mouth Once a day (in the morning) Unchanged cyanocobalamin (Vitamin B12 50 mcg oral tablet) 1 tab(s) by mouth Two (2) times a day Unchanged denosumab (Prolia 60 mg/ mL subcutaneous solution) 1 Milliliter Subcutaneous Every 6 months Osteoporosis Unchanged escitalopram (escitalopram 20 mg oral tablet) 1 tab(s) by mouth Once a day Unchanged gabapentin (gabapentin 600 mg oral tablet) 1 tab(s) by mouth Four (4) times a day Lumbar radiculopathy Duration: 30 Days Unchanged lidocaine topical (Lidoderm 5% topical patch) 1 patch(es) Transdermal Every day Right-sided chest wall pain Unchanged multivitamin (Multivitamin) 2 tab(s) by mouth Once a day (in the morning) Please take this list to your next doctor s visit. Bring all medications you take, including over the counter medications, herbals and other supplements with you to your doctor s visit. Patients and families are reminded to discard old lists and to update any records with all medication providers or retail pharmacies. Education Materials How to Use Cold Therapy Cold therapy, or cryotherapy, is a treatment that uses cold temperatures to treat an injury or medical condition. It includes using cold packs or ice packs to reduce pain and swelling. Only use cold therapy if your doctor says it is okay. What are the risks? Generally, cold therapy is a safe treatment. However, it is not safe for: People who are not able to say they are in pain. These include small children and people who have memory problems. People who have certain conditions, such as: ? A problem in the vessels that slows blood flow to the fingers and toes (Raynaud's syndrome). ? Feeling very cold easily (cold hypersensitivity). ? Lack of feeling in the area being iced. Cold therapy may not be safe for people who have other conditions. Do not use it without talking toyour doctor if you have: A heart condition. High blood pressure. Open or healing wounds. An infection. Pain and swelling in your joints (rheumatoid arthritis). Poor blood flow in the body. Diabetes. Certain skin conditions. How can I make a cold pack? When using a cold pack at home to reduce pain and swelling, you can use: A silica gel cold pack that has been left in the freezer. You can buy this online or in stores. A sealable plastic bag that has been filled with crushed ice. A washcloth or paper towels soaked in cold (or ice) water. A plastic bag of frozen vegetables. Throw them away when you are finished using them as a cold pack. Supplies needed: A cold pack. A towel. This can be dry or damp, based on what you like. How to use cold therapy 1. Have your cold pack ready. 2. Place a towel between the cold pack and your skin. You may also wrap the cold pack in a towel. 3. Put the cold pack on the affected area. Keep it on for no more than 20 minutes at a time. 4. Check your skin after 5 minutes to make sure that there is no damage to the area. Check for: White spots on your skin. Your skin may look blotchy or mottled. Skin that looks blue or pale. Skin that feels waxy or hard. 5. Repeat these steps as many times each day as told by your doctor. Always use a towel to avoid direct contact with your skin. Contact a doctor if: You start to have white spots on your skin. This may give your skin a blotchy or mottled look. Your skin turns blue or pale. Your skin becomes waxy or hard. Your swelling gets worse. Summary Cold therapy, or cryotherapy, is used to treat an injury or other conditions. It includes using cold packs or ice packs to reduce pain and swelling. Cold therapy is not safe for people who are not able to say they are in pain. When using cold packs or ice packs, always place a towel between the cold source and your skin. Check your skin after 5 minutes of icing it. This is to make sure that there is no skin damage. Contact your doctor if you notice changes in your skin or your swelling gets worse. This information is not intended to replace advice given to you by your health care provider. Make sure you discuss any questions you have with your health care provider. Document Released: 01/20/2009 Document Revised: 05/03/2019 Document Reviewed: 05/03/2019 [employer] Patient Education 2020 [employer]. Spinal Cord Stimulation Trial Information A spinal cord stimulation trial is a test to see whether a spinal cord stimulator reduces your pain. A spinal cord stimulator is a small device that is inserted (implanted) in your back. The stimulator has small wires (leads) that connect it to your spinal cord. The stimulator sends electrical pulses through the leads to the spinal cord. This can relieve pain. Settings for the stimulator can be adjusted with a remote device to find the best pain control. Your health care provider may suggest a spinal cord stimulation trial if other treatments for long-lasting (chronic) pain have not worked for you. Spinal cord stimulation may be used to manage pain that is caused by: Coronary artery disease or peripheral vascular disease. Failed back surgery. Phantom limb sensation. Peripheral neuropathy. Complex regional pain syndrome. Other syndromes that involve chronic pain. For the trial, the stimulator is attached to your back instead of inserted under the skin. A trial period is usually 3 5 days, but this can vary among health care providers. After your trial period, you and your health care provider will discuss whether a permanent spinal cord stimulator is an option for you. The permanent stimulator may be an option depending on: Whether the stimulator reduces your pain during the trial. Whether the stimulator fits into your lifestyle. Whether the cost of the stimulator is covered by your insurance. What are the risks? Generally, a spinal cord stimulation trial is safe. However, problems can occur, including: Bleeding or pain at the insertion site of the leads. Infection at the insertion site or around the leads. Allergic reactions to medicines, devices, or dyes. Damage to the skin, nerves, back muscles, or spinal cord where the leads are placed. Inability to move the legs (paralysis). Numbness in the legs. Inability to control when you urinate or have a bowel movement (incontinence). Spinal fluid leakage. How is a spinal cord stimulator placed for a trial? For a trial period, the stimulator is placed on your skin, not under it. Only the leads that connect the stimulator to the spinal cord are implanted under your skin. The exact location of the stimulator depends on where you have pain. There are two types of surgery for implanting the leads: Noninvasive surgery. In this type of surgery, a small incision is made and needles are used to place the leads under your skin. Open surgery. In this type of surgery, a larger incision is made, and the leads are implanted directly into your back. How should I care for myself during the trial period? Activity Return to your normal activities as told by your health care provider. Ask your health care provider what activities are safe for you. Do not lift anything that is heavier than 10 lb (4.5 kg), or the limit that you are told. General instructions Follow your health care provider's specific instructions about how to take care of your spinal cordstimulator and your incision. Make sure you write down the following information so that you can share this information with yourhealth care provider: ? Your responses to the stimulator. Describe these as told by your health care provider. ? Your pain level throughout the day. ? The amount and kind of pain medicine that you take. Take agye-ixx-qnlhgqj and prescription medicines only as told by your health care provider. Do not take baths, swim, or use a hot tub until your health care provider approves. Tell all health care providers who provide care for you that you have a spinal cord stimulator. This is important information that could affect the medical treatment that you receive. Keep all follow-up visits as told by your health care provider. This is important. When should I seek medical care? During the trial, seek medical care if: You have redness, swelling, or pain around your incision. You have fluid or blood coming from your incision. Your incision feels warm to the touch. You have pus or a bad smell coming from your incision. The bandage (dressing) that covers your incision comes off. Get help right away if: Your pain gets worse. The stimulator leads come out. You develop numbness or weakness in your legs, or you have difficulty walking. You have problems urinating or having a bowel movement. You have a fever. You have symptoms that last for more than 2 3 days. Your symptoms suddenly get worse. Summary A spinal cord stimulator is a small device that sends electrical pulses to your spinal cord. This can relieve pain caused by many different health conditions. Before a permanent stimulator is placed, you will have a trial using a temporary stimulator that isnot implanted under your skin. This helps determine if a stimulator will reduce your pain. For the trial, only the leads that connect the stimulator to the spinal cord are implanted under your skin. During the trial period, make sure you write down information about your pain and your responses tothe stimulator so that you can share this information with your health care provider. Keep all follow-up visits as told by your health care provider. This is important. Contact your health care provider if you have symptoms that indicate a problem. This information is not intended to replace advice given to you by your health care provider. Make sure you discuss any questions you have with your health care provider. Document Released: 11/19/2011 Document Revised: 09/08/2019 Document Reviewed: 09/08/2019 [employer] Patient Education 2020 [employer] Monitored Anesthesia Care, Care After These instructions provide you with information about caring for yourself after your procedure. Your health care provider may also give you more specific instructions. Your treatment has been plannedaccording to current medical practices, but problems sometimes occur. Call your health care provider if you have any problems or questions after your procedure. What can I expect after the procedure? After your procedure, you may: Feel sleepy for several hours. Feel clumsy and have poor balance for several hours. Feel forgetful about what happened after the procedure. Have poor judgment for several hours. Feel nauseous or vomit. Have a sore throat if you had a breathing tube during the procedure. Follow these instructions at home: For at least 24 hours after the procedure: Have a responsible adult stay with you. It is important to have someone help care for you until youare awake and alert. Rest as needed. Do not: ? Participate in activities in which you could fall or become injured. ? Drive. ? Use heavy machinery. ? Drink alcohol. ? Take sleeping pills or medicines that cause drowsiness. ? Make important decisions or sign legal documents. ? Take care of children on your own. Eating and drinking Follow the diet that is recommended by your health care provider. If you vomit, drink water, juice, or soup when you can drink without vomiting. Make sure you have little or no nausea before eating solid foods. General instructions Take mgai-yjm-sbgauno and prescription medicines only as told by your health care provider. If you have sleep apnea, surgery and certain medicines can increase your risk for breathing problems. Follow instructions from your health care provider about wearing your sleep device: ? Anytime you are sleeping, including during daytime naps. ? While taking prescription pain medicines, sleeping medicines, or medicines that make you drowsy. If you smoke, do not smoke without supervision. Keep all follow-up visits as told by your health care provider. This is important. Contact a health care provider if: You keep feeling nauseous or you keep vomiting. You feel light-headed. You develop a rash. You have a fever. Get help right away if: You have trouble breathing. Summary For several hours after your procedure, you may feel sleepy and have poor judgment. Have a responsible adult stay with you for at least 24 hours or until you are awake and alert. This information is not intended to replace advice given to you by your health care provider. Make sure you discuss any questions you have with your health care provider. Document Released: 11/24/2016 Document Revised: 11/02/2018 Document Reviewed: 11/24/2016 [employer] Patient Education 2020 [employer]. Additional Information VACCINATE! IT SAVES LIVES! Members of the community who have not yet received the COVID-19 vaccine and would like to receive it can visit one of [facility] vaccine clinics. There are many vaccine clinic locations within the [facility]. For locations and available times, please visit https://[email or web address].[place].gov/. It is important to note that some COVID mobile vaccine clinics are held outdoors and may be canceled in rainy or stormy conditions. To learn more about pediatric vaccinations (ages 5-11), we invite you to visit the [facility] webpage. [email or web address] [email or web address] learn more about the COVID-19 vaccine, we invite you to visit the [facility] website for a list of frequently asked questions. [email or web address] [facility] [employer] [facility] Patient Portal Access Instructions: Stay connected with your healthcare team and access your personal medical information anytime with the [facility] Patient Portal.If you would like a full copy of your medical records, please contact the [facility] Medical Records Department, Friday through Friday between 8a.m. and 4:30p.m. Please follow the directions below to access the portal: 1.Access the email account you provided upon registration to the [facility].2.Look for an invitation email from [facility].3.Open the email and access the invitation link: Accept Invitation to [facility]4.Fill in the required aldridge to create your account. Sign into www.[email or web address] with your username and password that you created in the above steps to stay up to date. You can then view a summary of results, a summary of your visits, and the ability to download your summaries to your computer or send the information securely to a physician. Remember that your healthcare information is confidential, so carefully consider who you will allow to register on the [facility] Patient Portal for access to your information. You can also access the [facility] Patient Portal on the [employer]esus manuel. Simply click on Health Records under [employer] and then click on the [facility] logo. HOW TO SAFELY DISPOSE OF PRESCRIPTION MEDICATIONS Please use one of the following methods to safely dispose of your unused medications. 1.Use a drug disposal kit: the drug disposal pouch allows you to safely discard your old and unuseddrugs. Ask your nurse to give you one when you are discharged.2.Visit a local take-back location: Many local pharmacies and police departments have programs that collect old and unwanted prescriptiondrugs. Call your local pharmacy or go to http://bit.ncyclo/8Y7Rh7l to find one close to you.3.Make use of household items: Use cat litter or old coffee grounds to dispose medications if other options arenot available. Mix your drugs with these household products, seal them in an airtight container andthrow it into the garbage. Call [facility]: [phone] to be sure your drugs can be disposed of in this way. Some medicines may require a different approach.4.Never flush your medications down the toilet. IF YOU HAVE BEEN PRESCRIBED AN OPIOID FOR PAIN If you have been prescribed an opioid (such as hydrocodone, oxycodone or morphine), it is critical to understand the possible side effects and risks of opioid pain medications. Even when taken as directed, opioids can have several side effects including: Tolerance, meaning you might need to take more of a medication for the same pain relief. Nausea, vomiting and/or constipation. Sleepiness, dizziness, dry mouth, confusion, depression or itching. Physical dependence, meaning you have withdrawal symptoms when a medication is stopped, can develop within a few days. KNOW YOUR RESPONSIBILITIES It is important to know exactly how much and how often to take the opioid pain medications you are prescribed. Never take opioids in higher amounts or more often than prescribed. Do not combine opioids with alcohol or other drugs that cause drowsiness, such as benzodiazepines, also known as benzos, including diazepam and alprazolam, muscle relaxants or sleep aids. Never sell or share prescription opioids. This is illegal. Store opioids in a secure place and out of reach of others (including children, family, friends and visitors). The last page of this document has been signed and retained as a CHART COPY. Signatures Patient Education Materials How to Use Cold Therapy, Psov-xv-Fmxj Spinal Cord Stimulation Trial Information Monitored Anesthesia Care, Care After Medication Leaflets My discharge plan and instructions have been reviewed and explained to me and PITER Nguyễn VERNA D understand my current condition and have read and understand these discharge instructions. I have received a written copy of the plan/instructions. If I have questions, I am aware that I should contact my doctor. Patient/Training Analyst Signature: Date/Time: Relationship to Patient: Witness Name/Signature: Date/Time: [facility]20[facility] Note ORIGINAL Images acquired, not reported on this accession number. [facility]08[facility] Note ORIGINAL Images acquired, not reported on this accession number.[place] [id number] Anesthesiology Consult note Patient: ROBEL DUMAS Age: 66 years Sex: Female : 1955 Associated Diagnoses: None Author: RASHAD ESTES APRN-NURSE NAVIGATOR Assessment Postanesthesia assessment Vitals: Vital signs from flowsheet : Vital Signs 04/08/2022 8:10 EDT Respiratory Rate 0 br/min br/min 04/08/2022 8:05 EDT Heart Rate Monitored 82 bpm bpm Respiratory Rate 17 br/min br/min Systolic Blood Pressure NBP 116 mmHg mmHg Diastolic Blood Pressure NBP 96 mmHg mmHg 04/08/2022 8:00 EDT Heart Rate Monitored 80 bpm bpm Respiratory Rate 17 br/min br/min Systolic Blood Pressure NBP 135 mmHg mmHg Diastolic Blood Pressure NBP 83 mmHg mmHg 04/08/2022 7:55 EDT Heart Rate Monitored 75 bpm bpm Respiratory Rate 4 br/min br/min Systolic Blood Pressure NBP 140 mmHg mmHg Diastolic Blood Pressure NBP 81 mmHg mmHg 04/08/2022 7:50 EDT Heart Rate Monitored 76 bpm bpm Respiratory Rate 10 br/min br/min Systolic Blood Pressure NBP 119 mmHg mmHg Diastolic Blood Pressure NBP 60 mmHg mmHg 04/08/2022 7:45 EDT Heart Rate Monitored 75 bpm bpm Respiratory Rate 7 br/min br/min Systolic Blood Pressure NBP 118 mmHg mmHg Diastolic Blood Pressure NBP 69 mmHg mmHg 04/08/2022 7:40 EDT Heart Rate Monitored 72 bpm bpm Respiratory Rate 8 br/min br/min Systolic Blood Pressure NBP 124 mmHg mmHg Diastolic Blood Pressure NBP 72 mmHg mmHg 04/08/2022 7:35 EDT Respiratory Rate 13 br/min br/min Systolic Blood Pressure NBP 153 mmHg mmHg Diastolic Blood Pressure NBP 79 mmHg mmHg 04/08/2022 6:52 EDT Temperature Temporal Artery 36.5 DegC Respiratory Rate 17 br/min Systolic Blood Pressure NBP 139 mmHg Diastolic Blood Pressure NBP 84 mmHg , Measurements from flowsheet . Mental status: alert & oriented x 4. Respiratory function: respirations are non-labored. Respiratory support: none. CV function: Normal rate. Cardiovascular support: none. Pain. Nausea status: see nursing documentation of medications. Postoperative hydration status: within normal limits. Digitally Signed by RASHAD ESTES on 04/08/2022 08:16 AM [facility] Anesthesiology Consult note Patient: ROBEL DUMAS Age: 66 years Sex: Female : 1955 Associated Diagnoses: None Author: RASHAD ESTES Preoperative Information Time of last food or liquid consumption: 04/08/2022 00:00:00 Anesthesia history Patient's history: negative. Family's history: negative. Health Status Allergies: Allergic Reactions (Selected) Severity Not Documented Iodine- Rash., Allergies (1) ActiveReaction iodineRash Current medications: (Selected) Inpatient Medications Ordered Ancef: 2 gram(s), 200 mL/hr, IV Piggyback, PREOP pharm Hurricaine Heber 20% mucous membrane: 1 spray(s), Topical, PREOP pharm Lactated Ringers Infusion 1,000 mL: 20 mL/hr, Intravenous Prescriptions Prescribed Lidoderm 5% topical patch: 1 patch(es), Transdermal, Daily, 30 patch(es), 2 Refill(s) Prolia 60 mg/mL subcutaneous solution: 60 mg, 1 mL, Subcutaneous, q6mo, 1 mL, 1 Refill(s) albuterol MDI (90 mcg/inh) CFC free inhalation aerosol: 2 puff(s), Inhalation, q4h, PRN: as needed for wheezing, 1 EA, 1 Refill(s) escitalopram 20 mg oral tablet: 20 mg, 1 tab(s), Oral, qDay, 90 tab(s), 1 Refill(s) gabapentin 600 mg oral tablet: 600 mg, 1 tab(s), Oral, QID, for 30 day(s), 120 tab(s), 2 Refill(s) Documented Medications Documented Multivitamin: 2 tab(s), Oral, qAM, 0 Refill(s) Tylenol 325 mg oral capsule: 650 mg, Oral, q4h, PRN: Pain, scale 1-3, 0 Refill(s) Vitamin B12 50 mcg oral tablet: 50 mcg, 1 tab(s), Oral, BID, 0 Refill(s) acetaminophen-hydrocodone 325 mg-5 mg oral tablet: 1 tab(s), Oral, q6h, PRN: for pain, tab(s), 0 Refill(s) calcium gluconate 500 mg oral tablet: 1,000 mg, 2 tab(s), Oral, qAM, 0 Refill(s), Medications (3) Active Scheduled: (2) benzocaine topical 20% [place] 60g (Hurricaine) 1 spray(s), Topical, PREOP pharm ceFAZolin 2 gram(s), IV Piggyback, PREOP pharm Continuous: (1) Lactated Ringers 1,000 mL 1,000 mL, Intravenous, 20 mL/hr PRN: (0) Problem list: Medical 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 / SNOMED CT 3300649563 / Confirmed Right-sided chest wall pain / SNOMED CT 423783024 / Confirmed DDD (degenerative disc disease), lumbar / SNOMED CT 73153792 / Confirmed Fatigue / SNOMED CT 212316783 / Confirmed History of sleep apnea / SNOMED CT 856428801 / Confirmed Intercostal neuralgia / SNOMED CT 919426148 / Confirmed Lumbar postlaminectomy syndrome / SNOMED CT 683295725 / Confirmed Lumbar radiculopathy / SNOMED CT 312052642 / Confirmed Adenocarcinoma of right lung S/P RVAT right upper lobectomy 06/27/2021 / SNOMED CT 883642672 / Confirmed Mitral valve prolapse / SNOMED CT 7344707481 / Confirmed Osteoporosis / SNOMED CT 634335915 / Confirmed Neoplasm related pain / SNOMED CT 3334673106 / Confirmed Screening for lipid disorders / SNOMED CT 672728243 / Confirmed Major depression, recurrent / SNOMED CT 448722078 / Confirmed, Active Problems (28) Adenocarcinoma of right lung S/P RVAT right upper lobectomy 06/27/2021 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 Anxiety Back pain, chronic Body mass index (BMI) less than 19 in adult Claustrophobia DDD (degenerative disc disease), lumbar Depression Emphysema/COPD Fatigue Glasses History of COVID-19 History of sleep apnea Intercostal neuralgia Lumbar postlaminectomy syndrome Lumbar radiculopathy Lumbosacral spondylosis without myelopathy Major depression, recurrent Mitral valve prolapse Neoplasm related pain PEGGY (obstructive sleep apnea) Osteoporosis Presence of dental prosthetic device Prolapsed lumbar disc Right-sided chest wall pain Screening for lipid disorders Stenosis of lateral recess of lumbar spine Vitamin B12 deficiency Histories Past Medical History: Resolved Mass of subcutaneous tissue of back (2392916950): Resolved. Sebaceous cyst ([id number]): Resolved. Family History: Hypertension Mother Glaucoma Mother Malignant tumor of lung Father Leukemia Sister Procedure history: PM Intercostal Nerve Block - Multi SN on 01/01/2022 at 66 Years. Comments: 01/01/2022 7:59 Varun Pimentel RN auto-populated from documented surgical case Lung- right ([id number]) on 06/28/2021 at 65 Years. Comments: 12/25/2021 8:24 SONG Figueroa / of lung removed CT guided biopsy of right lung ([id number]) on 05/23/2021 at 65 Years. Nerve block with injection of lumbar spine using fluoroscopic guidance ([id number]) on 02/05/2021 at65 Years. Fluoroscopy guided injection of bilateral facet joints of lumbar spine ([id number]) on 11/21/2020 at 65 Years. Comments: 11/21/2020 9:00 Elizabeth Marin RN L4-L5, L5-S1 Epidural injection of lumbar spine using fluoroscopic guidance ([id number]) on 08/22/2020 at 65 Years. Lumbar epidural injection ([id number]) on 05/30/2020 at 64 Years. Spinal fusion ([id number]) in 2016 at 61 Years. Comments: 09/01/2019 9:36 Jo Ann Mendez LPN 2016 Colonoscopy ([id number]) in 2012 at 58 Years. Comments: 09/01/2019 9:35 Jo Ann Mendez LPN 2013, WNL D&C - Dilatation and curettage ([id number]). History of elbow surgery ([id number]). Comments: 08/21/2020 13:44 ANDRES - Elizabeth Brice RN RIGHT LIGAMENT REPAIR Extraction of wisdom tooth ([id number]). Social History Social & Psychosocial Habits Alcohol 06/21/2021 Use: Current Type: Liquor Frequency: 1-2 times per month Employment/School 09/01/2019 Status: Retired Substance Abuse 09/01/2019 Use: Never Tobacco 06/21/2021 Tobacco Use: Former smoker, quit more Type: Cigarettes Started at age: 12 Years Stopped at age: 55 Years Comment: 1/2 pack x 40yrs quit in 2010 - 06/14/2021 15:00 - Ani Ching RN Exercise 09/01/2019 Times per week: 3-4 times/week Home/Environment 06/21/2021 Domestic Concerns None Living situation: Home/Independent Lives In 1st floor bathroom, 1st floor bedroom, Mobile home Current Home Treatments None Special Services and Community Resources None Financial concerns: No Spouse Name luis fernando Marital Status of Patient if Patient Independent Adult: Nutrition/Health 06/21/2021 Type of diet: Regular Appetite Fair Eating Difficulties None Caffeine intake amount: coffee and tea (10 cups cofee and 3 cups tea) dialy Sexual 06/27/2021 Self described orientation: Straight or heterosexual . Physical Examination Vital Signs 04/08/2022 6:52 EDT Temperature Temporal Artery 36.5 DegC Respiratory Rate 17 br/min Systolic Blood Pressure NBP 139 mmHg Diastolic Blood Pressure NBP 84 mmHg Vital Signs(last 24 hrs) Last Charted Resp Rate 17 br/min (APR 08 06:52) IBF300 mmHg (APR 08 06:52) DBP84 mmHg (APR 08 06:52) BMI17.96 (APR 08 07:19) Measurements from flowsheet : Measurements 04/08/2022 7:19 EDT Height 152 cm Height in inches 59.8 inch(es) Admission Weight 41.5 kg Weight Lbs 91.3 lb [place] Body Weight 45.14 kg BSA Admission 1.34 Body Mass Index 17.96 kg/m2 04/08/2022 6:52 EDT Height 152 cm Admission Weight 41.5 kg [place] Body Weight 45.14 kg Pain assessment: Pain Assessment 04/08/2022 6:52 EDT Primary Pain Location Low back Primary Pain Intensity 9 Pain Scale Type 0-10 Pain scale . General: Alert and oriented. Airway: Normal temporomandibular joint mobility, Normal mouth, Normal neck range of motion. Mallampati classification: II (soft palate, fauces, uvula visible). Dentition Evaluation: Dentures, partial plate. Respiratory: Respirations are non-labored. Cardiovascular: Normal rate. Neurologic: Alert, Oriented. Review / Management Results review: No qualifying data available , Lab results 04/08/2022 7:41 EDT SN - CTm - Surgery Start 04/08/2022 7:39 04/08/2022 7:39 EDT cefazolin 1 gram(s) gram(s) Sodium Chloride 0.9% 100 mL mL 04/08/2022 7:21 EDT SN - GCD - Post-operative Diagnosis LUMBAR POSTLAMINECTOMY SYNDROME SN - GCD - Case Level Level 4 04/08/2022 7:20 EDT SN - Cul - Culture Type No Specimen per Surgeon 04/08/2022 7:20 EDT SN - CAt - Case Attendee SN - CAt - Case Attendee SN - CAt - Case Attendee SN - CAt - Case Attendee SN - CAt - Case Attendee SN - CAt - Case Attendee SN - CAt - Case Attendee SN - CAt - Case Attendee SN - CAt - Case Attendee SN - CAt - Case Attendee SN - CAt - Case Attendee SN - CAt - Case Attendee SN - CAt - Role Performed Primary Surgeon SN - CAt - Role Performed Junior Systems Analyst 1 SN - CAt - Role Performed NURSE NAVIGATOR SN - CAt - Role Performed Scrub 1 SN - CAt - Role Performed Buttonhole Maker Hand 1 SN - CAt - Role Performed Popcorn Candy Maker 04/08/2022 7:19 EDT Designated Person #1 We May Share PHI [place] Jamesfernanda [phone] Designated Person #1 Relationship Son Designated Person #2 We May Share PHI cristóbal Designated Person #2 Relationship Son Additional Designated Person Share [facility] [phone] Privacy Restrictions Requested None Height 152 cm Height in inches 59.8 inch(es) Admission Weight 41.5 kg Weight Lbs 91.3 lb [place] Body Weight 45.14 kg BSA Admission 1.34 Body Mass Index 17.96 kg/m2 Sensory Perception Mahesh No impairment Moisture Mahesh Rarely moist Activity Mahesh Walks occasionally Mobility Mahesh Slightly limited Nutrition Mahesh Adequate Friction and Shear Mahesh No apparent problem Mahesh Score 20 Hospital Acquired Pressure Injury Risk None/minimal risk (score 19-23) Basilio Screen After surgery History of Fall in Last 3 Months Basilio No Presence of Secondary Diagnosis Basilio No Use of Ambulatory Aid Basilio None, bedrest, wheelchair, nurse IV/PRN Adapter Fall Risk Basilio Yes Gait Weak or Impaired Fall Risk Basilio Normal, bedrest, immobile Mental Status Fall Risk Basilio Oriented to own ability Basilio Fall Risk Score 20 Do You Wish/Go to Sleep/Never Wake Up No Thoughts of Harming Others - History No Thoughts of Suicide - History No Thoughts of Harming Yourself - History No - over the past six (6) months or longer Coping Effective Domestic Concerns None Hospital Clergy to Visit Patient Verbalizes No Spiritual Needs Financial Concerns Re: Hospital/Disch No Living Situation Home independently Arise from Chair Can arise with use of arms Standing Balance Steady without support Gait Assessment Steady, symmetric/straight Making Self Understood Understood Advanced Directives No - refuses information Infectious Disease Symptoms Patient states no symptoms Infectious Disease Recent Exposure No Alcohol and Drug Use No Employee of Institutional Living No Health Care Employee No History of Exposure to TB No History of Positive Chest X-Ray for TB No History of Positive TB Skin Test No Homeless No Known Immunosuppression No Recent Immigrant No Resident of Institutional Living No Bloody Sputum No Fatigue No Fever No Loss of Appetite No Night Sweats No Persistent Cough > 3 Weeks No Weight Loss No Preferred Written Language [place] Preferred Spoken Language [place] Chief Complaint back pain Mode of Arrival Ambulatory Information Given by Patient Patient's Current Physicians Patient's Current Physicians Emergency Contact Number Cristóbal/ belen - [phone] Discharge To, Anticipated Home with family care Independent with ADLs Yes Current Home/Community Services No Other Anticipated Needs After Discharge No Prev Test Positive/Diagnosis w/COVID-19 Yes Previous COVID-19 Positive Date 04/07 Current Quarantine/Isolated any Illness No Any Contact with Sick Animals/Birds No Traveled Anywhere in Last 30 Days No Home Diet Regular Lost Weight Unintentionally Recently No Eat Poorly Due to Decreased Appetite No Total MST Score 0 Enteral Feedings No Non-healing Wound/Pressure Injury No TPN Feedings No Appetite Good Eating Difficulties None Patient History Form Patient History Form Admission Note-Nursing Admission History [facility] 04/08/2022 7:15 EDT Lactated Ringers Injection Begin Bag 1,000 mL mL 04/08/2022 7:03 EDT History and Physical (Blank) History and Physical Update Note 04/08/2022 6:52 EDT Height 152 cm Admission Weight 41.5 kg [place] Body Weight 45.14 kg Temperature Temporal Artery 36.5 DegC Respiratory Rate 17 br/min Systolic Blood Pressure NBP 139 mmHg Diastolic Blood Pressure NBP 84 mmHg Primary Pain Location Low back Primary Pain Intensity 9 Pain Scale Type 0-10 Pain scale Nail Bed Color [place] Capillary Refill < 2 seconds Heart Rhythm Regular All Lobes Breath Sounds Clear Oxygen Therapy Room air Oxygen Saturation 98 % Abdomen Description Non-distended, Soft, Flat Bowel Sounds All Quadrants Present Urinary Elimination Voiding, no difficulties Skin Temperature Warm Skin Description [place], Normal for ethnicity Skin Integrity Intact IV Present Present Antecubital Right 20 gauge Peripheral IV Activity: Insert new site Peripheral IV Dressing Condition: Clean, Dry, Intact Peripheral IV Dressing Activity: Applied, Transparent dressing Peripheral IV Line Status/Patency: Flushes easily Peripheral IV Line Care: Secured with tape Peripheral IV Site Condition: No complications Peripheral IV Equipment: Extension set, PRN Adaptor Peripheral IV Number of Attempts: 1 Extremity Movement Equal Characteristics of Speech Clear Level of Consciousness Alert Affect/Behavior Appropriate, Calm, Cooperative Orientation Oriented x 4 Allergies Yes Inside Barrel Lathe Operator On Yes Consent Form Signed Yes Patient Dressed In Hospital gown Pre-op Preparation Dentures, lower removed, Glasses removed, Jewelry removed CHG Skin Prep No History & Physical Update On Chart Yes History & Physical On Chart Yes Obstructive Sleep Apnea Assess Completed Yes Activity Status ADL Awake, Repositions self NPO Status More than 8 hours Standard Safety ID band on, Allergy Band on, Call device within reach, Bed in low position, Wheels locked, Safety level maintained Allergy Band on and Verified Yes Blood Band on and Verified No Patient ID Band on and Verified Yes Implants Verified Yes Pacemaker/AICD Verified No Anesthesia Consent Signed Yes Last Fluid Intake 04/07/2022 21:00 Last Food Intake 04/07/2022 18:10 Last Void 04/08/2022 6:55 04/08/2022 6:43 EDT SN - Preop - CTm Pt in SDS Room 04/08/2022 6:40 . Assessment and Plan [place] Society of Anesthesiologists (ASA) physical status classification: Class III. Anesthetic Preoperative Plan Anesthetic technique: MAC. Informed consent: signed by patient. Digitally Signed by RASHAD ESTES on 04/08/2022 07:43 AM [facility]08-22-2022 History and physical note Date of Service 04/08/22 History and Physical Update I have examined the patient; reviewed the History and Physical and there are no changes to the History and Physical unless noted below. Digitally Signed by TOM LANIER MD on 04/08/2022 07:03 AM [facility]05-12-2022 Hospital Discharge instructions Follow Up Care 12/27/2021 10:23:01 With:TOM LANIER MD Address: [address] [place] [address] [place] [address]- [phone] When: Unknown Comments:Follow-up as needed [facility] 12-04-2021 Hospital Discharge instructions Patient Education 07/21/2021 20:48:19 Chest Pain, Uncertain Cause Uncertain Causes of Chest Pain Chest pain can happen for a number of reasons. Sometimes the cause can't be determined. If your condition does not seem serious, and your pain does not appear to be coming from your heart, your healthcare provider may recommend watching it closely. Sometimes the signs of a serious problem take moretime to appear. Many problems not related to your heart can cause chest pain. These include: Musculoskeletal. Costochondritis is an inflammation of the tissues around the ribs that can occur from trauma or overuse injuries, or a strain of the muscles of the chest wall Respiratory. Pneumonia, collapsed lung (pneumothorax), or inflammation of the lining of the chest and lungs (pleurisy) Gastrointestinal. Esophageal reflux, heartburn, ulcers, or gallbladder disease Anxiety and panic disorders Nerve compression and inflammation Rare miscellaneous problems such as aortic aneurysm (a swelling of the large artery coming out of the heart) or pulmonary embolism (a blood clot in the lungs) Home care After your visit, follow these recommendations: Rest today and avoid strenuous activity. Take any prescribed medicine as directed. Be aware of any recurrent chest pain and notice any changes Follow-up care Follow up with your healthcare provider if you do not start to feel better within 24 hours, or as advised. Call 911 Call 911 if any of these occur: A change in the type of pain: if it feels different, becomes more severe, lasts longer, or begins to spread into your shoulder, arm, neck, jaw or back Shortness of breath or increased pain with breathing Weakness, dizziness, or fainting Rapid heart beat Crushing sensation in your chest When to seek medical advice Call your healthcare provider right away if any of the following occur: Cough with dark colored sputum (phlegm) or blood Fever of 100.4 F (38 C) or higher, or as directed by your healthcare provider Swelling, pain or redness in one leg [id number] [employer]. [address] [place] [id number]. All rights reserved. This information is not intended as a substitute for professional medical care. Always follow yourhealthcare professional's instructions. Follow Up Care 07/21/2021 17:59:57 With:ANALY MONDRAGON Address:Unknown When:2-4 days [facility] 11-15-2021 Hospital Discharge instructions Patient Education 07/02/2021 10:47:39 Sleep Apnea, Yrnj-sr-Hliu Sleep Apnea Sleep apnea affects breathing during sleep. It causes breathing to stop for a short time or to become shallow. It can also increase the risk of: Heart attack. Stroke. Being very overweight (obese). Diabetes. Heart failure. Irregular heartbeat. The goal of treatment is to help you breathe normally again. What are the causes? There are three kinds of sleep apnea: Obstructive sleep apnea. This is caused by a blocked or collapsed airway. Central sleep apnea. This happens when the brain does not send the right signals to the muscles that control breathing. Mixed sleep apnea. This is a combination of obstructive and central sleep apnea. The most common cause of this condition is a collapsed or blocked airway. This can happen if: Your throat muscles are too relaxed. Your tongue and tonsils are too large. You are overweight. Your airway is too small. What increases the risk? Being overweight. Smoking. Having a small airway. Being older. Being male. Drinking alcohol. Taking medicines to calm yourself (sedatives or tranquilizers). Having family members with the condition. What are the signs or symptoms? Trouble staying asleep. Being sleepy or tired during the day. Getting angry a lot. Loud snoring. Headaches in the morning. Not being able to focus your mind (concentrate). Forgetting things. Less interest in sex. Mood swings. Personality changes. Feelings of sadness (depression). Waking up a lot during the night to pee (urinate). Dry mouth. Sore throat. How is this diagnosed? Your medical history. A physical exam. A test that is done when you are sleeping (sleep study). The test is most often done in a sleep labbut may also be done at home. How is this treated? Sleeping on your side. Using a medicine to get rid of mucus in your nose (decongestant). Avoiding the use of alcohol, medicines to help you relax, or certain pain medicines (narcotics). Losing weight, if needed. Changing your diet. Not smoking. Using a machine to open your airway while you sleep, such as: ?An oral appliance. This is a mouthpiece that shifts your lower jaw forward. ?A CPAP device. This device blows air through a mask when you breathe out (exhale). ?An EPAP device. This has valves that you put in each nostril. ?A BPAP device. This device blows air through a mask when you breathe in (inhale) and breathe out. Having surgery if other treatments do not work. It is important to get treatment for sleep apnea. Without treatment, it can lead to: High blood pressure. Coronary artery disease. In men, not being able to have an erection (impotence). Reduced thinking ability. Follow these instructions at home: Lifestyle Make changes that your doctor recommends. Eat a healthy diet. Lose weight if needed. Avoid alcohol, medicines to help you relax, and some pain medicines. Do not use any products that contain nicotine or tobacco, such as cigarettes, e- cigarettes, and chewing tobacco. If you need help quitting, ask your doctor. General instructions Take [id number]-[id number] and prescription medicines only as told by your doctor. If you were given a machine to use while you sleep, use it only as told by your doctor. If you are having surgery, make sure to tell your doctor you have sleep apnea. You may need to bring your device with you. Keep all follow-up visits as told by your doctor. This is important. Contact a doctor if: The machine that you were given to use during sleep bothers you or does not seem to be working. You do not get better. You get worse. Get help right away if: Your chest hurts. You have trouble breathing in enough air. You have an uncomfortable feeling in your back, arms, or stomach. You have trouble talking. One side of your body feels weak. A part of your face is hanging down. These symptoms may be an emergency. Do not wait to see if the symptoms will go away. Get medical help right away. Call your local emergency services (911 in the [place] Do not drive yourself to the hospital. Summary This condition affects breathing during sleep. The most common cause is a collapsed or blocked airway. The goal of treatment is to help you breathe normally while you sleep. This information is not intended to replace advice given to you by your health care provider. Make sure you discuss any questions you have with your health care provider. Document Released: 05/13/2009 Document Revised: 05/21/2019 Document Reviewed: 03/30/2019 [employer] Patient Education 2020 [employer]. 07/02/2021 10:47:38 Living With Sleep Apnea Living With Sleep Apnea Sleep apnea is a condition in which breathing pauses or becomes shallow during sleep. Sleep apnea is most commonly caused by a collapsed or blocked airway. People with sleep apnea snore loudly and have times when they gasp and stop breathing for 10 seconds or more during sleep. This happens over and over during the night. This disrupts your sleep and keeps your body from getting the rest that it needs, which can cause tiredness and lack of energy (fatigue) during the day. The breaks in breathing also interrupt the deep sleep that you need to feel rested. Even if you do not completely wake up from the gaps in breathing, your sleep may not be restful. You may also have a headache in the morning and low energy during the day, and you may feel anxious or depressed. How can sleep apnea affect me? Sleep apnea increases your chances of extreme tiredness during the day (daytime fatigue). It can also increase your risk for health conditions, such as: Heart attack. Stroke. Diabetes. Heart failure. Irregular heartbeat. High blood pressure. If you have daytime fatigue as a result of sleep apnea, you may be more likely to: Perform poorly at school or work. Fall asleep while driving. Have difficulty with attention. Develop depression or anxiety. Become severely overweight (obese). Have sexual dysfunction. What actions can I take to manage sleep apnea? Sleep apnea treatment If you were given a device to open your airway while you sleep, use it only as told by your health care provider. You may be given: ?An oral appliance. This is a custom-made mouthpiece that shifts your lower jaw forward. ?A continuous positive airway pressure (CPAP) device. This device blows air through a mask when youbreathe out (exhale). ?A nasal expiratory positive airway pressure (EPAP) device. This device has valves that you put into each nostril. ?A bi-level positive airway pressure (BPAP) device. This device blows air through a mask when you breathe in (inhale) and breathe out (exhale). You may need surgery if other treatments do not work for you. Sleep habits Go to sleep and wake up at the same time every day. This helps set your internal clock (circadian rhythm) for sleeping. ?If you stay up later than usual, such as on weekends, try to get up in the morning within 2 hours of your normal wake time. Try to get at least 7 9 hours of sleep each night. Stop computer, tablet, and mobile phone use a few hours before bedtime. Do not take long naps during the day. If you nap, limit it to 30 minutes. Have a relaxing bedtime routine. Reading or listening to music may relax you and help you sleep. Use your bedroom only for sleep. ?Keep your television and computer out of your bedroom. ?Keep your bedroom cool, dark, and quiet. ?Use a supportive mattress and pillows. Follow your health care provider's instructions for other changes to sleep habits. Nutrition Do not eat heavy meals in the evening. Do not have caffeine in the later part of the day. The effects of caffeine can last for more than 5hours. Follow your health care provider's or dietitian's instructions for any diet changes. Lifestyle Do not drink alcohol before bedtime. Alcohol can cause you to fall asleep at first, but then it cancause you to wake up in the middle of the night and have trouble getting back to sleep. Do not use any products that contain nicotine or tobacco, such as cigarettes and e-cigarettes. If you need help quitting, ask your health care provider. Medicines Take [id number] and prescription medicines only as told by your health care provider. Do not use encv-zxc-gameant sleep medicine. You can become dependent on this medicine, and it can make sleep apnea worse. Do not use medicines, such as sedatives and narcotics, unless told by your health care provider. Activity Exercise on most days, but avoid exercising in the evening. Exercising near bedtime can interfere with sleeping. If possible, spend time outside every day. Natural light helps regulate your circadian rhythm. General information Lose weight if you need to, and maintain a healthy weight. Keep all follow-up visits as told by your health care provider. This is important. If you are having surgery, make sure to tell your health care provider that you have sleep apnea. You may need to bring your device with you. Where to find more information Learn more about sleep apnea and daytime fatigue from: [place] [employer] Association: sleepassociation.org National Sleep Foundation: sleepfoundation.org National Heart, Lung, and Blood [place]: nhlbi.nih.gov Summary Sleep apnea can cause daytime fatigue and other serious health conditions. Both sleep apnea and daytime fatigue can be bad for your health and well-being. You may need to wear a device while sleeping to help keep your airway open. If you are having surgery, make sure to tell your health care provider that you have sleep apnea. You may need to bring your device with you. Making changes to sleep habits, diet, lifestyle, and activity can help you manage sleep apnea. This information is not intended to replace advice given to you by your health care provider. Make sure you discuss any questions you have with your health care provider. Document Released: 10/29/2018 Document Revised: 11/26/2019 Document Reviewed: 10/29/2018 [employer] Patient Education 2020 [employer] 07/02/2021 10:47:21 Steps to Quit Smoking, Tklu-tx-[id number] Steps to Quit Smoking Smoking tobacco is the leading cause of preventable . It can affect almost every organ in the body. Smoking puts you and people around you at risk for many serious, long-lasting (chronic) diseases. Quitting smoking can be hard, but it is one of the best things that you can do for your health. It is never too late to quit. How do I get ready to quit? When you decide to quit smoking, make a plan to help you succeed. Before you quit: Pick a date to quit. Set a date within the next 2 weeks to give you time to prepare. Write down the reasons why you are quitting. Keep this list in places where you will see it often. Tell your family, friends, and co-workers that you are quitting. Their support is important. Talk with your doctor about the choices that may help you quit. Find out if your health insurance will pay for these treatments. Know the people, places, things, and activities that make you want to smoke (triggers). Avoid them. What first steps can I take to quit smoking? Throw away all cigarettes at home, at work, and in your car. Throw away the things that you use when you smoke, such as ashtrays and lighters. Clean your car. Make sure to empty the ashtray. Clean your home, including curtains and carpets. What can I do to help me quit smoking? Talk with your doctor about taking medicines and seeing a counselor at the same time. You are more likely to succeed when you do both. If you are or , talk with your doctor about counseling or other ways to quit smoking. Do not take medicine to help you quit smoking unless your doctor tells you to do so. To quit smoking: Quit right away Quit smoking totally, instead of slowly cutting back on how much you smoke over a period of time. Go to counseling. You are more likely to quit if you go to counseling sessions regularly. Take medicine You may take medicines to help you quit. Some medicines need a prescription, and some you can buy vaob-xbh-fflonoy. Some medicines may contain a drug called nicotine to replace the nicotine in cigarettes. Medicines may: Help you to stop having the desire to smoke (cravings). Help to stop the problems that come when you stop smoking (withdrawal symptoms). Your doctor may ask you to use: Nicotine patches, gum, or lozenges. Nicotine inhalers or sprays. Non-nicotine medicine that is taken by mouth. Find resources Find resources and other ways to help you quit smoking and remain smoke-free after you quit. These resources are most helpful when you use them often. They include: Online chats with a counselor. Phone quitlines. Printed self-help materials. Support groups or group counseling. Text messaging programs. Mobile phone apps. Use apps on your mobile phone or tablet that can help you stick to your quit plan. There are many free apps for mobile phones and tablets as well as websites. Examples include QuitGuide from the [employer] and smokefree.gov What things can I do to make it easier to quit? Talk to your family and friends. Ask them to support and encourage you. Call a phone quitline (), reach out to support groups, or work with a counselor. Ask people who smoke to not smoke around you. Avoid places that make you want to smoke, such as: ?Bars. ?Parties. ?Smoke-break areas at work. Spend time with people who do not smoke. Lower the stress in your life. Stress can make you want to smoke. Try these things to help your stress: ?Getting regular exercise. ?Doing deep-breathing exercises. ?Doing yoga. ?Meditating. ?Doing a body scan. To do this, close your eyes, focus on one area of your body at a time from headto toe. Notice which parts of your body are tense. Try to relax the muscles in those areas. How will I feel when I quit smoking? Day 1 to 3 weeks Within the first 24 hours, you may start to have some problems that come from quitting tobacco. These problems are very bad 2 3 days after you quit, but they do not often last for more than 2 3 weeks. You may get these symptoms: Mood swings. Feeling restless, nervous, angry, or annoyed. Trouble concentrating. Dizziness. Strong desire for high-sugar foods and nicotine. Weight gain. Trouble pooping (constipation). Feeling like you may vomit (nausea). Coughing or a sore throat. Changes in how the medicines that you take for other issues work in your body. Depression. Trouble sleeping (insomnia). Week 3 and afterward After the first 2 3 weeks of quitting, you may start to notice more positive results, such as: Better sense of smell and taste. Less coughing and sore throat. Slower heart rate. Lower blood pressure. Clearer skin. Better breathing. Fewer sick days. Quitting smoking can be hard. Do not give up if you fail the first time. Some people need to try a few times before they succeed. Do your best to stick to your quit plan, and talk with your doctor ifyou have any questions or concerns. Summary Smoking tobacco is the leading cause of preventable . Quitting smoking can be hard, but it is one of the best things that you can do for your health. When you decide to quit smoking, make a plan to help you succeed. Quit smoking right away, not slowly over a period of time. When you start quitting, seek help from your doctor, family, or friends. This information is not intended to replace advice given to you by your health care provider. Make sure you discuss any questions you have with your health care provider. Document Released: 05/31/2010 Document Revised: 10/22/2019 Document Reviewed: 10/23/2019 [employer] Patient Education 2020 [employer]. 07/02/2021 10:47:17 Health Risks of Smoking Health Risks of Smoking Smoking cigarettes is very bad for your health. Tobacco smoke has over 200 known poisons in it. It contains the poisonous gases nitrogen oxide and carbon monoxide. There are over 60 chemicals in tobacco smoke that cause cancer. Smoking is difficult to quit because a chemical in tobacco, called nicotine, causes addiction or dependence. When you smoke and inhale, nicotine is absorbed rapidly into the bloodstream through your lungs. Both inhaled and non-inhaled nicotine may be addictive. What are the risks of cigarette smoke? Cigarette smokers have an increased risk of many serious medical problems, including: Lung cancer. Lung disease, such as pneumonia, bronchitis, and emphysema. Chest pain (angina) and heart attack because the heart is not getting enough oxygen. Heart disease and peripheral blood vessel disease. High blood pressure (hypertension). Stroke. Oral cancer, including cancer of the lip, mouth, or voice box. Bladder cancer. Pancreatic cancer. Cervical cancer. complications, including premature . Stillbirths and smaller babies, defects, and genetic damage to sperm. Early menopause. Lower estrogen level for women. Infertility. Facial wrinkles. Blindness. Increased risk of broken bones (fractures). Senile dementia. Stomach ulcers and internal bleeding. Delayed wound healing and increased risk of complications during surgery. Even smoking lightly shortens your life expectancy by several years. Because of secondhand smoke exposure, children of smokers have an increased risk of the following: Sudden syndrome (SIDS). Respiratory infections. Lung cancer. Heart disease. Ear infections. What are the benefits of quitting? There are many health benefits of quitting smoking. Here are some of them: Within days of quitting smoking, your risk of having a heart attack decreases, your blood flow improves, and your lung capacity improves. Blood pressure, pulse rate, and breathing patterns start returning to normal soon after quitting. Within months, your lungs may clear up completely. Quitting for 10 years reduces your risk of developing lung cancer and heart disease to almost that of a nonsmoker. People who quit may see an improvement in their overall quality of life. How do I quit smoking? Smoking is an addiction with both physical and psychological effects, and longtime habits can be hard to change. Your health care provider can recommend: Programs and community resources, which may include group support, education, or talk therapy. Prescription medicines to help reduce cravings. Nicotine replacement products, such as patches, gum, and nasal sprays. Use these products only as directed. Do not replace cigarette smoking with electronic cigarettes, which are commonly called e-cigarettes. The safety of e-cigarettes is not known, and some may contain harmful chemicals. A combination of two or more of these methods. Where to find more information [place] [employer] Association: www.lung.org [place] [employer] Society: www.cancer.org Summary Smoking cigarettes is very bad for your health. Cigarette smokers have an increased risk of many serious medical problems, including several cancers, heart disease, and stroke. Smoking is an addiction with both physical and psychological effects, and longtime habits can be hard to change. By stopping right away, you can greatly reduce the risk of medical problems for you and your family. To help you quit smoking, your health care provider can recommend programs, community resources, prescription medicines, and nicotine replacement products such as patches, gum, and nasal sprays. This information is not intended to replace advice given to you by your health care provider. Make sure you discuss any questions you have with your health care provider. Document Released: 09/11/2005 Document Revised: 11/05/2018 Document Reviewed: 08/08/2017 [employer] Patient Education 2020 [employer] 07/02/2021 10:47:07 Chest Tube One-Way Valve Home Guide Chest Tube One-Way Valve Home Guide A one-way valve is a device that helps drain extra air and fluid from the chest. The valve connectsto a chest tube that is inserted into the area surrounding the lungs (pleural space). The valve lets the extra air and fluid out of the chest and stops new air or fluid from getting in through the chest tube. The other end of the one-way valve is sometimes connected to a drainage bag or container to collect fluid that drains from the chest. You may need a one-way valve if: You have a collapsed lung (pneumothorax), which causes extra air in the pleural space. You had surgery that affected your lungs and there is extra air or fluid that needs to be drained. There are different types of one-way valves such as: A Heimlich valve. This is also called a flutter valve. A Pneumostat . This is also called a chest drain valve. How to care for the valve and chest tube Keep the valve and tube secured to your skin as told by your health care provider. Make sure the valve opening is always clear so that air can get out. Do not block the opening with anything (such as tape) that would stop the flow of air. You may hear the valve make noises as air or fluid passes through it. Remove or change bandages (dressings) around your chest tube only as told by your health care provider. Gently clean the skin near your tube and valve using mild soap and water. Do not use any powders, creams, or scented soaps near your tube or valve. If your valve is connected to a drainage bag or container: ?Make sure the vent for the bag or container does not become blocked. ?Keep track of the amount of fluid that drains. You may be asked to write down the day, time, and amount of fluid each time you empty the bag or container. ?Empty the fluid from the bag or container into the toilet as told by your health care provider. Follow any special instructions for the type of one-way valve you have. Follow these instructions at home: Do not take baths, swim, or use a hot tub until your health care provider approves. Take showers instead. When you shower, make sure the tube, valve, and dressings are covered with a watertight covering. Wear loose, comfortable clothing that does not block the valve opening. Ask your health care provider what activities are safe for you. You may need to: ?Avoid activities that take a lot of energy (strenuous activities). ?Avoid lifting anything that is heavier than 10 lb (4.5 kg), or the limit that you are told. Avoid air travel until your health care provider says it is safe for you. Keep all follow-up visits as told by your health care provider. This is important. Contact a health care provider if: You have trouble caring for your chest tube and one-way valve. Your valve becomes disconnected from the chest tube. If this occurs, reconnect the valve and contact your health care provider. Your chest tube comes loose or gets pulled out. You have any of the following: ?A fever or chills. ?Redness, swelling, or pain around your tube or valve area. ?Chest pain. ?Pressure or cramping in your chest. ?Shortness of breath that does not go away. ?New symptoms. Get help right away if you have: Chest pain. Trouble breathing. Summary A one-way valve is a device that helps drain extra air and fluid from your chest. The valve lets the extra air and fluid out of the chest and stops new air or fluid from getting in through the chest tube. The valve connects to a chest tube that is inserted into the area surrounding your lungs (pleural space). Keep the valve and tube secured to your skin as told by your health care provider. Make sure the valve opening is always clear so that air can get out. Do not block the opening with anything, such as tape. This information is not intended to replace advice given to you by your health care provider. Make sure you discuss any questions you have with your health care provider. Document Released: 03/01/2015 Document Revised: 09/04/2018 Document Reviewed: 09/04/2018 [employer] Patient Education 2020 [employer]. 07/02/2021 10:46:45 Thoracotomy, Osoc-ur-[id number] Thoracotomy Thoracotomy is a surgery that opens the chest to get to the organs inside. This surgery is often done to repair or remove diseased or damaged chest tissue. BEFORE THE PROCEDURE You may be asked about your medical history. Quit smoking, if you smoke. You may need certain tests performed, such as imaging or blood tests. Take all medicines as told by your doctor. Do not stop medicines or change how much you take on your own. If you have diabetes, talk to your doctor about whether or not you should take insulin the day of the surgery. Do not eat or drink 8 hours before the surgery, or as told by your doctor. PROCEDURE An intravenous (IV) tube will be placed in one of your veins to give you fluids and medicine. You may be given a medicine to relax you (sedative). You will be given a medicine that makes you sleep (general anesthetic). A breathing tube is put down your throat to help you breathe. Your chest is cut open to view the problem area in your chest. The next steps will depend on why you need the surgery. You may have repairs done or tissue may be removed. A chest tube is put between the ribs to allow the lung to expand again and fluid to come out. The wound is then closed with stitches or tung. AFTER THE PROCEDURE You will be taken to a recovery room and watched closely. Your breathing tube may or may not be taken out. You may need to stay in the intensive care unit with the breathing tube in place. Ask your doctor what to expect. You may have medium to severe pain. You will be given pain medicine. Your chest tubes are watched for signs of fluid or air buildup in the lungs. The chest tubes will be taken out when it is safe. You will work on deep breathing and coughing exercises. Document Released: 02/02/2013 Document Revised: 05/25/2014 Document Reviewed: 03/23/2014 [facility] Patient Information 2015 [employer]. This information is not intended to replace advicegiven to you by your health care provider. Make sure you discuss any questions you have with your health care provider. Follow Up Care 06/15/2021 13:37:17 With:[facility] Care Address: When: Unknown Comments:[facility] will be providing your RN services at home. They should be contacting you soon. If you do not hear from them in the next 2 days, please give them a call at: [phone]. With:Home [employer] Address: When:1-2 days Comments:[facility] has dropped off a portable oxygen tank to your room. Once you get home you will need to call [facility] so they can deliver your equipment. The oxygen you are sent homewith, only lasts for a few hours. You must call in order to receive the rest of your equipment onceyou get home. With:JOY ESTRADA APRN-[facility] Address: [address] [place] [address] [address] [facility] [place] [address]- When:2021 15:45:00 Comments:CHEST XRAY PRIOR TO OFFICE VISIT With:Pharmacy Services Representative follow up Address: When: Unknown Comments:Layne Garcia, Nurse Pharmacy Services Representative, will call you and/or your family after your release from the hospital. Office Hours: Friday thru Friday 730am - 4pmPhone: Idmtx: [email or web address] With:ANALY MONDRAGON DO Address: [address] [place] [address] [place] [address]- [phone] When: Unknown Comments:PLEASE CALL THIS OFFICE TO SCHEDULE A HOSPITAL FOLLOW UP APPOINTMENT. [facility] Evaluation + Plan note Future Appointments Appointment Date:06/14/2021 03:00:00 PM Scheduled Provider:BHAKTI REYES MD Location:[facility] Appointment Type:CTS TRANSPORT RN Outpatient Consult Appointment Date:07/04/2021 08:15:00 AM Scheduled Provider:POPPY BURNS Location:[facility] PM Appointment Type:PM OV [facility] Evaluation + Plan note Future Appointments Appointment Date:07/04/2021 08:15:00 AM Scheduled Provider:POPPY BURNS Location:[facility] PM Appointment Type:PM OV Future Scheduled Tests Laboratory* COVID/FLU/RSV PCR Screen 06/15/21 [facility] Evaluation + Plan note Future Appointments Appointment Date:07/04/2021 08:15:00 AM Scheduled Provider:POPPY BURNS Location:[facility] PM Appointment Type:PM OV Diagnostic Tests Pending * FLU A/B and RSV by PCR ([facility]) 06/22/21 [facility] Evaluation + Plan note Future Appointments Appointment Date:2021 03:45:00 PM Scheduled Provider:JOY ESTRADA APRN-[employer] Location:[facility] Appointment Type:CTS OV Post Op [facility] Evaluation + Plan note Future Appointments Appointment Date:2021 03:00:00 PM Scheduled Provider:JOY ESTRADA Location:[facility] Appointment Type:CTS OV Post Op Appointment Date:07/09/2021 03:30:00 PM Scheduled Provider:JOY ESTRADA Location:[facility] Appointment Type:CTS OV Post Op Follow Up Appointment Date:08/15/2021 09:30:00 AM Scheduled Provider:ANALY MONDRAGON DO Location:[facility] Appointment Type:[facility] Hospital Follow-Up Future Scheduled Tests Radiology* XR Chest 2 Views (PA & Lateral) 07/05/21 [facility] Evaluation + Plan note Future Appointments Appointment Date:07/09/2021 03:30:00 PM Scheduled Provider:JOY ESTRADA Location:[facility] Appointment Type:CTS OV Post Op Follow Up Appointment Date:08/15/2021 09:30:00 AM Scheduled Provider:ANALY MONDRAGON DO Location:[facility] Appointment Type:[facility] Follow-Up Future Scheduled Tests Radiology* XR Chest 2 Views (PA & Lateral) 07/09/21 [facility] Evaluation + Plan note Future Appointments Appointment Date:07/18/2021 03:30:00 PM Scheduled Provider:JOY ESTRADA Location:[facility] Appointment Type:CTS OV Post Op Follow Up Appointment Date:08/15/2021 09:30:00 AM Scheduled Provider:ANALY MONDRAGON DO Location:[facility] Appointment Type:[facility] Follow-Up [facility] Evaluation + Plan note Future Appointments Appointment Date:08/15/2021 09:30:00 AM Scheduled Provider:ANALY MONDRAGON DO Location:[facility] Appointment Type:[facility] Follow-Up [facility] Evaluation + Plan note Future Appointments Appointment Date:02/13/2022 08:00:00 AM Scheduled Provider:ANALY MONDRAGON DO Location:[facility] Appointment Type: OV Future Scheduled Tests Radiology* XR Chest 2 Views (PA & Lateral) 4/25/22 [facility] Evaluation + Plan note Future Appointments Appointment Date:01/29/2022 08:45:00 AM Scheduled Provider:TOM LANIER MD Location:[facility] PM Appointment Type:PM OV Appointment Date:02/13/2022 08:00:00 AM Scheduled Provider:ANALY MONDRAGON DO Location:[facility] Appointment Type:PC OV Future Scheduled Tests Radiology* XR Chest 2 Views (PA & Lateral) 12/10/21 [facility] Evaluation + Plan note Future Appointments Appointment Date:02/13/2022 08:00:00 AM Scheduled Provider:ANALY MONDRAGON DO Location:[facility] Appointment Type:PC OV Appointment Date:02/26/2022 09:30:00 AM Scheduled Provider:TOM LANIER MD Location:[facility] PM Appointment Type:PM OV Future Scheduled Tests Radiology* XR Chest 2 Views (PA & Lateral) 12/10/21 [facility] Evaluation + Plan note Future Appointments Appointment Date:03/19/2022 09:00:00 AM Scheduled Provider:TOM LANIER MD Location:[facility] PM Appointment Type:PM OV Appointment Date:08/07/2022 10:30:00 AM Scheduled Provider:ANALY MONDRAGON DO Location:[facility] Appointment Type:PC OV Future Scheduled Tests Radiology* XR Chest 2 Views (PA & Lateral) 12/10/21 [facility] Evaluation + Plan note Future Appointments Appointment Date:08/07/2022 10:30:00 AM Scheduled Provider:ANALY MONDRAGON DO Location:[facility] Appointment Type:PC OV Future Scheduled Tests Radiology* XR Chest 2 Views (PA & Lateral) 12/10/21 [facility] Evaluation + Plan note Future Appointments Appointment Date:04/16/2022 08:00:00 AM Scheduled Provider:TOM LANIER MD Location:[facility] PM Appointment Type:PM OV Appointment Date:08/07/2022 10:30:00 AM Scheduled Provider:ANALY MONDRAGON DO Location:[facility] Appointment Type:PC OV Future Scheduled Tests Radiology* XR Chest 2 Views (PA & Lateral) 12/10/21 [facility] Evaluation + Plan note Future Appointments Appointment Date:05/22/2022 08:45:00 AM Scheduled Provider:POPPY BURNS Location:[facility] PM Appointment Type:PM OV Appointment Date:08/07/2022 10:30:00 AM Scheduled Provider:ANALY MONDRAGON DO Location:[facility] Appointment Type:PC OV Future Scheduled Tests Radiology* XR Chest 2 Views (PA & Lateral) 12/10/21 [facility] Evaluation + Plan note Future Appointments Appointment Date:05/21/2022 08:00:00 AM Scheduled Provider:EZEKIEL BENITEZ MD Location:[facility] Appointment Type:NS TRANSPORT RN Appointment Date:06/05/2022 08:45:00 AM Scheduled Provider:POPPY BURNS Location:[facility] PM Appointment Type:PM OV Appointment Date:08/07/2022 10:30:00 AM Scheduled Provider:ANALY MONDRAGON DO Location:[facility] Appointment Type:PC OV Future Scheduled Tests Radiology* XR Chest 2 Views (PA & Lateral) 12/10/21 [facility] Evaluation + Plan note Future Appointments Appointment Date:06/05/2022 08:45:00 AM Scheduled Provider:POPPY BURNS Location:[facility] PM Appointment Type:PM OV Appointment Date:08/07/2022 10:30:00 AM Scheduled Provider:ANALY MONDRAGON DO Location:[facility] Appointment Type:PC OV Future Scheduled Tests Radiology* XR Chest 2 Views (PA & Lateral) 12/10/21 [facility] Evaluation + Plan note Future Appointments Appointment Date:08/07/2022 10:30:00 AM Scheduled Provider:ANALY MONDRAGON DO Location:[facility] Appointment Type:PC OV Appointment Date:08/28/2022 01:30:00 PM Scheduled Provider:POPPY BURNS Location:[facility] PM Appointment Type:PM OV Future Scheduled Tests Radiology* XR Chest 2 Views (PA & Lateral) 12/10/21 [facility] M3X Mediaaluation + Plan note Future Appointments Appointment Date:08/28/2022 01:30:00 PM Scheduled Provider:POPPY BURNS Location:[facility] PM Appointment Type:PM OV Appointment Date:02/05/2023 10:00:00 AM Scheduled Provider:ANALY MONDRAGON DO Location:[facility] Appointment Type:PC OV Future Scheduled Tests Radiology* XR Chest 2 Views (PA & Lateral) 12/10/21 [facility] [email or web address] + Plan note Future Appointments Appointment Date:10/02/2022 12:15:00 PM Scheduled Provider:POPPY BURNS Location:[facility] PM Appointment Type:PM OV Appointment Date:02/05/2023 10:00:00 AM Scheduled Provider:ANALY MONDRAGON DO Location:[facility] Appointment Type:PC OV Future Scheduled Tests Radiology* XR Chest 2 Views (PA & Lateral) 12/10/21 [facility] [email or web address] + Plan note Future Appointments Appointment Date:10/16/2022 11:45:00 AM Scheduled Provider:POPPY BURNS Location:[facility] PM Appointment Type:PM OV Appointment Date:02/05/2023 10:00:00 AM Scheduled Provider:ANALY MONDRAGON DO Location:[facility] Appointment Type:PC OV Future Scheduled Tests Radiology* XR Chest 2 Views (PA & Lateral) 12/10/21 [facility] M3X Mediaaluation + Plan note Future Appointments Appointment Date:12/16/2022 09:30:00 AM Scheduled Provider:ANALY ANAYA MD Location:[facility] PM Appointment Type:PM OV Appointment Date:02/05/2023 10:00:00 AM Scheduled Provider:ANALY MONDRAGON DO Location:[facility] Appointment Type:PC OV Future Scheduled Tests Radiology* XR Chest 2 Views (PA & Lateral) 12/10/21 [facility] Evaluation + Plan note Future Appointments Appointment Date:12/24/2022 09:15:00 AM Scheduled Provider: Location:[facility] Appointment Type:PC Nurse Injection Appointment Date:01/15/2023 09:15:00 AM Scheduled Provider:POPPY BURNS Location:[facility] PM Appointment Type:PM OV Appointment Date:02/05/2023 10:00:00 AM Scheduled Provider:ANALY MONDRAGON DO Location:[facility] Appointment Type:PC OV [facility] Evaluation + Plan note Future Appointments Appointment Date:02/05/2023 10:00:00 AM Scheduled Provider:ANALY MONDRAGON DO Location:[facility] Appointment Type:PC OV Appointment Date:02/12/2023 09:30:00 AM Scheduled Provider:POPPY BURNS Location:[facility] PM Appointment Type:PM OV [facility] Evaluation + Plan note Future Appointments Appointment Date:03/10/2023 02:15:00 PM Scheduled Provider:ANALY ANAYA MD Location:[facility] PM Appointment Type:PM OV Appointment Date:08/06/2023 10:30:00 AM Scheduled Provider:ANALY MONDRAGON DO Location:[facility] Appointment Type:PC OV [facility] Evaluation + Plan note Future Appointments Appointment Date:04/23/2023 10:00:00 AM Scheduled Provider:EZEKIEL BENITEZ MD Location:[facility] Appointment Type:NS TRANSPORT RN Appointment Date:04/28/2023 09:00:00 AM Scheduled Provider:ANALY ANAYA MD Location:[facility] PM Appointment Type:PM OV Appointment Date:08/06/2023 10:30:00 AM Scheduled Provider:ANALY MONDRAGON DO Location:[facility] Appointment Type:PC OV [facility] Evaluation + Plan note Future Appointments Appointment Date:04/28/2023 09:00:00 AM Scheduled Provider:ANALY ANAYA MD Location:[facility] PM Appointment Type:PM OV Appointment Date:08/06/2023 10:30:00 AM Scheduled Provider:ANALY MONDRAGON DO Location:[facility] Appointment Type: OV [facility] Evaluation + Plan note Future Appointments Appointment Date:05/26/2023 10:45:00 AM Scheduled Provider:ANALY ANAYA MD Location:[facility] PM Appointment Type:PM OV Appointment Date:08/06/2023 10:30:00 AM Scheduled Provider:ANALY MONDRAGON DO Location:[facility] Appointment Type: OV [facility] Evaluation + Plan note Future Appointments Appointment Date:08/06/2023 10:30:00 AM Scheduled Provider:ANALY MONDRAGON DO Location:[facility] Appointment Type: OV [facility] Evaluation + Plan note Future Appointments Appointment Date:08/04/2023 09:00:00 AM Scheduled Provider: Location:[facility] Appointment Type:MRI Brain w/ + w/o Contrast Appointment Date:08/05/2023 09:45:00 AM Scheduled Provider: Location:[facility] Appointment Type:CT Head or Brain w/o Contrast Appointment Date:08/05/2023 10:30:00 AM Scheduled Provider:LORETO LUI MD Location:[facility] Appointment Type:NS OV Appointment Date:08/06/2023 10:30:00 AM Scheduled Provider:ANALY MONDRAGON DO Location:[facility] Appointment Type: OV Future Scheduled Tests Radiology* CT Head or Brain w/o Contrast 08/05/23 * MRI Brain w/ + w/o Contrast 08/04/23 [facility] evaluation + Plan note Future Appointments Appointment Date:08/06/2023 10:30:00 AM Scheduled Provider:ANALY MONDRAGON DO Location:[facility] Appointment Type:PC OV Appointment Date:08/20/2023 09:00:00 AM Scheduled Provider: Location:[facility] Appointment Type:MRI Brain w/ + w/o Contrast Appointment Date:08/25/2023 08:45:00 AM Scheduled Provider:EZEKIEL BENITEZ MD Location:[facility] Appointment Type:NS OV Future Scheduled Tests Radiology* MRI Brain w/ + w/o Contrast 08/20/23 [facility] Hospital course Narrative No data available for this section [facility] Hospital Discharge instructions No data available for this section [facility] Progress note No data available for this section [facility] Summary Purpose Family History No Family History Records FoundNo Family History Records Found No data available for this section No data available for this section No data available for this section No data available for this section No data available for this section No data available for this section No data available for this section No data available for this section No Family History Records Found Advance Directives No Advanced Directives Records FoundNo Advanced Directives Records FoundNo Advanced Directives Records Found Additional Source Comments INFORMATION SOURCE (unrecogn ized section and content) DATE CREATED AUTHOR AUTHOR'S ORGANIZ ATION 11/30/2018 [facility] DATE CREATED AUTHOR AUTHOR'S ORGANIZ ATION 08/14/2023 [facility] ([place]) Care Team (unrecognized sect ion and content) Personnel Name: ANALY MONDRAGON DO Address: [address] [place] [address] Personnel Name: ANALY MONDRAGON DO Address: [address] [place] [address] Personnel Name: ANALY MONDRAGON DO Address: [address] [place] [address] Personnel Name: ANALY MONDRAGON DO Address: [address] [place] [address] Care Team Personnel Name: POPPY BURNS Position: P4 Advanced Video Surveillance Technician Member Role: Pain Management Address: Address: [address] [place] [address] [address] [facility] [place] [address]- Name: TOM LANIER MD Member Role: Pain Management Address: Address: [address] [place] [address] [address] [facility] [place] [address]- Name: ANALY MONDRAGON DO Position: P4 Physician - Primary Care Member Role: Primary Care Physician Address: Address: [address] [place] [address]- Care Team Related Persons Name: CRISTÓBAL PALAFOX Name: DENVER PALAFOX Care Team Personnel Name: POPPY BURNS APRN-BOWLING BALL GRADER Position: P4 Advanced Video Surveillance Technician Member Role: Pain Management Address: Address: [address] [place] [address] [address] [facility] Pain Management [place] [phone]- Name: TOM LANIER MD Member Role: Pain Management Address: Address: [address] [place] [address] Pain Management [place] [phone]- Name: ANALY MONDRAGON DO Position: P4 Physician - Primary Care Member Role: Primary Care Physician Address: Address: [address] [place] [address]- [place] Care Team Related Persons Name: CRISTÓBAL PALAFOX Name: DENVER PALAFOX Care Team Personnel Name: POPPY BURNS APRN-BOWLING BALL GRADER Position: P4 Advanced Video Surveillance Technician Member Role: Pain Management Address: Address: [address] [place] [address] [address] [facility] [place] [address]- Name: TOM LANIER MD Member Role: Pain Management Address: Address: [address] [place] [address] [address] [facility] [place] [address]- [place] Name: ANALY MONDRAGON DO Position: P4 Physician - Primary Care Member Role: Primary Care Physician Address: Address: [address] [place] [address]- [place] Care Team Related Persons Name: CRISTÓBAL PALAFOX Name: ENA PALAFOXN Care Team Personnel Name: POPPY BURNS APRN-BOWLING BALL GRADER Position: P4 Advanced Video Surveillance Technician Member Role: Pain Management Address: Address: [address] [place] [address] [address] [facility] [place] [address]- Name: TOM LANIER MD Member Role: Pain Management Address: Address: [address] [place] [address] [address] [facility] [place] [address]- Name: ANALY MONDRAGON DO Position: P4 Physician - Primary Care Member Role: Primary Care Physician Address: Address: [address] [place] [address]- Care Team Related Persons Name: CRISTÓBAL PALAFOX Name: DENVER PALAFOX Care Team Personnel Name: POPPY BURNS APRN-BOWLING BALL GRADER Position: P4 Advanced Video Surveillance Technician Member Role: Pain Management Address: Address: [address] [place] [address] [address] [facility] [place] [address]- Name: TOM LANIER MD Member Role: Pain Management Address: Address: [address] [place] [address] [address] Name: ANALY MONDRAGON DO Position: P4 Physician - Primary Care Member Role: Primary Care Physician Address: Address: [address] [place] [address]- Care Team Related Persons Name: CRISTÓBAL PALAFOX Name: ENA PALAFOXN Care Team Personnel Name: POPPY BURNS APRN-BOWLING BALL GRADER Position: P4 Advanced Video Surveillance Technician Member Role: Pain Management Address: Address: [address] [place] [address] [address] [facility] [place] [address]- Name: TOM LANIER MD Member Role: Pain Management Address: Address: [address] [place] [address] [address] [place] [address]- Name: ANALY MONDRAGON DO Position: P4 Physician - Primary Care Member Role: Primary Care Physician Address: Address: [address] [place] [address]- Care Team Related Persons Name: CRISTÓBAL PALAFOX Name: KEN DENVER Care Team Personnel Name: POPPY BURNS APRN-BOWLING BALL GRADER Position: P4 Advanced Video Surveillance Technician Member Role: Pain Management Address: Address: [address] [place] [address] [address] [facility] [place] [address]- [place] Name: TOM LANIER MD Member Role: Pain Management Address: Address: [address] [place] [address] [address] [place] [address]- Name: ANALY MONDRAGON DO Position: P4 Physician - Primary Care Member Role: Primary Care Physician Address: Address: [address] [place] [address]- Care Team Related Persons Name: GRANTCRISTÓBAL DILLARD Name: DENVER PALAFOX Care Team Personnel Name: POPPY BURNS APRN-BOWLING BALL GRADER Position: P4 Advanced Video Surveillance Technician Member Role: Pain Management Address: Address: [address] [place] [address] [address] [facility] [place] [address]- [place] Name: Chana Pike RN Position: Bed Management Member Role: Other Name: EZEKIEL BENITEZ MD Position: P4 Physician - Neurosurgery Member Role: Neurosurgeon Address: Address: [address] [place] [address] [address] [place] [id number]- Name: TOM LANIER MD Member Role: Pain Management Address: Address: [address] [place] [address] [address] [place] [id number]- [place] Name: ANALY MONDRAGON DO Position: P4 Physician - Primary Care Member Role: Primary Care Physician Address: Address: [address] [place] [address]- Care Team Related Persons Name: CRISTÓBAL PALAFOX Name: DENVER PALAFOX Care Team Personnel Name: POPPY BURNS APRN-BOWLING BALL GRADER Position: P4 Advanced Video Surveillance Technician Member Role: Pain Management Address: Address: [address] [place] [address] [address] [facility] [place] [address]- [place] Name: Chana Pike RN Position: Bed Management Member Role: Other Name: EZEKIEL BENITEZ MD Position: P4 Physician - Neurosurgery Member Role: Neurosurgeon Address: Address: [address] [place] [address] [address] [facility] [place] [id number]- [place] Name: TOM LANIER MD Member Role: Pain Management Address: Address: [address] [place] [address] [address] [place] [address]- [place] Name: ANALY MONDRAGON DO Position: P4 Physician - Primary Care Member Role: Primary Care Physician Address: Address: [address] [place] [address] [place] [address]- Name: BROWN WETZEL MD Position: ED Physician Member Role: Attending Physician Address: Address: [address] [place] [address]- Care Team Related Persons Name: CRISTÓBAL PALAFOX Name: DENVER PALAFOX Care Team Personnel Name: POPPY BURNS APRN-BOWLING BALL GRADER Position: P4 Advanced Video Surveillance Technician Member Role: Pain Management Address: Address: [address] [place] [address] [place] [address]- Name: Chana Pike RN Position: Bed Management Member Role: Other Name: Cody Montes Nurse Position: Bed Management Member Role: Other Name: EZEKIEL BENITEZ MD Position: P4 Physician - Neurosurgery Member Role: Neurosurgeon Address: Address: [address] [place] [address]- Name: TOM LANIER MD Member Role: Pain Management Address: Address: [address] [place] [address]. [address] Name: ANALY MONDRAGON DO Position: P4 Physician - Primary Care Member Role: Primary Care Physician Address: Address: [address] [place] [address]- Care Team Related Persons Name: CRISTÓBAL PALAFOX Name: DENVER PALAFOX Care Team Personnel Name: POPPY BURNS APRN-BOWLING BALL GRADER Position: P4 Advanced Video Surveillance Technician Member Role: Pain Management Address: Address: [address] [place] [address] [place] [address]- Name: Chana Pike RN Position: Bed Management Member Role: Other Name: Cody Montes Nurse Position: Bed Management Member Role: Other Name: EZEKIEL BENITEZ MD Position: P4 Physician - Neurosurgery Member Role: Neurosurgeon Address: Address: [address] [place] [address] [address] [place] [address]- Name: TOM LANIER MD Member Role: Pain Management Address: Address: [address] [place] [address] [address] Name: ANALY MONDRAGON DO Position: P4 Physician - Primary Care Member Role: Primary Care Physician Address: Address: [address] [place] [address]- [place] Name: DONATO LOMAS MD Position: AH ED Physician Member Role: ED Physician Address: Address: [facility] [address] [place] [address]- [place] Name: Betsy Givens APRN-BOWLING BALL GRADER Position: AO RN Member Role: RN Care Team Related Persons Name: CRISTÓBAL PALAFOX Name: DENVER PALAFOX Care Team Personnel Name: POPPY BURNS APRN-BOWLING BALL GRADER Position: P4 Advanced Video Surveillance Technician Member Role: Pain Management Address: Address: [address] [place] [address] [address] [facility] [place] [address]- [place] Name: Chana Pike RN Position: Bed Management Member Role: Other Name: Cody Montes Nurse Position: Bed Management Member Role: Other Name: EZEKIEL BENITEZ MD Position: P4 Physician - Neurosurgery Member Role: Neurosurgeon Address: Address: [address] [place] [address] [address] [place] [address]- [place] Name: TOM LANIER MD Member Role: Pain Management Address: Address: [address] [place] [address]- [place] Name: ANALY MONDRAGON DO Position: P4 Physician - Primary Care Member Role: Primary Care Physician Address: Address: [address] [place] [address]- Care Team Related Persons Name: CRISTÓBAL PALAFOX Name: DENVER PALAFOX Care Team (unrecognized sect ion and content) Care Team Personnel Name: POPPY BURNS APRN-BOWLING BALL GRADER Position: P4 Advanced Practice Nurse Med Service: Active Provider Member Role: Pain Management Address: Address: [address] [facility] [address] [facility] [place] [address]- [place] Name: TOM LANIER MD Position: P4 Physician - General Surgery Med Service: [facility] Pain Management Member Role: Pain Management Address: Address: [address] [place] [address] [address] [facility] [place] [address]- [place] Name: ANALY MONDRAGON DO Position: P4 Physician - Primary Care Med Service: Active Provider Member Role: Primary Care Physician Address: Address: [address] [place] [address]- Care Team Related Persons Name: DENVER PALAFOX Care Team Personnel Name: POPPY BURNS APRN-BOWLING BALL GRADER Position: P4 Advanced Practice Nurse Med Service: Active Provider Member Role: Pain Management Address: Address: [address] [place] [address] [address] [facility] [place] [address]- [place] Name: TOM LANIER MD Position: P4 Physician - General Surgery Med Service: [facility] Pain Management Member Role: Pain Management Address: Address: [address] [place] [address] [address] [facility] [place] [address]- [place] Name: ANALY MONDRAGON DO Position: P4 Physician - Primary Care Med Service: Active Provider Member Role: Primary Care Physician Address: Address: [address] [place] [address]- Care Team Related Persons Name: DENVER PALAFOX Care Team Personnel Name: POPPY BURNS APRN-BOWLING BALL GRADER Position: P4 Advanced Practice Nurse Address: Address: [address] [place] [address] [address] [facility] [place] [address]- [place] Name: TOM LANIER MD Position: P4 Physician - General Surgery Address: Address: [address] [place] [address] [address] [facility] [place] [address]- Name: ANALY MONDRAGON DO Position: P4 Physician - Primary Care Member Role: Primary Care Physician Address: Address: [address] [place] [address]- Care Team Related Persons Name: DENVER PALAFOX Care Team Personnel Name: POPPY BURNS APRN-BOWLING BALL GRADER Position: P4 Advanced Practice Nurse Address: Address: [address] [place] [address] [address] [facility] [place] [address]- [place] Name: TOM LANIER MD Position: P4 Physician - General Surgery Address: Address: [address] [place] [address] [address] [facility] [place] [address]- [place] Name: ANALY MONDRAGON DO Position: P4 Physician - Primary Care Member Role: Primary Care Physician Address: Address: [address] [place] [address] [place] [address]- Name: SONG Harvey Position: ED RN Member Role: ED RN Name: Artur Esquivel RN Position: AO RN Member Role: RN Name: ARTUR GARCIAS DO Position: ED Physician Member Role: ED Physician Address: Address: [facility] [address] [place] [address]- [place] Care Team Related Persons Name: DENVER PALAFOX Care Team Personnel Name: POPPY BURNS APRN-BOWLING BALL GRADER Position: P4 Advanced Practice Nurse Address: Address: [address] [place] [address] [place] [address]- Name: TOM LANIER MD Position: P4 Physician - General Surgery Address: Address: [address] [place] [address] Name: ANALY MONDRAGON DO Position: P4 Physician - Primary Care Member Role: Primary Care Physician Address: Address: [address] [place] [address] Care Team Related Persons Name: DENVER PALAFOX Care Team Personnel Name: POPPY BURNS APRN-BOWLING BALL GRADER Position: P4 Advanced Practice Nurse Med Service: Active Provider Member Role: Pain Management Address: Address: [address] [place] [address] Pain [place] [address]- Name: TOM LANIER MD Position: P4 Physician - General Surgery Med Service: [facility] Pain Management Member Role: Pain Management Address: Address: [address] [place] [address] [place] [address]- Name: ANALY MONDRAGON DO Position: P4 Physician - Primary Care Med Service: Active Provider Member Role: Primary Care Physician Address: Address: [address] [place] [address] Care Team Related Persons Name: DENVER PALAFOX Care Team Personnel Name: POPPY BURNS APRN-BOWLING BALL GRADER Position: P4 Advanced Practice Nurse Med Service: Active Provider Member Role: Pain Management Address: Address: [address] [place] [address] Pain [address] Name: TOM LANIER MD Position: P4 Physician - General Surgery Med Service: [facility] Pain Management Member Role: Pain Management Address: Address: [address] [place] [address] [address] [facility] [place] [address]- [place] Name: ANALY MONDRAGON DO Position: P4 Physician - Primary Care Med Service: Active Provider Member Role: Primary Care Physician Address: Address: [address] [place] [address]- Care Team Related Persons Name: DENVER PALAFOX Care Team Personnel Name: POPPY BURNS APRN-BOWLING BALL GRADER Position: P4 Advanced Practice Nurse Member Role: Pain Management Address: Address: [address] [place] [address] [address] [facility] [place] [address]- [place] Name: TOM LANIER MD Position: P4 Physician - General Surgery Member Role: Pain Management Address: Address: [address] [place] [address] [address] [facility] [place] [address]- Name: ANALY MONDRAGON DO Position: P4 Physician - Primary Care Member Role: Primary Care Physician Address: Address: [address] [place] [address]- Care Team Related Persons Name: DENVER PALAFOX Care Team Personnel Name: POPPY BURNS APRN-BOWLING BALL GRADER Position: P4 Advanced Practice Nurse Member Role: Pain Management Address: Address: [address] [place] [address] [address] [facility] [place] [address]- [place] Name: TOM LANIER MD Member Role: Pain Management Address: Address: [address] [place] [address] [address] [facility] [place] [address]- [place] Name: ANALY MONDRAGON DO Position: P4 Physician - Primary Care Member Role: Primary Care Physician Address: Address: [address] [place] [address]- Care Team Related Persons Name: DENVER PALAFOX Care Team Personnel Name: POPPY BURNS APRN-BOWLING BALL GRADER Position: P4 Advanced Practice Nurse Member Role: Pain Management Address: Address: [address] [place] [address] [address] [facility] [place] [address]- [place] Name: TOM LANIER MD Member Role: Pain Management Address: Address: [address] [place] [address] [address] [facility] [place] [address]- [place] Name: ANALY MONDRAGON DO Position: P4 Physician - Primary Care Member Role: Primary Care Physician Address: Address: [address] [place] [address] Care Team Related Persons Name: DENVER PALAFOX Care Team Personnel Name: POPPY BURNS APRN-BOWLING BALL GRADER Position: P4 Advanced Practice Nurse Member Role: Pain Management Address: Address: [address] [place] [address] [address] Name: TOM LANIER MD Member Role: Pain Management Address: Address: [address] [place] [address] Pain Management [address] Name: ANALY MONDRAGON DO Position: P4 Physician - Primary Care Member Role: Primary Care Physician Address: Address: [address] [place] [address] Care Team Related Persons Name: CRISTÓBAL PALAFOX Name: DENVER PALAFOX FOR RECORDS PERTAINING TO PATIENTS WHO ARE OR HAVE BEEN ENROLLED IN A CHEMICAL DEPENDENCY/SUBSTANCEABUSE PROGRAM, SOME INFORMATION MAY BE OMITTED. This clinical summary was aggregated from multiple sources. Caution should be exercised in using it in the provision of clinical care. This summary normalizes information from multiple sources, and as a consequence, information in this document may materially change the coding, format and clinical context of patient data. In addition, data may be omitted in some cases. CLINICAL DECISIONS SHOULD BE BASED ON THE PRIMARY CLINICAL RECORDS. [facility] [employer] provides no warranty or guarantee of the accuracy or completeness of information in this document.
== END | disposition home or self-care (01) ==
LOC: CT 14:28
PROVIDERS: PCP Preventive Medicine Occupational Medicine; Referring Provider Internal Medicine Medical Oncology; Visit Provider Internal Medicine Medical Oncology
DX: C34.11 Malignant neoplasm of upper lobe, right bronchus or lung (principal)
CPT/HCPCS: 71250

== ENCOUNTER → 2023-08-25 | Outpatient (CLI) | payer MEDICARE, OTHER, SELFPAY ==
[2023-08-25 15:24] LABS: Absolute Lymphocyte Count 2.26 X10^3/uL (0.83-4.51); Absolute Neutrophil Count 3.1 X10^3/uL (2.0-7.7); Basophil# 0.05 X10^3/uL; Basophil% 0.8 % (0-1); Eosinophil# 0.11 X10^3/uL; Eosinophils% 1.7 % (0-5); Hematocrit 37.1 % (37-47); Hemoglobin 12.3 g/dL (12.0-15.0); Lymphocyte # 2.26 X10^3/ul (0.83-4.51); Lymphocyte % 35.5 % (19-41); Mean Corp Hgb Conc 33.2 g/dL (32-36); Mean Corpuscular Hgb 32.4 pg (27.0-32.0); Mean Corpuscular Volume 97.6 fL (81-99); Mean Platelet Vol. 8.7 fl (6.2-12.0); Monocyte# 0.88 X10^3/uL; Monocyte% 13.8 % (0-10); NRBC Flagged by Analyzer 0 % (0-5); Neutrophil # 3.05 X10^3/uL (2.7-7.7); Neutrophil % 47.9 % (47-70); Platelet Count 483 K/mm3 (150-450); RBC Distribution Width CV 12.2 % (11.6-14.6); RBC Distribution Width SD 44.1 fl (35.1-43.9); White Blood Count 6.4 K/mm3 (4.4-11.0)
[2023-08-25 15:56] LABS: ALB/GLOB Ratio 0.9 RATIO (0.9-2.4); AST(SGOT) 14 U/L (15-37); Alanine Aminotransfer ALT/SGPT 13 U/L (13-56); Albumin, Serum 3.3 g/dL (3.2-5.0); Alkaline Phosphatase 92 U/L (45-117); Anion Gap 5 (5-15); BUN 6 mg/dL (7-18); BUN/Creat Ratio 8.8 RATIO (10-20); Calcium,Total 9.7 mg/dL (8.5-10.1); Chloride 106 mmol/L (98-107); Creatinine, Serum 0.68 mg/dL (0.55-1.02); EST Glomerular Filtration Rate 91 mL/min (>60); Est Glom Filt Rate - Afr Amer 110 mL/min (>60); Globulin 3.8 g/dL (2.2-4.2); Glucose 120 mg/dL (74-106); LDH 246 U/L (84-246); Potassium 3.2 mmol/L (3.5-5.1); Protein, Total 7.1 g/dL (6.4-8.2); Sodium Level 140 mmol/L (136-145)
--- OUTSIDE RECORDS SUMMARY | 2023-08-25 16:25 | XMS RPT_ITS | CCD ---
Author Name Unknown Address [id number] [place] [address] Organization [facility] Care Team Providers Care Vice President Of Communications Name Role Phone Keaton Chaney Referring Unavailable Jamey García Admitting Unavailable Jamey García Attending Unavailable Analy Infante MD Primary Care Unavailable Tanya Willard Admitting Unavailable Tanya Willard Attending Unavailable Analy Mondragon Primary Care Unavailable Jamey García Admitting Unavailable Jamey García Attending Unavailable Analy Mondragon Primary Care Unavailable Sudheer Tanya Admitting Unavailable Sudheer Tanya Attending Unavailable Analy Mondragon Primary Care Unavailable Kesha Garcíashua Chayo Admitting Unavailable Jamey García Attending Unavailable Analy Mondragon Primary Care Unavailable ANALY MONDRAGON DO Primary Care Physician [phone] ANALY MONDRAGON DO Primary Care Physician [phone] Glendy ZULETA, Chana Neri Unavailable Unavailable Simon Torresing Nurse, Cody Unavailable ANALY Hopson DO Primary Care Unavailable GRANT AWAN-RENETTA, POPPY De La Vega Attending Dunia ANALY Olguin MD Attending Unavailable ANALY MONDRAGON DO Primary Care Unavailable EZEKIEL BENITEZ MD Attending Unavailable ANALY MONDRAGON DO Primary Care Unavailable DR BROWN WETZEL MD Attending Unavailberry e ANALY MONDRAGON DO Primary Care Unavailable ANALY MONDRAGON DO Attending Unavailable ANALY MONDRAGON DO Primary Care Unavailable HELENA TERESA MD Attending Unavailable HELENA TERESA MD Consulting Unavailable ANALY MONDRAGON DO Primary Care Unavailable ANALY MONDRAGON DO Primary Care Unavailable ANALY ANAYA MD Attending Unavailable EZEKIEL BENITEZ MD Admitting Unavailable EZEKIEL BENITEZ MD Attending Unavailable BELKIS FISHER MD, V Consulting Unavailable GIANCARLO DO, ANALY Primary Care Unavailable SARTHAK GONZÁLES, SIERRA Consulting Unavailable ELI GONZÁLES, EZEKIEL Fisher Consulting Unavailable ELI GONZÁLES, EZEKIEL Fisher Admitting Unavailable ELI GONZÁLES, EZEKIEL Fisher Attending Unavailable GIANCARLO DO, ANALY Consulting Unavailable GIANCARLO DO, ANALY Primary Care Unavailable ARTUR HERNANDEZ MD Consulting Unavailab parker SIMONS MD, EDWINA Consulting Unavailable ANALY ANAYA MD Attending Unavailable GIANCARLO DO, ANALY Primary Care Unavailable ELI GONZÁLES, EZEKIEL Fisher Attending Unavailable GIANCARLO DO, ANALY Primary Care Unavailable GIANCARLO DO, ANALY Attending Unavailable GIANCARLO DO, ANALY Primary Care Unavailable ANALY ANAYA MD Attending Unavailable GIANCARLO DO, ANALY Primary Care Unavailable GIANCARLO DO, ANALY Primary Care Unavailable SHIN CHATMAN, SARA Attending Unavail able GIANCARLO DO, ANALY Primary Care Unavailable SHIN ANGIS MAPPING TECHNICIAN, SARA Attending Unavail able ELI GONZÁLES, EZEKIEL Fisher Attending Unavailable GIANCARLO DO, ANALY Primary Care Unavailable EZEKIEL BENITEZ MD Attending Unavailable GIANCARLO DO, ANALY Primary Care Unavailable ELI GONZÁLES, EZEKIEL Fisher Attending Unavailable GIANCARLO DO, ANALY Primary Care Unavailable GRANT CHATMAN, POPPY De La Vega Attending Dunia vailable GIANCARLO DO, ANALY Primary Care Unavailable GRANT CHATMAN, POPPY De La Vega Attending Dunia vailable GIANCARLO DO, ANALY Primary Care Unavailable GIANCARLO DO, ANALY Primary Care Unavailable ANALY ANAYA MD Attending Unavailable GIANCARLO DO, ANALY Primary Care Unavailable ANALY ANAYA MD Attending Unavailable DONATO LOMAS MD Attending Unavailable GIANCARLO DO, ANALY Primary Care Unavailable HELENA TERESA MD Attending Unavailable GIANCARLO DO, ANALY Primary Care Unavailable GIANCARLO DO, ANALY Primary Care Unavailable GRANT AWAN-GIS MAPPING TECHNICIAN, POPPY De La Vega Attending Dunia vailable Allergies Allergy Classification Reported Allergen(s) Allergy Type Date of Onset Reaction(s) Facility (1 source) No Known Medication Allergies; Translations: [No Known Medication Allergies] Propensity to adverse reactions to drug (disorder) [facility] Repository (20 sources) Iodine; Translations: [iodine] Drug Allergy Rash [facility] Medications Current Medications Medication Drug Class(es) Dates [...] 1 EA, Buccal, q12h, Patient not tolerating [place] and oxycodone, # 60 film, 0 Refill(s), Pharmacy: [id number], Lumbar postlaminectomy syndrome Lumbar radiculopathy, [...] Administrative/social admission (5 sources) 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 05-27-2023 Episodic Allergic reactions (20 sources) Allergy [...] Pressure Non-Invasive 79 mm[Hg] DONATO LOMAS MD [facility] 07-25-2023 23:31-0500 Heart rate 64 /min DONATO LOMAS MD [facility] 07-25-2023 23:31-0500 Respiratory rate 16 /min DONATO LOMAS MD [facility] 07-25-2023 23:31-0500 Systolic Blood Pressure Non-Invasive 122 mm[Hg] DONATO LOMAS MD [facility] 07-25-2023 22:25-0500 Blood Pressure Cuff Size DONATO LOMAS MD [facility] 07-25-2023 22:25-0500 Blood Pressure Location DONATO LOMAS MD [facility] 07-25-2023 22:25-0500 Blood Pressure Method DONATO LOMAS MD [facility] 07-25-2023 22:25-0500 Body temperature 97.7 [degF] DONATO LOMAS MD [facility] 07-25-2023 22:25-0500 Diastolic Blood Pressure Non-Invasive 72 mm[Hg] DONATO LOMAS MD [facility] 07-25-2023 22:25-0500 Heart rate 88 /min DONATO LOMAS MD [facility] 07-25-2023 22:25-0500 Respiratory rate 18 /min DONATO LOMAS MD [facility] 07-25-2023 22:25-0500 Systolic Blood Pressure Non-Invasive 113 mm[Hg] DONATO LOMAS MD [facility] 07-21-2023 11:45-0500 Body temperature 97.88 [degF] EZEKIEL BENITEZ MD [facility] 07-21-2023 11:45-0500 Diastolic Blood Pressure Non-Invasive 64 mm[Hg] EZEKIEL BENITEZ MD [facility] 07-21-2023 11:45-0500 Heart rate 83 /min EZEKIEL BENITEZ MD [facility] 07-21-2023 11:45-0500 Mean blood pressure 80 mm[Hg] EZEKIEL BENITEZ MD [facility] 07-21-2023 11:45-0500 Reason For Taking VItal Signs EZEKIEL BENITEZ MD [facility] 07-21-2023 11:45-0500 Respiratory rate 14 /min EZEKIEL BENITEZ MD [address] [place] [address] 07-21-2023 11:45-0500 Systolic Blood Pressure Non-Invasive 117 mm[Hg] EZEKIEL BENITEZ MD [address] [place] [address] 07-21-2023 08:10-0500 Diastolic Blood Pressure Non-Invasive 73 mm[Hg] EZEKIEL BENITEZ MD [address] [place] [address] 07-21-2023 08:10-0500 Heart rate 70 /min EZEKIEL BENITEZ MD [address] [place] [address] 07-21-2023 08:10-0500 Mean blood pressure 85 mm[Hg] EZEKIEL BENITEZ MD [address] [place] [address] 07-21-2023 08:10-0500 Reason For Taking VItal Signs EZEKIEL BENITEZ MD [address] [place] [address] 07-21-2023 08:10-0500 Respiratory rate 15 /min EZEKIEL BENITEZ MD [address] [place] [address] 07-21-2023 08:10-0500 Systolic Blood Pressure Non-Invasive 122 mm[Hg] EZEKIEL BENITEZ MD [address] [place] [address] 07-21-2023 03:50-0500 Body temperature 97.88 [degF] EZEKIEL BENITEZ MD [address] [place] [address] 07-21-2023 03:50-0500 Diastolic Blood Pressure Non-Invasive 99 mm[Hg] EZEKIEL BENITEZ MD [address] [place] [address] 07-21-2023 03:50-0500 Heart rate 79 /min EZEKIEL BENITEZ MD [address] [place] [address] 07-21-2023 03:50-0500 Mean blood pressure 108 mm[Hg] EZEKIEL BENITEZ MD [address] [place] [address] 07-21-2023 03:50-0500 Reason For Taking VItal Signs EZEKIEL BENITEZ MD [address] [place] [address] 07-21-2023 03:50-0500 Respiratory rate 18 /min EZEKIEL BENITEZ MD [address] [place] [address] 07-21-2023 03:50-0500 Systolic Blood Pressure Non-Invasive 117 mm[Hg] EZEKIEL BENITEZ MD [address] [place] [address] 07-20-2023 20:27-0500 Body temperature 98.06 [degF] EZEKIEL BENITEZ MD [address] [place] [address] 07-19-2023 13:18-0500 Body height 152.4 cm EZEKIEL BENITEZ MD [address] [place] [address] 07-19-2023 13:18-0500 Body weight 40.3 kg EZEKIEL BENITEZ MD [address] [place] [address] 07-19-2023 13:18-0500 Body weight 17.35 kg/m2 EZEKIEL BENITEZ MD [address] [place] [address] 07-19-2023 13:15-0500 Heart rate 85 /min EZEKIEL BENITEZ MD [address] 07-19-2023 12:15-0500 Diastolic Blood Pressure Non-Invasive 84 mm[Hg] DR BROWN WETZEL MD [address] [place] [address] 07-19-2023 12:15-0500 Heart rate 71 /min DR BROWN WETZEL MD [address] [place] [address] 07-19-2023 12:15-0500 Respiratory rate 24 /min DR BROWN WETZEL MD [facility] 07-19-2023 12:15-0500 Systolic Blood Pressure Non-Invasive 144 mm[Hg] DR BROWN WETZEL MD [facility] 07-19-2023 09:55-0500 Diastolic Blood Pressure Non-Invasive 70 mm[Hg] DR BROWN WETZEL MD [facility] 07-19-2023 09:55-0500 Heart rate 88 /min DR BROWN WETZEL MD [facility] 07-19-2023 09:55-0500 Respiratory rate 22 /min DR BROWN WETZEL MD [facility] 07-19-2023 09:55-0500 Systolic Blood Pressure Non-Invasive 119 mm[Hg] DR BROWN WETZEL MD [facility] 07-01-2023 11:08-0500 Body temperature 96.8 [degF] ANALY MONDRAGON DO [facility] 07-01-2023 11:08-0500 Diastolic Blood Pressure Non-Invasive 79 mm[Hg] ANALY MONDRAGON DO [facility] 07-01-2023 11:08-0500 Heart rate 70 /min ANALY MONDRAGON DO [facility] 07-01-2023 11:08-0500 Respiratory rate 16 /min ANALY MONDRAGON DO [facility] 07-01-2023 11:08-0500 Systolic Blood Pressure Non-Invasive 124 mm[Hg] ANALY MONDRAGON DO [facility] 03-03-2023 09:47-0400 Diastolic Blood Pressure Non-Invasive 83 1 ANALY ANAYA MD [facility] 03-03-2023 09:47-0400 Heart rate 68 /min ANALY ANAYA MD [facility] 03-03-2023 09:47-0400 Respiratory rate 21 /min ANALY ANAYA MD [facility] 03-03-2023 09:47-0400 Systolic Blood Pressure Non-Invasive 145 1 ANALY ANAYA MD [facility] 03-03-2023 09:41-0400 Diastolic Blood Pressure Non-Invasive 80 1 ANALY ANAYA MD [facility] 03-03-2023 09:41-0400 Heart rate 67 /min ANALY ANAYA MD [facility] 03-03-2023 09:41-0400 Respiratory rate 15 /min ANALY ANAYA MD [facility] 03-03-2023 09:41-0400 Systolic Blood Pressure Non-Invasive 138 1 ANALY ANAYA MD [facility] 03-03-2023 09:33-0400 Diastolic Blood Pressure Non-Invasive 80 1 ANALY ANAYA MD [facility] 03-03-2023 09:33-0400 Heart rate 67 /min ANALY ANAYA MD [facility] 03-03-2023 09:33-0400 Respiratory rate 15 /min ANALY ANAYA MD [facility] 03-03-2023 09:33-0400 Systolic Blood Pressure Non-Invasive 159 1 ANALY ANAYA MD [facility] 03-03-2023 08:40-0400 Body temperature 96.8 [degF] ANALY ANAYA MD [facility] 03-03-2023 08:35-0400 Respiratory Rate - Anes 12 br/min ANALY ANAYA MD [facility] 03-03-2023 08:30-0400 Respiratory Rate - Anes 19 br/min ANALY ANAYA MD [facility] 03-03-2023 08:25-0400 Respiratory Rate - Anes 12 br/min ANALY ANAYA MD [facility] 03-03-2023 07:18-0400 Blood Pressure Cuff Size ANALY ANAYA MD [facility] 03-03-2023 07:18-0400 Blood Pressure Location ANALY ANAYA MD [facility] 03-03-2023 07:18-0400 Blood Pressure Method ANALY ANAYA MD [facility] 03-03-2023 07:18-0400 Body height 151 cm ANALY ANAYA MD [facility] 03-03-2023 07:18-0400 Body temperature 95.72 [degF] ANALY ANAYA MD [facility] 03-03-2023 07:18-0400 Body weight 37.2 kg ANALY ANAYA MD [facility] 03-03-2023 07:18-0400 Body weight 16.32 kg/m2 ANALY ANAYA MD [facility] 03-03-2023 07:18-0400 Heart rate 70 /min ANALY ANAYA MD [facility] 10-03-2022 13:00-0500 Diastolic Blood Pressure Non-Invasive 86 1 HELENA TERESA MD [facility] 10-03-2022 13:00-0500 Heart rate 71 /min HELENA TERESA MD [facility] 10-03-2022 13:00-0500 Respiratory rate 18 /min HELENA TERESA MD [facility] 10-03-2022 13:00-0500 Systolic Blood Pressure Non-Invasive 139 1 HELENA TERESA MD [facility] 10-03-2022 12:45-0500 Diastolic Blood Pressure Non-Invasive 82 1 HELENA TERESA MD [facility] 10-03-2022 12:45-0500 Heart rate 72 /min HELENA TERESA MD [facility] 10-03-2022 12:45-0500 Systolic Blood Pressure Non-Invasive 141 1 HELENA TERESA MD [facility] 10-03-2022 12:15-0500 Diastolic Blood Pressure Non-Invasive 71 1 HELENA TERESA MD [facility] 10-03-2022 12:15-0500 Heart rate 65 /min HELENA TERESA MD [facility] 10-03-2022 12:15-0500 Respiratory rate 20 /min HELENA TERESA MD [facility] 10-03-2022 12:15-0500 Systolic Blood Pressure Non-Invasive 125 1 HELENA TERESA MD [facility] 10-03-2022 11:15-0500 Body temperature 96.98 [degF] HELENA TERESA MD [facility] 10-03-2022 11:10-0500 Respiratory Rate - Anes 0 br/min HELENA TERESA MD [facility] 10-03-2022 11:05-0500 Respiratory Rate - Anes 13 br/min HELENA TERESA MD [facility] 10-03-2022 11:00-0500 Respiratory Rate - Anes 16 br/min HELENA TERESA MD [facility] 10-03-2022 09:09-0500 Body height 162.6 cm HELENA TERESA MD [facility] 10-03-2022 09:09-0500 Body weight 37.3 kg HELENA TERESA MD [facility] 10-03-2022 09:08-0500 Body height 162.6 cm HELENA TERESA MD [facility] 10-03-2022 09:08-0500 Body temperature 98.06 [degF] HELENA TERESA MD [facility] 10-03-2022 09:08-0500 Body weight 37.3 kg HELENA TERESA MD [facility] 10-03-2022 09:08-0500 Heart rate 75 /min HELENA TERESA MD [facility] 09-24-2022 09:19-0500 Blood Pressure Cuff Size HELENA TERESA MD [facility] 09-24-2022 09:19-0500 Blood Pressure Location HELENA TERESA MD [facility] 09-24-2022 09:19-0500 Blood Pressure Method HELENA TERESA MD [facility] 09-24-2022 09:19-0500 Body height 152.4 cm HELENA TERESA MD [facility] 09-24-2022 09:19-0500 Body weight 38.8 kg HELENA TERESA MD [facility] 09-24-2022 09:19-0500 Body weight 16.71 kg/m2 HELENA TERESA MD [facility] 09-24-2022 09:19-0500 Diastolic Blood Pressure Non-Invasive 70 1 HELENA TERESA MD [facility] 09-24-2022 09:19-0500 Heart rate 68 /min HELENA TERESA MD [facility] 09-24-2022 09:19-0500 Systolic Blood Pressure Non-Invasive 124 1 HELENA TERESA MD [facility] 04-13-2022 00:40-0400 Diastolic blood pressure 90 mm[Hg] ARTUR GARCIAS DO [facility] 04-13-2022 00:40-0400 Heart rate 76 /min ARTUR GARCIAS DO [facility] 04-13-2022 00:40-0400 Respiratory rate 16 /min ARTUR GARCIAS DO [facility] 04-13-2022 00:40-0400 Systolic blood pressure 138 mm[Hg] ARTUR GARCIAS DO [facility] 04-12-2022 22:00-0400 Diastolic blood pressure 74 mm[Hg] ARTUR GARCIAS DO [facility] 04-12-2022 22:00-0400 Heart rate 88 /min ARTUR GARCIAS DO [facility] 04-12-2022 22:00-0400 Systolic blood pressure 148 mm[Hg] ARTUR GARCIAS DO [facility] 04-12-2022 20:47-0400 Body temperature 97.88 [degF] ARTUR GARCIAS DO [facility] 04-12-2022 20:47-0400 Body weight 40 kg ARTUR GARCIAS DO [facility] 04-12-2022 20:47-0400 Diastolic blood pressure 91 mm[Hg] ARTUR GARCIAS DO [facility] 04-12-2022 20:47-0400 Heart rate 92 /min ARTUR GARCIAS DO [facility] 04-12-2022 20:47-0400 Respiratory rate 16 /min ARTUR GARCIAS DO [facility] 04-12-2022 20:47-0400 Systolic blood pressure 156 mm[Hg] ARTUR GARCIAS DO [facility] 04-08-2022 09:15-0400 Diastolic Blood Pressure NBP 84 1 TOM LANIER MD [facility] 04-08-2022 09:15-0400 Heart rate 68 /min TOM LAINER MD [facility] 04-08-2022 09:15-0400 Respiratory rate 17 /min TOM LANIER MD [facility] 04-08-2022 09:15-0400 Systolic Blood Pressure NBP 118 1 TOM LANIER MD [facility] 04-08-2022 08:53-0400 Diastolic Blood Pressure NBP 74 1 TOM LANIER MD [facility] 04-08-2022 08:53-0400 Heart rate 69 /min TOM LANIER MD [facility] 04-08-2022 08:53-0400 Respiratory rate 16 /min TOM LANIER MD [facility] 04-08-2022 08:53-0400 Systolic Blood Pressure NBP 107 1 TOM LANIER MD [facility] 04-08-2022 08:43-0400 Diastolic Blood Pressure NBP 64 1 TOM LANIER MD [facility] 04-08-2022 08:43-0400 Heart rate 96 /min TOM LANIER MD [facility] 04-08-2022 08:43-0400 Respiratory rate 17 /min TOM LANIER MD [facility] 04-08-2022 08:43-0400 Systolic Blood Pressure NBP 108 1 TOM LANIER MD [facility] 04-08-2022 08:15-0400 Body temperature 98.6 [degF] TOM LANIER MD [facility] 04-08-2022 07:19-0400 Body height 152 cm TOM LANIER MD [facility] 04-08-2022 07:19-0400 Body weight 41.5 kg TOM LANIER MD [facility] 04-08-2022 07:19-0400 Body weight 17.96 kg/m2 TOM LANIER MD [facility] 04-08-2022 06:52-0400 Body height 152 cm TOM LANIER MD [facility] 04-08-2022 06:52-0400 Body temperature 97.7 [degF] TOM LANIER MD [facility] 04-08-2022 06:52-0400 Body weight 41.5 kg TOM LANIER MD [facility] 01-01-2022 07:44-0400 diastolic 89 mm[Hg] TOM LANIER MD [facility] 01-01-2022 07:44-0400 Heart rate 76 /min TOM LANIER MD [facility] 01-01-2022 07:44-0400 Respiratory rate 16 /min TOM LANIER MD [facility] 01-01-2022 07:44-0400 systolic 143 mm[Hg] TOM LANIER MD [facility] 01-01-2022 07:30-0400 diastolic 100 mm[Hg] TOM LANIER MD [facility] 01-01-2022 07:30-0400 Heart rate 82 /min TOM LANIER MD [facility] 01-01-2022 07:30-0400 Respiratory rate 16 /min TOM LANIER MD [facility] 01-01-2022 07:30-0400 systolic 159 mm[Hg] TOM LANIER MD [facility] 01-01-2022 07:01-0400 Body height 152.4 cm TOM LANIER MD [facility] 01-01-2022 07:01-0400 Body temperature 96.98 [degF] TOM LANIER MD [facility] 01-01-2022 07:01-0400 Body weight 41.5 kg TOM LANIER MD [facility] 01-01-2022 07:01-0400 Body weight 17.87 kg/m2 TOM LANIER MD [facility] 01-01-2022 07:01-0400 diastolic 88 mm[Hg] TOM LANIER MD [facility] 01-01-2022 07:01-0400 Heart rate 70 /min TOM LANIER MD [facility] 01-01-2022 07:01-0400 Respiratory rate 16 /min TOM LANIER MD [facility] 01-01-2022 07:01-0400 systolic 161 mm[Hg] TOM LANIER MD [facility] 07-21-2021 21:07-0500 Diastolic blood pressure 75 mm[Hg] DR JOSSE HENDRICKS MD [facility] 07-21-2021 21:07-0500 Heart rate 85 /min DR JOSSE HENDRICKS MD [facility] 07-21-2021 21:07-0500 Respiratory rate 18 /min DR JOSSE HENDRICKS MD [facility] 07-21-2021 21:07-0500 Systolic blood pressure 145 mm[Hg] DR JOSSE HENDRICKS MD [facility] 07-21-2021 18:05-0500 Body temperature 98.24 [degF] DR JOSSE HENDRICKS MD [facility] 07-21-2021 18:05-0500 Body weight 40.[address] JOSSE HENDRICKS MD [facility] 07-21-2021 18:05-0500 Diastolic blood pressure 93 mm[Hg] DR JOSSE HENDRICKS MD [facility] 07-21-2021 18:05-0500 Heart rate 97 /min DR JOSSE HENDRICKS MD [facility] 07-21-2021 18:05-0500 Respiratory rate 16 /min DR JOSSE HENDRICKS MD [facility] 07-21-2021 18:05-0500 Systolic blood pressure 165 mm[Hg] DR JOSSE HENDRICKS MD [facility] 07-02-2021 09:31-0500 Heart rate 102 /min DR BHAKTI REYES MD [facility] 07-02-2021 08:13-0500 Heart rate 105 /min DR BHAKTI REYES MD [facility] 07-02-2021 08:13-0500 Reason For Taking VItal Signs DR BHAKTI REYES MD [facility] 07-02-2021 08:13-0500 Respiratory rate 20 /min DR BHAKTI REYES MD [facility] 07-02-2021 07:33-0500 Heart rate 95 /min DR BHAKTI REYES MD [facility] 07-02-2021 07:24-0500 Heart rate 92 /min DR BHAKTI REYES MD [facility] 07-02-2021 07:24-0500 Respiratory rate 16 /min DR BHAKTI REYES MD [facility] 07-02-2021 07:15-0500 Body temperature 98.42 [degF] DR BHAKTI REYES MD [facility] 07-02-2021 07:15-0500 Diastolic Blood Pressure NBP [address] REYES [address] [facility] 07-02-2021 07:15-0500 Mean blood pressure 80 mm[Hg] DR BHAKTI REYES MD [facility] 07-02-2021 07:15-0500 Reason For Taking VItal Signs DR BHAKTI REYES MD [facility] 07-02-2021 07:15-0500 Respiratory rate 16 /min DR BHAKTI REYES MD [facility] 07-02-2021 07:15-0500 Systolic Blood Pressure NBP [address] RE[address] [facility] 07-02-2021 05:44-0500 Reason For Taking VItal Signs DR BHAKTI REYES MD [facility] 07-02-2021 03:43-0500 Body temperature 97.7 [degF] DR BHAKTI REYES MD [facility] 07-02-2021 03:43-0500 Diastolic Blood Pressure NBP [address]TI REYES MD [facility] 07-02-2021 03:43-0500 Mean blood pressure 91 mm[Hg] DR BHAKTI REYES MD [facility] 07-02-2021 03:43-0500 Systolic Blood Pressure NBP [address] REYES MD [facility] 07-01-2021 23:05-0500 Diastolic Blood Pressure NBP [address] REYES MD [facility] 07-01-2021 23:05-0500 Mean blood pressure 70 mm[Hg] DR BHAKTI REYES MD [facility] 07-01-2021 23:05-0500 Systolic Blood Pressure NBP [address] REYES [address] [facility] 07-01-2021 23:00-0500 Body temperature 99.32 [degF] DR BHAKTI REYES MD [facility] 07-01-2021 20:13-0500 Heart rate 74 /min DR BHAKTI REYES MD [facility] 07-01-2021 06:56-0500 Heart rate 93 /min DR BHAKTI REYES MD [facility] 06-28-2021 05:00-0500 Diastolic blood pressure 53 mm[Hg] DR BHAKTI REYES MD [facility] 06-28-2021 05:00-0500 Mean blood pressure 66 mm[Hg] DR BHAKTI REYES MD [facility] 06-28-2021 05:00-0500 Systolic blood pressure 92 mm[Hg] DR BHAKTI REYES MD [facility] 06-28-2021 03:36-0500 Signs/Symptoms Transfusion Reaction DR BHAKTI REYES MD [facility] 06-28-2021 02:36-0500 Signs/Symptoms Transfusion Reaction No DR BHAKTI REYES MD [facility] 06-28-2021 02:36-0500 Diastolic blood pressure 62 mm[Hg] DR BHAKTI REYES MD [facility] 06-28-2021 02:36-0500 Systolic blood pressure 110 mm[Hg] DR BHAKTI REYES MD [facility] 06-28-2021 02:05-0500 Signs/Symptoms Transfusion Reaction DR BHAKTI REYES MD [facility] 06-27-2021 23:45-0500 Diastolic blood pressure 75 mm[Hg] DR BHAKTI REYES MD [facility] 06-27-2021 23:45-0500 Mean blood pressure 77 mm[Hg] DR BHAKTI REYES MD [facility] 06-27-2021 23:45-0500 Systolic blood pressure 78 mm[Hg] DR BHAKTI REYES MD [facility] 06-27-2021 23:30-0500 Diastolic blood pressure 83 mm[Hg] DR BHAKTI REYES MD [facility] 06-27-2021 23:30-0500 Mean blood pressure 84 mm[Hg] DR BHAKTI REYES MD [facility] 06-27-2021 23:30-0500 Systolic blood pressure 86 mm[Hg] DR BHAKTI REYES MD [facility] 06-27-2021 23:22-0500 Diastolic blood pressure 88 mm[Hg] DR BHAKTI REYES MD [facility] 06-27-2021 23:22-0500 Mean blood pressure 85 mm[Hg] DR BHAKTI REYES MD [facility] 06-27-2021 23:22-0500 Systolic blood pressure 93 mm[Hg] DR BHAKTI REYES MD [facility] 06-27-2021 22:40-0500 Diastolic blood pressure 57 mm[Hg] DR BHAKTI REYES MD [facility] 06-27-2021 22:40-0500 Systolic blood pressure 100 mm[Hg] DR BHAKTI REYES MD [facility] 06-27-2021 11:00-0500 Body temperature 96.1 [degF] DR BHAKTI REYES MD [facility] 06-27-2021 10:55-0500 Body temperature 95.95 [degF] DR BHAKTI REYES MD [facility] 06-27-2021 10:50-0500 Body temperature 95.86 [degF] DR BHAKTI REYES MD [facility] 06-27-2021 10:49-0500 SaO2% (BldA) [Mass fraction] 99.7 % DR BHAKTI REYES MD [facility] 06-27-2021 10:11-0500 SaO2% (BldA) [Mass fraction] 98.6 % DR BHAKTI REYES MD [facility] 06-27-2021 06:51-0500 SaO2% (BldA) [Mass fraction] 95.6 % DR BHAKTI REYES MD [facility] 06-27-2021 06:36-0500 Body height 152.[address] BHAKTI REYES MD [facility] 06-27-2021 06:36-0500 Body temperature 98.06 [degF] DR BHAKTI REYES MD [facility] 06-27-2021 06:36-0500 Body weight 42.[address] BHAKTI REYES MD [facility] 06-27-2021 06:36-0500 Body weight 18.17 kg/m2 DR BHAKTI REYES MD [facility] 06-27-2021 06:36-0500 diastolic 63 mm[Hg] DR BHAKTI REYES MD [facility] 06-27-2021 06:36-0500 systolic 117 mm[Hg] DR BHAKTI REYES MD [facility] 06-21-2021 10:25-0400 Body height [address] BHAKTI REYES MD [facility] 06-21-2021 10:25-0400 Body temperature 98.06 [degF] DR BHAKTI REYES MD [facility] 06-21-2021 10:25-0400 Body weight 42.[address] BHAKTI REYES MD [facility] 06-21-2021 10:25-0400 diastolic 77 mm[Hg] DR BHAKTI REYES MD [facility] 06-21-2021 10:25-0400 Heart rate 86 /min DR BHAKTI REYES MD [facility] 06-21-2021 10:25-0400 systolic 121 mm[Hg] DR BHAKTI REYES MD [facility] Encounters Encounter Date Encounter Type Care Provider Facility Start: 08-20-2023 End: 08-21-2023 ambulatory EZEKIEL BENITEZ MD Facility:A Start: 08-05-2023 End: 08-06-2023 ambulatory EZEKIEL BENITEZ MD Facility:A Start: 08-05-2023 End: 08-05-2023 Patient encounter procedure EZEKIEL BENITEZ MD [facility] Start: 07-26-2023 End: 07-26-2023 Emergency department patient visit DONATO LOMAS MD Facility:B Start: 07-25-2023 End: 07-25-2023 Emergency department patient visit DONATO LOMAS MD [facility] Start: 07-19-2023 End: 07-21-2023 Evaluation and management of inpatient EZEKIEL BENITEZ MD Facility:A Start: 07-19-2023 End: 07-21-2023 Evaluation and management of inpatient EZEKIEL BENITEZ MD [facility] Start: 07-19-2023 End: 07-19-2023 Emergency department patient visit DR BROWN WETZEL MD Facility:B Start: 07-19-2023 End: 07-19-2023 Emergency department patient visit DR BROWN WETZEL MD [facility] Start: 07-01-2023 End: 07-01-2023 ambulatory ANALY MONDRAGON DO Facility:B Start: 07-01-2023 End: 07-01-2023 SAME DAY STAY ANALY MONDRAGON DO 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 Start: 04-23-2023 End: 04-24-2023 ambulatory EZEKIEL BENITEZ MD Facility:A Start: 04-23-2023 End: 04-23-2023 Patient encounter procedure EZEKIEL BENITEZ MD [facility] Start: 03-31-2023 End: 04-01-2023 ambulatory ANALY ABREUY Facility:B Start: 03-31-2023 End: 03-31-2023 Patient encounter procedure ANALY ANAYA MD [facility] Start: 03-10-2023 End: 03-11-2023 ambulatory ANALY MONDRAGON DO Facility:B Start: 03-03-2023 End: 03-03-2023 ambulatory ANALY MONDRAGON DO Facility:B Start: 03-03-2023 End: 03-03-2023 SAME DAY STAY ANALY ANAYA MD [facility] Start: 02-12-2023 End: 02-13-2023 ambulatory ANALY MONDRAGON DO Facility:B Start: 01-15-2023 End: 01-16-2023 ambulatory ANALY MONDRAGON DO Facility:B Start: 01-15-2023 End: 01-15-2023 Patient encounter procedure POPPY A BURNS MEDICAL SCIENTIFIC LIAISON-GIS MAPPING TECHNICIAN [facility] Start: 12-16-2022 End: 12-17-2022 ambulatory ANALY ANAYA MD Facility:B Start: 12-16-2022 End: 12-16-2022 Patient encounter procedure ANALY ANAYA MD [facility] Start: 11-21-2022 ambulatory EZEKIEL BENITEZ MD Facilit y:A Start: 11-18-2022 End: 11-19-2022 ambulatory ANALY ANAYA MD Facility:B Start: 11-18-2022 End: 11-18-2022 Patient encounter procedure ANALY ANAYA MD [facility] Start: 10-16-2022 End: 10-17-2022 ambulatory POPPY BURNS [employer] SCIENTIFIC LIAISON-GIS MAPPING TECHNICIAN Facility:B Start: 10-03-2022 End: 10-03-2022 ambulatory HELENA TERESA MD Facility:B Start: 10-03-2022 End: 10-03-2022 SAME DAY STAY HELENA TERESA MD [facility] Start: 09-24-2022 End: 09-25-2022 ambulatory HELENA TERESA MD Facility:B Start: 09-24-2022 End: 09-24-2022 Admission to establishment HELENA TERESA MD [facility] Start: 08-28-2022 End: 08-29-2022 ambulatory POPPY BURNS [employer]ICAL SCIENTIFIC LIAISON-GIS MAPPING TECHNICIAN Facility:B Start: 08-27-2022 End: 08-28-2022 ambulatory ANALY MONDRAGON DO Facility:B Start: 08-27-2022 End: 08-27-2022 Patient encounter procedure ANALY MONDRAGON DO [facility] Start: 07-31-2022 End: 07-31-2022 Patient encounter procedure POPPY BURNS [employer]ICAL SCIENTIFIC LIAISON-GIS MAPPING TECHNICIAN [facility] Start: 05-21-2022 End: 05-21-[address] EZEKIEL BENITEZ MD [facility] Start: 05-07-2022 End: 05-07-2022 Patient encounter procedure TOM LANIER MD [facility] Start: 04-16-2022 End: 04-16-2022 Patient encounter procedure TOM LANIER MD [facility] Start: 04-12-2022 End: 04-13-2022 Emergency department patient visit ARTUR GARCIAS DO [facility] Start: 04-08-2022 End: 04-08-2022 SAME DAY STAY TOM LANIER MD [facility] Start: 03-19-2022 End: 03-19-2022 Patient encounter procedure TOM LANIER MD [facility] Start: 03-05-2022 End: 03-05-2022 Patient encounter procedure TOM LANIER MD [facility] Start: 01-29-2022 End: 01-29-2022 Patient encounter procedure TOM LANIER MD [facility] Start: 01-01-2022 End: 01-01-2022 Minor Procedure TOM LANIER MD [facility] Start: 12-25-2021 End: 12-25-2021 Patient encounter procedure TOM LANIER MD [facility] Start: 12-10-2021 End: 12-10-2021 Patient encounter procedure JOY ESTRADA MEDICAL SCIENTIFIC LIAISON-GIS MAPPING TECHNICIAN [facility] Start: 07-21-2021 End: 07-21-2021 Emergency department patient visit DR JOSSE HENDRICKS MD [facility] Start: 07-09-2021 End: 07-09-2021 Patient encounter procedure JOY ESTRADA MEDICAL SCIENTIFIC LIAISON-GIS MAPPING TECHNICIAN [facility] Start: 2021 End: 2021 Patient encounter procedure JOY ESTRADA MEDICAL SCIENTIFIC LIAISON-GIS MAPPING TECHNICIAN [facility] Start: 07-03-2021 End: 07-03-2021 Patient encounter procedure JOY ESTRADA MEDICAL SCIENTIFIC LIAISON-GIS MAPPING TECHNICIAN [facility] Start: 06-27-2021 End: 07-02-2021 Evaluation and management of inpatient DR BHAKTI REYES MD [facility] Start: 06-22-2021 End: 06-22-[address] BHAKTI REYES MD [facility] Start: 06-21-2021 End: 06-21-[address] BHAKTI REYES MD [facility] Start: 06-21-2021 End: 06-21-[address] BHAKTI REYES MD [facility] Start: 06-13-2021 End: 06-13-2021 Patient encounter procedure EVIN MURPHY MD [facility] Start: 11-30-2018 Patient encounter procedure Jamey García Facility:[facility] Start: 11-19-2018 End: 11-20-2018 Patient encounter procedure Tanya Willard Facility:[facility] Start: 10-30-2018 End: 10-30-2018 Patient encounter procedure Jamey García Facility:[facility] Start: 10-30-2018 Patient encounter procedure Facility:[id number] Start: 10-15-2018 End: 10-16-2018 Patient encounter procedure Keaton Chaney Facility:[facility] Procedures Date Procedure Procedure Detail Performing Clinician Start: 06-05-2023 Neurostimulator, dev ice (physical object) ANALY MONDRAGON DO Immunizations Immunization Date Immunization Notes Care Provider [facility] 07-02-2021 influenza, injectabl e, quadrivalent, preservative free; Translations: [Fluarix PF Quadrivalent ] DR BHAKTI REYES MD [facility] 07-28-2017 tetanus toxoid, redu alyssa diphtheria toxoid, and acellular pertussis vaccine, adsorbed DR BHAKTI REYES MD [facility] Payers Date Payer Category Payer Medicare [id number] 2022 Unknown [id number] 2018 Private Health Insurance 1955 Unknown [id number] 2.16. 840.1.604875.3.579.2.356 1953 Unknown [id number] 2.16.84 0.1.873995.3.579.2. 1953 Unknown [id number] 2.16.84 0.1.924841.3.579.2. 1953 Unknown [id number] 2.16.84 0.1.531266.3.579.2.71 1953 Unknown [id number] 2.16.84 0.1.539088.3.579.2. 1953 Unknown [id number] 2.16.84 0.1.646347.3.579.2. 1953 Unknown [id number] 2.16.8 40.1.590388.3.579.2. 1953 Unknown [id number] 2.16.8 40.1.866359.3.579.2. 1953 Unknown [id number] 2.16.8 40.1.500978.3.579.2. 1953 Unknown [id number] 2.16.8 40.1.245535.3.579.2. 1953 Unknown [id number] 2.16.8 40.1.532798.3.579.2. 1953 Unknown [id number] 2.16.8 40.1.138509.3.579.2. 1953 Unknown [id number] 2.16.8 40.1.497255.3.579.2. 1953 Unknown [id number] 2.16.8 40.1.684365.3.579.2.62 1953 Unknown [id number] 2.16.8 40.1.833351.3.579.2.62 1953 Unknown [id number] 2.16.8 40.1.691451.3.579.2.627 1953 Unknown [id number] 2.16.8 40.1.658720.3.579.2. 1953 Unknown [id number] 2.16.8 40.1.670090.3.579.2. 1953 Unknown [id number] 2.16.8 40.1.520339.3.579.2. 1953 Unknown [id number] 2.16.8 40.1.560984.3.579.2. 1953 Unknown [id number] 2.16.8 40.1.023624.3.579.2. 1953 Unknown [id number] 2.16.8 40.1.508444.3.579.2. 1953 Unknown [id number] 2.16.8 40.1.348275.3.579.2. 1953 Unknown [id number] 2.16.8 40.1.455730.3.579.2. 1953 Unknown [id number] 2.16.8 40.1.136944.3.579.2. 1953 Unknown [id number] 2.16.8 40.1.478044.3.579.2. 1953 Unknown [id number] 2.16.8 40.1.680463.3.579.2. 1953 Unknown [id number] 2.16.8 40.1.715460.3.579.2. 1953 Unknown [id number] 2.16.8 40.1.880095.3.579.2. 1953 Unknown [id number] 2.16.8 40.1.231454.3.579.2. 1953 Unknown [id number] 2.16.8 40.1.785605.3.579.2.627 Private Health Insurance [id number] Social History Date Type Detail Facility Start: 09-01-2019 Never smoked t obacco (finding) [facility] Sex Assigned At Female [facility] Start: 06-21-2021 End: 05-21-2022 Ex-smoker (finding) [facility] Medical Equipment Procedure Code Equipment Code Equipment [...] Assessment Result Facility 07-25-2023 Functional Status Independent [facility] 07-25-2023 Functional Status Standard Safet y ID band on, Allergy Band on, Call device within reach, Bed in low position, personal items within reach, Visitor at bedside, Safety level maintained [facility] 07-21-2023 Functional Status Room check performed [facility] 07-21-2023 Functional Status Pt. lives w/ s on who works days. Pt. reports that she has another son and many friends who can stay with her if needed upon discharge. [facility] 07-21-2023 Functional Status [facility] 07-21-2023 Functional Status [facility] 07-21-2023 Functional Status [facility] 07-20-2023 Functional Status [facility] 07-20-2023 Functional Status Lunch Percent 75 [facility] 07-20-2023 Functional Status Skin Care Prev entative Intervention(s) heel(s)s elevated, turn and position system [facility] 07-20-2023 Functional Status 7am-3pm [facility] 07-20-2023 Functional Status Transparent silicone dr rogers [facility] 07-19-2023 Functional Status [facility] 07-19-2023 Functional Status [facility] 07-19-2023 Functional Status Repositions self [facility] 03-03-2023 Functional Status Awake [facility] 03-03-2023 Functional Status ice on [facility] 03-03-2023 Functional Status Maintained [facility] 10-03-2022 Functional Status bilateral knee high [facility] 10-03-2022 [facility] Functional Status Maintained [facility] 09-24-2022 Functional Status Sensory Deficits None A [facility] 04-13-2022 Functional Status Ambulating in clarke, Ambulating in room, Awake, Bathroom privileges [facility] 04-08-2022 Functional Status Ambulating in clarke, Ambulating in room, Awake [facility] 04-08-2022 Functional Status Steady without support [facility] 01-01-2022 Functional Status [facility] Mental Status Date Assessment Result Facility 07-25-2023 Mental Status Orientation Oriented x 4 [facility] 07-25-2023 Mental Status [facility] 07-21-2023 Mental Status Orientation Oriented x 4 [facility] 07-21-2023 Mental Status [facility] 07-21-2023 Mental Status [facility] 07-20-2023 Mental Status [facility] 07-20-2023 Mental Status [facility] 07-19-2023 Mental Status Orientation Oriented x 4 [facility] 03-03-2023 Mental Status Oriented x 4 [facility] 03-03-2023 Mental Status [facility] 10-03-2022 Mental Status Oriented x 4 [facility] 10-03-2022 Mental Status [facility] 04-13-2022 Mental Status Orientation Oriented x 4 [facility] 04-08-2022 Mental Status Oriented x 4 [facility] 01-01-2022 Mental Status [facility] Clinical Notes 07-02-2021 to 08-05-2023 Note Date & Type Note Facility 12-19-2023 Note ORIGINAL HISTORY: Lung cancer, hemorrhage COMPARISON: [...] Sign Date: 08/05/2023 10:24:45 AM Ordering Provider: [facility] 07-26-2023 Hospital Discharge instructions Patient Education 07/25/2023 23:16:10 Blurred Vision Blurred Vision Blurred vision is when your vision is no longer sharp and you can t see small details. Any changes in your vision, whether sudden or over time, should be checked out by an boarding specialist. Vision changes can be caused by [...] sidewalks. Follow-up care Follow up with an boarding specialist or as advised. There are two types of eye doctors you can consult: Tile Designer. This is a licensed doctor of optometry. Optometrists are not medical doctors. They specialize in eye exams and may diagnose some eye problems. They also prescribe glasses and contact lenses. Cotton Puller. This is a medical doctor who specializes in eye care. Ophthalmologists diagnose and treat all eye diseases, prescribe medicines, and perform eye surgery. They may also prescribe glasses and contact lenses. An wire communications engineer can provide a basic screening eye exam for much less cost than an liquor runner. The wire communications engineer can tell you if your condition needs the services of an liquor runner. When to seek medical advice Call your [...] Vision dims Part or full vision loss [phone] [employer]. [address] [place] [address]. All rights reserved. This information is not [...] face You have trouble talking or seeing [phone] [employer]. [address] [place] [address], [place] [address]. All rights reserved. This information is not intended as a substitute for professional medical care. Always follow your healthcare professional's instructions. Follow Up Care 07/25/2023 22:17:40 With:Your eye doctor Address:Unknown When:3-5 days Comments:Schedule appointment for close follow-up if symptoms persist. With:EZEKIEL BENITEZ Address: [address] [address] [phone] Business (1) When:08/04/2023 Comments:Follow-up as scheduled.Use Tylenol for headache as needed.Use Percocet as prescribed for headaches unrelieved with Tylenol.Resume all other routine home medications.Return to the ED if symptoms worsen. [facility] 07-25-2023 Note Discharge Instructions Thank you for allowing [facility] to assist you with your healthcare needs. [...] the ED if symptoms worsen. Where: [address] [facility] [address] [facility] [address]- [phone] Business (1) Follow Up with Your eye [...] a MIN oh fen and OX i DEREK done) Endocet 10/325, Endocet 2.5/325, Endocet 5/325, [...] may report side effects to FDA at 4-029-NKW-9380. What other drugs will affect acetaminophen and [...] affect acetaminophen and oxycodone, including prescription and wzkk-thp-iamtnce medicines, vitamins, and herbal products. Not all [...] to ensure that the information provided by [employer] ('[employer]') is accurate, up-to-date, and complete, but no guarantee is made to that effect. Drug information contained herein may be time sensitive. [employer] information has been compiled for use by healthcare practitioners and consumers in the [place] and therefore [employer] does not warrant that uses outside of the [place] are appropriate, unless specifically indicated otherwise. [employer] drug information does not endorse drugs, diagnose patients or recommend therapy. [employer] drug information is an informational resource designed [...] effective or appropriate for any given patient. [employer] does not assume any responsibility for any aspect of healthcare administered with the aid of information [employer] provides. The information contained herein is not intended to cover all possible uses, directions, precautions, warnings, drug interactions, allergic reactions, or adverse effects. If you have questions about the drugs you are taking, check with your doctor, nurse or pharmacist. Copyright 7250-2544 [employer] Version: 22.01. Revision Date: 03/20/2023. Education Materials Blurred Vision Blurred vision is when your vision is no longer sharp and you can t see small details. Any changes in your vision, whether sudden or over time, should be checked out by an boarding specialist. Vision changes can be caused by [...] sidewalks. Follow-up care Follow up with an boarding specialist or as advised. There are two types of eye doctors you can consult: Tile Designer. This is a licensed doctor of optometry. Optometrists are not medical doctors. They specialize in eye exams and may diagnose some eye problems. They also prescribe glasses and contact lenses. Cotton Puller. This is a medical doctor who specializes in eye care. Ophthalmologists diagnose and treat all eye diseases, prescribe medicines, and perform eye surgery. They may also prescribe glasses and contact lenses. An wire communications engineer can provide a basic screening eye exam for much less cost than an liquor runner. The wire communications engineer can tell you if your condition needs the services of an liquor runner. When to seek medical advice Call your [...] Vision dims Part or full vision loss [phone] [employer]. [address] [place] [address]. All rights reserved. This information is not [...] face You have trouble talking or seeing [phone] [employer]. [address] [place] [address], [place] [address]. All rights reserved. This information is not intended as a substitute for professional medical care. Always follow your healthcare professional's instructions. Additional Information VACCINATE! IT SAVES LIVES! Members of the community who have not yet received the COVID-19 vaccine and would like to receive it can visit one of [facility] vaccine clinics. There are many vaccine clinic locations within the [facility]. For locations and available times, please visit [email or web address] [email or web address] It is important to note that some COVID mobile vaccine clinics are held outdoors and may be canceled in rainy or stormy conditions. To learn more about pediatric vaccinations (ages 5-11), we invite you to visit the [facility] webpage. https://[email or web address].org/pag es/2082-Mraiu-Lnnhtfmsgdd-[email or web address] cd-Iqxbx-Ifpbjcirm.html To learn more about the COVID-19 vaccine, we invite you to visit the CDC website for a list of frequently asked questions. https://www.cdc.gov/coronavirus/20 19-ncov/vaccines/faq.html [facility] Patient Portal Access Instructions: Stay connected with your healthcare team and access your personal medical information anytime with the [facility] Patient Portal. If you would like a full copy of your medical records please contact the [facility] Medical Records Department Friday through Friday between 8a.m. and 4:30p.m. Please follow the directions below to access the portal: 1.Access the email account you provided upon registration to the hospital.2.Look for an invitation email from [facility].3.Open the email and access the invitation link: Accept Invitation to [facility].Fill in the required aldridge to create your account. Sign into [email or web address] with your username and password that you [...] you will allow to register on the [facility] Patient Portal for access to your information. You can also access the [facility] Patient Portal on the [employer] jesus manuel. Simply click on Health Records under Health Data and then click on the [employer] logo. HOW TO SAFELY DISPOSE OF PRESCRIPTION [...] Call your local pharmacy or go to [email or web address]/[email or web address] to find one close to you.3.Make use of household items: Use cat litter or old coffee grounds to dispose medications if other options are not available. Mix your drugs with these household products, seal them in an airtight container and throw it into the garbage. Call [facility]: [phone] to be sure your drugs can be [...] aware that I should contact my doctor. 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 The following is important discharge information regarding your hospital visit. Your Care Team ANALY MONDRAGON DO Your Diagnosis Intraparenchymal hemorrhage of brain Lumbar radiculopathy What to do next Instructions From Your Doctor CT scan scheduled at [facility] on 08/05/2023 at 9:30AM (ground floor, radiology department). After your scan, you will go directly to the neurosurgery office for your follow-up visit and review of head imaging. If you have any questions or concerns prior to scheduled follow-up, please call [facility] office. In addition, you will need to have a repeat brain MRI in 4 weeks for reevaluation. This is to be scheduled at [facility], and they will reach out to you to schedule this test at some point over the next several days. Once your test is scheduled, please reach out to Dr. Benitez's office at [phone] to schedule your follow-up visit with Dr. Benitez. Please reach out to our office with any questions or concerns; or if you do not hear from [facility] scheduling. Scheduled Follow-Up Appointments Appointment Type When With Where Contact InformationCT Head or Brain w/o Contrast 08/05/2023 09:45 AM EST Radiology [phone] NS OV 08/05/2023 10:30 AM EST LORETO LUI MD Neurosurgery [address] [phone] PC OV 08/06/2023 10:30 AM EST [facility] Follow Up with LORETO LUI MD, Neurosurgery When 08/05/2023 10:30 AM EST Where: [address] [facility] [address] [facility] [address] [phone] The Following Activity and Diet Have Been [...] of brain Duration: 3 Days Pickup at [facility] [address] New dexAMETHasone (dexAMETHasone 2 mg [...] qDay x2 days, then stop. Pickup at [facility] [address] New levETIRAcetam (Keppra 500 mg oral tablet) 1 tab(s) by mouth Two (2) times a day Pickup at [facility] [address] New pantoprazole (pantoprazole 40 mg oral enteric coated tablet) 1 tab(s) by mouth Once a day Pickup at [facility] [address] New polyethylene glycol 3350 (Miralax [...] Lumbar radiculopathy Duration: 30 Days Pharmacy Information [facility] 181: [address] [place], [place] [phone] What How Much When Comments Stop Taking [...] Follow these instructions at home: Medicines Take jjgn-sjj-wulczpj and prescription medicines only as told by [...] 03/01/2015 Document Revised: 01/07/2020 Document Reviewed: 07/08/2018 IngagePatient Patient Education 2020 Micello. Additional Information VACCINATE! IT SAVES LIVES! Members of the community who have not yet received the COVID-19 vaccine and would like to receive it can visit one of [facility] vaccine clinics. There are many vaccine clinic locations within the [facility]. For locations and available times, please visit https://gettheshot.coronavirus.[place].gov/. It is important to note that some COVID mobile vaccine clinics are held outdoors and may be canceled in rainy or stormy conditions. To learn more about pediatric vaccinations (ages 5-11), we invite you to visit the [facility] webpage. https://www.[facility].org/pag es/6582-Ahyze-Httnopynbrw-Frequent kf-Bznfw-Cjtrkaeyf.html To learn more about the COVID-19 vaccine, we invite you to visit the CDC website for a list of frequently asked questions.https://www.cdc.gov/radha navirus/2019-ncov/vaccines/faq.htm l [facility] Patient Portal Access Instructions: Stay connected with your healthcare team and access your personal medical information anytime with the [facility] Patient Portal. Please follow the directions below to create your [facility] account: 1.Access the email account you provided upon registration to the hospital/physician office.2.Look for an invitation email from [facility].3.Open the email and access the invitation link: Accept Invitation to [facility].4.Fill in the required aldridge to create your account. To access your account, visit [email or web address]. Click the blue button labeled Access Patient [...] you will allow to register on the [facility] [employer] Patient Portal for access to your information. You can also access the [facility] [employer] Patient Portal on the [facility] Anywhere jesus manuel. Simply click on Patient Portal and then log into your account. If you would like to receive a full copy of your medical records, please contact the [facility] Medical Records Department by calling [phone], Friday through Friday between 8 a.m. and [...] Call your local pharmacy or go to [email or web address] to find one close to you.3.Make use of household items: Use cat litter or old coffee grounds to dispose medications if other options are not available. Mix your drugs with these household products, seal them in an airtight container and throw it into the garbage. Call [facility]: [phone] to be sure your drugs can be [...] aware that I should contact my doctor. 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 07-21-2023 Hospital Discharge instructions Patient Education 07/21/2023 [...] Follow these instructions at home: Medicines Take kvlv-hvt-sziyldn and prescription medicines only as told by [...] 03/01/2015 Document Revised: 01/07/2020 Document Reviewed: 07/08/2018 IngagePatient Patient Education 2020 Micello. Follow Up Care 07/19/2023 12:04:06 With:LORETO LUI MD, Neurosurgery Address: [address] [place] [address] [place] [address]- [phone] When:08/05/2023 10:30:00 [facility] 07-21-2023 Note Discharge Instructions Thank you for allowing [facility] to assist you with your healthcare needs. The following is important discharge information regarding your hospital visit. Your Care Team ANALY MONDRAGON DO Your Diagnosis Intraparenchymal hemorrhage of brain Lumbar radiculopathy What to do next Instructions From Your Doctor CT scan scheduled at [facility] on 08/05/2023 at 9:30AM (ground floor, radiology department). After your scan, you will go directly to the neurosurgery office for your follow-up visit and review of head imaging. If you have any questions or concerns prior to scheduled follow-up, please call [facility] neurosurgery office. In addition, you will need to have a repeat brain MRI in 4 weeks for reevaluation. This is to be scheduled at [facility], and they will reach out to you to schedule this test at some point over the next several days. Once your test is scheduled, please reach out to Dr. Benitez's office at [phone] to schedule your follow-up visit with Dr. Benitez. Please reach out to our office with any questions or concerns; or if you do not hear from [facility] scheduling. Scheduled Follow-Up Appointments Appointment Type When With Where Contact InformationCT Head or Brain w/o Contrast 08/05/2023 09:45 AM EST Radiology [phone] NS OV 08/05/2023 10:30 AM EST LORETO LUI MD Neurosurgery [address] [id number] PC OV 08/06/2023 10:30 AM EST [facility] Appointments Follow Up with LORETO LUI MD, Neurosurgery When 08/05/2023 10:30 AM EST Where: [address] [address]- [phone] The Following Activity and Diet Have Been [...] of brain Duration: 3 Days Pickup at [facility] [address] New dexAMETHasone (dexAMETHasone 2 mg oral [...] qDay x2 days, then stop. Pickup at [facility] [address] New levETIRAcetam (Keppra 500 mg oral tablet) 1 tab(s) by mouth Two (2) times a day Pickup at [facility] [address] New pantoprazole (pantoprazole 40 mg oral enteric coated tablet) 1 tab(s) by mouth Once a day Pickup at [facility] [address] New polyethylene glycol 3350 (Miralax Powder [...] Lumbar radiculopathy Duration: 30 Days Pharmacy Information [facility] [address]: [address] [place], [place] [phone] What How Much When Comments Stop Taking [...] Follow these instructions at home: Medicines Take mlds-cbs-dsugwua and prescription medicines only as told by [...] 03/01/2015 Document Revised: 01/07/2020 Document Reviewed: 07/08/2018 Elsevier Patient Education 2020 IngagePatient Inc. Additional Information VACCINATE! IT SAVES LIVES! Members of the community who have not yet received the COVID-19 vaccine and would like to receive it can visit one of [facility] vaccine clinics. There are many vaccine clinic locations within the [facility]. For locations and available times, please visit https://gettheshot.coronavirus.[place].gov/. It is important to note that some COVID mobile vaccine clinics are held outdoors and may be canceled in rainy or stormy conditions. To learn more about pediatric vaccinations (ages 5-11), we invite you to visit the [facility] webpage. https://www.[facility].org/pag es/1840-Vvbxb-Ohzihahxkhx-Frequent ry-Ljngr-Gqybtpbgu.html To learn more about the COVID-19 vaccine, we invite you to visit the CDC website for a list of frequently asked questions.https://www.cdc.gov/radha navirus/2019-ncov/vaccines/faq.htm l [facility] Patient Portal Access Instructions: Stay connected with your healthcare team and access your personal medical information anytime with the [facility] Patient Portal. Please follow the directions below to create your [facility] account: 1.Access the email account you provided upon registration to the hospital/physician office.2.Look for an invitation email from [facility].3.Open the email and access the invitation link: Accept Invitation to Ed[facility].4.Fill in the required aldridge to create your account. To access your account, visit [email or web address]. Click the blue button labeled Access Patient [...] you will allow to register on the [facility] Patient Portal for access to your information. You can also access the [facility] Patient Portal on the [employer] Anywhere jesus manuel. Simply click on Patient Portal and then log into your account. If you would like to receive a full copy of your medical records, please contact the [facility] Medical Records Department by calling [phone], Friday through Friday between 8 a.m. and [...] Call your local pharmacy or go to [email or web address] to find one close to you.3.Make use of household items: Use cat litter or old coffee grounds to dispose medications if other options are not available. Mix your drugs with these household products, seal them in an airtight container and throw it into the garbage. Call [facility]: [phone] to be sure your drugs can be [...] aware that I should contact my doctor. 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 07-21-2023 Neurological surgery Progress note Date of Service 07/21/2023 This is a split/shared visit with Dr. Benitez Neurosurgical CC: Acute right frontal IPH with surrounding vasogenic edema This is a 68-year-old female with a PMH significant for lung adenocarcinoma s/p RVAT, RUL lobectomy 06/2021, COPD, former tobacco abuse, and chronic pain who presented to [facility] ED on 07/19/2023 with complaints of headache [...] appetite or unintentional weight loss. While in [place] ED, a noncontrasted head CT was obtained which demonstrated a large right frontal intraparenchymal hemorrhage, 4.1 cm in size with adjacent associated vasogenic edema and mild local mass effect present. Additionally, right frontal and right parafalcine subdural hematoma. Small amount of adjacent subarachnoid hemorrhage as well. Due to above findings, patient was discussed with on-call neurosurgeon who recommended transfer/admission to [facility] SICU for further observation and management. Patient [...] RVAT, RUL lobectomy 06/2021 who presented to [place] ED with a 5-day history of constant, diffuse achy headache. Noncontrasted head CT was obtained which demonstrated a large right frontal intraparenchymal hemorrhage, 4.1 cm in size with adjacent associated vasogenic edema and mild local mass effect present. Additionally, right frontal and right parafalcine subdural hematoma. Small amount of adjacent subarachnoid hemorrhage as well. Patient transferred to [facility] SICU for further evaluation and management. Initial [...] she does follow with her oncologist at [facility] on an outpatient basis. Notes that she has surveillance CT scans of her thorax every [address] thorax demonstrates no definite evidence of metastatic disease. CT abdomen pelvis demonstrates no evidence of acute abnormality. Patient is requesting a copy of her imaging studies completed here [facility] given that she would like her oncologist at [facility] to be able to review them as she does have an outpatient follow-up visit and with the next couple weeks. Please see Dr. Benitez's addendum for further details regarding neurosurgical assessment/plan of care. Digitally Signed by ARIELA GONZALEZ on 07/21/2023 09:[address] [facility] 07-21-2023 Neurological surgery Progress note Date of Service 07/21/2023 This is a split/shared visit with Dr. Benitez Neurosurgical CC: Acute right frontal IPH with surrounding vasogenic edema This is a 68-year-old female with a PMH significant for lung adenocarcinoma s/p RVAT, RUL lobectomy 06/2021, COPD, former tobacco abuse, and chronic pain who presented to [facility] ED on 07/19/2023 with complaints of headache [...] appetite or unintentional weight loss. While in [place] ED, a noncontrasted head CT was obtained which demonstrated a large right frontal intraparenchymal hemorrhage, 4.1 cm in size with adjacent associated vasogenic edema and mild local mass effect present. Additionally, right frontal and right parafalcine subdural hematoma. Small amount of adjacent subarachnoid hemorrhage as well. Due to above findings, patient was discussed with on-call neurosurgeon who recommended transfer/admission to [facility] SICU for further observation and management. Patient [...] RVAT, RUL lobectomy 06/2021 who presented to [place] ED with a 5-day history of constant, diffuse achy headache. Noncontrasted head CT was obtained which demonstrated a large right frontal intraparenchymal hemorrhage, 4.1 cm in size with adjacent associated vasogenic edema and mild local mass effect present. Additionally, right frontal and right parafalcine subdural hematoma. Small amount of adjacent subarachnoid hemorrhage as well. Patient transferred to [facility] SICU for further evaluation and management. Initial [...] she does follow with her oncologist at [facility] on an outpatient basis. Notes that she has surveillance CT scans of her thorax every [address] thorax demonstrates no definite evidence of metastatic disease. CT abdomen pelvis demonstrates no evidence of acute abnormality. Patient is requesting a copy of her imaging studies completed here [facility] given that she would like her oncologist at [facility] to be able to review them as she does have an outpatient follow-up visit and with the next couple weeks. Please see Dr. Benitez's addendum for further details regarding neurosurgical assessment/plan of care. Digitally Signed by ARIELA GONZALEZ on 07/21/2023 09:[address] [facility] 07-21-2023 History and physical note Date of Service 07/20/2023 This is a split/shared history and physical with Dr. Benitez Chief Complaint Headaches, fatigue History of Present Illness This is a 68-year-old female with a PMH significant for lung adenocarcinoma s/p RVAT, RUL lobectomy 06/2021, COPD, former tobacco abuse, and chronic pain who presented to [facility] ED on 07/19/2023 with complaints of headache [...] appetite or unintentional weight loss. While in [place] ED, a noncontrasted head CT was obtained which demonstrated a large right frontal intraparenchymal hemorrhage, 4.1 cm in size with adjacent associated vasogenic edema and mild local mass effect present. Additionally, right frontal and right parafalcine subdural hematoma. Small amount of adjacent subarachnoid hemorrhage as well. Due to above findings, patient was discussed with on-call neurosurgeon who recommended transfer/admission to [facility] SICU for further observation and management. Patient [...] RVAT, RUL lobectomy 06/2021 who presented to [place] ED with a 5-day history of constant, diffuse achy headache. Noncontrasted head CT was obtained which demonstrated a large right frontal intraparenchymal hemorrhage, 4.1 cm in size with adjacent associated vasogenic edema and mild local mass effect present. Additionally, right frontal and right parafalcine subdural hematoma. Small amount of adjacent subarachnoid hemorrhage as well. Patient transferred to [facility] SICU for further evaluation and management. Noncontrasted [...] she does follow with her oncologist at [facility] on an outpatient basis. Notes that she has surveillance CT scans of her thorax every 6 months and that she has one scheduled within the next couple of days. Will order CT chest, abd/pelvis for further evaluation. Consultation to dba developer team for critical care management. 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 07-20-2023 Note ORIGINAL EXAMINATION: CT OF THE ABDOMEN AND PELVIS WITH KVCTQSCB55/3/2023 3:54 pm TECHNIQUE: CT of the abdomen [...] Sign Date: 07/21/2023 8:38:37 AM Ordering Provider: [facility] 07-20-2023 Note ORIGINAL EXAMINATION: CT OF [...] Date: 07/20/2023 3:53:14 PM Ordering Provider: ARIELA GONZALEZ [facility] Acute right frontal IPH with surrounding vasogenic edema This is a 68-year-old female with PMH significant for lung adenocarcinoma s/p RVAT, RUL lobectomy 06/2021 who presented to [place] ED with a 5-day history of constant, diffuse achy headache. Noncontrasted head CT was obtained which demonstrated a large right frontal intraparenchymal hemorrhage, 4.1 cm in size with adjacent associated vasogenic edema and mild local mass effect present. Additionally, right frontal and right parafalcine subdural hematoma. Small amount of adjacent subarachnoid hemorrhage as well. Patient transferred to [facility] SICU for further evaluation and management. Noncontrasted [...] she does follow with her oncologist at [facility] on an outpatient basis. Notes that she has surveillance CT scans of her thorax every 6 months and that she has one scheduled within the next couple of days. Will order CT chest, abd/pelvis for further evaluation. Consultation to dba developer team for critical care management. Appreciate their [...] MRI Brain w/ + w/o Contrast 07/21/23 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 [id number] Note ORIGINAL EXAMINATION: MRI OF THE BRAIN [...] Sign Date: 07/20/2023 1:49:30 PM Ordering Provider: [facility]12-03-2023 History and physical note Date of Service 07/20/2023 This is a split/shared history and physical with Dr. Benitez Chief Complaint Headaches, fatigue History of Present Illness This is a 68-year-old female with a PMH significant for lung adenocarcinoma s/p RVAT, RUL nsoijapjr87/2021, COPD, former tobacco abuse, and chronic pain who presented to [facility] ED on 07/19/2023 with complaints of headache [...] appetite or unintentional weight loss. While in [place] ED, a noncontrasted head CT was obtained which demonstrated a large right frontalintraparenchymal hemorrhage, 4.1 cm in size with adjacent associated vasogenic edema and mild localmass effect present. Additionally, right frontal and right parafalcine subdural hematoma. Small amount of adjacent subarachnoid hemorrhage as well. Due to above findings, patient was discussed with on-call neurosurgeon who recommended transfer/admission to [facility] SICU for further observation and management. Patient [...] RVAT, RUL lobectomy 06/2021 who presented to [place] ED with a 5-day history of constant, diffuse achy headache. Noncontrasted head CT was obtained which demonstrated a large right frontal intraparenchymal hemorrhage, 4.1 cm in size with adjacent associated vasogenic edema and mild local mass effect present. Additionally, right frontal and right parafalcine subdural hematoma. Small amount of adjacent subarachnoid hemorrhage as well. Patient transferred to [facility] SICU for further evaluation and management. Noncontrasted [...] she does follow with her oncologist at [facility] on an outpatient basis. Notes that she has surveillance CT scans of her thorax every 6 months and that she has one scheduled within the next couple of days. Will order CT chest, abd/pelvis for further evaluation. Consultation to dba developer team for critical care management. 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 [id number] NoteSinus rhythm Borderline short HI interval Borderline T abnormalities, anterior leads Electronic Signature: BROWN WETZEL MD 07/19/2023 12:24:18[facility] 12-02-2023 Note ADDENDUM ADDENDUM: Findings were discussed [...] Sign Date: 07/19/2023 11:09:53 AM Ordering Provider: [facility]10-11-2023 Note. MICRO - Microbiology PROCEDURE: [...] Locations *1: This test was performed at: [facility], [address] [place] [address], [id number]- , [facility] ([place])03-03-2023 Note ORIGINAL Images acquired, not reported on this accession number. [facility]07-17-2023 Note ORIGINAL Images acquired, not reported on this accession number.[facility]07-17-2023 Hospital Discharge instructions Patient Education 03/03/2023 09:05:42 [...] soap and waterare not available, use hand stain wiper. ?Change your dressings as told by your [...] can be controlled with a remote. Take xesx-axf-rrxfamu and prescription medicines only as told by [...] 09/17/2018 Document Revised: 11/25/2019 Document Reviewed: 09/17/2018 IngagePatient Patient Education 2020 IngagePatient Inc. 03/03/2023 09:05:39 Spinal Cord Stimulation Trial [...] of pain medicine that you take. Take kdwt-bbv-pxstnqm and prescription medicines only as told by [...] 11/19/2011 Document Revised: 09/08/2019 Document Reviewed: 09/08/2019 IngagePatient Patient Education 2020 [employer]. 03/03/2023 09:05:22 How to Use Cold Therapy, Clvr-bm-Yfmc How to Use Cold Therapy Cold therapy, [...] 01/20/2009 Document Revised: 05/03/2019 Document Reviewed: 05/03/2019 IngagePatient Patient Education 2020 [employer]Patient Inc. 03/03/2023 09:05:12 Monitored Anesthesia Care, Care After [...] before eating solid foods. General instructions Take zhjc-uue-xpxwrpj and prescription medicines only as told by [...] 11/24/2016 Document Revised: 11/02/2018 Document Reviewed: 11/24/2016 IngagePatient Patient Education 2020 IngagePatient Inc. Follow Up Care 02/24/2023 07:56:54 With:ANALY ANAYA MD Address: [address] [place] [address] for [place] [address]- [phone] When: Unknown Comments:CALL AND FOLLOW UP WITH DR ANAYA HE INSTRUCTED. CALL HIM WITH ANY QUESTIONS OR CONCERNS. GO TOTHE EMERGENCY ROOM WITH ANY URGENT CONCERNS. [facility] 07-17-2023 Summary of episode note Discharge Instructions Thank you for allowing [facility] to assist you with your healthcare needs. The following is importantdischarge information regarding your hospital visit. Your Care Team ANALY MONDRAGON DO, DR. Your Diagnosis Lumbar postlaminectomy syndrome What to do next Scheduled Follow-Up Appointments Appointment Type When With Where Contact Information OV 03/10/2023 02:15 PM EDT ANALY ANAYA WMD [facility] OV 08/06/2023 10:30 AM EST ANALY MONDRAGON DO [facility] Follow Up Appointments Follow Up with ANALY ANAYA MD When Why: CALL AND FOLLOW UP WITH DR ANAYA HE INSTRUCTED. CALL HIM WITH ANY QUESTIONS OR CONCERNS. GO TO THE EMERGENCY ROOM WITH ANY URGENT CONCERNS. Where: [address] [place] [address] [address] [facility] [place] [address]- [phone] Allergies iodine (Rash) Medications Please ask your primary doctor or pharmacist before taking any other medication not listed, including over the counter drugs, herbal medications, vitamins and or supplements as they may interact withur home medications. What How Much When Why [...] and water are not available, use hand stain wiper. ? Change your dressings as told by [...] can be controlled with a remote. Take fcza-wjz-hmuhrhc and prescription medicines only as told by [...] Document Reviewed: 09/17/2018 Elsevier Patient Education 2020 Micello. Spinal Cord Stimulation Trial Information A spinal [...] of pain medicine that you take. Take yiob-lka-plunpyb and prescription medicines only as told by [...] 11/19/2011 Document Revised: 09/08/2019 Document Reviewed: 09/08/2019 IngagePatient Patient Education 2020 [employer]ello. How to Use Cold Therapy Cold therapy, [...] 01/20/2009 Document Revised: 05/03/2019 Document Reviewed: 05/03/2019 ElseAMEE Patient Education 2020 IngagePatient Inc. Monitored Anesthesia Care, Care After These [...] before eating solid foods. General instructions Take uyhd-qbe-rlvhjfg and prescription medicines only as told by [...] 11/24/2016 Document Revised: 11/02/2018 Document Reviewed: 11/24/2016 ElseAMEE Patient Education 2020 IngagePatient Inc. Additional Information VACCINATE! IT SAVES LIVES! Members of the community who have not yet received the COVID-19 vaccine and would like to receive it can visit one of [facility] [facility] vaccine clinics. There are many vaccine clinic locations within the [facility]. For locations and available times, please visit [email or web address] It is important to note that some COVID mobile vaccine clinics are held outdoors and may be canceled in rainy or stormy conditions. To learn more about pediatric vaccinations (ages 5-11), we invite you to visit the [facility] webpage. https://www.[facility].org/pages/7230-Aqxtb-Hacyqoekyid-Untanjacwl-Jynrv-Fse stions.htmlTo learn more about the COVID-19 vaccine, we invite you to visit the CDC website for a list of frequently asked questions.https://www.cdc.gov/coronavirus/2019-ncov/vaccines/faq.html [facility] Patient Portal Access Instructions: Stay connected with your healthcare team and access your personal medical information anytime with the [facility] Patient Portal. Please follow the directions below to create your [facility] account: 1.Access the email account you provided upon registration to the hospital/physician office.2.Look for an invitation email from [facility].3.Open the email and access the invitation link: AcceptInvitation to [facility].4.Fill in the required aldridge to create your account. To access your account, visit InvitedHome/[employer]. Click the blue button labeled Access Patient Portal and then log in with the username and password that you created in the steps above. You will be able to view your test results, lab results, a summary of your visits, upcoming appointments and more. There is also a convenient messaging option where you can send secure messages to your p rovider. In addition, you will have the ability to download any documents or summaries to your computer and/or send the information securely to a physician. Remember that your healthcare information is confidential, so carefully consider who you will allowto register on the [facility] Patient Portal for access to your information. You can also access the [facility] Patient Portal on the [employer]es[employer] manuel. Simply click on Patient Portal and then log into your account. If you would like to receive a full copy of your medical records, please contact the [facility] Medical Records Department by calling [phone], Friday through Naveed between 8 a.m. and 4:30 p.m. HOW [...] Call your local pharmacy or go to [email or web address] to find one close to you.3.Make use of household items: Use cat litter or old coffee grounds to dispose medications if other options arenot available. Mix your drugs with these household products, seal them in an airtight container andthrow it into the garbage. Call [facility]: [phone] to be sure your drugs can be [...] Trial Information How to Use Cold Therapy, Dhsy-fj-Ldsc Monitored Anesthesia Care, Care After Medication Leaflets My discharge plan and instructions have been reviewed and explained to me and I,ROBEL DUMAS understand my current condition and have read and understand these discharge instructions. I have received a written copy of the plan/instructions. If I have questions, I am aware that I should contact my doctor. 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: Date/Time: Relationship to Patient: Witness Name/Signature: Date/Time: [facility]07-17-2023 Anesthesiology Consult note Patient: ROBEL DUMAS Age: 67 years Sex: Female : 1955 Associated Diagnoses: None Author: RASHAD ESTES APRN-SERVER ENGINEER Assessment Postanesthesia assessment Vitals: Vital signs from [...] by RASHAD ESTES on 03/03/2023 08:38 AM [facility]07-17-2023 Anesthesiology Consult note Patient: ROBEL DUMAS Age: [...] Medical 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 / SNOMED CT 6854954697 / Confirmed Right-sided chest wall pain / SNOMED CT 545559625 / Confirmed DDD (degenerative disc disease), lumbar / SNOMED CT 02664946 / Confirmed Fatigue / SNOMED CT 169812592 / Confirmed History of sleep apnea / SNOMED CT 508587041 / Confirmed Intercostal neuralgia / SNOMED CT 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 / Confirmed Left inguinal hernia / SNOMED CT 899539511 / Confirmed Lumbar postlaminectomy syndrome / SNOMED CT 649833380 / Confirmed Lumbar radiculopathy / SNOMED CT 008942391 / Confirmed Adenocarcinoma of right lung S/P RVAT right upper lobectomy 06/27/2021 / SNOMED CT 984099112 / Confirmed Mitral valve prolapse / SNOMED CT 1912535510 / Confirmed Osteoporosis / SNOMED CT 141530620 / Confirmed Neoplasm related pain / SNOMED CT 5038264238 / Confirmed Screening for lipid disorders / SNOMED CT 029714141 / Confirmed Major depression, recurrent / SNOMED CT 827278685 / Confirmed Postop check / SNOMED CT 892949845 / Confirmed, Active Problems (30) Adenocarcinoma of [...] Resolved Mass of subcutaneous tissue of back (1932393012): Resolved. Sebaceous cyst (0501185546): Resolved. Family History: Hypertension Mother Glaucoma Mother Malignant tumor of lung Father Leukemia Sister Procedure history: Left femoral hernia ([id number]) on 10/03/2022 at 67 Years. PM Intercostal Nerve Block - Multi SN on 01/01/2022 at 66 Years. Comments: 01/01/2022 7:59 Varun Pimentel RN auto-populated from documented surgical case Lung- right ([id number]) on 06/28/2021 at 65 Years. Comments: 12/25/2021 8:24 SONG Figueroa / of lung removed CT guided biopsy of right lung ([id number]) on 05/23/2021 at 65 Years. Nerve block with injection of lumbar spine using fluoroscopic guidance ([id number]) on 02/05/2021 at65 Years. Fluoroscopy guided injection of bilateral facet joints of lumbar spine ([id number]) on 11/21/2020 at 65 Years. Comments: 11/21/2020 9:00 Elizabeth Marin RN L4-L5, L5-S1 Epidural injection of lumbar spine using fluoroscopic guidance ([id number]) on 08/22/2020 at 65 Years. Lumbar epidural injection ([id number]) on 05/30/2020 at 64 Years. Spinal fusion (58616741) in 2016 at 61 Years. Comments: 09/01/2019 9:36 ANDRES - Jo Ann Garcias LPN 2016 Colonoscopy ([id number]) in 2013 at 58 Years. Comments: 09/01/2019 9:35 Jo Ann Mendez LPN 2013, WNL D&C - Dilatation and curettage ([id number]). History of elbow surgery (6067598163). Comments: 08/21/2020 13:44 Elizabeth Duran RN RIGHT LIGAMENT REPAIR Extraction of wisdom tooth ([id number]). Social History Social & Psychosocial Habits Alcohol [...] Admission Weight 37.2 kg Weight Method Stated [place] Body Weight 44.23 kg BSA Admission 1.27 [...] Surgeon SN - CAt - Role Performed Sheet Metal Shop Helper 1 SN - CAt - Role Performed Scrub 1 SN - CAt - Role Performed SERVER ENGINEER SN - CAt - Role Performed Silver Cleaner 03/03/2023 7:29 EDT SN - Preop - [...] 7:22 EDT IV Present Present Allergies Yes Vitamin Manager On Yes Consent Form Signed Yes Patient [...] Person #1 We May Share PHI [place] Ramirezfernanda [phone] Designated Person #1 Relationship Son Designated Person #2 We May Share [facility] cristóbal [phone] Designated Person #2 Relationship Son Additional Designated Person Share [facility] [phone] Height 151 cm Admission Weight 37.2 kg Weight Method Stated [place] Body Weight 44.23 kg BSA Admission 1.27 [...] per patient Skin Temperature Warm Skin Description Worton, Normal for ethnicity Skin Integrity Not intact [...] Method Explanation, Printed materials Preferred Written Language Italian Preferred Spoken Language Italian Information Given by Patient Patient's Current Physicians [...] Note-Nursing Procedure/Therapy Intake . Assessment and Plan [place] Society of Anesthesiologists (ASA) physical status classification: Class III. Anesthetic Preoperative Plan Anesthetic technique: MAC. Informed consent: signed by patient. Digitally Signed by RASHAD ESTES on 03/03/2023 08:05 AM [facility]02-16-2023 Hospital Discharge instructions Patient Education 10/03/2022 11:47:23 [...] as possible. If the spirometer includes a project coach indicator, use this to guide you in [...] 12/15/2007 Document Revised: 08/27/2018 Document Reviewed: 06/17/2018 [employer] Patient Education 2020 [employer]. 10/03/2022 11:47:11 How to Use Compression Stockings [...] your health care provider and follow the statistical clerk's instructions that come with the stockings. Make [...] 06/01/2010 Document Revised: 08/06/2018 Document Reviewed: 08/06/2018 [employer] Patient Education 2020 [employer]. 10/03/2022 11:41:18 Nausea and Vomiting, Adult, Rolb-ib-Cglp Nausea and Vomiting, Adult Nausea is feeling [...] fruit juice). ?Low-calorie sports drinks. Eat bland, gebw-mf-hkniyl foods in small amounts as you are able, such as: ?Bananas. ?Applesauce. ?Rice. ?Low-fat (lean) meats. ?[place]. ?Crackers. Avoid drinking fluids that have a lot of sugar or caffeine in them. This includes energy drinks, sports drinks, and soda. Avoid alcohol. Avoid spicy or fatty foods. General instructions Take dgny-ekv-dyiyzeb and prescription medicines only as told by your doctor. Drink enough fluid to keep your pee (urine) pale yellow. Wash your hands often with soap and water. If you cannot use soap and water, use hand stain wiper. Make sure that all people in your [...] too much water in your body. Take pdfn-yct-mmcakxa and prescription medicines only as told by [...] 01/20/2009 Document Revised: 11/26/2019 Document Reviewed: 01/12/2019 [employer] Patient Education 2020 [employer]. 10/03/2022 11:41:16 General Anesthesia, Adult, Care After [...] what activities are safe for you. Take jdtx-dnd-crgtbth and prescription medicines only as told by [...] 11/10/2001 Document Revised: 08/07/2018 Document Reviewed: 03/20/2018 [employer] Patient Education 2020 [employer]. 10/03/2022 11:40:27 Laparoscopic Inguinal Hernia Repair, Adult [...] including vitamins, herbs, eye drops, creams, and rait-cjl-bfomdpw medicines. Any problems you or family members [...] taking diabetes medicines or blood thinners. ?Taking jvyc-rtw-kvovtmw medicines, vitamins, herbs, and supplements. ?Taking medicines [...] 11/13/2017 Document Revised: 01/12/2020 Document Reviewed: 11/13/2017 ElseAMEE Patient Education 2020 [employer] Follow Up Care 09/17/2022 12:21:01 With:HELENA TERESA MD, Surgery Address: [address] [facility] [place] [address]- [phone] When:Within 2 Week(s) Comments:CALL OFFCIE TO SCHEDULE FOLLOW UP APPOINTMENT FOR 2 WEEKS FROM NOW. CALL OFFICE FOR ANY QUESTIONS OR CONCERNS. IF HAVINGAN EMERGENCY, GO TO NEAREST EMERGENCY ROOM. [facility] 02-16-2023 Summary of episode note Discharge Instructions Thank you for allowing [facility] to assist you with your healthcare needs. The following is importantdischarge information regarding your hospital visit. Your Care Team ANALY MONDRAGON DO, DR Your Diagnosis Acute post-operative pain Femoral hernia of left side What to do next Scheduled Follow-Up Appointments Appointment Type When With Where Contact Information OV 10/16/2022 11:45 AM EST SABRINA BURNS APRN-RENETTA [facility] OV 02/05/2023 10:00 AM EDT ANALY MONDRAGON DO [facility] Follow Up Appointments Follow Up with HELENA TERESA MD, Surgery When In 2 weeks Why: CALL OFFCIE TO SCHEDULE FOLLOW UP APPOINTMENT FOR 2 WEEKS FROM NOW. CALL OFFICE FOR ANY QUESTIONS OR CONCERNS. IF HAVINGAN EMERGENCY, GO TO NEAREST EMERGENCY ROOM. Where: [address] [place] [address] [phone] The Following Activity and Diet Have Been Ordered for You Discharge Activity - Ordered -- Sexual Dunlevy Restricted No bending, twisting, crawling or squatt, [...] Intercostal neuralgia Duration: 30 Days Changed acetaminophen-hydrocodone (Rosholt 325- 5 mg oral tablet) 1 tab(s) by mouth Every 4 hours as needed for Pain, scale 1-6 Acute post-operative pain Duration: 5 Days Pickup at [facility] Unchanged acetaminophen (Tylenol 325 mg oral capsule) [...] a day (in the morning) Pharmacy Information [facility]: [address] [place], [place] [phone] Please take this list to your next [...] and bonny droe KOE done) Hycet, Lorcet, Rosholt, Verdrocet, Vicodin, Xodol, Zamicet What is the [...] may report side effects to FDA at 2-221-GXC-[phone]. What other drugs will affect acetaminophen and [...] affect acetaminophen and hydrocodone, including prescription and jghz-pai-kzbvhgi medicines, vitamins, and herbal products. Not all [...] to ensure that the information provided by [employer]atev. ('[employer]') is accurate, up-to-date, and complete, but no guarantee is made to that effect. Drug information contained herein may be time sensitive. [employer] information has been compiled for use by healthcare practitioners and consumers in the [place] and therefore [employer] does not warrant that uses outside of the [place] are appropriate, unless specifically indicated otherwise. [employer] drug information does not endorse drugs, diagnose patients or recommend therapy. [employer] drug information isan informational resource designed to [...] effective or appropriate for any given patient. [employer] does not assume any responsibility for any aspect of healthcare administered with the aid of information [employer] provides. The information contained herein is not intended to cover all possible uses, directions, precautions, warnings, drug interactions, allergic reactions, or adverse effects. If you have questions about the drugs you are taking, check with your doctor, nurse or pharmacist. Copyright 9002-1903 [employer]atev. Version: 16.03. Revision Date: 09/19/2020. Education Materials [...] as possible. If the spirometer includes a project coach indicator, use this to guide you in [...] 12/15/2007 Document Revised: 08/27/2018 Document Reviewed: 06/17/2018 In[employer] Patient Education 2020 [employer]. How to Use Compression Stockings Compression [...] your health care provider and follow the statistical clerk's instructions that come with the stockings. Make [...] 06/01/2010 Document Revised: 08/06/2018 Document Reviewed: 08/06/2018 [employer] Patient Education 2020 [employer]. Nausea and Vomiting, Adult Nausea is feeling [...] juice). ? Low-calorie sports drinks. Eat bland, utef-gl-crxers foods in small amounts as you are able, such as: ? Bananas. ? Applesauce. ? Rice. ? Low-fat (lean) meats. ? [place]. ? Crackers. Avoid drinking fluids that have a lot of sugar or caffeine in them. This includes energy drinks, sports drinks, and soda. Avoid alcohol. Avoid spicy or fatty foods. General instructions Take zaoq-syz-xcbtenx and prescription medicines only as told by your doctor. Drink enough fluid to keep your pee (urine) pale yellow. Wash your hands often with soap and water. If you cannot use soap and water, use hand stain wiper. Make sure that all people in your [...] too much water in your body. Take qtry-hfm-cvldnmj and prescription medicines only as told by [...] 01/20/2009 Document Revised: 11/26/2019 Document Reviewed: 01/12/2019 ElseAMEE Patient Education 2020 [employer]. General Anesthesia, Adult, Care After This sheet [...] what activities are safe for you. Take kpwm-zbw-qpeejhf and prescription medicines only as told by [...] 11/10/2001 Document Revised: 08/07/2018 Document Reviewed: 03/20/2018 [employer] Patient Education 2020 [employer]. Laparoscopic Inguinal Hernia Repair, Adult Laparoscopic [...] including vitamins, herbs, eye drops, creams, and opah-scl-wsblyut medicines. Any problems you or family members [...] diabetes medicines or blood thinners. ? Taking lanx-hje-uadisle medicines, vitamins, herbs, and supplements. ? Taking [...] 11/13/2017 Document Revised: 01/12/2020 Document Reviewed: 11/13/2017 In[employer] Patient Education 2020 [employer]. Additional Information VACCINATE! IT SAVES LIVES! Members of the community who have not yet received the COVID-19 vaccine and would like to receive it can visit one of [facility] vaccine clinics. There are many vaccine clinic locations within the [facility]. For locations and available times, please visit [email or web address]/. It is important to note that some COVID mobile vaccine clinics are held outdoors and may be canceled in rainy or stormy conditions. To learn more about pediatric vaccinations (ages 5-11), we invite you to visit the [facility] webpage. https://www.[email or web address]/pages/8104-Obmnf-Dysfxqmcvmm-Kavjvpcuxf-Wxsqx-Wpo stions.htmlTo learn more about the COVID-19 vaccine, we invite you to visit the CDC website for a list of frequently asked questions. https://www.cdc.gov/coronavirus/2019-ncov/vaccines/faq.html [facility] [employer] Patient Portal Access Instructions: Stay connected with your healthcare team and access your personal medical information anytime with the [facility] Patient Portal.If you would like a full copy of your medical records, please contact the [facility] Medical Records Department, Friday through Friday between 8a.m. and 4:30p.m. Please follow the directions below to access the portal: 1.Access the email account you provided upon registration to the hospital.2.Look for an invitation email from [facility].3.Open the email and access the invitation link: Accept Invitation to [facility]4.Fill in the required aldridge to create your account. Sign into [email or web address] with your username and password that you [...] you will allow to register on the [facility] Patient Portal for access to your information. You can also access the [facility] Patient Portal on the [employer]. Simply click on Health Records under [email or web address] and then click on the [employer] logo. HOW TO SAFELY DISPOSE OF PRESCRIPTION [...] Call your local pharmacy or go to [email or web address] to find one close to you.3.Make use of household items: Use cat litter or old coffee grounds to dispose medications if other options arenot available. Mix your drugs with these household products, seal them in an airtight container andthrow it into the garbage. Call [facility]: [phone] to be sure your drugs can be [...] signed and retained as a CHART COPY. 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 Left inguinal hernia / SNOMED CT 483500719 / Confirmed Lumbar postlaminectomy syndrome / SNOMED CT 408677332 / Confirmed Lumbar radiculopathy / SNOMED CT 065914820 / Confirmed Adenocarcinoma of right lung S/P RVAT right upper lobectomy 06/27/2021 / SNOMED CT 529847691 / Confirmed Mitral valve prolapse / SNOMED CT 2976174223 / Confirmed Osteoporosis / SNOMED CT 443405135 / Confirmed Neoplasm related pain / SNOMED CT 4868018756 / Confirmed Screening for lipid disorders / SNOMED CT 451802284 / Confirmed Major depression, recurrent / SNOMED CT 950726585 / Confirmed, Active Problems (29) Adenocarcinoma of [...] Resolved Mass of subcutaneous tissue of back (5176288916): Resolved. Sebaceous cyst (0487241722): Resolved. Family History: Hypertension Mother Glaucoma Mother Malignant tumor of lung Father Leukemia Sister Procedure history: PM Intercostal Nerve Block - Multi SN on 01/01/2022 at 66 Years. Comments: 01/01/2022 7:59 Varun Pimentel RN auto-populated from documented surgical case Lung- right ([id number]) on 06/28/2021 at 65 Years. Comments: 12/25/2021 8:24 SONG Figueroa / of lung removed CT guided biopsy of right lung ([id number]) on 05/23/2021 at 65 Years. Nerve block with injection of lumbar spine using fluoroscopic guidance ([id number]) on 02/05/2021 at65 Years. Fluoroscopy guided injection of bilateral facet joints of lumbar spine ([id number]) on 11/21/2020 at 65 Years. Comments: 11/21/2020 9:00 Elizabeth Marin RN L4-L5, L5-S1 Epidural injection of lumbar spine using fluoroscopic guidance ([id number]) on 08/22/2020 at 65 Years. Lumbar epidural injection ([id number]) on 05/30/2020 at 64 Years. Spinal fusion ([id number]) in 2016 at 61 Years. Comments: 09/01/2019 9:36 Jo Ann Mendez LPN 2016 Colonoscopy ([id number]) in 2013 at 58 Years. Comments: 09/01/2019 9:35 Jo Ann Mendez LPN 2013, WNL D&C - Dilatation and curettage ([id number]). History of elbow surgery (2854130331). Comments: 08/21/2020 13:44 Elizabeth Duran RN RIGHT LIGAMENT REPAIR Extraction of wisdom tooth ([id number]). Social History Social & Psychosocial Habits Alcohol [...] Signs(last 24 hrs) Last Charted Heart Rate Ownmtsjst42 bpm (OCT 03 10:00) Resp Rate 20 br/min (OCT 03 09:08) XAI766 mmHg (OCT 03 10:00) DBP80 mmHg (OCT 03 10:00) Measurements from flowsheet : Measurements 10/03/2022 9:09 EST Height 162.6 cm Admission Weight 37.3 kg Weight Method Stated [place] Body Weight 54.74 kg 10/03/2022 9:08 EST Height 162.6 cm Admission Weight 37.3 kg [place] Body Weight 54.74 kg Admission Body Mass [...] Surgeon SN - CAt - Role Performed SERVER ENGINEER SN - CAt - Role Performed Sheet Metal Shop Helper 1 SN - CAt - Role Performed Cutter Down 1 SN - CAt - Role Performed [...] EST Designated Person #1 We May Share JULIANNE Palafox [phone] Designated Person #1 Relationship Son Designated Person #2 We May Share [facility] cristóbal [phone] Designated Person #2 Relationship Son Additional Designated Person Share [facility] [phone] Privacy Restrictions Requested None Height 162.6 cm Admission Weight 37.3 kg Weight Method Stated [place] Body Weight 54.74 kg Status No, per [...] No further teaching needed Preferred Written Language Italian Preferred Spoken Language Italian Information Given by Unable to obtain Patient's [...] Height 162.6 cm Admission Weight 37.3 kg [place] Body Weight 54.74 kg Admission Body Mass [...] no difficulties Skin Temperature Warm Skin Description Worton, Normal for ethnicity, Dry Skin Moisture General [...] Room 10/03/2022 8:58 . Assessment and Plan [place] Society of Anesthesiologists (ASA) physical status classification: Class III. Anesthetic Preoperative Plan Premedication: intravenous. Anesthetic technique: General. Induction: intravenously. Maintenance airway: Oral endotracheal tube. Postoperative pain management: Per surgeon. Risks discussed: nausea, vomiting, sore throat. Informed consent: signed by patient. Digitally Signed by PAULA VALENTINE on 10/03/2022 10:15 AM [facility]08-27-2022 Hospital Discharge instructions Patient Education 04/13/2022 00:33:00 After Back Surgery: Tips for Daily Living After Back Surgery: Tips for Daily Living These tips can help make some tasks easier and will help protect your back. Getting dressed Putting on and taking off socks, slacks, and underwear may be easier to do lying on your back. A tool called a dressing rn access can be of help. To make dressing [...] liquid soap so you don tneed to package pick up a dropped bar of soap. Eating Slide your chair as far under the table as possible. Don t lean forward or put your elbows on the table. Using the toilet Try using a toilet seat riser or portable commode. To get there, and elsewhere, use a walker to reduce the risk of falling. You can buy these at a [employer]Scaled [employer] or medical supply store. 6195-2211 [employer]. [address] [place] [address]. All rights reserved. This information is not intended as a substitute for professional medical care. Always follow yourhealthcare professional's instructions. Follow Up Care 04/12/2022 20:31:12 With:TOM LANIER MD Address: [address] [place] [address] [place] [address]- [phone] When:2-4 days [facility] 08-27-2022 Note Discharge Instructions Thank you for allowing [facility] to assist you with your healthcare needs. The following is importantdischarge information regarding your hospital visit. Diagnosis from Today's Visit Back pain What to Do Next Instructions from Your Care Team No qualifying data available. Post Acute Orders No qualifying data available. You Need to Schedule the Following Appointments Follow Up with TOM LANIER MD When Within 2-4 days Where: [address] [place] [address] [place] [address] [phone] Allergies iodine (Rash) Medications Please ask your [...] your back. A tool called a dressing rn access can be of help. To make dressing [...] liquid soap so you don tneed to package pick up a dropped bar of soap. Eating Slide your chair as far under the table as possible. Don t lean forward or put your elbows on the table. Using the toilet Try using a toilet seat riser or portable commode. To get there, and elsewhere, use a walker to reduce the risk of falling. You can buy these at a drugstore or medical supply store. [phone] [employer]. [address] [place] [address]. All rights reserved. This information is not intended as a substitute for professional medical care. Always follow yourhealthcare professional's instructions. Additional Information VACCINATE! IT SAVES LIVES! Members of the community who have not yet received the COVID-19 vaccine and would like to receive it can visit one of [facility] vaccine clinics. There are many vaccine clinic locations within the [facility]. For locations and available times, please visit www.[email or web address].[place].org. It is important to note that some COVID mobile vaccine clinics are held outdoors and may be canceled in rainy orstormy conditions. To learn more about pediatric vaccinations (ages 5-11), we invite you to visit the [facility] webpage. https://www.[email or web address].org/pages/6793-Xcuqs-Tmvbknqkvim-Wiqxjmsmfc-Nuuwc-Hgn stions.htmlTo learn more about the COVID-19 vaccine, we invite you to visit the [facility] website for a list of frequently asked questions. [email or web address]/assets/Ciqkeppj-has-Gfnawwov/hswyc-Efmgxku-Qfsnsmygib _Asked-Questions.pdf [facility] Patient Portal Access Instructions: Stay connected with your healthcare team and access your personal medical information anytime with the [facility] [employer] Patient Portal. If you would like a full copy of your medical records please contact the [facility] Medical Records Department Friday through Friday between 8a.m. and 4:30p.m. Please follow the directions below to access the portal: 1.Access the email account you provided upon registration to the [facility].2.Look for an invitation email from [facility].3.Open the email and access the invitation link: Accept Invitation to [facility]4.Fill in the required aldridge to create your [...] you will allow to register on the [facility] [employer] Patient Portal for access to your information. You can also access the [facility] Patient Portal on the Bia. Simply click on Health Records under [email or web address] and then click on the Edna logo. [...] Call your local pharmacy or go to [email or web address] to find one close to you.3.Make use of household items: Use cat litter or old coffee grounds to dispose medications if other options arenot available. Mix your drugs with these household products, seal them in an airtight container andthrow it into the garbage. Call [facility]: [phone] to be sure your drugs can be [...] aware that I should contact my doctor. 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: Date/Time: Relationship to Patient: Witness Name/Signature: Date/Time: [facility]08-26-2022 Note ORIGINAL EXAMINATION: CT OF THE ABDOMEN [...] Date: 04/12/2022 11:53:37 PM Ordering Provider: [facility]UR [facility]08-26-2022 Note ORIGINAL EXAMINATION: CT OF THE ABDOMEN [...] Amos Baker MD Preliminary Report By: Rafiq Xiogn Electronically signed By Amos Baker MD Dictated Date: 04/12/2022 11:08:03 PM Prelim Date: 04/12/2022 11:17:55 PM Sign Date: 04/12/2022 11:53:37 PM Ordering Provider: ARTUR [facility]08-22-2022 Hospital Discharge instructions Patient Education 04/08/2022 08:41:17 How to Use Cold Therapy, Qgsm-ye-Igkm How to Use Cold Therapy Cold therapy, [...] 01/20/2009 Document Revised: 05/03/2019 Document Reviewed: 05/03/2019 IngagePatient Patient Education 2020 [employer]. 04/08/2022 08:41:03 Spinal Cord Stimulation Trial Information [...] of pain medicine that you take. Take dfyt-wel-nqxvohj and prescription medicines only as told by [...] 11/19/2011 Document Revised: 09/08/2019 Document Reviewed: 09/08/2019 IngagePatient Patient Education 2020 [employer]. 04/08/2022 08:40:25 Monitored Anesthesia Care, Care After [...] before eating solid foods. General instructions Take qent-cdy-gdwbdey and prescription medicines only as told by [...] 11/24/2016 Document Revised: 11/02/2018 Document Reviewed: 11/24/2016 IngagePatient Patient Education 2020 [employer]. Follow Up Care 04/05/2022 12:52:32 With:TOM LANIER MD Address: [address] [place] [address] [place] [address] [phone] When: Unknown Comments:CALL DR LANIER WITH ANY QUESTIONS. GO TO THE EMERGENCY ROOM WITH ANY URGENT CONCERNS. [facility] 08-22-2022 Summary of episode note Discharge Instructions Thank you for allowing [facility] to assist you with your healthcare needs. The following is importantdischarge information regarding your hospital visit. Your Care Team ANALY MONDRAGON DO DR. TOM LANIER Your Diagnosis DUEL LEAD SPINAL CORD STIMULATIOR TRIAL WITH FLOUROSCOPY(X-RAY) What to do next Scheduled Follow-Up Appointments Appointment Type When With Where Contact InformationPC 08/07/2022 10:30 AM ANALY GARCIA DO [facility] Follow Up Appointments Follow Up with TOM LANIER MD When Why: CALL DR LANIER WITH ANY QUESTIONS. GO TO THE EMERGENCY ROOM WITH ANY URGENT CONCERNS. Where: [address] [place] [address] [place] [address] [phone] Allergies iodine (Rash) Medications Please ask your [...] 01/20/2009 Document Revised: 05/03/2019 Document Reviewed: 05/03/2019 IngagePatient Patient Education 2020 [employer]. Spinal Cord Stimulation Trial Information A spinal [...] of pain medicine that you take. Take besr-gxt-yozebty and prescription medicines only as told by [...] 11/19/2011 Document Revised: 09/08/2019 Document Reviewed: 09/08/2019 IngagePatient Patient Education 2020 [employer]. Monitored Anesthesia Care, Care After These [...] before eating solid foods. General instructions Take dyce-tci-rpnalkz and prescription medicines only as told by [...] 11/24/2016 Document Revised: 11/02/2018 Document Reviewed: 11/24/2016 ElseAMEE Patient Education 2020 [employer] Inc. Additional Information VACCINATE! IT SAVES LIVES! Members of the community who have not yet received the COVID-19 vaccine and would like to receive it can visit one of [facility] vaccine clinics. There are many vaccine clinic locations within the [facility]. For locations and available times, please visit https://[email or web address].[place].gov/. It is important to note that some COVID mobile vaccine clinics are held outdoors and may be canceled in rainy or stormy conditions. To learn more about pediatric vaccinations (ages 5-11), we invite you to visit the [facility] webpage. https://www.[facility].org/pages/2137-Wghgw-Tvefiskexgp-Eopvrqyjfr-Shxyz-Tcg stions.htmlTo learn more about the COVID-19 vaccine, we invite you to visit the [facility] website for a list of frequently asked questions. https://[email or web address]/Lqbwfhcf-znh-Yujiaihi/aumhm-Mpblsej-Nyhjcktevc _Asked-Questions.pdf [facility] [employer] Patient Portal Access Instructions: Stay connected with your healthcare team and access your personal medical information anytime with the [facility] Patient Portal.If you would like a full copy of your medical records, please contact the [facility] Medical Records Department, Friday through Friday between 8a.m. and 4:30p.m. Please follow the directions below to access the portal: 1.Access the email account you provided upon registration to the [facility].2.Look for an invitation email from [facility].3.Open the email and access the invitation link: Accept Invitation to Ed[facility]Pet4.Fill in the required aldridge to create your account. Sign into www.InvitedHome with your username and password that you [...] you will allow to register on the [facility] Patient Portal for access to your information. You can also access the [facility] Patient Portal on the ZeroMail jesus manuel. Simply click on Health Records under APSXta and then click on the [employer] logo. HOW TO SAFELY DISPOSE OF PRESCRIPTION [...] Call your local pharmacy or go to [email or web address] to find one close to you.3.Make use of household items: Use cat litter or old coffee grounds to dispose medications if other options arenot available. Mix your drugs with these household products, seal them in an airtight container andthrow it into the garbage. Call [facility]: [phone] to be sure your drugs can be [...] Education Materials How to Use Cold Therapy, Ltiw-vm-Lcvj Spinal Cord Stimulation Trial Information Monitored Anesthesia Care, Care After Medication Leaflets My discharge plan and instructions have been reviewed and explained to me and IPITER VERNA D understand my current condition and have read and understand these discharge instructions. I have received a written copy of the plan/instructions. If I have questions, I am aware that I should contact my doctor. 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 [facility]08-22-2022 Note ORIGINAL Images acquired, not reported on this accession number.[place] [id number] Anesthesiology Consult note Patient: ROBEL DUMAS Age: 66 years Sex: Female : 1955 Associated Diagnoses: None Author: RASHAD ESTES APRN-SERVER ENGINEER Assessment Postanesthesia assessment Vitals: Vital signs from [...] by RASHAD ESTES on 04/08/2022 08:16 AM [facility]08-22-2022 Anesthesiology Consult note Patient: ROBEL DUMAS Age: [...] 200 mL/hr, IV Piggyback, PREOP pharm Hurricaine [place] 20% mucous membrane: 1 spray(s), Topical, PREOP [...] (3) Active Scheduled: (2) benzocaine topical 20% [place] 60g (Hurricaine) 1 spray(s), Topical, PREOP pharm ceFAZolin 2 gram(s), IV Piggyback, PREOP pharm Continuous: (1) Lactated Ringers 1,000 mL 1,000 mL, Intravenous, 20 mL/hr PRN: (0) Problem list: Medical 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 / SNOMED CT 6680162736 / Confirmed Right-sided chest wall pain / SNOMED CT 813395303 / Confirmed DDD (degenerative disc disease), lumbar / SNOMED CT 64122661 / Confirmed Fatigue / SNOMED CT 949547331 / Confirmed History of sleep apnea / SNOMED CT 137721418 / Confirmed 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 Lumbar postlaminectomy syndrome / SNOMED CT 232204742 / Confirmed Lumbar radiculopathy / SNOMED CT 309454960 / Confirmed Adenocarcinoma of right lung S/P RVAT right upper lobectomy 06/27/2021 / SNOMED CT 139484046 / Confirmed Mitral valve prolapse / SNOMED CT 0585697530 / Confirmed Osteoporosis / SNOMED CT 300539030 / Confirmed Neoplasm related pain / SNOMED CT 5943161784 / Confirmed Screening for lipid disorders / SNOMED CT 662935359 / Confirmed Major depression, recurrent / SNOMED CT 940802501 / Confirmed, Active Problems (28) Adenocarcinoma of [...] Resolved Mass of subcutaneous tissue of back (9865932865): Resolved. Sebaceous cyst (1359913544): Resolved. Family History: Hypertension Mother Glaucoma Mother Malignant tumor of lung Father Leukemia Sister Procedure history: PM Intercostal Nerve Block - Multi SN on 01/01/2022 at 66 Years. Comments: 01/01/2022 7:59 Varun Pimentel RN auto-populated from documented surgical case Lung- right ([id number]) on 06/28/2021 at 65 Years. Comments: 12/25/2021 8:24 CHUCK Galeana RN Lindsey E / of lung removed CT guided biopsy of right lung ([id number]) on 05/23/2021 at 65 Years. Nerve block with injection of lumbar spine using fluoroscopic guidance ([id number]) on 02/05/2021 at65 Years. Fluoroscopy guided injection of bilateral facet joints of lumbar spine ([id number]) on 11/21/2020 at 65 Years. Comments: 11/21/2020 9:00 Elizabeth Marin RN L4-L5, L5-S1 Epidural injection of lumbar spine using fluoroscopic guidance ([id number]) on 08/22/2020 at 65 Years. Lumbar epidural injection ([id number]) on 05/30/2020 at 64 Years. Spinal fusion (41236967) in 2016 at 61 Years. Comments: 09/01/2019 9:36 Jo Ann Mendez LPN 2016 Colonoscopy ([id number]) in 2012 at 58 Years. Comments: 09/01/2019 9:35 EST - Garcias, Jo Ann CASINO CAGE SUPERVISOR 2013, WNL D&C - Dilatation and curettage ([id number]). History of elbow surgery (3594538001). Comments: 08/21/2020 13:44 EST - Elizabeth Brice RN RIGHT LIGAMENT REPAIR Extraction of wisdom tooth ([id number]). Social History Social & Psychosocial Habits Alcohol [...] Resp Rate 17 br/min (APR 08 06:52) HNL957 mmHg (APR 08 06:52) DBP84 mmHg (APR 08 06:52) BMI17.96 (APR 08 07:19) Measurements from flowsheet : Measurements 04/08/2022 7:19 EDT Height 152 cm Height in inches 59.8 inch(es) Admission Weight 41.5 kg Weight Lbs 91.3 lb [place] Body Weight 45.14 kg BSA Admission 1.34 Body Mass Index 17.96 kg/m2 04/08/2022 6:52 EDT Height 152 cm Admission Weight 41.5 kg [place] Body Weight 45.14 kg Pain assessment: Pain [...] Surgeon SN - CAt - Role Performed Sheet Metal Shop Helper 1 SN - CAt - Role Performed SERVER ENGINEER SN - CAt - Role Performed Scrub 1 SN - CAt - Role Performed Cutter Down 1 SN - CAt - Role Performed Silver Cleaner 04/08/2022 7:19 EDT Designated Person #1 We May Share PHI [place] [employer] [phone] Designated Person #1 Relationship Son Designated Person #2 We May Share PHI cristóbal Designated Person #2 Relationship Son Additional Designated Person Share [facility] [phone] Privacy Restrictions Requested None Height 152 cm Height in inches 59.8 inch(es) Admission Weight 41.5 kg Weight Lbs 91.3 lb [place] Body Weight 45.14 kg BSA Admission 1.34 Body Mass Index 17.96 kg/m2 Sensory Perception Mahesh No impairment Moisture Mahesh Rarely moist Activity Mahesh Walks occasionally Mobility Mahesh Slightly limited Nutrition Mahesh Adequate Friction and Shear Mahesh No apparent problem Maehsh Score 20 Hospital Acquired Pressure Injury Risk [...] No Weight Loss No Preferred Written Language Italian Preferred Spoken Language Italian Chief Complaint back pain Mode of Arrival Ambulatory Information Given by Patient Patient's Current Physicians Patient's Current Physicians Emergency Contact Number Cristóbal/ belen - [phone] Discharge To, Anticipated Home with family care [...] Patient History Form Admission Note-Nursing Admission History LTC 04/08/2022 7:15 EDT Lactated Ringers Injection Begin Bag 1,000 mL mL 04/08/2022 7:03 EDT History and Physical (Blank) History and Physical Update Note 04/08/2022 6:52 EDT Height 152 cm Admission Weight 41.5 kg [place] Body Weight 45.14 kg Temperature Temporal Artery 36.5 DegC Respiratory Rate 17 br/min Systolic Blood Pressure NBP 139 mmHg Diastolic Blood Pressure NBP 84 mmHg Primary Pain Location Low back Primary Pain Intensity 9 Pain Scale Type 0-10 Pain scale Nail Bed Color [place] Capillary Refill < 2 seconds Heart Rhythm Regular All Lobes Breath Sounds Clear Oxygen Therapy Room air Oxygen Saturation 98 % Abdomen Description Non-distended, Soft, Flat Bowel Sounds All Quadrants Present Urinary Elimination Voiding, no difficulties Skin Temperature Warm Skin Description [place], Normal for ethnicity Skin Integrity Intact IV [...] Cooperative Orientation Oriented x 4 Allergies Yes Vitamin Manager On Yes Consent Form Signed Yes Patient [...] Room 04/08/2022 6:40 . Assessment and Plan [place] Society of Anesthesiologists (ASA) physical status classification: Class III. Anesthetic Preoperative Plan Anesthetic technique: MAC. Informed consent: signed by patient. Digitally Signed by RASHAD ESTES on 04/08/2022 07:43 AM [facility]08-22-2022 History and physical note Date of Service 04/08/22 History and Physical Update I have examined the patient; reviewed the History and Physical and there are no changes to the History and Physical unless noted below. Digitally Signed by TOM LANIER MD on 04/08/2022 07:03 AM [facility]05-12-2022 Hospital Discharge instructions Follow Up Care 12/27/2021 10:23:01 With:TOM LANIER MD Address: [address] [place] [address] [place] [address] [phone] When: Unknown Comments:Follow-up as needed [facility] 12-04-2021 Hospital Discharge instructions Patient Education 07/21/2021 [...] Swelling, pain or redness in one leg [phone] [employer]. [address] [place] [address]. All rights reserved. This information is not intended as a substitute for professional medical care. Always follow yourhealthcare professional's instructions. Follow Up Care 07/21/2021 17:59:57 With:ANALY MONDRAGON Address:Unknown When:2-4 days [facility] 11-15-2021 Hospital Discharge instructions Patient Education 07/02/2021 10:47:39 Sleep Apnea, Eejw-vx-Jouc Sleep Apnea Sleep apnea affects breathing during [...] quitting, ask your doctor. General instructions Take upea-pbw-mimkees and prescription medicines only as told by [...] 05/13/2009 Document Revised: 05/21/2019 Document Reviewed: 03/30/2019 IngagePatient Patient Education 2020 [employer]. 07/02/2021 10:47:38 Living With Sleep Apnea Living [...] ask your health care provider. Medicines Take slqk-kuv-pmbbaus and prescription medicines only as told by your health care provider. Do not use ypne-uzy-ctvxboh sleep medicine. You can become dependent on [...] about sleep apnea and daytime fatigue from: [place] Sleep Association: sleepassociation.org National Sleep Foundation: sleepfoundation.org National Heart, Lung, and Blood [place]: nhlbi.nih.gov Summary Sleep apnea can cause daytime [...] 10/29/2018 Document Revised: 11/26/2019 Document Reviewed: 10/29/2018 IngagePatient Patient Education 2020 IngagePatient Inc. 07/02/2021 10:47:21 Steps to Quit Smoking, Hmfx-vj-Slmn Steps to Quit Smoking Smoking tobacco is [...] a prescription, and some you can buy tgxq-hhz-hoioqxa. Some medicines may contain a drug called [...] as websites. Examples include QuitGuide from the [employer] and smokefree.gov What things can I do to make it easier to quit? Talk to your family and friends. Ask them to support and encourage you. Call a phone quitline (3-205-KEXD-NOW), reach out to support groups, or work [...] 05/31/2010 Document Revised: 10/22/2019 Document Reviewed: 10/23/2019 IngagePatient Patient Education 2020 [employer]. 07/02/2021 10:47:17 Health Risks of Smoking Health [...] an increased risk of the following: Sudden infant syndrome (SIDS). Respiratory infections. Lung cancer. Heart [...] these methods. Where to find more information [place] Lung Association: www.lung.org [place] Cancer Society: www.cancer.org Summary Smoking cigarettes is [...] 09/11/2005 Document Revised: 11/05/2018 Document Reviewed: 08/08/2017 IngagePatient Patient Education 2020 In[employer]Patient Inc. 07/02/2021 10:47:07 Chest Tube One-Way Valve [...] 03/01/2015 Document Revised: 09/04/2018 Document Reviewed: 09/04/2018 IngagePatient Patient Education 2020 [employer]. 07/02/2021 10:46:45 Thoracotomy, Pqwq-ao-Jjwq Thoracotomy Thoracotomy is a surgery that opens [...] 03/23/2014 [facility] Patient Information 2015 [email or web address]. This information is not intended to replace advicegiven to you by your health care provider. Make sure you discuss any questions you have with your health care provider. Follow Up Care 06/15/2021 13:37:17 With:[facility] Care Address: When: Unknown Comments:[facility] will be providing your RN services at home. They should be contacting you soon. If you do not hear from them in the next 2 days, please give them a call at: [phone]. With:Home Oxygen Address: When:1-2 days Comments:[facility] has dropped off a portable oxygen tank to your room. Once you get home you will need to call [facility] so they can deliver your equipment. The oxygen you are sent homewith, only lasts for a few hours. You must call in order to receive the rest of your equipment onceyou get home. With:JOY ESTRADA APRN-[facility] Address: [address] [place] [address] A-2 [facility] [address] [facility] [place] [address]- When:2021 15:45:00 Comments:CHEST XRAY PRIOR TO OFFICE VISIT With:Client Reporting Associate follow up Address: When: Unknown Comments:Layne Garcia, Nurse Client Reporting Associate, will call you and/or your family after your release from the hospital. Office Hours: Friday thru Friday 730am - 4pmPhone: [email or web address]: [email or web address] With:ANALY MONDRAGON DO Address: [address] [place] [address] [place] [address]- [phone] When: Unknown Comments:PLEASE CALL THIS OFFICE TO SCHEDULE A HOSPITAL FOLLOW UP APPOINTMENT. [facility] Evaluation + Plan note Future Appointments Appointment Date:06/14/2021 03:00:00 PM Scheduled Provider:BHAKTI REYES MD Location:[facility] Appointment Type:[facility] NURSE Outpatient Consult Appointment Date:07/04/2021 08:15:00 AM Scheduled Provider:POPPY BURNS APRN-RENETTA Location:[facility] PM Appointment Type:PM OV [facility] Evaluation + Plan note Future Appointments Appointment Date:07/04/2021 08:15:00 AM Scheduled Provider:POPPY BURNS APRN-RENETTA Location:[facility] PM Appointment Type:PM OV Future Scheduled Tests Laboratory* COVID/FLU/RSV PCR Screen 06/15/21 [facility] Evaluation + Plan note Future Appointments Appointment Date:07/04/2021 08:15:00 AM Scheduled Provider:POPPY BURNS Location:[facility] PM Appointment Type:PM OV Diagnostic Tests Pending * FLU A/B and RSV by PCR ([facility]) 06/22/21 [facility] Evaluation + Plan note Future Appointments Appointment Date:2021 03:45:00 PM Scheduled Provider:JOY ESTRADA APRN-GIS MAPPING TECHNICIAN Location:CTS CAN Appointment Type:CTS OV Post Op [facility] Evaluation + Plan note Future Appointments Appointment Date:2021 03:00:00 PM Scheduled Provider:JOY ESTRADA Location:[facility] Appointment Type:CTS OV Post Op Appointment Date:07/09/2021 03:30:00 PM Scheduled Provider:JOY ESTRADA Location:[facility] Appointment Type:CTS OV Post Op Follow Up Appointment Date:08/15/2021 09:30:00 AM Scheduled Provider:ANALY MONDRAGON DO Location:[facility] Appointment Type:[facility] Follow-Up Future Scheduled Tests Radiology* XR Chest 2 Views (PA & Lateral) 07/05/21 [facility] Evaluation + Plan note Future Appointments Appointment Date:07/09/2021 03:30:00 PM Scheduled Provider:JOY ESTRADA Location:[facility] Appointment Type:CTS OV Post Op Follow Up Appointment Date:08/15/2021 09:30:00 AM Scheduled Provider:ANALY MONDRAGON DO Location:[facility] Appointment Type:[facility] Follow-Up Future Scheduled Tests Radiology* XR Chest 2 Views (PA & Lateral) 07/09/21 [facility] Evaluation + Plan note Future Appointments Appointment Date:07/18/2021 03:30:00 PM Scheduled Provider:JYO ESTRADA Location:[facility] Appointment Type:CTS OV Post Op Follow Up Appointment Date:08/15/2021 09:30:00 AM Scheduled Provider:ANALY MONDRAGON DO Location:[facility] Appointment Type:[facility] Follow-Up [facility] Evaluation + Plan note Future Appointments Appointment Date:08/15/2021 09:30:00 AM Scheduled Provider:ANALY MONDRAGON DO Location:[facility] Appointment Type:[facility] Evaluation + Plan note Future Appointments Appointment Date:02/13/2022 08:00:00 AM Scheduled Provider:ANALY MONDRAGON DO Location:[facility] Appointment Type:PC OV Future Scheduled Tests Radiology* XR Chest 2 Views (PA & Lateral) 12/10/21 [facility] Evaluation + Plan note Future Appointments Appointment Date:01/29/2022 08:45:00 AM Scheduled Provider:TOM LANIER MD Location:[facility] PM Appointment Type:PM OV Appointment Date:02/13/2022 08:00:00 AM Scheduled Provider:ANALY MONDRAGON DO Location:[facility] Appointment Type:PC OV Future Scheduled Tests Radiology* XR Chest 2 Views (PA & Lateral) 12/10/21 [facility] Evaluation + Plan note Future Appointments Appointment Date:02/13/2022 08:00:00 AM Scheduled Provider:ANALY MONDRAGON DO Location:[facility] Appointment Type:PC OV Appointment Date:02/26/2022 09:30:00 AM Scheduled Provider:TOM LANIER MD Location:[facility] PM Appointment Type:PM OV Future Scheduled Tests Radiology* XR Chest 2 Views (PA & Lateral) 12/10/21 [facility] Evaluation + Plan note Future Appointments Appointment Date:03/19/2022 09:00:00 AM Scheduled Provider:TOM LANIER MD Location:[facility] PM Appointment Type:PM OV Appointment Date:08/07/2022 10:30:00 AM Scheduled Provider:ANALY MONDRAGON DO Location:[facility] Appointment Type:PC OV Future Scheduled Tests Radiology* XR Chest 2 Views (PA & Lateral) 12/10/21 [facility] Evaluation + Plan note Future Appointments Appointment Date:08/07/2022 10:30:00 AM Scheduled Provider:ANALY MONDRAGON DO Location:[facility] Appointment Type:PC OV Future Scheduled Tests Radiology* XR Chest 2 Views (PA & Lateral) 12/10/21 [facility] Evaluation + Plan note Future Appointments Appointment Date:04/16/2022 08:00:00 AM Scheduled Provider:TOM LANIER MD Location:[facility] PM Appointment Type:PM OV Appointment Date:08/07/2022 10:30:00 AM Scheduled Provider:ANALY MONDRAGON DO Location:[facility] Appointment Type:PC OV Future Scheduled Tests Radiology* XR Chest 2 Views (PA & Lateral) 12/10/21 [facility] Evaluation + Plan note Future Appointments Appointment Date:05/22/2022 08:45:00 AM Scheduled Provider:POPPY BURNS Location:[facility] PM Appointment Type:PM OV Appointment Date:08/07/2022 10:30:00 AM Scheduled Provider:ANALY MONDRAGON DO Location:[facility] Appointment Type:PC OV Future Scheduled Tests Radiology* XR Chest 2 Views (PA & Lateral) 12/10/21 [facility] Evaluation + Plan note Future Appointments Appointment Date:05/21/2022 08:00:00 AM Scheduled Provider:EZEKIEL BENITEZ MD Location:[facility] Appointment Type:[facility] NURSE Appointment Date:06/05/2022 08:45:00 AM Scheduled Provider:POPPY BURNS Location:[facility] PM Appointment Type:PM OV Appointment Date:08/07/2022 10:30:00 AM Scheduled Provider:ANALY MONDRAGON DO Location:[facility] Appointment Type:PC OV Future Scheduled Tests Radiology* XR Chest 2 Views (PA & Lateral) 12/10/21 [facility] Evaluation + Plan note Future Appointments Appointment Date:06/05/2022 08:45:00 AM Scheduled Provider:POPPY BURNS Location:[facility] PM Appointment Type:PM OV Appointment Date:08/07/2022 10:30:00 AM Scheduled Provider:ANALY MONDRAGON DO Location:[facility] Appointment Type:PC OV Future Scheduled Tests Radiology* XR Chest 2 Views (PA & Lateral) 12/10/21 [facility] Evaluation + Plan note Future Appointments Appointment Date:08/07/2022 10:30:00 AM Scheduled Provider:ANALY MONDRAGON DO Location:[facility] Appointment Type:PC OV Appointment Date:08/28/2022 01:30:00 PM Scheduled Provider:POPPY BURNS Location:[facility] PM Appointment Type:PM OV Future Scheduled Tests Radiology* XR Chest 2 Views (PA & Lateral) 12/10/21 [facility] CallMineraluation + Plan note Future Appointments Appointment Date:08/28/2022 01:30:00 PM Scheduled Provider:POPPY BURNS Location:[facility] PM Appointment Type:PM OV Appointment Date:02/05/2023 10:00:00 AM Scheduled Provider:ANALY MONDRAGON DO Location:[facility] Appointment Type:PC OV Future Scheduled Tests Radiology* XR Chest 2 Views (PA & Lateral) 12/10/21 [facility] CallMineraluation + Plan note Future Appointments Appointment Date:10/02/2022 12:15:00 PM Scheduled Provider:POPPY BURNS Location:[facility] PM Appointment Type:PM OV Appointment Date:02/05/2023 10:00:00 AM Scheduled Provider:ANALY MONDRAGON DO Location:[facility] Appointment Type:PC OV Future Scheduled Tests Radiology* XR Chest 2 Views (PA & Lateral) 12/10/21 [facility] CallMineraluation + Plan note Future Appointments Appointment Date:10/16/2022 11:45:00 AM Scheduled Provider:POPPY BURNS Location:[facility] PM Appointment Type:PM OV Appointment Date:02/05/2023 10:00:00 AM Scheduled Provider:ANALY MONDRAGON DO Location:[facility] Appointment Type:PC OV Future Scheduled Tests Radiology* XR Chest 2 Views (PA & Lateral) 12/10/21 [facility] Evaluation + Plan note Future Appointments Appointment Date:12/16/2022 09:30:00 AM Scheduled Provider:ANALY ANAYA MD Location:[facility] PM Appointment Type:PM OV Appointment Date:02/05/2023 10:00:00 AM Scheduled Provider:ANALY MONDRAGON DO Location:[facility] Appointment Type:PC OV Future Scheduled Tests Radiology* XR Chest 2 Views (PA & Lateral) 12/10/21 [facility] CallMineraluation + Plan note Future Appointments Appointment Date:12/24/2022 09:15:00 AM Scheduled Provider: Location:[facility] Appointment Type:PC Nurse Injection Appointment Date:01/15/2023 09:15:00 AM Scheduled Provider:POPPY BURNS Location:[facility] PM Appointment Type:PM OV Appointment Date:02/05/2023 10:00:00 AM Scheduled Provider:ANALY MONDRAGNO DO Location:[facility] Appointment Type:PC OV [facility] CallMineraluation + Plan note Future Appointments Appointment Date:02/05/2023 10:00:00 AM Scheduled Provider:ANALY MONDRAGON DO Location:[facility] Appointment Type:PC OV Appointment Date:02/12/2023 09:30:00 AM Scheduled Provider:POPPY BURNS Location:[facility] PM Appointment Type:PM OV [facility] Evaluation + Plan note Future Appointments Appointment Date:03/10/2023 02:15:00 PM Scheduled Provider:ANALY ANAYA MD Location:[facility] PM Appointment Type:PM OV Appointment Date:08/06/2023 10:30:00 AM Scheduled Provider:ANALY MONDRAGON DO Location:[facility] Appointment Type:PC OV [facility] Evaluation + Plan note Future Appointments Appointment Date:04/23/2023 10:00:00 AM Scheduled Provider:EZEKIEL BENITEZ MD Location:[facility] Appointment Type:[facility] NURSE Appointment Date:04/28/2023 09:00:00 AM Scheduled Provider:ANALY ANAYA MD Location:[facility] PM Appointment Type:PM OV Appointment Date:08/06/2023 10:30:00 AM Scheduled Provider:ANALY MONDRAGON DO Location:[facility] Appointment Type:PC OV [facility] Evaluation + Plan note Future Appointments Appointment Date:04/28/2023 09:00:00 AM Scheduled Provider:ANALY ANAYA MD Location:[facility] PM Appointment Type:PM OV Appointment Date:08/06/2023 10:30:00 AM Scheduled Provider:ANALY MONDRAGON DO Location:[facility] Appointment Type:PC OV [facility] Evaluation + Plan note Future Appointments Appointment Date:05/26/2023 10:45:00 AM Scheduled Provider:ANALY ANAYA MD Location:[facility] PM Appointment Type:PM OV Appointment Date:08/06/2023 10:30:00 AM Scheduled Provider:ANALY MONDRAGON DO Location:[facility] Appointment Type:PC OV [facility] Evaluation + Plan note Future Appointments Appointment Date:08/06/2023 10:30:00 AM Scheduled Provider:ANALY MONDRAGON DO Location:[facility] Appointment Type:PC OV [facility] Evaluation + Plan note Future Appointments Appointment [...] MRI Brain w/ + w/o Contrast 08/04/23 [facility] Evaluation + Plan note Future Appointments Appointment Date:08/06/2023 10:30:00 AM Scheduled Provider:ANALY MONDRAGON DO Location:[facility] Appointment Type:PC OV Appointment Date:08/20/2023 09:00:00 AM Scheduled Provider: Location:[facility] Appointment Type:MRI Brain w/ + w/o Contrast Appointment Date:08/25/2023 08:45:00 AM Scheduled Provider:EZEKIEL BENITEZ MD Location:[facility] Appointment Type:NS OV Future Scheduled Tests Radiology* MRI Brain w/ + w/o Contrast 08/20/23 [facility] Hospital course Narrative No data available for this section [facility] Hospital Discharge instructions No data available for this section [facility] Progress note No data available for this section [facility] Summary Purpose Family History No Family History [...] DATE CREATED AUTHOR AUTHOR'S ORGANIZ ATION 11/30/2018 [facility] DATE CREATED AUTHOR AUTHOR'S ORGANIZ ATION 08/23/2023 [facility] ([place]) Care Team (unrecognized sect ion and content) Personnel Name: ANALY MONDRAGON DO Address: [address] [place] [address] Personnel Name: ANALY MONDRAGON DO Address: [address] [place] [address] Personnel Name: ANALY MONDRAGON DO Address: [address] [place] [address] Personnel Name: ANALY MONDRAGON DO Address: [address] [place] [address] Care Team Personnel Name: POPPY BURNS APRN-GIS MAPPING TECHNICIAN Position: P4 Advanced Rotary Driller Helper Member Role: Pain Management Address: Address: [address] [place] [address] Name: TOM LANIER MD Member Role: Pain Management Address: Address: [address] [place] [address] [address] [facility] Pain [address] Name: ANALY MONDRAGON DO Position: P4 Physician - Primary Care Member Role: Primary Care Physician Address: Address: [address] [place] [address] Care Team Related Persons Name: CRISTÓBAL PALAFOX Name: KEN DENVER Care Team Personnel Name: POPPY BURNS APRN-GIS MAPPING TECHNICIAN Position: P4 Advanced Rotary Driller Helper Member Role: Pain Management Address: Address: [address] [place] [address] Name: TOM LANIER MD Member Role: Pain Management Address: Address: [address] [place] [address] Name: ANALY MONDRAGON DO Position: P4 Physician - Primary Care Member Role: Primary Care Physician Address: Address: [address] [place] [address] Care Team Related Persons Name: CRISTÓBAL PALAFOX Name: KEN DENVER Care Team Personnel Name: POPPY BURNS APRN-GIS MAPPING TECHNICIAN Position: P4 Advanced Rotary Driller Helper Member Role: Pain Management Address: Address: [address] [place] [address] [place] [address]- Name: TOM LANIER MD Member Role: Pain Management Address: Address: [address] [place] [address] [address] [place] [address]- Name: ANALY MONDRAGON DO Position: P4 Physician - Primary Care Member Role: Primary Care Physician Address: Address: [address] [place] [address] Care Team Related Persons Name: CRISTÓBAL PALAFOX Name: KEN DENVER Care Team Personnel Name: POPPY BURNS APRN-GIS MAPPING TECHNICIAN Position: P4 Advanced Rotary Driller Helper Member Role: Pain Management Address: Address: [address] [place] [address] [address] [facility] [place] [address]- Name: TOM LANIER MD Member Role: Pain Management Address: Address: [address] [place] [address] [address] [place] [address]- Name: ANALY MONDRAGON DO Position: P4 Physician - Primary Care Member Role: Primary Care Physician Address: Address: [address] [place] [address]- Care Team Related Persons Name: CRISTÓBAL PALAFOX Name: DENVER PALAFOX Care Team Personnel Name: POPPY BURNS APRN-GIS MAPPING TECHNICIAN Position: P4 Advanced Rotary Driller Helper Member Role: Pain Management Address: Address: [address] [place] [address] [address] [facility] [place] [address]- Name: TOM LANIER MD Member Role: Pain Management Address: Address: [address] [place] [address] [address] Name: ANALY MONDRAGON DO Position: P4 Physician - Primary Care Member Role: Primary Care Physician Address: Address: [address] [place] [address]- Care Team Related Persons Name: CRISTÓBAL PALAFOX Name: DENVER PALAFOX Care Team Personnel Name: POPPY BURNS APRN-GIS MAPPING TECHNICIAN Position: P4 Advanced Rotary Driller Helper Member Role: Pain Management Address: Address: [address] [place] [address] [address] [place] [address]- Name: TOM LANIER MD Member Role: Pain Management Address: Address: [address] [place] [address] [address] [place] [address]- Name: ANALY MONDRAGON DO Position: P4 Physician - Primary Care Member Role: Primary Care Physician Address: Address: [address] [place] [address]- Care Team Related Persons Name: CRISTÓBAL PALAFOX Name: DENVER PALAFOX Care Team Personnel Name: POPPY BURNS APRN-GIS MAPPING TECHNICIAN Position: P4 Advanced Rotary Driller Helper Member Role: Pain Management Address: Address: [address] [place] [address] [address] [facility] [place] [address]- Name: TOM LANIER MD Member Role: Pain Management Address: Address: [address] [place] [address] [address] [place] [id number]- Name: ANALY MONDRAGON DO Position: P4 Physician - Primary Care Member Role: Primary Care Physician Address: Address: [address] [place] [id number] [place] [address] Care Team Related Persons Name: CRISTÓBAL PALAFOX Name: DENVER PALAFOX Care Team Personnel Name: POPPY BURNS APRN-GIS MAPPING TECHNICIAN Position: P4 Advanced Rotary Driller Helper Member Role: Pain Management Address: Address: [address] [place] [address] [address] [facility] [place] [address]- [place] Name: Chana Pike RN Position: Bed Management Member Role: Other Name: EZEKIEL BENITEZ MD Position: P4 Physician - Neurosurgery Member Role: Neurosurgeon Address: Address: [address] [place] [address]- Name: TOM LANIER MD Member Role: Pain Management Address: Address: [address] [place] [address] [address] [place] [id number]- [place] Name: ANALY MONDRAGON DO Position: P4 Physician - Primary Care Member Role: Primary Care Physician Address: Address: [address] [place] [address]- Care Team Related Persons Name: CRISTÓBAL PALAFOX Name: DENVER PALAFOX Care Team Personnel Name: POPPY BURNS APRN-GIS MAPPING TECHNICIAN Position: P4 Advanced Rotary Driller Helper Member Role: Pain Management Address: Address: [address] [place] [address] [address] [facility] [place] [address]- [place] Name: Chana Pike RN Position: Bed Management Member Role: Other Name: EZEKIEL BENITEZ MD Position: P4 Physician - Neurosurgery Member Role: Neurosurgeon Address: Address: [address] [place] [address] [address] [facility] [place] [phone]- [place] Name: TOM LANIER MD Member Role: Pain Management Address: Address: [address] [place] [address] [address] [place] [id number]- Name: ANALY MONDRAGON DO Position: P4 Physician - Primary Care Member Role: Primary Care Physician Address: Address: [address] [place] [address]- Name: BROWN WETZEL MD Position: ED Physician Member Role: Attending Physician Address: Address: [address] [place] [address]- [place] Care Team Related Persons Name: CRISTÓBAL PALAFOX Name: DENVER PALAFOX Care Team Personnel Name: POPPY BURNS APRN-GIS MAPPING TECHNICIAN Position: P4 Advanced Rotary Driller Helper Member Role: Pain Management Address: Address: [address] [place] [address] [place] [address]- [place] Name: Chana Pike RN Position: Bed Management Member Role: Other Name: Cody Montes Nurse Position: Bed Management Member Role: Other Name: EZEKIEL BENITEZ MD Position: P4 Physician - Neurosurgery Member Role: Neurosurgeon Address: Address: [address] [place] [address]- Name: TOM LANIER MD Member Role: Pain Management Address: Address: [address] [place] [address] [address] Name: ANALY MONDRAGON DO Position: P4 Physician - Primary Care Member Role: Primary Care Physician Address: Address: [address] [place] [address]- Care Team Related Persons Name: CRISTÓBAL PALAFOX Name: DENVER PALAFOX Care Team Personnel Name: POPPY BURNS APRN-GIS MAPPING TECHNICIAN Position: P4 Advanced Rotary Driller Helper Member Role: Pain Management Address: Address: [address] [place] [address] [place] [address]- [place] Name: Chana Pike RN Position: Bed Management Member Role: Other Name: Cody Montes Nurse Position: Bed Management Member Role: Other Name: EZEKIEL BENITEZ MD Position: P4 Physician - Neurosurgery Member Role: Neurosurgeon Address: Address: [address] [place] [address] [address] [place] [phone]- [place] Name: TOM LANIER MD Member Role: Pain Management Address: Address: [address] [place] [address] [address] [place] [address]- Name: ANALY MONDRAGON DO Position: P4 Physician - Primary Care Member Role: Primary Care Physician Address: Address: [address] [place] [address]- Name: DONATO LOMAS MD Position: AH ED Physician Member Role: ED Physician Address: Address: [facility] [address] [place] [address]- [place] Name: Betsy Givens MEDICAL SCIENTIFIC LIAISON-GIS MAPPING TECHNICIAN Position: AO RN Member Role: RN Care Team Related Persons Name: CRISTÓBAL PALAFOX Name: DENVER PALAFOX Care Team Personnel Name: POPPY BURNS MEDICAL SCIENTIFIC LIAISON-GIS MAPPING TECHNICIAN Position: P4 Advanced Rotary Driller Helper Member Role: Pain Management Address: Address: [address] [place] [address] [address] [facility] [place] [address]- Name: Chana Pike RN Position: Bed Management Member Role: Other Name: Cody Montes Nurse Position: Bed Management Member Role: Other Name: EZEKIEL BENITEZ MD Position: P4 Physician - Neurosurgery Member Role: Neurosurgeon Address: Address: [address] [place] [address] [address] [place] [address]- [place] Name: TOM LANIER MD Member Role: Pain Management Address: Address: [address] [place] [address] [address] [place] [address]- Name: ANALY MONDRAGON DO Position: P4 Physician - Primary Care Member Role: Primary Care Physician Address: Address: [address] [place] [address]- Care Team Related Persons Name: CRISTÓBAL PALAFOX Name: DENVER PALAFOX Care Team (unrecognized sect ion and content) Care Team Personnel Name: POPPY BURNS APRN-GIS MAPPING TECHNICIAN Position: P4 Advanced Practice Nurse Med Service: Active Provider Member Role: Pain Management Address: Address: [address] [place] [address] [address] [facility] [place] [address]- Name: TOM LANIER MD Position: P4 Physician - General Surgery Med Service: [facility] Pain Management Member Role: Pain Management Address: Address: [address] [place] [address] [address] [facility] [place] [address]- Name: ANALY MONDRAGON DO Position: P4 Physician - Primary Care Med Service: Active Provider Member Role: Primary Care Physician Address: Address: [address] [place] [address]- Care Team Related Persons Name: DENVER PALAFOX Care Team Personnel Name: POPPY BURNS APRN-GIS MAPPING TECHNICIAN Position: P4 Advanced Practice Nurse Med Service: Active Provider Member Role: Pain Management Address: Address: [address] [place] [address] [address] [place] [address]- Name: TOM LANIER MD Position: P4 Physician - General Surgery Med Service: [facility] Pain Management Member Role: Pain Management Address: Address: [address] [place] [address] [address] [facility] Pain [address] Name: ANALY MONDRAGON DO Position: P4 Physician - Primary Care Med Service: Active Provider Member Role: Primary Care Physician Address: Address: [address] [place] [address] Care Team Related Persons Name: DENVER PALAFOX Care Team Personnel Name: POPPY BURNS APRN-GIS MAPPING TECHNICIAN Position: P4 Advanced Practice Nurse Address: Address: [address] [place] [address] [address] [place] [place] [address]- Name: TOM LANIER MD Position: P4 Physician - General Surgery Address: Address: [address] [place] [address] [address] [place] [place] [address]- Name: ANALY MONDRAGON DO Position: P4 Physician - Primary Care Member Role: Primary Care Physician Address: Address: [address] [place] [address]- Care Team Related Persons Name: DENVER PALAFOX Care Team Personnel Name: POPPY BURNS APRN-GIS MAPPING TECHNICIAN Position: P4 Advanced Practice Nurse Address: Address: [address] [place] [address] [address] [place] [place] [address]- Name: TOM LANIER MD Position: P4 Physician - General Surgery Address: Address: [address] [place] [address] [address] [facility] Pain Management [place] [phone]- [place] Name: ANALY MONDRAGON DO Position: P4 Physician - Primary Care Member Role: Primary Care Physician Address: Address: [address] [place] [address]- Name: SONG Harvey Position: ED RN Member Role: ED RN Name: Artur Esquivel RN Position: AO RN Member Role: RN Name: ARTUR GARCIAS DO Position: ED Physician Member Role: ED Physician Address: Address: [facility] [address] [place], [place] [phone]- [place] Care Team Related Persons Name: DENVER PALAFOX Care Team Personnel Name: POPPY BURNSGIS MAPPING TECHNICIAN Position: P4 Advanced Practice Nurse Address: Address: [address] [place] [address] [place] [address]- Name: TOM LANIER MD Position: P4 Physician - General Surgery Address: Address: [address] [place] [address] [place], [place] [id number] [place] [address] Name: ANALY MONDRAGON DO Position: P4 Physician - Primary Care Member Role: Primary Care Physician Address: Address: [address] [place] [address]- Care Team Related Persons Name: DENVER PALAFOX Care Team Personnel Name: POPPY BURNS APRN-GIS MAPPING TECHNICIAN Position: P4 Advanced Practice Nurse Med Service: Active Provider Member Role: Pain Management Address: Address: [address] [place] [address] [place] [address]- Name: TOM LANIER MD Position: P4 Physician - General Surgery Med Service: [facility] Pain Management Member Role: Pain Management Address: Address: [address] [place] [address] [place] [address]- Name: ANALY MONDRAGON DO Position: P4 Physician - Primary Care Med Service: Active Provider Member Role: Primary Care Physician Address: Address: [address] [place] [address]- Care Team Related Persons Name: DENVER PALAFOX Care Team Personnel Name: POPPY BURNS APRN-GIS MAPPING TECHNICIAN Position: P4 Advanced Practice Nurse Med Service: Active Provider Member Role: Pain Management Address: Address: [address] [place] [address] [place] [address]- Name: TOM LANIER MD Position: P4 Physician - General Surgery Med Service: [facility] Pain Management Member Role: Pain Management Address: Address: [address] [place] [address] [address] [place] [address]- Name: ANALY MONDRAGON DO Position: P4 Physician - Primary Care Med Service: Active Provider Member Role: Primary Care Physician Address: Address: [address] [place] [address] Care Team Related Persons Name: DENVER PALAFOX Care Team Personnel Name: POPPY BURNS APRN-GIS MAPPING TECHNICIAN Position: P4 Advanced Practice Nurse Member Role: Pain Management Address: Address: [address] [place] [address] [address] [place] [address]- Name: TOM LANIER MD Position: P4 Physician - General Surgery Member Role: Pain Management Address: Address: [address] [place] [address] [address] [place] [address]- Name: ANALY MONDRAGON DO Position: P4 Physician - Primary Care Member Role: Primary Care Physician Address: Address: [address] [place] [id number]- Care Team Related Persons Name: DENVER PALAFOX Care Team Personnel Name: POPPY BURNS APRN-GIS MAPPING TECHNICIAN Position: P4 Advanced Practice Nurse Member Role: Pain Management Address: Address: [address] [place] [address] [address] [place] [address]- Name: TOM LANIER MD Member Role: Pain Management Address: Address: [address] [place] [address] [address] [place] [address]- Name: ANALY MONDRAGON DO Position: P4 Physician - Primary Care Member Role: Primary Care Physician Address: Address: [address] [place] [id number]- Care Team Related Persons Name: DENVER PALAFOX Care Team Personnel Name: POPPY BURNS APRN-GIS MAPPING TECHNICIAN Position: P4 Advanced Practice Nurse Member Role: Pain Management Address: Address: [address] [place] [address] [address] [facility] [place] [address]- [place] Name: TOM LANIER MD Member Role: Pain Management Address: Address: [address] [place] [address] [address] [facility] [place] Name: ANALY MONDRAGON DO Position: P4 Physician - Primary Care Member Role: Primary Care Physician Address: Address: [address] [place] [address] Care Team Related Persons Name: DENVER PALAFOX Care Team Personnel Name: POPPY BURNS EMPERATRIZ-GIS MAPPING TECHNICIAN Position: P4 Advanced Practice Nurse Member Role: Pain Management Address: Address: [address] [place] [address] Pain Management [address] Name: TOM LANIER MD Member Role: Pain Management Address: Address: [address] [place] [address] Pain Management [address] Name: ANALY MONDRAGON DO Position: P4 Physician - Primary Care Member Role: Primary Care Physician Address: Address: [address] [place] [address] Care Team Related Persons Name: CRISTÓBAL PALAFOX [...] BE BASED ON THE PRIMARY CLINICAL RECORDS. [facility] [employer] [facility]. provides no warranty or guarantee of the accuracy or completeness of information in this document.
[2023-08-25 23:05] LABS: Xtra Tube EP Lab EXTRA TUBE
== END | disposition home or self-care (01) ==
LOC: LAB 15:01
PROVIDERS: PCP Preventive Medicine Occupational Medicine; Referring Provider Internal Medicine Medical Oncology; Visit Provider Internal Medicine Medical Oncology
DX: C34.11 Malignant neoplasm of upper lobe, right bronchus or lung (principal)
CPT/HCPCS: 80053; 83615; 85025

== ENCOUNTER → 2024-02-12 | Outpatient (CLI) | payer MEDICARE, OTHER, SELFPAY ==
--- NOTE | 2024-02-12 08:18 | CT_ITS ---
STUDY: CT CHEST WITHOUT CONTRAST REASON FOR EXAM: Female, 68 years old. MONITOR LUNG CANCER RADIATION DOSAGE (If Supplied By Facility): CTDIvol = ( 6.05 ) mGy, DLP = ( 197.99 ) mGycm TECHNIQUE: Transaxial imaging was performed without the administration of intravenous contrast material. Multiplanar coronal and sagittal images were reformatted. Individualized dose optimization techniques were used for this CT. COMPARISON: Comparison is made with prior study dated August 19, 2023. FINDINGS: CHEST Hyperinflation. Emphysematous changes. Postsurgical changes are seen in the right upper lobe with mild loss and scarring. Stable mild scarring at the lung bases. There is no demonstrated pleural abnormality. There are calcifications of the coronary arteries. Normal mediastinum. Normal hilar regions. Normal unenhanced pulmonary arteries. There is atherosclerotic calcification of the aortic arch. There are degenerative changes of the thoracic spine. There is no demonstrated abnormality of the visualized upper abdomen. CT/Chest without Contrast IMPRESSION: Stable examination. Electronically Signed: Perfecto Isbell MD at 16:37 EDT ,
== END | disposition home or self-care (01) ==
LOC: CT 08:14
PROVIDERS: PCP Preventive Medicine Occupational Medicine; Referring Provider Internal Medicine Medical Oncology; Visit Provider Internal Medicine Medical Oncology
DX: C34.11 Malignant neoplasm of upper lobe, right bronchus or lung (principal)
CPT/HCPCS: 71250

== ENCOUNTER → 2024-04-08 | Outpatient (CLI) | payer MEDICARE, OTHER, SELFPAY ==
--- NOTE | 2024-04-08 12:50 | BI_ITS ---
MAMMOGRAPHY - BILATERAL SCREENING REASON FOR EXAM: Female, 68 years old. Routine annual screening examination. PERTINENT HISTORY: Non-contributory. TECHNIQUE: Digital bilateral breast manisha (3D mammographic acquisition) in the CC and MLO projections. 2-D mediolateral oblique (MLO) and craniocaudad (CC) views of both breasts were obtained. CAD: Full Field Digital Mammography with Computer Added Detection was performed. COMPARISON: Comparison is made with prior study dated August 15, 2022 and September 13, 2020. FINDINGS: Breast Composition: The breasts are extremely dense, which lowers the sensitivity of mammography. There are no dominant masses or suspicious calcifications. Stable scattered bilateral calcifications. No other significant abnormalities are identified. There has been no significant change since the prior study. BI/SCRN MAMM (CAD)W/MANISHA BILAT IMPRESSION: Stable bilateral screening mammogram. Yearly follow-up mammogram recommended. (A) ASSESSMENT CATEGORY: BIRADS Category 1: Negative. A letter regarding these results will be sent to the patient by the facility within 30 days. Approximately 10% of breast cancers are not detected by mammography. A normal mammogram should not delay biopsy of a clinically suspicious abnormality. [id number] Electronically Signed: Perfecto Isbell MD at 14:07 EDT ,
--- NOTE | 2024-04-08 12:57 | BD_ITS ---
STUDY: DUAL ENERGY X-RAY ABSORPTIOMETRY / DXA REASON FOR EXAM: Female, 68 years old. M810 TECHNIQUE: Bone Mineral Density (BMD) measurements of left forearm and bilateral hips were obtained. COMPARISON: Comparison is made with prior study dated June 28, 2014. FINDINGS: Left Femur Total: g/cm2 (0.682) / T-score (-2.1) / Z-score (-0.6) Left Femoral Neck: g/cm2 (0.640) / T-score (-1.9) / Z-score (0.0) Right Femur Total: g/cm2 (0.754) / T-score (-1.5) / Z-score (0.0) Right Femoral Neck: g/cm2 (0.728) / T-score (-1.1) / Z-score (0.8) Left Forearm: g/cm2 (0.398) / T-score (-3.4) / Z-score (-1.3) The T-Scores on the most recent prior examination were: Left Femur Total: which represents a worsening of 9%. Right Femur Total: which represents a worsening of 0.2%. BD/Dexa Bone Density Study IMPRESSION: The patient is considered osteoporotic as outlined below according to World Pernell Organization (WHO) criteria with a high fracture risk. There has been worsening of bone density since the previous examination. Reference Information: The T-score is the number of standard deviations above or below the standard which is normal for young adults at their peak bone mineral density. The World Health Organization (WHO) interprets the T-scores as follows: Above -1 Normal bone density Between -1 and -2.5 Osteopenia Equal to / or below -2.5 Osteoporosis As a practical clinical guideline, osteopenia may be graded as follows: Mild -1 through -1.5 Moderate -1.6 through -2.0 Severe -2.1 through -2.4 The Z-score is the number of standard deviations above or below age-matched controls. A Z-score of less than -1.5 would be considered abnormal. References: 1. NIH Osteoporosis and Related Bone Diseases www osteo.org 2. International Society for Clinical Densitometry www iscd.org 3. National Osteoporosis Foundation www nof.org Electronically Signed: Perfecto Isbell MD at 14:55 EDT ,
== END | disposition home or self-care (01) ==
LOC: OPBD 12:49
PROVIDERS: PCP Preventive Medicine Occupational Medicine; Referring Provider Preventive Medicine Occupational Medicine; Visit Provider Preventive Medicine Occupational Medicine
DX: Z12.31 Encounter for screening mammogram for malignant neoplasm of breast (principal); M81.0 Age-related osteoporosis without current pathological fracture
CPT/HCPCS: 77063; 77067; 77080

== ENCOUNTER → 2024-08-25 | Outpatient (CLI) | payer MEDICARE, OTHER, SELFPAY ==
[2024-08-31 11:07] LABS: HPV APTIMA, High Risk Negative (Negative)
== END | disposition home or self-care (01) ==
LOC: LABSPEC 14:13
PROVIDERS: PCP Preventive Medicine Occupational Medicine; Referring Provider Nurse Practitioner Family; Visit Provider Nurse Practitioner Family
DX: Z12.4 Encounter for screening for malignant neoplasm of cervix (principal); N89.8 Other specified noninflammatory disorders of vagina
CPT/HCPCS: 87070; 87205; 87624; 88175; G0145

== ENCOUNTER → 2025-02-10 | Outpatient (CLI) | payer MEDICARE, OTHER, SELFPAY ==
--- NOTE | 2025-02-10 13:34 | CT_ITS ---
PROCEDURE: CT CHEST AND ABD W/ CONTRAST 02/10/2025 REASON FOR EXAM: LUNG CANCER-IV ONLY TECHNIQUE: Chest and abdomen CT with intravenous contrast. Coronal and Sagittal reconstruction series were provided. One or more dose reduction techniques were used (e.g., Automated exposure control, adjustment of the mA and/or kV according to patient size, use of iterative reconstruction technique. PATIENT PREPARATION: Per protocol ORAL CONTRAST TYPE: None. CONTRAST: Isovue-300 VOLUME: 100mL RADIATION DOSE SUMMARY: CTDlvol: 8.3 mGy DLP: 302.74 mGycm COMPARISON: Prior CT scan of the chest dated February 12, 2024. FINDINGS: CT CHEST: Hardware: None Lymph nodes: No significant lymph nodes are seen Heart and Vasculature: Coronary artery calcification. Atherosclerotic calcifications of the thoracic aorta. Pulmonary arteries are unremarkable. Lungs and Airways: Mild emphysematous changes are present. Once again, postsurgical changes are seen in the right upper lobe with mild volume loss and scarring. Stable mild scarring at the lung bases. Pleura: No pleural effusion. CT ABDOMEN: Liver: Normal size. No mass. Gallbladder: Gallbladder is contracted Spleen: Normal size. Pancreas: Normal size without evidence of mass surrounding inflammation or ductal dilation. Adrenals: Unremarkable Kidneys: Unremarkable Bowel: Unremarkable Lymph nodes: Unremarkable. Vasculature: Mild diffuse atherosclerotic calcifications are noted. Peritoneum / Retroperitoneum: Unremarkable Bones: Unremarkable. CT/CT Chest AND Abd W/ Contrast IMPRESSION: Coronary artery calcification (CAC) is is present Stable examination. Reading Location: [id number]
== END | disposition home or self-care (01) ==
LOC: CT 13:14
PROVIDERS: PCP Student in an Organized Health Care Education/Training Program; Referring Provider Internal Medicine Medical Oncology; Visit Provider Internal Medicine Medical Oncology
DX: C34.11 Malignant neoplasm of upper lobe, right bronchus or lung (principal)
CPT/HCPCS: 71260; 74160; Q9967

== ENCOUNTER 2025-05-27 21:39 | Emergency (ER) | payer MEDICARE, OTHER, SELFPAY ==
[2025-05-27 21:39] VITALS: BP 170/94; PULSE 81; RESP 16; TEMP 36.5; O2SAT 98
[2025-05-27 21:42] VITALS: BMI 18.7
--- NOTE | 2025-05-27 21:56 | CT_ITS ---
PROCEDURE: BRAIN/HEAD WITHOUT CONTRAST 05/27/2025 REASON FOR EXAM: HEADACHE HX OF INTRACRANIAL HEM. TECHNIQUE: Procedure Code: CTBR Modality: CT Procedure: BRAIN/HEAD WITHOUT CONTRAST Coronal and Sagittal reconstruction series were provided. One or more dose reduction techniques were used (e.g., Automated exposure control, adjustment of the mA and/or kV according to patient size, use of iterative reconstruction technique. FINDINGS: Focal encephalomalacia is noted in the right frontal lobe compatible with an old infarction. The remainder of the brain parenchyma appears unremarkable. No acute intracranial hemorrhage. No midline shift. No extra-axial fluid collection. The visualized paranasal sinuses and mastoid air cells are clear. No fracture. The calvarium is intact. CT/Brain/Head without Contrast IMPRESSION: No acute intracranial CT abnormality. 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 Reading Location: [id number]
--- NOTE | 2025-05-27 22:05 | EX.ED.DYSGE1 ---
HPI History of Present Illness Chief Complaint: Headache Narrative Narrative: Patient is a 69-year-old female with a history of CVA/Intracrainal hemorrhage and lung cancer presenting with a severe headache. Patient is accompanied by her daughter who is supplementing history. - Onset 2 hours ago while at a football game. - Describes headache as 10/10 in severity, similar to a previous headache associated with a brain bleed and CVA 2 years ago. - Denies recent trauma or head injury. - Denies changes in vision, diplopia, chest pain, dyspnea, nausea, emesis, diarrhea, or dysuria. 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 - Current medications include gabapentin and tramadol for pain. - Denies use of anticoagulants or antihypertensive medications. PFSH PFS Medical History Stroke Osteoarthritis IBS (irritable bowel syndrome) Back problem Arthritis Sebaceous cyst Mass of subcutaneous tissue of back Lumbar radiculopathy Hx of sleep apnea Adenocarcinoma of right lung Abnormal finding on ultrasound Home Medications ?Medication ?Instructions ?Recorded ?Last Taken ?Type calcium gluconate 500 mg tablet 500 mg PO BID 07/10/21 Unknown History cyanocobalamin (vitamin B-12) 50 50 mcg PO DAILY 07/10/21 Unknown History mcg tablet escitalopram oxalate 10 mg tablet 10 mg PO DAILY 07/10/21 Unknown History gabapentin 600 mg tablet 600 mg PO DAILY 07/10/21 Unknown History multivitamin 1 tab PO DAILY 07/10/21 Unknown History tramadol 50 mg tablet 50 mg PO BID PRN 08/25/24 Unknown History Allergy/AdvReac Type Severity Reaction Status Date / Time povidone-iodine Allergy Rash Verified 05/27/25 21:39 Family History Mother Glaucoma Hypertension Sister Leukemia Father Malignant lung neoplasm Surgical History H/O elbow surgery H/O wisdom tooth extraction H/O dilation and curettage Hx of colonoscopy H/O spinal fusion History of lung biopsy History of lobectomy of lung Social History Smoking Status: Former smoker quit date: 08/18/13 alcohol intake: current alcohol intake frequency: a few times a week substance use type: does not use what type of physical activity do you participate in: walking ROS ROS ED ROS Narrative Head: (+) headache Eyes: (-) vision changes, (-) diplopia Cardiovascular: (+) right-sided chest pain Gastrointestinal: (-) nausea, (-) vomiting, (-) diarrhea Genitourinary: (-) dysuria EXAM Physical Exam Narrative Exam Narrative: General: Patient is lying in bed rest comfortably did not appear to be in acute distress Head: Atraumatic, normocephalic Eyes: PERRL bilaterally, EOMI bilaterally, no conjunctival injection noted Neck: Soft, supple, trachea midline Cardiovascular: Regular rate and rhythm no murmurs gallops rubs noted Respiratory: Clear to auscultation bilaterally Extremities: +5/5 strength noted in the bilateral upper and lower extremities, radial pulses +2/4 in the bilateral extremities, no pedal edema on exam Neurological: Patient is following commands knew that she was at [facility] year is 2024 NIH of 0 GCS 15 Skin: Warm, dry, intact no rashes or lesions noted Const Vital Signs: 05/27/25 21:39 05/27/25 23:28 Temperature 97.7 F L Temperature Source Oral Pulse Rate 81 64 Respiratory Rate 16 16 Blood Pressure 170/94 H 115/68 Blood Pressure Mean 119 83 Pulse Ox 98 98 Oxygen Delivery Method Room Air Room Air MDM MDM MDM Narrative Medical decision making narrative: Assessment: The patient is a 69-year-old female with PMH of prior right frontal lobe stroke and remote lung cancer resection presenting for acute severe headache beginning two hours prior to arrival. Differential diagnoses discussed include intracranial hemorrhage, migraine headache, tension headache, cluster headache, and hypertensive emergency. Plan: - Administered IV fluids. - Administered IV Reglan. - Administered 1 g acetaminophen. - Discussed results and home blood pressure monitoring with patient and family; instructed to record BP 2?3 times daily and follow up with PCP. - Discharged home in stable condition with return precautions; patient and family agree with plan. Diagnostics: - CT head/brain without contrast: no acute intracranial abnormalities; old right frontal lobe infarction. Independently interpreted by me, Paul Jasso. Reevaluations: - 23:38: Patient reports marked symptom improvement; BP 115/68. She is advised to return if her symptoms worsen or if any other concerns arise. She and her family members at the bedside agree with this plan, and all questions and concerns were addressed. She was discharged home in stable condition. Radiography Diagnostic Testing: Clinical Impression(s) from Imaging Studies Brain CT 05/27/25 21:56 IMPRESSION: No acute intracranial CT abnormality. 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 Reading Location: [facility] Discharge Plan Triage Chief Complaint: Headache ED Provider: Paul Jasso Dx/Rx/DC Orders Clinical Impression: Hypertension, Headache, History of intracranial hemorrhage Prescriptions: No Action calcium gluconate 500 mg tablet 500 mg PO BID cyanocobalamin (vitamin B-12) 50 mcg tablet 50 mcg PO DAILY escitalopram oxalate 10 mg tablet 10 mg PO DAILY gabapentin 600 mg tablet 600 mg PO DAILY multivitamin Tablet 1 tab PO DAILY tramadol 50 mg tablet 50 mg PO BID PRN Primary Care Provider: Sasha Sharma Referrals: Sasha Sharma, [Primary Care Provider, Family Practice] Activity Restrictions/Additional Instructions: Your CT of your head did not show any acute bleeding. Keep close eye on your blood pressure keep a blood pressure log by randomly take your blood pressure 2-3 times a day write this down and take it to your doctor further review. Return if worsening symptoms or any other concerns. Use Tylenol and ibuprofen [id number] for headache control when you do this you can take something every 3 hours for pain max dose Tylenol in 24 hours 4000 mg max dose of ibuprofen in 24 hours 3200 mg. Print Language: Wallisian Disposition Disposition: Home, Self Care
[2025-05-27] MEDS: 0.9% Normal Saline (1000mL) 1,000 ML 999 ML IV (22:17)
[2025-05-27 23:28] VITALS: BP 115/68; PULSE 64; RESP 16; O2SAT 98
[2025-05-27 23:51] VITALS: BP 121/69; PULSE 64; RESP 18; TEMP 36.8; O2SAT 96
== END 2025-05-27 23:58 | disposition home or self-care (01) ==
PROVIDERS: Emergency Provider Emergency Medicine; PCP Student in an Organized Health Care Education/Training Program; Visit Provider Emergency Medicine
DX: I10 Essential (primary) hypertension (principal); R51.9 Headache, unspecified; Z79.899 Other long term (current) drug therapy; Z87.891 Personal history of nicotine dependence; Z86.73 Personal history of transient ischemic attack (TIA), and cerebral infarction without residual deficits; Z85.118 Personal history of other malignant neoplasm of bronchus and lung
CPT/HCPCS: 70450; 96360; 99283